=== PATIENT | male | born 1945 | race Caucasian/White ===

== ENCOUNTER → 2018-02-23 08:48 | Outpatient (BNVA) | payer MEDICARE, SELFPAY, MEDICAID | PROVIDERS: PCP Family Medicine; Visit Provider Urology | DX: C67.9 Malignant neoplasm of bladder, unspecified (principal) | CPT/HCPCS: 52000; 99213 ==

== ENCOUNTER 2018-02-23 12:39 | Outpatient (REF) | payer MEDICARE, SELFPAY, MEDICAID ==
--- NOTE | 2018-02-23 09:20 | PAPNONF_PTH ---
PATIENT: Noah Izquierdo Sr LOC: [facility] U#:[id number] AGE/SX: 72/M ROOM: RE02/23/[address]: Rai Garcia MD : 1945 BED: DIS: 02/23/2018 SPEC #: [id number] RECD: 02/23/18 13:21 STATUS: CLIVE REQ #: [id number] ASHLEY: 02/23/18 09:[address]: Rai Garcia DEPT: [facility] Cytology RECD BY: Radha Warren ENTERED: 02/23/18 13:22 SP TYPE: MAKENZIE DONATO DR: Noah Banegas MD Tissues: 1 - BODY FLUID CYTO(SPUTUM/URINE)[facility] Procedures: BODY FLUID CYTO(URINE/SPUTUM) Comments: [id number]
== END 2018-02-23 12:59 ==
LOC: LBN 12:39
PROVIDERS: PCP Family Medicine; Visit Provider Urology
DX: R82.8 Abnormal findings on cytological and histological examination of urine (principal); Z85.51 Personal history of malignant neoplasm of bladder
CPT/HCPCS: 88104

== ENCOUNTER → 2018-08-24 09:12 | Outpatient (BNVA) | payer MEDICARE, SELFPAY | PROVIDERS: PCP Family Medicine; Visit Provider Urology | DX: C68.9 Malignant neoplasm of urinary organ, unspecified (principal); D09.0 Carcinoma in situ of bladder | CPT/HCPCS: 52000; 99213 ==

== ENCOUNTER 2018-08-24 12:27 | Outpatient (REF) | payer MEDICARE, SELFPAY ==
--- NOTE | 2018-08-24 09:30 | PAPNONF_PTH ---
PATIENT: Noah Izquierdo Sr LOC: [facility] U#:[id number] AGE/SX: 73/M ROOM: RE08/24/[address]: Rai Garcia MD : 1945 BED: DIS: 08/24/2018 SPEC #: [id number] RECD: 08/24/18 12:56 STATUS: CLIVE REBrendon #: [id number] ASHLEY: 08/24/18 09:[address]: Rai Garcia DEPT: [facility] Cytology RECD BY: Radha Warren ENTERED: 08/24/18 12:56 SP TYPE: MAKENZIE DONATO DR: Noah Banegas MD Tissues: 1 - BODY FLUID CYTO(SPUTUM/URINE)[facility] Procedures: BODY FLUID CYTO(URINE/SPUTUM) Comments: [id number] (TOTAL VOLUME = 30 ml's() (30 ml's URINE & 30 ml's CYTOLYT ADDED)
== END 2018-08-24 12:47 ==
LOC: LBN 12:27
PROVIDERS: PCP Family Medicine; Visit Provider Urology
DX: C67.9 Malignant neoplasm of bladder, unspecified (principal); R82.8 Abnormal findings on cytological and histological examination of urine
CPT/HCPCS: 88104

== ENCOUNTER → 2019-09-09 12:03 | Outpatient (BNVA) | payer MEDICARE, SELFPAY | PROVIDERS: PCP Family Medicine; Referring Provider Family Medicine; Visit Provider Urology | DX: R30.0 Dysuria (principal); Z85.51 Personal history of malignant neoplasm of bladder | CPT/HCPCS: 81003; 99212 ==

== ENCOUNTER 2019-09-09 14:57 | Outpatient (REF) | payer MEDICARE, SELFPAY | END 2019-09-09 15:17 | LOC: LBN 14:57 | PROVIDERS: PCP Family Medicine; Visit Provider Urology | DX: R30.0 Dysuria (principal) | CPT/HCPCS: 87086 ==

== ENCOUNTER → 2019-10-15 10:24 | Outpatient (BNVA) | payer MEDICARE, SELFPAY | PROVIDERS: PCP Family Medicine; Visit Provider Urology | DX: C68.9 Malignant neoplasm of urinary organ, unspecified (principal); D09.0 Carcinoma in situ of bladder | CPT/HCPCS: 52000; 81003; 99213 ==

== ENCOUNTER 2019-10-15 12:55 | Outpatient (REF) | payer MEDICARE, SELFPAY ==
--- NOTE | 2019-10-15 10:30 | PAPNONF_PTH ---
PATIENT: Noah Izquierdo Sr LOC: [facility] U#:[id number] AGE/SX: 74/M ROOM: RE10/15/[address]: Rai Garcia MD : 1945 BED: DIS: 10/15/2019 SPEC #: [id number] RECD: 10/15/19 12:59 STATUS: CLIVE REBrendon #: [id number] ASHLEY: 10/15/19 10:[address]: Rai Garcia [facility] Cytology RECD BY: Lan Kline ENTERED: 10/15/19 13:00 SP TYPE: MAKENZIE DONATO DR: Noah Banegas MD Tissues: 1 - BODY FLUID CYTO(SPUTUM/URINE)[facility] Procedures: BODY FLUID CYTO(URINE/SPUTUM) Comments: [id number] TV = 40mls urine
== END 2019-10-15 13:15 ==
LOC: LBN 12:55
PROVIDERS: PCP Family Medicine; Visit Provider Urology
DX: D09.0 Carcinoma in situ of bladder (principal); R82.89 Other abnormal findings on cytological and histological examination of urine
CPT/HCPCS: 88104

== ENCOUNTER 2019-10-25 09:15 | Outpatient (CLI) | payer MEDICARE, SELFPAY ==
[2019-10-26 21:06] LABS: COVID-19 RT-PCR UVMMC Result Negative (Negative)
== END 2019-10-25 09:35 ==
PROVIDERS: PCP Family Medicine; Visit Provider Urology
DX: Z03.818 Encounter for observation for suspected exposure to other biological agents ruled out (principal)
CPT/HCPCS: U0003

== ENCOUNTER 2019-10-28 09:14 | Day surgery (SDC) | payer MEDICARE, SELFPAY ==
[2019-10-28] VITALS (9 sets, daily range): BP systolic 94–142; BP diastolic 45–73; PULSE 57–68; RESP 13–20; TEMP 36.3–36.7; O2SAT 89–96
[2019-10-28] MEDS: Lactated Ringers 1,000 ML 80 ML IV (09:55)
--- NOTE | 2019-10-28 10:29 | W.PM.HP.N ---
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 On surveillance cystoscopy, he was found to have erythematous mucosa throughout the bladder. He continues to have urinary frequency and urgency as well as dysuria. He presents now for bladder biopsy and fulguration to rule out recurrence of his carcinoma in situ. Review of Systems Narrative: No fevers or chills No vision change or dysphasia No diabetes or thyroid No shortness of breath, cough or hemoptysis No chest pain or palpitations No nausea, vomiting, hepatitis, ulcers, jaundice, diarrhea or constipation No seizures, strokes or peripheral neuropathy No bleeding disorders or anemia No gout PFSH Medical History (Updated 10/28/19 @ 09:38 by Shira Lopez) Hx of nephrolithotomy with removal of calculi (Acute) pt. unsure of procedure, states they went up and pulled the stones out with a basket Kidney stones (Chronic) Parkinson disease (Chronic) Surgical History Colonoscopy - IV Sedation (12/28/12) H/O cystoscopy (Acute) History of back surgery (Acute) Social History Smoking/Tobacco Use Status: Former Tobacco Use Quit Date: 06/16/99 Alcohol Intake: never Drug use: Never Substance use type: does not use Do you feel safe at home: Yes Do you feel safe in your relationship?: Yes Meds Home Medications and Allergies Home Medications Medication Instructions Recorded Confirmed Type mirabegron 25 mg tablet,extended 25 mg PO DAILY #90 tab 09/28/19 10/28/19 Rx release 24 hr Allergies Allergy/AdvReac Type Severity Reaction Status Date / Time No Known Allergies Allergy Verified 10/28/19 09:35 Exam Narrative Exam Narrative: He is in no current distress. He is cooperative. His vital signs are documented elsewhere His chest wall motion is normal. His lungs are clear. Cardiac exam shows a regular rate and rhythm. Abdomen is soft with no masses He is awake and alert Results Last Vital Signs Temp 36.3 C L 10/28/19 09:38 Pulse 61 10/28/19 09:38 Resp 16 10/28/19 09:38 BP 123/71 10/28/19 09:38 Pulse Ox 96 10/28/19 09:38 COVID-19 Screening Traveled to [place] from one of the affected countries or regions?: NO
[2019-10-28] MEDS: Midazolam/Ketamine/Ondansetron (3/25/2MG) 1 TAB 1 EACH SL (10:50)
[2019-10-28] MEDS: ceFAZolin 1 GM/50 ML BAG IVPB (10:53)
--- NOTE | 2019-10-28 11:00 | BLADDER_PTH ---
PATIENT: Noah Izquierdo Sr LOC: [facility] U#:[id number] AGE/SX: 74/M ROOM: RE10/28/[address]: Rai Garcia MD : 1945 BED: DIS: 10/28/2019 SPEC #: [id number] RECD: 10/28/19 11:57 STATUS: CLIVE REQ #: [id number] ASHLEY: 10/28/19 11:[address]: Rai Garcia DEPT: Surgical Specimen RECD BY: Radha Warren ENTERED: 10/28/19 11:58 SP TYPE: Bladder OTHR DR: Noah Banegas MD Tissues: 1 - BLADDER BIOPSY Procedures: GROSS AND MICRO LEVEL 4 Comments: [id number]
[2019-10-28] MEDS: Lidocaine 2% Jelly 6 ML SYR (11:13)
--- NOTE | 2019-10-28 11:32 | W.PM.DSUDISC ---
Discharge Plan Disposition Patient Disposition: HOME Condition: Stable Discharge Details Attending Provider: Rai Garcia Primary Care Provider: Noah Banegas Home Meds and New Rx's Prescriptions: New phenazopyridine [Pyridium] 200 mg tablet 200 mg PO TID PRN (Reason: pain) Qty: 12 RF: 0 ketorolac 10 mg tablet 10 mg PO TID PRN (Reason: pain) Qty: 15 RF: 0 No Action Myrbetriq 25 mg tablet extended release 24 hr 25 mg PO DAILY Qty: 90 RF: 4 Discharge Instructions Additional Instructions: Followup 1 week for pathology results Stand Alone Forms: [facility] ([facility]) Activity:: no lifting over 10 pounds for 3 days Shower/Bathe:: 24 hours Diet:: As Tolerated Discharge Orders Discharge Orders: Discharge Order (Routine); Ordered 10/28/19 Ordered By: Rai Garcia DS: Diagnosis Discharge Diagnosis (1) 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
[2019-10-28] MEDS: fentaNYL 100 MCG/2 ML VIAL IVP (12:13)
[2019-10-28] MEDS: Phenazopyridine 200 MG TAB PO (12:45)
[2019-10-28] MEDS: traMADol 50 MG TAB PO (12:48)
[2019-10-28] MEDS: Ketorolac 15 MG/ML VIAL IVP (14:00)
[2019-10-28] MEDS: Normal Saline Flush 10 ML SYR IV ×2 (14:00→14:01)
--- NOTE | 2019-10-28 14:02 | ROE_ITS ---
Date of service: 10/28/19 Time of Service: 14:02 Operative Note Operative Note DATE OF PROCEDURE: 10/28/19 PRE-OP DIAGNOSIS: Bladder cancer POST-OP DIAGNOSIS: same PROCEDURE: Cystoscopy, transurethral biopsy of bladder, fulguration of bladder mucosa SURGEON: Rai Garcia ANESTHESIA: other (General) ESTIMATED BLOOD LOSS: 100 PATHOLOGY: other (bladder tissue) COMPLICATIONS: None Patient was transported to: PACU Patient's condition: stable Indications: This is a 74-year-old gentleman who has a history of bladder cancer and carcinoma in situ. He has been treated with transurethral resection as well as intravesical BCG treatments. Recently, he has been having urinary frequency and dysuria. On surveillance cystoscopy, he was found to have multiple erythematous patches throughout the bladder. I did not identify any papillary or nodular tumors, but the erythema was concerning for carcinoma in situ. His urine cytology was normal. He presents now for transurethral biopsy of the erythematous mucosa Findings: Diffuse erythema Procedure Description: The patient was brought to the operating room on 10/28/2019. After successful induction of general anesthesia he was placed in the dorsal lithotomy position. He was given a dose of preoperative IV antibiotics. 2% Xylocaine jelly was instilled into the urethra to act as a local anesthetic. A 24 Kinyarwanda resectoscope sheath was then passed through the urethra into the bladder We used the visual obturator and 30 degree lens to inspect the urethra and bladder. The pendulous, bulbous and membranous urethra was appeared normal with no strictures. The prostatic urethra did show some lateral lobe enlargement but no significant median lobe. The bladder neck was entered and the bladder mucosa was inspected. There were multiple erythematous patches along the posterior bladder wall and left lateral bladder wall. Likewise, there was some erythema up towards the dome. The left ureteral orifice appeared more gaping than the right presumably from his previous resection site. We then switched over to the PinkelStar resectoscope and took TUR biopsies of some of the erythematous areas. These biopsies were sent to pathology for permanent section. We then cauterized all the remaining erythematous mucosa using the coagulation current. At the completion of the procedure, the bladder was filled with irrigant. The resectoscope was removed. A 16 Kinyarwanda Fay catheter was then passed through the urethra into the bladder. The catheter balloon was inflated with 10 cc of sterile water and the catheter was hooked to gravity drainage. The patient tolerated this procedure well. We will likely remove the catheter before he is discharged later today.
== END 2019-10-28 15:05 | disposition home or self-care (01) ==
PROVIDERS: PCP Family Medicine; Visit Provider Urology
PROC: 0TBB8ZZ Excision of Bladder, Via Natural or Artificial Opening Endoscopic (ICD-10-PCS; CPT 52214; principal; 2019-10-28 11:00)
PROC: 0TJB8ZZ Inspection of Bladder, Via Natural or Artificial Opening Endoscopic (ICD-10-PCS; CPT 52000; 2019-10-28 11:00)
DX: R30.0 Dysuria (principal); R35.0 Frequency of micturition; N30.00 Acute cystitis without hematuria; N30.20 Other chronic cystitis without hematuria; Z85.51 Personal history of malignant neoplasm of bladder; Z86.008 Personal history of in-situ neoplasm of other site
CPT/HCPCS: 52214; 88305; NC; J0690; J1885; J3010

== ENCOUNTER → 2019-11-05 13:03 | Outpatient (BNVA) | payer MEDICARE, SELFPAY | PROVIDERS: PCP Family Medicine; Referring Provider Family Medicine; Visit Provider Urology | DX: N30.90 Cystitis, unspecified without hematuria (principal); G20 Parkinson's disease | CPT/HCPCS: 99213 ==

== ENCOUNTER → 2019-11-17 09:24 | Outpatient (BNVA) | payer MEDICARE, SELFPAY | PROVIDERS: PCP Family Medicine; Referring Provider Urology; Visit Provider Psychiatry & Neurology Neurology | DX: C67.9 Malignant neoplasm of bladder, unspecified; G20 Parkinson's disease | CPT/HCPCS: 99205; 99215 ==

== ENCOUNTER 2019-11-19 02:31 | Outpatient (CLI) | payer MEDICARE, SELFPAY ==
--- NOTE | 2019-11-19 07:15 | DI.MRI_ITS ---
EXAM: MR BRAIN WO/W CLINICAL HISTORY: bladder ca and new tremors,R25.1,C67.9. TECHNIQUE: Multiplanar multisequence MRI was performed. COMPARISON: No exams were available for comparison FINDINGS: MR examination of brain was performed according to the usual protocol with additional post contrast a xial and coronal T1 weighted imaging multi planar MP rage imaging. No enhancing lesion identified in the brain. There are scattered signal abnormalities periventricular white matter consistent with microvascular i schemic changes, sub insular signal changes also noted bilaterally consistent with microvascular isch emic changes. Diffusion-weighted imaging shows no evidence of acute or subacute infarct. Susceptibility weighted imaging shows no evidence of intracranial hemorrhage. There is normal flow void in the uftgst-ii-Yslbnf vasculature. Orbital and temporal bone structures appear intact as does the pituitary. IMPRESSION: Microvascular ischemic changes predominantly involving periventricular white matter as described damir lassiter. No evidence of intracranial metastatic disease. DATA REPOSITORY:
[2019-11-19 09:58] LABS: CREATININE 1.25 mg/dL (0.70-1.30); Estimated GFR 56.62 (mL/min/1.73m2)
[2019-11-19] MEDS: Normal Saline Flush 10 ML SYR IVP (10:08)
[2019-11-19] MEDS: Gadoterate meglumine 20 ML VIAL 14 ML IVP (10:09)
== END 2019-11-19 02:51 ==
PROVIDERS: PCP Family Medicine; Visit Provider Psychiatry & Neurology Neurology
DX: C67.9 Malignant neoplasm of bladder, unspecified (principal); R25.1 Tremor, unspecified; I67.82 Cerebral ischemia; R90.82 White matter disease, unspecified
CPT/HCPCS: 70553; 82565

== ENCOUNTER 2020-01-05 14:04 | Emergency (ER) | payer MEDICARE, SELFPAY ==
[2020-01-05 14:12] VITALS: BP 125/76; PULSE 70; RESP 18; TEMP 37; O2SAT 95
--- NOTE | 2020-01-05 14:15 | DI.RAD_ITS ---
EXAM: XR FINGER RT INDEX CLINICAL HISTORY: pain, struck by lawnmower. TECHNIQUE: 2D digital imaging was performed. COMPARISON: No exams were available for comparison FINDINGS: BONES: No acute fracture is present. No bony destructive lesion is seen. There is a tiny well cortic ated osseous fragment at the ulnar aspect of the DIP joint which appears old. JOINTS: No dislocation present. Degenerative changes are seen at the DIP joint. SOFT TISSUE: There is a laceration in the soft tissues posterior to the proximal phalanx of the index finger. No radiopaque foreign bodies. IMPRESSION: No evidence of acute fracture, dislocation, or subluxation. DATA REPOSITORY: RADIATION DOSE DELIVERED:
--- NOTE | 2020-01-05 14:18 | W.ED.GENAD ---
Discharge Plan Disposition Patient Disposition: HOME Condition: Improving Discharge Details Chief Complaint: Laceration Clinical Impression: Laceration of right index finger Primary Care Provider: Noah Banegas ED Provider: Fawad Horowitz Home Meds and New Rx's Prescriptions: New cephalexin 500 mg capsule 500 mg PO TID 3 Days Qty: 9 RF: 0 Continued amantadine HCl 100 mg tablet 100 mg PO DAILY Qty: 30 RF: 5 hydroxyzine HCl 25 mg tablet 25 mg PO TID PRN (Reason: itching) Qty: 60 RF: 3 Myrbetriq 50 mg tablet extended release 24 hr 50 mg PO DAILY Qty: 90 RF: 3 Discharge Instructions Instructions: Finger Laceration (ED) Additional Instructions: Return in 10 days time for removal of sutures. Return sooner if you develop a fever, foul-smelling discharge from the wound or any other acute concerns. Take antibiotics as prescribed. May leave current Band-Aid in place for 2 days, then may do daily soap and water gentle cleanse, pat dry and replace Band-Aid. Medical Decision Making 74-year-old male who went to clean his lawnmower when it splayed had not yet stopped spinning. He was struck on the dorsum of the right hand and suffered a laceration at the base of the right index finger on the dorsal surface. When examined in a bloodless field there appears to be some abrasion of the extensor tendon but it is intact. Tetanus was boosted/updated. Patient referred for x-ray which does not reveal underlying bony injury. The area was anesthetized, liberally irrigated, cleansed, examined in a bloodless field. No evidence of foreign body. Repaired with interrupted Prolene sutures with good wound apposition and dressed at the bedside. Given the inherently dirty/contaminated wound and will place him on 3 days of Keflex. He stable and improved, he will return for suture removal. HPI General Mode of arrival: ambulatory. Date/Time Provider Initiated Documentation: 01/05/20 14:06. Limitations to Documentation: no limitations. Information obtained by: patient. History of Present Illness 74 year old M presents to the emergency department with the chief complaint of Right finger laceration, described as moderate, Quality is described as dull and constant, and is localized to the right and upper extremity. Patient reports no radiation. Patient started experiencing this minute(s) and it has been constant. No exacerbating factors reported . Patient notes other (No other injury). Patient did receive the following treatments prior to arrival, other (Pressure dressing at home) Related Data Home Medications Medication Instructions Recorded Confirmed hydroxyzine HCl 25 mg tablet 25 mg PO TID PRN #60 tab 11/05/19 01/05/20 amantadine HCl 100 mg tablet 100 mg PO DAILY #30 tab 11/17/19 01/05/20 mirabegron 50 mg tablet,extended 50 mg PO DAILY #90 tab 11/17/19 01/05/20 release 24 hr cephalexin 500 mg PO TID 3 Days #9 cap 01/05/20 Previous Rx's Medication Instructions Recorded hydroxyzine HCl 25 mg tablet 25 mg PO TID PRN #60 tab 11/05/19 amantadine HCl 100 mg tablet 100 mg PO DAILY #30 tab 11/17/19 mirabegron 50 mg tablet,extended 50 mg PO DAILY #90 tab 11/17/19 release 24 hr cephalexin 500 mg PO TID 3 Days #9 cap 01/05/20 Allergies Allergy/AdvReac Type Severity Reaction Status Date / Time No Known Allergies Allergy Verified 01/05/20 14:19 Review of Systems Narrative: Denies other injury. Unsure of tetanus status [facility] Medical History Bilateral kidney stones (Acute 07/08/16) Cystitis (Acute) History of carcinoma in situ of bladder (Chronic) Hx of nephrolithotomy with removal of calculi (Acute) pt. unsure of procedure, states they went up and pulled the stones out with a basket Urothelial carcinoma of bladder (Chronic) Family History Other Cancer Social History Smoking/Tobacco Use Status: Former Tobacco Use Quit Date: 06/16/99 Alcohol Intake: never Drug use: Never Substance use type: does not use Household members: spouse Housing: house current occupation: Retired Do you feel safe at home: Yes Do you feel safe in your relationship?: Yes Exam Narrative Exam Narrative: GEN: awake, alert, oriented 3. Pleasant, well groomed, interactive. HEAD: Normocephalic, atraumatic EXT: Full ROM, no edema, the dorsum of the right hand overlying the right carpal metacarpal junction of the index finger has a L-shaped macerated laceration. Patient is able to hold in full extension against resistance. Normal flexion. Normal distal sensation. Neuro: Grossly normal neurologic exam, conversant, interactive. Psych: Speech fluent, thoughts congruent, affect normal Procedures Laceration Laceration 1: Site: hand Side (If applicable): right Size (cm): 3.5 Description: flap Depth: involves tendon Local Anesthetic: Lidocaine 1% Pre-repair: wound explored and irrigated extensively Skin layer closed with: other (Prolene) Size (cm): 4-0 Number of sutures: 6
[2020-01-05] MEDS: Tetanus & Diphtheria Tox,ADULT 0.5 ML VIAL IM (15:21)
== END 2020-01-05 15:22 | disposition home or self-care (01) ==
PROVIDERS: Emergency Provider Emergency Medicine; PCP Family Medicine
DX: S61.210A Laceration without foreign body of right index finger without damage to nail, initial encounter (principal); S66.390A Other injury of extensor muscle, fascia and tendon of right index finger at wrist and hand level, initial encounter; W28.XXXA Contact with powered lawn mower, initial encounter
CPT/HCPCS: 12002; 90471; 73140

== ENCOUNTER → 2020-01-13 09:36 | Outpatient (BNVA) | payer MEDICARE, SELFPAY | PROVIDERS: PCP Family Medicine; Referring Provider Family Medicine; Visit Provider Psychiatry & Neurology Neurology | DX: G20 Parkinson's disease (principal) | CPT/HCPCS: 99213 ==

== ENCOUNTER → 2020-02-11 11:03 | Outpatient (BNVA) | payer MEDICARE, SELFPAY | PROVIDERS: PCP Nurse Practitioner; Referring Provider Nurse Practitioner; Visit Provider Urology | DX: R35.0 Frequency of micturition (principal); N39.0 Urinary tract infection, site not specified | CPT/HCPCS: 81003; 99213 ==

== ENCOUNTER 2020-02-11 14:08 | Outpatient (REF) | payer MEDICARE, SELFPAY | END 2020-02-11 14:28 | LOC: LBN 14:08 | PROVIDERS: PCP Nurse Practitioner; Visit Provider Urology | DX: N39.0 Urinary tract infection, site not specified (principal) | CPT/HCPCS: 87086 ==

== ENCOUNTER → 2020-02-15 08:06 | Outpatient (BNVA) | payer MEDICARE, SELFPAY | PROVIDERS: PCP Nurse Practitioner; Referring Provider Family Medicine; Visit Provider Psychiatry & Neurology Neurology | DX: G20 Parkinson's disease (principal); G25.0 Essential tremor; R41.3 Other amnesia | CPT/HCPCS: 99213 ==

== ENCOUNTER 2020-02-17 01:27 | Outpatient (CLI) | payer MEDICARE, SELFPAY ==
--- NOTE | 2020-02-17 07:30 | DI.CT_ITS ---
EXAM: CT ABDOMEN PELVIS WO CLINICAL HISTORY: check stone burden, xavi kidney stones, N20.0. TECHNIQUE: Imaging Protocol: Axial computed tomography images with coronal and sagittal reformatted images were created and reviewed. COMPARISON: CT RENAL COLIC WO CONTRAST from 06/13/2016 FINDINGS: ABDOMEN: Lung Bases: Scarring in the left lingula. Liver: Normal density. No measurable mass. Gallbladder and biliary tract: Cholelithiasis. No biliary ductal dilatation. Pancreas: Normal density, no abnormal calcifications or inflammatory process. Spleen: Splenomegaly. Kidneys: Normal size, contour and axis.Four obstructing stones are seen in the right kidney. The lar gest is in the lower pole and measures 1.4 cm. Several (greater than 10) nonobstructing stones are s een in the left kidney. The largest cluster is seen in the lower pole. The largest measures 1.4 cm. There do appear to be round hypodensities in each kidney suggesting renal cysts. The largest is in the superior pole of the left kidney. Circum aortic left renal vein. Adrenal glands: No mass is seen. Lymph nodes: Within normal limits. Abdominal Aorta: Abdominal portion non-dilated. Atherosclerosis. PELVIS: Bladder:Diffuse thickening of the wall of the urinary bladder with associated stranding. There is a tiny focus of air in the dependent portion of the urinary bladder which may represent recent catheter ization. Please correlate clinically. Two tiny calcifications are seen at the right UVJ which may r epresent recently passed stones. No significant hydronephrosis is identified. Bowel: No obstruction or bowel wall thickening. Appendix is unremarkable. Colonic diverticulosis wit hout evidence of acute diverticulitis. Peritoneal cavity: No ascites, collection or mesenteric inflammatory response Reproductive organs: Within normal limits. Bones: Degenerative changes. Unchanged sclerosis and ankylosis of the right SI joint. Soft Tissues: Bilateral fat containing inguinal hernias. IMPRESSION: 1. Bilateral nephrolithiasis. 2. Urinary bladder stones. 3. Diffuse thickening of the wall of the urinary bladder with surrounding soft tissue in stranding. This may represent an infectious or inflammatory cystitis 4. Cholelithiasis. RADIATION DOSE DELIVERED: 627.29mGy.cm Total DLP DATA REPOSITORY: All CT scans at this facility are submitted to the National Radiology Data Registry (NRDR) Dose Index Registry (DIR) with the [employer] ([employer]). RADIATION OPTIMIZATION: All CT scans at this facility use at least one of these dose optimization te chniques: automated exposure control; mA and/or kV adjustment per patient size (includes targeted exa ms where dose is matched to clinical indication); or iterative reconstruction.
== END 2020-02-17 01:47 ==
PROVIDERS: PCP Nurse Practitioner; Visit Provider Urology
DX: N20.0 Calculus of kidney (principal); N21.0 Calculus in bladder; K80.20 Calculus of gallbladder without cholecystitis without obstruction
CPT/HCPCS: 74176

== ENCOUNTER → 2020-03-02 07:47 | Outpatient (BNVA) | payer MEDICARE, SELFPAY | PROVIDERS: PCP Nurse Practitioner; Referring Provider Family Medicine; Visit Provider Urology | DX: N21.0 Calculus in bladder (principal); Z86.008 Personal history of in-situ neoplasm of other site | CPT/HCPCS: 99213 ==

== ENCOUNTER 2020-03-08 13:18 | Inpatient (IN) | payer MEDICARE, SELFPAY ==
[2020-03-08] VITALS (19 sets, daily range): BP systolic 88–115; BP diastolic 47–76; PULSE 79–117; RESP 16–34; TEMP 36.5–38.1; O2SAT 84–92
--- NOTE | 2020-03-08 13:45 | RT.EKG_ITS ---
APPROVED REPORT Exam: Resting ECG Patient Location: E HR:106 bpm ECG Measurements Heart Rate 106 AXIS NE 145 P 73 QRSd 106 QRS -26 QT 311 T 11 QTc 413 Conclusion Sinus tachycardia...rate> 99 Inferior infarct, old...Q >35mS, II III aVF
--- NOTE | 2020-03-08 13:45 | ED.GENADUL_ITS ---
Discharge Plan Disposition Patient Disposition: [facility] INPATIENT Condition: Stable Discharge Details Clinical Impression: Left lower lobe pneumonia Primary Care Provider: Miriam Serna ED Provider: Fawad Horowitz Home Meds and New Rx's Prescriptions: No Action amantadine HCl 100 mg tablet 100 mg PO BID Qty: 180 RF: 3 chlorpromazine 25 mg tablet 25 mg PO TID PRN (Reason: nausea and vomiting) Qty: 14 RF: 0 Myrbetriq 50 mg tablet extended release 24 hr 50 mg PO DAILY Qty: 90 RF: 3 sulfamethoxazole-trimethoprim 800-160 mg tablet 1 tab PO Q12H Qty: 14 RF: 0 Medical Decision Making 74-year-old male referred from [facility] after he presented there with 3 to 4 days of shortness of breath is worse with exertion & has been associated with a cough. States that similar to previous pneumonia. No known sick contacts or travel. Denies chest pain, weakness, or syncope. He arrives to the ER with a temp of 38.1, pulse is 113 he is 85% on room air with increased respiratory rate. He is in no significant distress. Differential diagnosis includes pneumonitis including viral process, bronchitis, focal lung consolidation. IV access established, patient referred for laboratory test including lactic acid and blood culture, coronavirus testing as well as chest x-ray and screening EKG. He is given a fluid bolus and acetaminophen. Diagnostics: Lactate 2.8, white blood cell count of 16.9, hematocrit 44, platelets 228. Left shift present. Sodium 132, potassium 4.1, BUN 51, creatinine 2.1. Consistent with acute renal insufficiency versus baseline. Troponin is negative. Chest x-ray reveals left base pneumonia. Patient is improving with supplemental oxygen and fluid resuscitation. He will require admission to the hospital for pneumonia with hypoxia. He was initially somewhat reticent to be admitted, but I explained his oxygen requirement as well as need for fluid resuscitation and the patient agreed to admission. HPI General Mode of arrival: ambulatory . Date/Time Provider Initiated Documentation: 03/08/20 13:19 . Limitations to Documentation: no limitations . Information obtained by: patient . History of Present Illness 74 year old M presents to the emergency department with the chief complaint of Shortness of breath, cough. Feels like previous pneumonia, described as moderate and similar to prior episodes, Quality is described as dull and constant, and is localized to the chest. Patient reports no radiation. Patient started experiencing this day(s) No relieving factors improve symptom(s), No exacerbating factors reported . Patient notes shortness of breath; denies chest pain. Patient did receive the following treatments prior to arrival, none Related Data Home Medications Medication Instructions Recorded Confirmed sulfamethoxazole 800 1 tab PO Q12H #14 tab 02/11/20 03/08/20 mg-trimethoprim 160 mg tablet amantadine HCl 100 mg tablet 100 mg PO BID #180 tab 02/15/20 03/08/20 mirabegron 50 mg tablet,extended 50 mg PO DAILY #90 tab 03/02/20 03/08/20 release 24 hr chlorpromazine 25 mg tablet 25 mg PO TID PRN #14 tab 03/07/20 03/08/20 Previous Rx's Medication Instructions Recorded sulfamethoxazole 800 1 tab PO Q12H #14 tab 02/11/20 mg-trimethoprim 160 mg tablet amantadine HCl 100 mg tablet 100 mg PO BID #180 tab 02/15/20 mirabegron 50 mg tablet,extended 50 mg PO DAILY #90 tab 03/02/20 release 24 hr chlorpromazine 25 mg tablet 25 mg PO TID PRN #14 tab 03/07/20 Allergies Allergy/AdvReac Type Severity Reaction Status Date / Time No Known Allergies Allergy Verified 03/08/20 13:36 General Stated Complaint: SOB [place]: 2 Review of Systems Narrative: Denies travel or known sick contacts. No chest pain. Shortness of breath is worse when exerting himself. [facility] Medical History Bilateral kidney stones (07/08/16) Cystitis History of carcinoma in situ of bladder Hx of nephrolithotomy with removal of calculi pt. unsure of procedure, states they went up and pulled the stones out with a basket Urothelial carcinoma of bladder Surgical History Colonoscopy - IV Sedation (12/28/12) H/O cystoscopy History of back surgery lumbar Family History Other Cancer Social History Smoking/Tobacco Use Status: Former Tobacco Use Quit Date: 06/16/99 Alcohol Intake: never Drug use: Never Substance use type: does not use Household members: spouse Housing: house current occupation: Retired Do you feel safe at home: Yes Do you feel safe in your relationship?: Yes Exam Narrative Exam Narrative: GEN: awake, alert, oriented 3. Pleasant, well groomed, interactive. HEAD: Normocephalic, atraumatic ENT: Mucous membranes moist, oropharynx unremarkable, External ear exam unremarkable EYES: PERRL, EOMI NECK: Full ROM, no ANUSHA, no menigismus CHEST/RESP: Nontender, diminished bilaterally CARDIOVASCULAR: Regular and tachycardic, no murmur, rub lisa. 2+ Rad pulse bilateral ABDOMEN: Soft, nontender, no mass. +Bowel sounds EXT: Full ROM, no edema, no rash Neuro: Grossly normal neurologic exam, conversant, interactive. Pill-rolling left upper extremity Psych: Speech fluent, thoughts congruent, affect normal Course Vital Signs Vital signs: Vital Signs Temperature 38.1 C H 03/08/20 13:33 Pulse 113 H 03/08/20 13:33 Respiratory Rate 31 H 03/08/20 13:33 Blood Pressure 108/54 L 03/08/20 13:33 Pulse Oximetry 85 L 03/08/20 13:33 Temperature 38.1 C H 03/08/20 13:33 Temperature Source Oral 03/08/20 13:33 Pulse 113 H 03/08/20 13:33 Respiratory Rate 31 H 03/08/20 13:33 Respiratory Effort 03/08/20 13:33 Blood Pressure 108/54 L 03/08/20 13:33 Pulse Oximetry 85 L 03/08/20 13:33 Oxygen Delivery Method Room Air 03/08/20 13:33 Oxygen Flow Rate 0 03/08/20 13:33 Pain Level 0 03/08/20 13:33
[2020-03-08] MEDS: Normal Saline 1,000 ML 1000 ML IV (14:04)
[2020-03-08 14:05] LABS: Lactate 2.8 mmol/L (0.6-1.4)
[2020-03-08 14:08] LABS: HCT 44.1 % (40.0-50.0); HGB 14.8 g/dL (13.5-17.5); MCH 29.2 pg (27.0-33.0); MCHC 33.6 % (32.0-36.0); MPV 10.8 fL (8.0-11.0); Nucleated RBC 0 %; Platelet Count 228 10^3/uL (130-400); RBC 5.07 10^6/uL (4.36-5.78); RDW 15.8 % (11.8-14.1); RDW-SD 49.9 fL; WBC 16.95 10^3/uL (4.4-10.8)
[2020-03-08] MEDS: Acetaminophen 325 MG TAB 650 MG PO (14:20)
[2020-03-08 14:24] LABS: ALT 22 U/L (16-63); AST 27 U/L (15-37); Alkaline Phosphatase 58 U/L (46-116); Anion Gap 11.4 mmol/L (3-11); BUN 51 mg/dL (7-18); Bilirubin, Total 1.5 mg/dL (0.2-1.0); CO2 22.6 mmol/L (21.0-32.0); CREATININE 2.16 mg/dL (0.70-1.30); Calcium 9.3 mg/dL (8.5-10.1); Chloride 98 mmol/L (98-107); Estimated GFR 30.12 (mL/min/1.73m2); Glucose 133 mg/dL (74-106); Magnesium 1.9 mg/dL (1.8-2.4); Potassium 4.1 mmol/L (3.5-5.1); Sodium 132 mmol/L (136-145); Total Protein 7.7 g/dL (6.4-8.2); Troponin I < 0.05 ng/mL (<0.06)
[2020-03-08 14:26] LABS: Absolute Lymphocyte Count 0.34 10^3/uL (1.2-3.4); Absolute Monocyte Count 0.51 10^3/uL (0.1-0.8); Bands % 15
[2020-03-08 14:27] LABS: Diff Comment Manual Differential; Poikilocytes 1+
--- NOTE | 2020-03-08 14:27 | DI.RAD_ITS ---
EXAM: XR PORTABLE CHEST AP CLINICAL HISTORY: fever, short of breath TECHNIQUE: 2D digital imaging was performed. COMPARISON: No exams were available for comparison FINDINGS: MEDIASTINUM: Normal. HEART: Normal. PULMONARY VASCULATURE: Normal. LUNGS: There is a left basilar infiltrate. PLEURAL SPACE: A small left pleural effusion is present. No pneumothorax or right pleural effusion. BONE:Within normal limits for the patient's age. OTHER FINDINGS:Normal. IMPRESSION: Left basilar infiltrate suspicious for pneumonia. Small left pleural effusion. DATA REPOSITORY: RADIATION DOSE DELIVERED:
[2020-03-08 15:09] LABS: Bilirubin Negative (Negative); Blood Large (Negative); Clarity Sl Cloudy (Clear); Glucose Negative (Negative); Ketones Negative (Negative); Leukocyte Esterase Small (Negative); Nitrite Negative (Negative); Specific Gravity 1.015 (1.005-1.025); Urobilinogen 0.2 EU/dL (Up TO 0.2)
[2020-03-08] MEDS: cefTRIAXone 1 GM/50 ML BAG IVPB (15:14)
[2020-03-08 15:18] LABS: C & S Indicated? Yes; RBC >50 HPF (0-2); WBC >50 HPF (0-5)
--- NOTE | 2020-03-08 15:26 | HPE_ITS ---
Date of service: 03/08/20 Time of Service: 15:26 Assessment and Plan Assessment and plan (1) Parkinson disease: Status: Chronic Assessment and plan: Tremor of both hands / Parkinsons. Cont amantadine. (2) CAP (community acquired pneumonia): Status: Acute Assessment and plan: Hypoxia. Supplemental O2 Rocephin initiated. Incentive spirometry. Previous smoker; quite 20 years ago. Monitor CBC Qualifiers: Laterality: left Lung location: lower lobe of lung Qualified Code(s): J18.9 - Pneumonia, unspecified organism History of Present Illness History of Present Illness Chief Complaint: SOA Narrative: This is a 74 yo male with a PMH of carcinoma in situ of the bladder and nephrolithiasis. He presented initially to [facility] c/o 3-4 days of worsening SOA. + cough. He states he believes he has pneumonia; fells like his previous bout of pneumonia. His temperature in the ED was 38.1, HR 113 RA O2 saturation of 85%. Lactate 2.8, WBC count of 16.9, Na 132, creatinine 2.1. No CP. He is a former smoker who quit on 06/16/1999. No alcohol use. Review of Systems All systems reviewed & are unremarkable except as noted in HPI and below PFSH Medical History (Updated 03/08/20 @ 15:42 by Se Garcia MD) Bilateral kidney stones (07/08/16) Cystitis History of carcinoma in situ of bladder Hx of nephrolithotomy with removal of calculi pt. unsure of procedure, states they went up and pulled the stones out with a basket Urothelial carcinoma of bladder Surgical History Colonoscopy - IV Sedation (12/28/12) H/O cystoscopy History of back surgery lumbar Family History Other Cancer Social History Smoking/Tobacco Use Status: Former Tobacco Use Quit Date: 06/16/99 Alcohol Intake: never Drug use: Never Substance use type: does not use Household members: spouse Housing: house current occupation: Retired Do you feel safe at home: Yes Do you feel safe in your relationship?: Yes Meds Home Medications and Allergies Home Medications Medication Instructions Recorded Confirmed Type sulfamethoxazole 800 1 tab PO Q12H #14 tab 02/11/20 03/08/20 Rx mg-trimethoprim 160 mg tablet amantadine HCl 100 mg tablet 100 mg PO BID #180 tab 02/15/20 03/08/20 Rx mirabegron 50 mg tablet,extended 50 mg PO DAILY #90 tab 03/02/20 03/08/20 Rx release 24 hr chlorpromazine 25 mg tablet 25 mg PO TID PRN #14 tab 03/07/20 03/08/20 Rx Allergies Allergy/AdvReac Type Severity Reaction Status Date / Time No Known Allergies Allergy Verified 03/08/20 13:36 Exam Const General: cooperative and no acute distress Nutritional Appearance: average body habitus Orientation: alert and oriented x3 Eyes Sclera: sclerae normal Pupils: PERRL Chest Chest: normal inspection of the chest and no localized rib tenderness Resp Effort & Inspection: normal respiratory effort and able to speak in complete sentences Auscultation: diminished lung sounds and rales bilaterally (L>R) at the base Cardio Rate: regular rate Rhythm: regular rhythm Heart Sounds: S1 normal and S2 normal GI Inspection: normal to inspection Palpation: soft and nontender Auscultation: normal bowel sounds Neuro General: patient alert and moves all extremities Speech: speech normal Motor: tremor bilateral upper extremity Extrem General: no clubbing, cyanosis or edema Psych Appearance: grossly normal Mental Status: mental status grossly normal Speech and Movement: speech and movement normal Affect: blunted Attitude: cooperative Results Labs Result diagrams: 03/08/20 13:45 03/08/20 13:45 Labs: Laboratory Results - last 24 hr 03/08/20 03/08/20 03/08/20 13:45 13:45 13:45 WBC 16.95 H RBC 5.07 Hgb 14.8 Hct 44.1 MCV 87.0 MCH 29.2 MCHC 33.6 RDW 15.8 H Plt Count 228 MPV 10.8 Immature Gran % 0.0 Neutrophils % 80.0 Band Neutrophils % 15 Lymphocytes % 2.0 Monocytes % 3.0 Eosinophils % 0.0 Basophils % 0.0 Nucleated RBC % 0 Absolute Neutrophils 16.10 H Absolute Lymphocytes 0.34 L Absolute Monocytes 0.51 Absolute Eosinophils 0.00 Absolute Basophils 0.00 RBC Morphology See below Poikilocytosis 1+ VBG Lactate 2.8 H* Sodium 132 L Potassium 4.1 Chloride 98 Carbon Dioxide 22.6 Anion Gap 11.4 H BUN 51 H Creatinine 2.16 H Estimated GFR/1.73 m2 30.12 Glucose 133 H Calcium 9.3 Magnesium 1.9 Total Bilirubin 1.5 H AST 27 ALT 22 Alkaline Phosphatase 58 Troponin I < 0.05 Total Protein 7.7 Albumin 3.0 L Urine Color Urine Clarity Urine pH Ur Specific [place] Urine Protein Urine Ketones Urine Blood Urine Nitrite Urine Bilirubin Urine Urobilinogen Ur Leukocyte Esterase Urine RBC Urine WBC Ur Epithelial Cells Urine Crystals Urine Bacteria Urine Mucus Ur Culture Indicated? Urine Glucose 03/08/20 03/08/20 14:55 16:44 WBC RBC Hgb Hct MCV MCH MCHC RDW Plt Count MPV Immature Gran % Neutrophils % Band Neutrophils % Lymphocytes % Monocytes % Eosinophils % Basophils % Nucleated RBC % Absolute Neutrophils Absolute Lymphocytes Absolute Monocytes Absolute Eosinophils Absolute Basophils RBC Morphology Poikilocytosis VBG Lactate Sodium Potassium Chloride Carbon Dioxide Anion Gap BUN Creatinine Estimated GFR/1.73 m2 Glucose Calcium Magnesium Total Bilirubin AST ALT Alkaline Phosphatase Troponin I Cancelled Total Protein Albumin Urine Color Yellow Urine Clarity Sl cloudy Urine pH 6.0 Ur Specific [place] 1.015 Urine Protein 30 H Urine Ketones Negative Urine Blood Large H Urine Nitrite Negative Urine Bilirubin Negative Urine Urobilinogen 0.2 Ur Leukocyte Esterase Small H Urine RBC >50 H Urine WBC >50 H Ur Epithelial Cells Not Applicable Urine Crystals Not Applicable Urine Bacteria Not Applicable Urine Mucus Not Applicable Ur Culture Indicated? Yes Urine Glucose Negative Last Vital Signs Temp 37.0 C 03/08/20 14:20 Pulse 98 H 03/08/20 14:30 Resp 26 H 03/08/20 14:31 BP 102/49 L 03/08/20 14:30 Pulse Ox 90 L 03/08/20 14:31 COVID-19 Screening Have you,or household,traveled outside [place] in last 14 days?: No Had IN PERSON contact w/suspected or confirmed C-19 person: No
[2020-03-08 18:39] LABS: Lactate 1.7 mmol/L (0.6-1.4)
[2020-03-08 19:07] LABS: Troponin I < 0.05 ng/mL (<0.06)
[2020-03-08] MEDS: Normal Saline 1,000 ML 150 ML IV (21:00)
[2020-03-09] MEDS: Normal Saline 1,000 ML 150 ML IV (03:25)
[2020-03-09 06:48] LABS: HCT 37.2 % (40.0-50.0); HGB 12.3 g/dL (13.5-17.5); MCH 28.7 pg (27.0-33.0); MCHC 33.1 % (32.0-36.0); MCV 86.9 fL (80-95); MPV 10.8 fL (8.0-11.0); Platelet Count 183 10^3/uL (130-400); RBC 4.28 10^6/uL (4.36-5.78); RDW 15.8 % (11.8-14.1); WBC 11.07 10^3/uL (4.4-10.8)
[2020-03-09 06:49] LABS: Nucleated RBC 0 %
[2020-03-09 07:11] LABS: ALT 16 U/L (16-63); AST 25 U/L (15-37); Albumin 2.2 g/dL (3.4-5.0); Alkaline Phosphatase 50 U/L (46-116); Anion Gap 6.8 mmol/L (3-11); BUN 36 mg/dL (7-18); CO2 24.2 mmol/L (21.0-32.0); CREATININE 1.34 mg/dL (0.70-1.30); Calcium 8.6 mg/dL (8.5-10.1); Chloride 107 mmol/L (98-107); Estimated GFR 52.25 (mL/min/1.73m2); Glucose 100 mg/dL (74-106); Potassium 3.8 mmol/L (3.5-5.1); Sodium 138 mmol/L (136-145); Total Protein 6.1 g/dL (6.4-8.2)
[2020-03-09 07:25] LABS: Absolute Eosinophil Count 0.11 10^3/uL (0.0-0.7); Absolute Lymphocyte Count 0.55 10^3/uL (1.2-3.4); Absolute Monocyte Count 0.33 10^3/uL (0.1-0.8); Absolute Neutrophil Count 10.07 10^3/uL (1.2-6.7); Bands % 10
[2020-03-09 07:26] LABS: Diff Comment Manual Differential; Poikilocytes 1+; Polychromasia Present
[2020-03-09 08:30] VITALS: BP 120/65; PULSE 72; RESP 22; TEMP 36.4; O2SAT 90
[2020-03-09] MEDS: Mirabegron 50 MG TABCR PO (08:33)
[2020-03-09 08:35] VITALS: O2SAT 90
[2020-03-09 08:35] LABS: COVID-19 RT-PCR UVMMC Result Negative (Negative)
--- NOTE | 2020-03-09 09:16 | DSE_ITS ---
Date of service: 03/09/20 Time of Service: 09:16 DS: Diagnosis Discharge Diagnosis (1) Parkinson disease: Start date: 03/09/20 Start time: :17 Status: Chronic Asessment and Plan: Continue Amantadine, follow up with neurology as scheduled. (2) CAP (community acquired pneumonia): Start date: 03/09/20 Start time: 09:17 Status: Acute Asessment and Plan: Patient insistent on going home. WBC improving. Will discharge home with augmentin x 7 days. IC. Follow up with PCP in 1 week Discharge Plan Disposition Patient Disposition: HOME Condition: Stable Discharge Details Reason For Visit: COMMUNITY ACQUIRED PNEUMONIA Admit Date/Time: 03/08/20 15:13 Admit Provider: Se Garcia Attending Provider: Se Garcia Primary Care Provider: [facility] Course Hospital Course: 74 y.o male with PMH cacinoma in situ of bladder. Presents to [facility] ED with 3/4 days of worsening SOB and cough. He felt he had pneumonia. Oxygen level in ED at time of admission 85%, placed on oxygen Former smoker. Lactate elevated at 2.8, WBC 16.9, Creatinine 2.1. Imaging showing Left basilar infiltrate suspicious for pneumonia. He was admitted for further management for pneumonia. Overnight he refused oxygen, refused medications. Today he is doing better. WBC improved. 90-91 O2 on RA. Creatinine improved. He wants to be discharged home. He is being discharged on augmentin and follow up with PCP in 1 week. He denies CP, SOB, N/V/d. Home Meds and New Rx's Prescriptions: New amoxicillin-pot clavulanate [Augmentin] 875-125 mg tablet 1 tab PO BID Qty: 14 RF: 0 Continued amantadine HCl 100 mg tablet 100 mg PO BID Qty: 180 RF: 3 chlorpromazine 25 mg tablet 25 mg PO TID PRN (Reason: nausea and vomiting) Qty: 14 RF: 0 Myrbetriq 50 mg tablet extended release 24 hr 50 mg PO DAILY Qty: 90 RF: 3 Discontinued sulfamethoxazole-trimethoprim 800-160 mg tablet 1 tab PO Q12H Qty: 14 RF: 0 Discharge Instructions Instructions: Community Acquired Pneumonia (DC) Additional Instructions: Take medication x 1 week Follow up with PCP in 1 week Activity:: Activity as Tolerated Equipment/Supplies:: No Equipment Needed Diet:: As Tolerated Discharge Orders Discharge Orders: Discharge Order (Routine); Ordered 03/09/20 Ordered By: Kerri Diggs DS: Summary Status at Discharge Functional status at discharge: independent ambulation Overall status at discharge: patient is back to baseline Mental Status: mental status grossly normal Speech and Movement: speech and movement normal Mood: congruent mood Affect: blunted Exam Const General: cooperative and no acute distress Nutritional Appearance: average body habitus Orientation: alert and oriented x3 Eyes Sclera: sclerae normal Pupils: PERRL Chest Chest: normal inspection of the chest and no localized rib tenderness Resp Effort & Inspection: normal respiratory effort and able to speak in complete sentences Auscultation: diminished lung sounds Cardio Rate: regular rate Rhythm: regular rhythm Heart Sounds: S1 normal and S2 normal GI Inspection: normal to inspection Palpation: soft and nontender Auscultation: normal bowel sounds Neuro General: patient alert and moves all extremities Speech: speech normal Motor: tremor Extrem General: no clubbing, cyanosis or edema Psych Appearance: grossly normal Mental Status: mental status grossly normal Speech and Movement: speech and movement normal Mood: congruent mood Affect: blunted Attitude: cooperative DS: Data Vitals/I&O Vitals and I&O: Vital Signs Temperature 36.7 C 03/08/20 23:55 Temperature Source Tympanic 03/08/20 23:55 Pulse 85 03/08/20 23:55 Pulse Rhythm Regular 03/09/20 08:54 Pulse 100 H 03/08/20 14:31 Respiratory Rate 18 03/08/20 23:55 Respiratory Effort Short of Breath 03/09/20 08:54 Respiratory Depth Normal 03/09/20 08:54 Respiratory Pattern Normal 03/09/20 08:54 Blood Pressure 105/61 03/08/20 23:55 Blood Pressure Mean 62 03/08/20 14:30 Pulse Oximetry 90 L 03/09/20 08:35 Oxygen Delivery Method Room Air 03/09/20 08:35 Oxygen Flow Rate 0 03/09/20 08:35 Pain Level 0 03/08/20 23:55 Comment 03/08/20 23:55 Intake & Output 03/08/20 03/08/20 03/09/20 11:59 23:59 11:59 Intake Total 240 / 240 950 / 950 Output Total 800 / 800 Balance 240 / 240 150 / 150 Weight 70.76 kg Intake: IV 950 / 950 Oral 240 / 240 Output: Urine 800 / 800 Other: Urine Color Yellow Urine Appearance Clear Clear Urine Odor None Comment pt voidind independently without any issues. Voiding Methods Toilet Data Completed and Pending Completed studies during hospitalization [Text1]: FINDINGS: MEDIASTINUM: Normal. HEART: Normal. PULMONARY VASCULATURE: Normal. LUNGS: There is a left basilar infiltrate. PLEURAL SPACE: A small left pleural effusion is present. No pneumothorax or right pleural effusion. BONE:Within normal limits for the patient's age. OTHER FINDINGS:Normal. IMPRESSION: Left basilar infiltrate suspicious for pneumonia. Small left pleural effusion. Labs on day of discharge: Labs from last 24 hours 03/09/20 03/09/20 03/08/20 06:15 06:15 18:20 WBC 11.07 H D RBC 4.28 L Hgb 12.3 L D Hct 37.2 L MCV 86.9 MCH 28.7 MCHC 33.1 RDW 15.8 H Plt Count 183 MPV 10.8 Immature Gran % 0.0 Neutrophils % 81.0 Band Neutrophils % 10 Lymphocytes % 5.0 Monocytes % 3.0 Eosinophils % 1.0 Basophils % 0.0 Nucleated RBC % 0 Absolute Neutrophils 10.07 H Absolute Lymphocytes 0.55 L Absolute Monocytes 0.33 Absolute Eosinophils 0.11 Absolute Basophils 0.00 RBC Morphology See below Polychromasia Present Poikilocytosis 1+ VBG Lactate Sodium 138 Potassium 3.8 Chloride 107 Carbon Dioxide 24.2 Anion Gap 6.8 BUN 36 H D Creatinine 1.34 H Estimated GFR/1.73 m2 52.25 Glucose 100 Calcium 8.6 Magnesium Total Bilirubin 1.0 AST 25 ALT 16 Alkaline Phosphatase 50 Troponin I < 0.05 Total Protein 6.1 L Albumin 2.2 L Urine Color Urine Clarity Urine pH Ur Specific [place] Urine Protein Urine Ketones Urine Blood Urine Nitrite Urine Bilirubin Urine Urobilinogen Ur Leukocyte Esterase Urine RBC Urine WBC Ur Epithelial Cells Urine Crystals Urine Bacteria Urine Mucus Ur Culture Indicated? Urine Glucose COVID-19 PCR Nasopharyn COVID-19 PCR Ref Test Perform Site 03/08/20 03/08/20 03/08/20 18:20 16:44 14:55 WBC RBC Hgb Hct MCV MCH MCHC RDW Plt Count MPV Immature Gran % Neutrophils % Band Neutrophils % Lymphocytes % Monocytes % Eosinophils % Basophils % Nucleated RBC % Absolute Neutrophils Absolute Lymphocytes Absolute Monocytes Absolute Eosinophils Absolute Basophils RBC Morphology Polychromasia Poikilocytosis VBG Lactate 1.7 H Sodium Potassium Chloride Carbon Dioxide Anion Gap BUN Creatinine Estimated GFR/1.73 m2 Glucose Calcium Magnesium Total Bilirubin AST ALT Alkaline Phosphatase Troponin I Cancelled Total Protein Albumin Urine Color Yellow Urine Clarity Sl cloudy Urine pH 6.0 Ur Specific [place] 1.015 Urine Protein 30 H Urine Ketones Negative Urine Blood Large H Urine Nitrite Negative Urine Bilirubin Negative Urine Urobilinogen 0.2 Ur Leukocyte Esterase Small H Urine RBC >50 H Urine WBC >50 H Ur Epithelial Cells Not Applicable Urine Crystals Not Applicable Urine Bacteria Not Applicable Urine Mucus Not Applicable Ur Culture Indicated? Yes Urine Glucose Negative COVID-19 PCR Nasopharyn COVID-19 PCR Ref Test Perform Site 03/08/20 03/08/20 03/08/20 13:45 13:45 13:45 WBC 16.95 H RBC 5.07 Hgb 14.8 Hct 44.1 MCV 87.0 MCH 29.2 MCHC 33.6 RDW 15.8 H Plt Count 228 MPV 10.8 Immature Gran % 0.0 Neutrophils % 80.0 Band Neutrophils % 15 Lymphocytes % 2.0 Monocytes % 3.0 Eosinophils % 0.0 Basophils % 0.0 Nucleated RBC % 0 Absolute Neutrophils 16.10 H Absolute Lymphocytes 0.34 L Absolute Monocytes 0.51 Absolute Eosinophils 0.00 Absolute Basophils 0.00 RBC Morphology See below Polychromasia Poikilocytosis 1+ VBG Lactate 2.8 H* Sodium Potassium Chloride Carbon Dioxide Anion Gap BUN Creatinine Estimated GFR/1.73 m2 Glucose Calcium Magnesium Total Bilirubin AST ALT Alkaline Phosphatase Troponin I Total Protein Albumin Urine Color Urine Clarity Urine pH Ur Specific [place] Urine Protein Urine Ketones Urine Blood Urine Nitrite Urine Bilirubin Urine Urobilinogen Ur Leukocyte Esterase Urine RBC Urine WBC Ur Epithelial Cells Urine Crystals Urine Bacteria Urine Mucus Ur Culture Indicated? Urine Glucose COVID-19 PCR Negative Nasopharyn COVID-19 PCR Not Applicable Ref Test [facility]/08/20 13:45 WBC RBC Hgb Hct MCV MCH MCHC RDW Plt Count MPV Immature Gran % Neutrophils % Band Neutrophils % Lymphocytes % Monocytes % Eosinophils % Basophils % Nucleated RBC % Absolute Neutrophils Absolute Lymphocytes Absolute Monocytes Absolute Eosinophils Absolute Basophils RBC Morphology Polychromasia Poikilocytosis VBG Lactate Sodium 132 L Potassium 4.1 Chloride 98 Carbon Dioxide 22.6 Anion Gap 11.4 H BUN 51 H Creatinine 2.16 H Estimated GFR/1.73 m2 30.12 Glucose 133 H Calcium 9.3 Magnesium 1.9 Total Bilirubin 1.5 H AST 27 ALT 22 Alkaline Phosphatase 58 Troponin I < 0.05 Total Protein 7.7 Albumin 3.0 L Urine Color Urine Clarity Urine pH Ur Specific [place] Urine Protein Urine Ketones Urine Blood Urine Nitrite Urine Bilirubin Urine Urobilinogen Ur Leukocyte Esterase Urine RBC Urine WBC Ur Epithelial Cells Urine Crystals Urine Bacteria Urine Mucus Ur Culture Indicated? Urine Glucose COVID-19 PCR Nasopharyn COVID-19 PCR Ref Test Perform Site 03/08/20 14:55 Urine - Reflex from Urine Culture - Pending 03/08/20 14:22 Blood Blood Culture - Pending 03/08/20 13:45 Blood Blood Culture - Pending Preliminary micro results at discharge 03/08/20 14:55 Urine Culture - Pending Urine - Reflex from 03/08/20 14:22 Blood Culture - Pending Blood 03/08/20 13:45 Blood Culture - Pending Blood [facility] Medical History Bilateral kidney stones (07/08/16) Cystitis History of carcinoma in situ of bladder Hx of nephrolithotomy with removal of calculi pt. unsure of procedure, states they went up and pulled the stones out with a basket Urothelial carcinoma of bladder Surgical History Colonoscopy - IV Sedation (12/28/12) H/O cystoscopy History of back surgery lumbar Family History Other Cancer Social History Smoking/Tobacco Use Status: Former Tobacco Use Quit Date: 06/16/99 Alcohol Intake: never Drug use: Never Substance use type: does not use Household members: spouse Housing: house current occupation: Retired Do you feel safe at home: Yes Do you feel safe in your relationship?: Yes
== END 2020-03-09 11:25 | disposition home or self-care (01) | DRG 195 ==
LOC: ER 15:22 → MS 16:07
PROVIDERS: Nurse Practitioner Acute Care; Admitting Provider Family Medicine; Emergency Provider Emergency Medicine; PCP Nurse Practitioner; Visit Provider Family Medicine
DX: J18.9 Pneumonia, unspecified organism (principal); G20 Parkinson's disease; Z87.891 Personal history of nicotine dependence; Z85.51 Personal history of malignant neoplasm of bladder
CPT/HCPCS: 36415; 80053; 87040; 90686; 93005; 96361; 96365; 99222; 99239; 99285; U0003; 71045; 81003; 81015; 83605; 83735; 84484; 85025; 87086; 93010; 94667; J0696

== ENCOUNTER → 2020-03-21 09:49 | Outpatient (BNVA) | payer MEDICARE, SELFPAY | PROVIDERS: PCP Nurse Practitioner; Referring Provider Nurse Practitioner; Visit Provider Psychiatry & Neurology Neurology | DX: G20 Parkinson's disease (principal); G25.0 Essential tremor; R41.3 Other amnesia | CPT/HCPCS: 99213 ==

== ENCOUNTER → 2020-04-18 09:12 | Outpatient (BNVA) | payer MEDICARE, SELFPAY | PROVIDERS: PCP Nurse Practitioner; Referring Provider Nurse Practitioner; Visit Provider Surgery | DX: K40.90 Unilateral inguinal hernia, without obstruction or gangrene, not specified as recurrent (principal); R35.1 Nocturia | CPT/HCPCS: 99202; 99213 ==

== ENCOUNTER 2020-05-10 02:01 | Outpatient (CLI) | payer MEDICARE, SELFPAY ==
[2020-05-11 15:14] LABS: SARS-CoV-2 RNA Not Detected (NotDetected); SARS-CoV-2 RNA Source Nasal/Nares
== END 2020-05-10 02:21 ==
PROVIDERS: PCP Nurse Practitioner; Visit Provider Urology
DX: Z11.59 Encounter for screening for other viral diseases (principal); Z01.818 Encounter for other preprocedural examination
CPT/HCPCS: U0003

== ENCOUNTER 2020-05-15 09:21 | Day surgery (SDC) | payer MEDICARE, SELFPAY ==
[2020-05-15] VITALS (8 sets, daily range): BP systolic 98–151; BP diastolic 41–62; PULSE 50–63; RESP 14–22; TEMP 36–36.5; O2SAT 92–99
--- NOTE | 2020-05-15 07:07 | ROE_ITS ---
Date of service: 05/15/20 Time of Service: 14:09 Operative Note Operative Note DATE OF PROCEDURE: 05/15/20 PRE-OP DIAGNOSIS: Right inguinal hernia POST-OP DIAGNOSIS: same (Direct and Indirect inguinal hernia) PROCEDURE: Right inguinal hernia repair with mesh SURGEON: Radha Owens ENTERPRISE MOBILITY ARCHITECT: Eber Torres ANESTHESIA: GETA (ASA 2/ Kathleen Swan CRNA), regional and local (15 cc of Exparel and 10 cc of 0.25% Bupivocaine mixed 50/50) ESTIMATED BLOOD LOSS: 15 PATHOLOGY: none sent Patient was transported to: PACU Patient's condition: stable Implants: BARD MESH LOT- [id number] REF- [id number] 2024-08-13 Indications: Mr. Izquierdo is a pleasant 75-year-old gentleman who was lifting a snowplow a few weeks ago felt a pop in the right inguinal area followed by a bulge. He is able to push it back in without any difficulty. He does have recurrence of the bulge when he is straining, walking upstairs coughing or lifting anything. He has abstained from lifting at this point. He is already scheduled for a urological procedure on May 15. I have discussed with Dr. Garcia adding hernia repair after he is done. He is okay with this. Patient is already scheduled to have a Covid test done by Dr. Garcia. I described the procedure using an informational booklet with Mr. Izquierdo. We went over the anatomy, risks, benefits and alternatives. P\\ RIH repair with mesh COVID testing prior Risks, benefits and complications have been reviewed. Complications include but are not limited to bleeding, infection, injury to vas, vessels and nerves, injury to bowel and adverse reaction to medications. Questions were entertained and answered to their satisfaction and they wished to proceed. Findings: Small indirect hernia and indirect hernia Procedure Description: After informed concent was obtained the patient was taken to the operating room and placed in a supine position. Monitors and SCDs were applied and a timeout was done. Patient underwent a cystoscopy first with Dr. Garcia. Once he was done the patient's lower extremities were taken out of the stirrups and placed on the bed. The right inguinal area was clipped. The patient's name, date of , procedure type, procedure site, allergies to medications, preoperative antibiotic, and DVT prophylaxis were all reviewed. Fire risk was assessed. Next anesthesia did a tap block on the right side under ultrasound guidance. Please see their separate dictation. Once anesthesia was done the abdomen was prepped and draped in a sterile surgical fashion. The above anesthetic was injected into the dermis in the right lower quadrant. An incision was made with a 10 blade in the right lower quadrant. Dissection was done with cautery through the subcutaneous tissues and Gladys's fascia down to the external oblique fascia. The external ring was identified and the external oblique fascia was opened sharply through the external ring. The cut fascia was grasped with hemostats the cord structures were identified and a David drain was placed around them. The ilioinguinal nerve was dissected out and cut. The cremasteric muscle was dissected away from the cord structures using both cautery and blunt dissection. A small indirect hernia was identified as well as a direct hernia. A 6 x 6 piece of mesh was then cut in half. One half was cut in thirds. A small plug was created. The plug was placed into the indirect hernia defect. The second half of the mesh was cut to size and attached to the arcuate ligament using a 2-0 Prolene double armed suture. The mesh was secured laterally and medially with a 2-0 Prolene, with a running suture. The tails of the mesh were wrapped around the cord structures effectively cinching down the internal ring. Once the mesh was secured the tissues were irrigated with some normal saline. No bleeding was identified. The external oblique fascia was re-approximated using 2-0 Vicryl running suture. The Gladys's fascia was re-approximated using interrupted 3-0 Vicryl. The dermis was re-approximated with a running 4-0 Vicryl. The skin was cleaned and dried and skin affix was applied. The patient was woken up and taken back to recovery in stable condition. There were no immediate complications. Sponge, instrument and needle counts were correct at the end of the case x2.
--- NOTE | 2020-05-15 07:09 | PDOC.DSDIS_ITS ---
Discharge Plan Disposition Patient Disposition: HOME Condition: Good Discharge Details Reason For Visit: right inguinal hernia repair Attending Provider: Rai Garcia Primary Care Provider: Miriam Serna Home Meds and New Rx's Prescriptions: New acetaminophen [Tylenol] 325 mg capsule 650 mg PO Q6H PRNQty: 30 RF: 0 ibuprofen 400 mg tablet 400 mg PO Q6H PRN (Reason: pain) Qty: 30 RF: 0 tramadol [Ultram] 50 mg tablet 50 mg PO Q6H PRN (Reason: pain) Qty: 14 RF: 0 Continued amantadine HCl 100 mg tablet 100 mg PO BID Qty: 180 RF: 3 Myrbetriq 50 mg tablet extended release 24 hr 50 mg PO DAILY Qty: 90 RF: 3 Discharge Instructions Additional Instructions: Followup appt with Jose @ 1 to 2 weeks for pathology review Activity at Home after surgery: 1. Make sure you walk outside at least 4 times per day 2. You should be able to climb a flight of stairs 3. No driving while in pain or taking pain medications 4. No strenuous activity or heavy lifting for 4 weeks (open surgery) Diet, Nutrition, & wound healin. Avoid alcohol until after you are recovered from your surgery 2. Make sure to eat plenty of lean protein (meat, fish, eggs, cottage cheese, beans) 3. Eat a variety of fruits and vegetables. Eat plenty of high fiber foods to avoid constipation. 4. Drink plenty of liquids to stay hydrated and avoid constipation Pain Medications: 1. Alternate Tylenol 650 mg and Ibuprofen 600 mg every 3 hours 2. If a narcotic has been prescribed take as directed only for breakthrough pain For Constipation: 1. Take Milk of Magnesia or MiraLax as needed for constipation Other: 1. You may shower daily. Do not scrub the incisions 2. Do not soak the incisions for 1 week 3. You may alternate ice and heat as needed for pain and swelling Wound Care: 1. Keep the incisions clean and dry Please call our office if you develop: 1. Fevers >101.5 2. Nausea or Vomiting 3. Worsening pain 4. Redness and thick discharge from the wounds If after hours please call the Hospital at and ask to speak to the on-call surgeon Stand Alone Forms: [facility] ([facility]) Referrals: Radha Owens MD [ [facility] STAFF PHYSICIAN] - 05/30/20 10:00 am Activity:: No lifting >20 lb x 4 weeks Diet:: As Tolerated Discharge Orders Discharge Orders: Discharge Order (Routine); Ordered 05/15/20 Ordered By: Radha Owens
--- NOTE | 2020-05-15 07:32 | HPE_ITS ---
Date of service: 05/15/20 Time of Service: 10:59 Assessment and Plan Assessment and plan (1) Bladder stone: Status: Acute Assessment and plan: For cystoscopy with evacuation of bladder stones. If we identify any abnormal urothelium, we will either do a transurethral resection or biopsy and fulguration. 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 He has been treated with transurethral resections along with intravesical chemotherapy. He has urinary frequency, urgency and incontinence. He has had microscopic hematuria. He was evaluated with a noncontrast CT which demonstrated bilateral nonobstructing kidney stones and small stones within the bladder. He presents for cystoscopy with bladder stone evacuation as well as possible transurethral resection/bladder biopsy if any tumor is identified. He has not had any recent gross hematuria or clots in the urine. Review of Systems Narrative: No fevers or chills No vision change or dysphasia No diabetes or thyroid dysfunction No shortness of breath, cough or hemoptysis No chest pain or palpitations No nausea, vomiting, hepatitis, ulcers, jaundice, diarrhea or constipation Tremor related to Parkinsons No bleeding disorders or anemia No gout PFSH Medical History Bilateral kidney stones (07/08/16) History of carcinoma in situ of bladder Hx of nephrolithotomy with removal of calculi pt. unsure of procedure, states they went up and pulled the stones out with a basket Urothelial carcinoma of bladder Surgical History Colonoscopy - IV Sedation (12/28/12) H/O cystoscopy History of back surgery lumbar Family History Other Cancer Social History Smoking/Tobacco Use Status: Former Tobacco Use Smoking risk assessment performed?: Yes Alcohol Intake: never Drug use: Never Substance use type: does not use Household members: spouse Housing: house current occupation: Retired Do you feel safe at home: Yes Do you feel safe in your relationship?: Yes Meds Home Medications and Allergies Home Medications Medication Instructions Recorded Confirmed Type amantadine HCl 100 mg tablet 100 mg PO BID #180 tab 02/15/20 05/15/20 Rx mirabegron 50 mg tablet,extended 50 mg PO DAILY #90 tab 03/02/20 05/15/20 Rx release 24 hr Allergies Allergy/AdvReac Type Severity Reaction Status Date / Time No Known Allergies Allergy Verified 05/15/20 09:37 Exam Narrative Exam Narrative: I reviewed his CT scan on the PACS system. He has large nonobstructing bilateral renal stones. There are also two small stones in the bladder near the right UVJ, but no hydroureter. Const General: cooperative and comfortable Neck Neck: supple Resp Effort & Inspection: normal respiratory effort Auscultation: clear to auscultation bilaterally Cardio Rate: regular rate Rhythm: regular rhythm GI Palpation: soft and other Other: right inguinal hernia Neuro General: patient alert, patient awake and patient oriented x3 Motor: tremor COVID-19 Screening Have you, or household traveled for leisure in last 14 days?: No Had IN PERSON contact w/suspected or confirmed C-19 person: No
[2020-05-15] MEDS: Lactated Ringers 1,000 ML 80 ML IV ×2 (09:58→10:31)
[2020-05-15] MEDS: Celecoxib 200 MG CAP PO (10:28)
[2020-05-15] MEDS: Acetaminophen 500 MG TAB 1000 MG PO (10:30)
[2020-05-15] MEDS: ceFAZolin 2 GM/50 ML BAG IVPB (11:23)
[2020-05-15] MEDS: Lidocaine 2% Jelly 6 ML SYR (11:33)
--- NOTE | 2020-05-15 12:10 | BLADDER_PTH ---
PATIENT: Noah Izquierdo Sr LOC: [facility] U#:[id number] AGE/SX: 75/M ROOM: RE05/15/[address]: Rai Garcia MD : 1945 BED: DIS: 05/15/2020 SPEC #: [id number] RECD: 05/15/20 18:25 STATUS: CLIVE REQ #: [id number] ASHLEY: 05/15/20 12:[address]: Rai Garcia DEPT: Surgical Specimen RECD BY: Radha Warren ENTERED: 05/15/20 18:25 SP TYPE: Bladder OTHR DR: Miriam Serna, PhD FLIGHT COMMUNICATIONS OPERATOR Tissues: 1 - BLADDER BIOPSY Procedures: GROSS AND MICRO LEVEL 4 Comments: [id number]
--- NOTE | 2020-05-15 12:16 | PDOC.DSDIS_ITS ---
Discharge Plan Disposition Patient Disposition: HOME Condition: Good Discharge Details Reason For Visit: right inguinal hernia repair Attending Provider: Rai Garcia Primary Care Provider: Miriam Serna Home Meds and New Rx's Prescriptions: Continued amantadine HCl 100 mg tablet 100 mg PO BID Qty: 180 RF: 3 Myrbetriq 50 mg tablet extended release 24 hr 50 mg PO DAILY Qty: 90 RF: 3 Discharge Instructions Additional Instructions: Followup appt with Jose @ 1 to 2 weeks for pathology review Activity at Home after surgery: 1. Make sure you walk outside at least 4 times per day 2. You should be able to climb a flight of stairs 3. No driving while in pain or taking pain medications 4. No strenuous activity or heavy lifting for 4 weeks (open surgery) Diet, Nutrition, & wound healin. Avoid alcohol until after you are recovered from your surgery 2. Make sure to eat plenty of lean protein (meat, fish, eggs, cottage cheese, beans) 3. Eat a variety of fruits and vegetables. Eat plenty of high fiber foods to avoid constipation. 4. Drink plenty of liquids to stay hydrated and avoid constipation Pain Medications: 1. Alternate Tylenol 1000 mg and Ibuprofen 600 mg every 3 hours 2. If a narcotic has been prescribed take as directed only for breakthrough pain For Constipation: 1. Take Milk of Magnesia or MiraLax as needed for constipation Other: 1. You may shower daily. Do not scrub the incisions 2. Do not soak the incisions for 1 week 3. You may alternate ice and heat as needed for pain and swelling Wound Care: 1. Keep the incisions clean and dry Please call our office if you develop: 1. Fevers >101.5 2. Nausea or Vomiting 3. Worsening pain 4. 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
[2020-05-15] MEDS: Bupivacaine 0.25% Pres-Free 30 ML VIAL ×2 (12:21→13:24)
[2020-05-15] MEDS: Bupivacaine LIPOSOME/PF 133 MG/10 ML VIAL IJ ×2 (12:21→13:24)
--- NOTE | 2020-05-15 12:25 | W.PM.OP ---
Date of service: 05/15/20 Time of Service: 12:25 Operative Note Operative Note DATE OF PROCEDURE: 05/15/20 PRE-OP DIAGNOSIS: 1. Bladder stones 2. History of bladder cancer POST-OP DIAGNOSIS: same PROCEDURE: Cystoscopy, transurethral resection of bladder SURGEON: Rai Garcia ANESTHESIA: RODNEY ESTIMATED BLOOD LOSS: 50 PATHOLOGY: other (Bladder biopsies) Patient was transported to: PACU Patient's condition: stable Indications: Is is a 75-year-old gentleman who has a past history of urothelial cell carcinoma bladder carcinoma in situ. He has had worsening urinary frequency and. On CT scan, he was found to have 2 small stones in the bladder as well and has multiple large nonobstructing stones in both kidneys. Presents now for cystoscopy with evacuation of bladder stones and possible transurethral resection of any visible tumor Findings: Calcifications adherent to the erythematous bladder mucosa Procedure Description: Patient was brought 3025. Still establish successful inspection without inguinal anesthesia, placement dorsolithotomy position. His genitalia is prepped and draped. He was given preoperative IV's. 2% Xylocaine Jelly was instilled into the urethra to act as a local anesthetic. A 22 Cameroonian rigid cystoscope was then passed through the urethra into the bladder. Urethra and bladder were inspected with a 30 degree lens. The pendulous, bulbous and membranous urethra was all appeared normal with no strictures. The prostatic urethra showed some lateral lobe enlargement but no papillary or nodular lesions through the urethra. Bladder neck was entered and the bladder mucosa was inspected. Multiple erythematous patches of mucosa were identified within the bladder. 2 adherent calcifications were identified on one of the erythematous patches. No specific papillary or nodular lesions were seen. We removed the cystoscope and passed a 24 Cam[place]onian resectoscope sheath. The erythematous areas were resected using an [employer] resectoscope. The first patch was torn beneath the right ureterovesical junction. A second erythematous patch toward the right lateral wall of the bladder was resected as well. We then utilized a ball electrode to cauterize the resected sites. The resected tissue was evacuated and sent to pathology for permanent section. The bladder filled with irrigant. The resectoscope was removed. A 16 Cameroonian Fay catheter was passed through the urethra into the bladder. The catheter balloon was inflated with 10 cc of sterile water. The catheter was hooked to gravity drainage. The patient was then repositioned and a right inguinal hernia repair was performed.
[2020-05-15] MEDS: Phenazopyridine 200 MG TAB (14:50)
== END 2020-05-15 16:00 | disposition home or self-care (01) ==
LOC: SUR 09:21
PROVIDERS: Surgery; PCP Nurse Practitioner; Visit Provider Urology
PROC: (CPT 52224; principal; 2020-05-15 10:45)
PROC: (CPT 49505; 2020-05-15 10:45)
DX: N21.0 Calculus in bladder (principal); K40.90 Unilateral inguinal hernia, without obstruction or gangrene, not specified as recurrent; Z85.51 Personal history of malignant neoplasm of bladder; R31.29 Other microscopic hematuria
CPT/HCPCS: 49505; 52224; 76942; 88305; NC; C1781; J0690; J1100; J1885; J2001; J2250; J2405

== ENCOUNTER → 2020-05-16 11:40 | Outpatient (BNVA) | payer MEDICARE, SELFPAY | PROVIDERS: PCP Nurse Practitioner; Referring Provider Nurse Practitioner; Visit Provider Urology | DX: Z46.6 Encounter for fitting and adjustment of urinary device (principal) | CPT/HCPCS: 99211 ==

== ENCOUNTER 2020-05-17 17:52 | Emergency (ER) | payer MEDICARE, SELFPAY ==
[2020-05-17 17:57] VITALS: BP 132/89; PULSE 82; RESP 18; TEMP 36.5; O2SAT 95
--- NOTE | 2020-05-17 18:27 | ED.GENADUL_ITS ---
Discharge Plan Disposition Patient Disposition: HOME Condition: Fair Discharge Details Clinical Impression: FORTINO (acute kidney injury), Acute dehydration, Hematuria Primary Care Provider: Miriam Serna ED Provider: Lexus Montaño Home Meds and New Rx's Prescriptions: Continued amantadine HCl 100 mg tablet 100 mg PO BID Qty: 180 RF: 3 Myrbetriq 50 mg tablet extended release 24 hr 50 mg PO DAILY Qty: 90 RF: 3 acetaminophen [Tylenol] 325 mg capsule 650 mg PO Q6H PRNQty: 30 RF: 0 ibuprofen 400 mg tablet 400 mg PO Q6H PRN (Reason: pain) Qty: 30 RF: 0 tramadol [Ultram] 50 mg tablet 50 mg PO Q6H PRN (Reason: pain) Qty: 14 RF: 0 Discharge Instructions Instructions: Dehydration (ED) Additional Instructions: You are noted to be quite dehydrated while here with evidence of acute kidney injury, likely associated dehydration. You have declined admission. While at home, I would like for you to encourage water intake. Please call Dr. Garcia's office tomorrow to schedule follow-up appointment soon as possible. If you are unable to see Dr. Garcia within the next 2 days, please follow-up with your primary care. You should have your kidney function checked in the next 24 to 48 hours. If you develop back pain, difficulty urinating, fevers or other new/worsening symptoms please seek care urgently once again. Referrals: Rai Garcia MD [ [facility] STAFF PHYSICIAN] - Miriam Serna NP [Primary Care Provider] - Medical Decision Making Patient pleasant 75-year-old gentleman with past medical history significant for nephrolithiasis, carcinoma in situ of bladder, urothelial carcinoma of bladder. Patient underwent surgical intervention [address] Garcia at time he underwent cystoscopy with transurethral resection of bladder. Patient also had a right inguinal hernia repair. He states initially he was feeling quite well. However, last night he felt like there was a large clot that was causing some discomfort with urination. An attempt to not have discussed this, he p.o. fluids as he was noted to urinate. He now comes in today with difficulty urinating. He is denying any fevers or chills. He is not having any new abdominal pain. He does report that he had a small amount of discomfort near the inguinal incision but he feels that this is baseline in the postoperative state. He denies any change in his appetite but again, has cut back drastically on fluids. Denies any change in bowel habit. Last urinated last night. On exam, patient appears nontoxic. His vital signs are stable. He has a inguinal incision appears to be healing quite well. He does have some ecchymosis to his penis and left testicle. No discharge or blood is noted. he has no CVA tenderness. He has some mild pressure with palpation over the lower aspect of his abdomen but no appreciable mass, pulse with a dickson, peritoneal findings. Patient I discussed treatment options. Initially, I recommended hydration, lab and Fay. However, the patient would prefer to hold off on this and move more slowly. He would like to first start with p.o. hydration attempts to urinate on his own. Spoke with the patient's son, Sabas [phone]. Patient did give consent to speak with his father about his current situation. Patient's attempt at p.o. hydration was unsuccessful and he does continue to feel the need to void and is unable to pass any urine. No significant amount of urine was noted on ultrasound. However, I am concerned that this may be misleading. Reticulations the patient reports he has not urinated since yesterd ay, I am concerned that he has a large amount of retained urine and feel that Fay would be appropriate. We will place a three-way Fay in the event that irrigation would be appropriate. Patient continues to request moving slowly in regards to further intervention, will hold off on IV and labs at this point. Patient is now agreeable. IV obtained, will begin hydration. Labs sent. Catheter specimen nursing staff.-40 cc of pink, blood-tinged urine was obtained. No blood clots are noted. We did flush this to see if any blood clots were obtained and none were. We will stop this and continue to monitor urine output. Patient does report feeling improved. Labs reviewed. Patient has leukocytosis a white count of 12.4. Sodium 132. Patient has evidence of acute kidney injury with a creatinine of 3.00. BUN of 33. Patient's creatinine is typically around 1.3. Urine shows RBCs, small amount of leukocyte esterase. Has been sent for culture. However, we will hold off at this time for empiric treatment for UTI as the symptoms are not consistent with this in her, more likely associated with him refusing to drink any fluids. Fay was removed, patient feels very comfortable. Patient is requesting discharge. He is amenable to receiving a liter of IV fluids and rechecking BMP to ensure downtrending creatinine. He is eating and drinking in the department and reports he is feeling quite well at this time. BMP shows slight improvement of his creatinine to 2.7 and BUN 31. Discussed this findings with the patient. Again, I did advise inpatient admission for his acute kidney injury for continued hydration. He is hydrating orally here and will defer to do this at home. Patient does have good support from his son. He will follow-up with Dr. Garcia office tomorrow. Strict return precautions were discussed. He is aware that he may return anytime for continued evaluation and hydration. I also discussed the need for close follow up with his son Sabas who came to pick him up. He will ensure that patient calls inthe morning to schedule follow up. He feels billy tht e patient will hydrate well at home. All of his quedsitons and concerns were addressed, he is in agreement with this plan. HPI General Mode of arrival: ambulatory . Date/Time Provider Initiated Documentation: 05/17/20 17:53 . Limitations to Documentation: no limitations . Information obtained by: patient and family (spoke with son, Sabas [phone]) . HPI Narrative: Patient is a pleasant 75 year old male presenting today with c/c of difficulty urinating. Patient underwent surgical intervention [address] Garcia. At that time, she underwent cystoscopy with transurethral resection of bladder. Patient reports that this was uncomplicated. Initially was healing well. However, yesterday he began having some discomfort with urination recently he may have an obstructing blood clot. He has had multiple procedures historically it sounds that this is an issue for him. He states that in attempt to lessen his symptoms, he is decrease the amount of fluid intake to the point that over the past 24 hours he has had no fluids. He denies any fevers or chills. No back pain. No change in bowel habits. Patient also underwent a right inguinal hernia repair and feels like this is healing well. Minimal abdominal discomfort. Related Data Home Medications Medication Instructions Recorded Confirmed amantadine HCl 100 mg tablet 100 mg PO BID #180 tab 02/15/20 05/17/20 mirabegron 50 mg tablet,extended 50 mg PO DAILY #90 tab 03/02/20 05/17/20 release 24 hr acetaminophen [Tylenol] 650 mg PO Q6H PRN #30 cap 05/15/20 05/17/20 ibuprofen 400 mg PO Q6H PRN #30 tab 05/15/20 05/17/20 tramadol [Ultram] 50 mg PO Q6H PRN #14 tab 05/15/20 05/17/20 Previous Rx's Medication Instructions Recorded amantadine HCl 100 mg tablet 100 mg PO BID #180 tab 02/15/20 mirabegron 50 mg tablet,extended 50 mg PO DAILY #90 tab 03/02/20 release 24 hr acetaminophen [Tylenol] 650 mg PO Q6H PRN #30 cap 05/15/20 ibuprofen 400 mg PO Q6H PRN #30 tab 05/15/20 tramadol [Ultram] 50 mg PO Q6H PRN #14 tab 05/15/20 Allergies Allergy/AdvReac Type Severity Reaction Status Date / Time No Known Allergies Allergy Verified 05/17/20 18:05 General Stated Complaint: Urinary BRITTON: 3 Review of Systems Constitutional Constitutional: Reports as per HPI, Denies chills, Denies fatigue, Denies fever(s) and Denies headache(s) ENT Ears, Nose, Mouth, and Throat: Denies headache(s) Cardiovascular Cardiovascular: Reports as per HPI, Denies chest pain and Denies dyspnea Respiratory Respiratory: Reports as per HPI, Denies cough and Denies dyspnea Gastrointestinal Gastrointestinal: Reports as per HPI Genitourinary Genitourinary: Denies system reviewed and no additional complaints, except as documented (patient denies any change in urinary habits) Musculoskeletal Musculoskeletal: Reports as per HPI and Denies back pain Integumentary/Breasts Skin/Breast: Reports as per HPI and Denies rash Neurologic Neurologic: Reports as per HPI and Denies headache(s) Endocrine Endocrine: Denies fatigue [facility] Medical History Bilateral kidney stones (07/08/16) History of carcinoma in situ of bladder Hx of nephrolithotomy with removal of calculi pt. unsure of procedure, states they went up and pulled the stones out with a basket Urothelial carcinoma of bladder Surgical History Colonoscopy - IV Sedation (12/28/12) H/O cystoscopy History of back surgery lumbar Family History Other Cancer Social History Smoking/Tobacco Use Status: Former Tobacco Use Smoking risk assessment performed?: Yes Alcohol Intake: never Drug use: Never Substance use type: does not use Household members: spouse Housing: house current occupation: Retired Do you feel safe at home: Yes Do you feel safe in your relationship?: Yes Exam Const General: cooperative, healthy appearing, comfortable, no acute distress and well developed Nutritional Appearance: average body habitus and well nourished Orientation: alert and awake HENMT Head: normal to inspection Mouth: mucous membranes dry (looks dry) Resp Effort & Inspection: normal respiratory effort, able to speak in complete sentences and no respiratory distress Auscultation: clear to auscultation bilaterally, no rales, no rhonchi and no wheezes Cardio Rate: regular rate Rhythm: regular rhythm Heart Sounds: S1 normal and S2 normal GI Inspection: normal to inspection, no abdominal wall ecchymosis, non-distended, incision (appears to be healing well, consistent with inguinal hernia repair) and no visible pulsation Palpation: soft, no hepatosplenomegaly, not firm, no guarding, no masses, no pulsatile masses, not rigid and tender (around incision and over bladder,no peritoneal findings) Percussion: normal to percussion Auscultation: normal bowel sounds Penis: ecchymosis, not erythematous, no swelling and other (nontender) Meatus: meatus normal, no meatla discharge and other (no blood noted) Scrotum: ecchymosis on the left, not erythematous, no masses and scrotal swelling on the left Testes: normal Back/Spine/Pelvis Back: no CVA tenderness Skin General skin exam: no rashes or lesions noted Trauma: no lacerations or abrasions Neuro General: patient alert and patient awake Cognition: normal cognition Speech: speech normal Gait: normal gait Psych Appearance: grossly normal and well kempt Mental Status: mental status grossly normal Speech and Movement: speech and movement normal Course Vital Signs Vital signs: Vital Signs Temperature 36.5 C 05/17/20 17:57 Pulse 82 05/17/20 17:57 Respiratory Rate 18 05/17/20 17:57 Blood Pressure 132/89 05/17/20 17:57 Pulse Oximetry 95 05/17/20 17:57 Temperature 36.5 C 05/17/20 17:57 Temperature Source Temporal Artery Scan 05/17/20 17:57 Pulse 82 05/17/20 17:57 Respiratory Rate 18 05/17/20 17:57 Respiratory Effort Non-Labored 05/17/20 18:03 Blood Pressure 132/89 05/17/20 17:57 Blood Pressure Position Sitting 05/17/20 17:57 Pulse Oximetry 95 05/17/20 17:57 Oxygen Delivery Method Room Air 05/17/20 17:57 Oxygen Flow Rate 0 05/17/20 17:57 Pain Level 6 05/17/20 17:57
[2020-05-17 19:42] LABS: Abs Immature Grans 0.05 10^3/uL (0.0-0.06); Absolute Basophil Count 0.02 10^3/uL (0.0-0.2); Absolute Eosinophil Count 0.09 10^3/uL (0.0-0.7); Absolute Lymphocyte Count 0.94 10^3/uL (1.2-3.4); Absolute Monocyte Count 0.97 10^3/uL (0.1-0.8); Absolute Neutrophil Count 10.41 10^3/uL (1.2-6.7); Basophils % 0.2; Eosinophils % 0.7; HCT 44.5 % (40.0-50.0); HGB 14.7 g/dL (13.5-17.5); Immature Grans % 0.4; Lymphocytes % 7.5; MCH 29.6 pg (27.0-33.0); MCV 89.7 fL (80-95); MPV 9.1 fL (8.0-11.0); Monocytes % 7.8; Neutrophils % 83.4; Nucleated RBC 0 %; Platelet Count 266 10^3/uL (130-400); RBC 4.96 10^6/uL (4.36-5.78); RDW 15.3 % (11.8-14.1); RDW-SD 49.8 fL; WBC 12.48 10^3/uL (4.4-10.8)
[2020-05-17] MEDS: Lidocaine 2% Jelly 6 ML SYR (20:01)
[2020-05-17 20:02] LABS: Bilirubin Negative (Negative); Blood Large (Negative); Clarity Cloudy (Clear); Glucose Negative (Negative); Ketones Negative (Negative); Leukocyte Esterase Small (Negative); Nitrite Negative (Negative); Specific Gravity 1.015 (1.005-1.025); Urobilinogen 0.2 EU/dL (Up TO 0.2)
[2020-05-17] MEDS: Normal Saline 1,000 ML 1000 ML IV (20:06)
[2020-05-17 20:09] LABS: C & S Indicated? Yes; RBC >50 HPF (0-2); WBC >50 HPF (0-5)
[2020-05-17 20:28] LABS: ALT 17 U/L (16-63); AST 26 U/L (15-37); Albumin 3.2 g/dL (3.4-5.0); Alkaline Phosphatase 107 U/L (46-116); Anion Gap 8.6 mmol/L (3-11); BUN 33 mg/dL (7-18); Bilirubin, Total 1.5 mg/dL (0.2-1.0); CO2 25.4 mmol/L (21.0-32.0); Calcium 8.5 mg/dL (8.5-10.1); Chloride 98 mmol/L (98-107); Estimated GFR 20.56 (mL/min/1.73m2); Glucose 111 mg/dL (74-106); Magnesium 1.7 mg/dL (1.8-2.4); Potassium 4.5 mmol/L (3.5-5.1); Sodium 132 mmol/L (136-145); Total Protein 7.5 g/dL (6.4-8.2)
[2020-05-17 21:42] LABS: Anion Gap 4.1 mmol/L (3-11); BUN 31 mg/dL (7-18); CO2 26.9 mmol/L (21.0-32.0); Calcium 8.2 mg/dL (8.5-10.1); Chloride 102 mmol/L (98-107); Estimated GFR 23.22 (mL/min/1.73m2); Glucose 109 mg/dL (74-106); Potassium 4.9 mmol/L (3.5-5.1); Sodium 133 mmol/L (136-145)
== END 2020-05-17 22:44 | disposition home or self-care (01) ==
PROVIDERS: Emergency Provider Physician Assistant; PCP Nurse Practitioner
DX: N17.9 Acute kidney failure, unspecified (principal); E87.6 Hypokalemia; R31.9 Hematuria, unspecified; Y83.6 Removal of other organ (partial) (total) as the cause of abnormal reaction of the patient, or of later complication, without mention of misadventure at the time of the procedure; C67.9 Malignant neoplasm of bladder, unspecified; Z87.442 Personal history of urinary calculi
CPT/HCPCS: 36415; 51702; 80048; 80053; 96360; 99284; 81003; 81015; 83735; 85025; 87086

== ENCOUNTER 2020-05-18 11:01 | Inpatient (IN) | payer MEDICARE, SELFPAY ==
[2020-05-18] VITALS (30 sets, daily range): BP systolic 112–157; BP diastolic 58–89; PULSE 65–89; RESP 13–27; TEMP 36.1–36.9; O2SAT 86–99
--- NOTE | 2020-05-18 11:19 | W.ED.GENAD ---
Discharge Plan Disposition Patient Disposition: HOME Condition: Improving Discharge Details Clinical Impression: Acute postoperative abdominal pain Primary Care Provider: Miriam Serna ED Provider: Fawad Horowitz Home Meds and New Rx's Prescriptions: No Action acetaminophen [Tylenol] 325 mg capsule 650 mg PO Q6H PRNQty: 30 RF: 0 ibuprofen 400 mg tablet 400 mg PO Q6H PRN (Reason: pain) Qty: 30 RF: 0 amantadine HCl 100 mg tablet 100 mg PO DAILY RF: 0 Medical Decision Making 75-year-old male who was seen the emergency department yesterday. He is postop day #3 status post right inguinal hernia repair with accompanying cystoscopy and urologic procedure. He had poor p.o. intake following discharge from the hospital seen yesterday with elevated BUN and creatinine. The chicken cutter was recommended which the patient declined. Repeat labs were obtained and showed a trend of improvement he was discharged home. He returns today for recheck. He is afebrile, well-appearing, interactive and in no acute distress. He has some mild to moderate tenderness of the abdomen. His right inguinal hernia site is well-healing. Screening laboratories and urinalysis obtained patient given small fluid bolus. He is alert and interactive. He calmly describes his surgical procedures from earlier this week. He will note that he recently had his amantadine decreased due to question of some confusion. Given recent surgery including transurethral bladder resection, as well as lower abominal pain on exam, screening laboratories obtained. Patient's white count has risen to 16 with left shift; today BUN 37 with creatinine 3.3. Referred for CT images: 1. Compared to the prior CT scan of February 2020 there is now evidence of rupture on the right side of the urinary bladder wall with an area of discontinuity at this level and adjacent the air and fluid. There is ascites in the pelvis as well as in the upper abdomen. 2. Extensive bilateral nephrolithiasis again noted. There is mild dilatation left collecting system but there does not appear to be a calculus in the left ureter. 3. Cholelithiasis again noted. The gallbladder is somewhat distended but does not appear edematous and there is no gross dilatation of the biliary tree. 4. Air is seen extending down the right inguinal canal into the right hemiscrotum. I discussed the case with Dr. Weir, concerning for bladder leak. Coags added, empiric antibiotic coverage initiated with Zosyn. HPI General Mode of arrival: ambulatory. Date/Time Provider Initiated Documentation: 05/18/20 11:02. Limitations to Documentation: no limitations. Information obtained by: patient. History of Present Illness 75 year old M presents to the emergency department with the chief complaint of Recheck kidney function. Otherwise feels well., Patient started experiencing this unknown and it has been constant. No relieving factors improve symptom(s), No exacerbating factors reported . Patient notes no other symptoms.. Patient did receive the following treatments prior to arrival, none Related Data Home Medications Medication Instructions Recorded Confirmed acetaminophen [Tylenol] 650 mg PO Q6H PRN #30 cap 05/15/20 05/18/20 ibuprofen 400 mg PO Q6H PRN #30 tab 05/15/20 05/18/20 amantadine HCl 100 mg PO DAILY 05/18/20 05/18/20 Previous Rx's Medication Instructions Recorded acetaminophen [Tylenol] 650 mg PO Q6H PRN #30 cap 05/15/20 ibuprofen 400 mg PO Q6H PRN #30 tab 05/15/20 Allergies Allergy/AdvReac Type Severity Reaction Status Date / Time No Known Allergies Allergy Verified 05/17/20 18:05 General Stated Complaint: GenMedical BRITTON: 3 Review of Systems Narrative: Underwent cystoscopy, right inguinal hernia repair on Friday. Seen in the ED yesterday. Denies headache, fever, vomiting. 8 systems reviewed and otherwise negative. Patient is able to urinate. [facility] Medical History Bilateral kidney stones (07/08/16) History of carcinoma in situ of bladder Hx of nephrolithotomy with removal of calculi pt. unsure of procedure, states they went up and pulled the stones out with a basket Urothelial carcinoma of bladder Surgical History Colonoscopy - IV Sedation (12/28/12) H/O cystoscopy History of back surgery lumbar Family History Other Cancer Social History Smoking/Tobacco Use Status: Former Tobacco Use Smoking risk assessment performed?: Yes Alcohol Intake: never Drug use: Never Substance use type: does not use Household members: spouse Housing: house current occupation: Retired Do you feel safe at home: Yes Do you feel safe in your relationship?: Yes Exam Narrative Exam Narrative: GEN: awake, alert, oriented 3. Pleasant, well groomed, interactive. HEAD: Normocephalic, atraumatic ENT: Mucous membranes moist, oropharynx unremarkable, External ear exam unremarkable EYES: PERRL, EOMI NECK: Full ROM, no ANUSHA, no menigismus CHEST/RESP: Nontender, clear to auscultation bilateral, no wheeze/rhonchi/rales CARDIOVASCULAR: RRR, no murmur, rub lisa. 2+ Rad pulse bilateral ABDOMEN: Soft, minimally tender without rebound or guarding, right inguinal surgical incision is without swelling, no surrounding erythema, no mass. +Bowel sounds EXT: Full ROM, no edema, no rash Neuro: Grossly normal neurologic exam, conversant, interactive. Psych: Speech fluent, thoughts congruent, affect normal Course Vital Signs Vital signs: Vital Signs Temperature 36.5 C 05/18/20 11:09 Pulse 89 05/18/20 11:09 Respiratory Rate 20 05/18/20 11:09 Blood Pressure 157/71 H 05/18/20 11:09 Pulse Oximetry 95 05/18/20 11:09 Temperature 36.5 C 05/18/20 11:09 Temperature Source Temporal Artery Scan 05/18/20 11:09 Pulse 89 05/18/20 11:09 Respiratory Rate 20 05/18/20 11:09 Respiratory Effort Non-Labored 05/18/20 11:15 Blood Pressure 157/71 H 05/18/20 11:09 Blood Pressure Position Supine 05/18/20 11:09 Pulse Oximetry 95 05/18/20 11:09 Oxygen Delivery Method Room Air 05/18/20 11:09 Oxygen Flow Rate 0 05/18/20 11:09 End Tidal Co2 0 05/18/20 11:09
[2020-05-18 11:37] LABS: Abs Immature Grans 0.06 10^3/uL (0.0-0.06); Absolute Eosinophil Count 0.02 10^3/uL (0.0-0.7); Absolute Monocyte Count 1.17 10^3/uL (0.1-0.8); Basophils % 0.2; Eosinophils % 0.1; HCT 40.9 % (40.0-50.0); HGB 13.5 g/dL (13.5-17.5); Immature Grans % 0.4; Lymphocytes % 5.3; MCH 29.4 pg (27.0-33.0); MCV 89.1 fL (80-95); MPV 9.5 fL (8.0-11.0); Monocytes % 7.1; Neutrophils % 86.9; Nucleated RBC 0 %; Platelet Count 267 10^3/uL (130-400); RBC 4.59 10^6/uL (4.36-5.78); RDW-SD 48.9 fL; WBC 16.46 10^3/uL (4.4-10.8)
[2020-05-18] MEDS: Normal Saline 500 ML IV (11:38)
[2020-05-18 11:39] LABS: Absolute Basophil Count 0.03 10^3/uL (0.0-0.2); Absolute Lymphocyte Count 0.87 10^3/uL (1.2-3.4)
[2020-05-18 11:42] LABS: Bilirubin Negative (Negative); Blood Large (Negative); Clarity Sl Cloudy (Clear); Glucose Negative (Negative); Ketones Negative (Negative); Leukocyte Esterase Small (Negative); Nitrite Negative (Negative); Specific Gravity 1.015 (1.005-1.025); Urobilinogen 0.2 EU/dL (Up TO 0.2)
[2020-05-18 11:54] LABS: Bacteria Moderate HPF (Negative); C & S Indicated? Yes; Casts Negative LPF (Negative); Crystals Negative HPF (Negative); Epithelial Cells Rare HPF (Negative); Mucus Negative (Negative); RBC >50 HPF (0-2); WBC >50 HPF (0-5)
[2020-05-18 12:13] LABS: ALT 15 U/L (16-63); AST 25 U/L (15-37); Albumin 2.8 g/dL (3.4-5.0); Alkaline Phosphatase 100 U/L (46-116); Anion Gap 7.6 mmol/L (3-11); BUN 37 mg/dL (7-18); Bilirubin, Total 1.7 mg/dL (0.2-1.0); CO2 23.4 mmol/L (21.0-32.0); CREATININE 3.37 mg/dL (0.70-1.30); Calcium 8.4 mg/dL (8.5-10.1); Chloride 98 mmol/L (98-107); Estimated GFR 17.98 (mL/min/1.73m2); Glucose 119 mg/dL (74-106); Potassium 4.8 mmol/L (3.5-5.1); Sodium 129 mmol/L (136-145)
--- NOTE | 2020-05-18 12:38 | DI.CT_ITS ---
EXAM: CT ABDOMEN PELVIS WO INDICATION: post-op, lower abd pain, rising Creatinine. COMPARISON: CT CT ABDOMEN PELVIS WO from 02/17/2020 TECHNIQUE: FINDINGS: Visualized lung bases reveal mild increased markings in both lower lobes, most evident in the posteri or basal segment of the right lower lobe. No pleural effusions In the abdomen there is now ascites which was not previously present. There are no discrete focal he patic lesions evident on this noninfused study. Calcified gallstone is again noted in the gallbladde r neck region. There is mild distention of the gallbladder which measures 9 by 3.8 centimetres. Thi s CBD is not dilated. No obvious pancreatic findings. Spleen size is again noted be slightly promin ent. Both adrenal glands scratch slightly hyperplastic, but unchanged from previous. There calculi again noted in both kidneys. The largest in the right kidney is in the inferior pole a nd measures approximately 12 by 7 millimeters. The largest calculus in the opposite-left kidney is s lightly larger. There is mild hydronephrosis and hydroureter on the left side although there does no t appear to be a calculus in the ureter nor the ureterovesical junction and there are no calculi with in the urinary bladder. The bladder is again noted be thickened. There an abnormal area in the right side of the dome of the bladder suspicious for bladder wall discontinuity/rupture of the bladder at this level. There is ad jacent air and fluid. Air is seen extending into the ipsilateral inguinal canal and down into the ri ght hemiscrotum. Abdominal aorta is not enlarged. There is no para-aortic adenopathy. No intrapelvic nor inguinal ad enopathy. Prostate is slightly enlarged.. There is no evidence of sigmoid diverticulitis. 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 No lytic osseous lesions mamie dent. IMPRESSION: 1. Compared to the prior CT scan of February 2020 there is now evidence of rupture on the right side of the urinary bladder wall with an area of discontinuity at this level and adjacent the air and flu id. There is ascites in the pelvis as well as in the upper abdomen. 2. Extensive bilateral nephrolithiasis again noted. There is mild dilatation left collecting system but there does not appear to be a calculus in the left ureter. 3. Cholelithiasis again noted. The gallbladder is somewhat distended but does not appear edematous a nd there is no gross dilatation of the biliary tree. 4. Air is seen extending down the right inguinal canal into the right hemiscrotum. 5. Findings discussed with on-call surgeon following completion of the study 05/18/20 RADIATION DOSE DELIVERED: 689.56mGy.cm Total DLP
[2020-05-18 13:17] LABS: INR 1.1 (0.9-1.1); PTT Activated 26.7 sec (21.0-27.5); Prothrombin Time 10.9 sec (9.3-11.0)
[2020-05-18] MEDS: PIPERACILLIN/TAZO 4.5 GM in Normal Saline 100 ML IVPB (13:32)
[2020-05-18] MEDS: Normal Saline 1,000 ML 150 ML IV (14:15)
--- NOTE | 2020-05-18 14:52 | HPE_ITS ---
Date of service: 05/18/20 Time of Service: 14:52 Assessment and Plan Assessment and plan (1) Urothelial carcinoma of bladder: Status: Chronic (2) Injury of bladder during surgery: Status: Acute Assessment and plan: Will go to OR for drainage of urinary ascites and closure of cystostomy History of Present Illness History of Present Illness Chief Complaint: Urinary ascites Narrative: Is a 75-year-old gentleman with a history of bladder cancer. He had undergone cystoscopy and transurethral resection of the bladder lesion on Friday. He also had a right inguinal hernia repair at the same. We left the Fay catheter in place overnight after the procedure. The catheter was removed in our office Friday. Since then, he has had abdominal discomfort and pressure. He has not had much urine and his serum creatinine has increased. On CT, there appears to be urinary ascites. He has not had fevers or chills but he does have increased white blood count. Review of Systems Narrative: No fevers or chills No vision change or dysphasia No diabetes or thyroid No shortness of breath, cough or hemoptysis No chest pain or palpitations c/o nausea and abdominal pain. No hepatitis, ulcers, jaundice, diarrhea or constipation Tremor related to Parkinson's. No seizures, strokes or peripheral neuropathy No bleeding disorders No gout PFSH Medical History Bilateral kidney stones (07/08/16) History of carcinoma in situ of bladder Hx of nephrolithotomy with removal of calculi pt. unsure of procedure, states they went up and pulled the stones out with a basket Urothelial carcinoma of bladder Surgical History Colonoscopy - IV Sedation (12/28/12) H/O cystoscopy History of back surgery lumbar Family History Other Cancer Social History Smoking/Tobacco Use Status: Former Tobacco Use Smoking risk assessment performed?: Yes Alcohol Intake: never Drug use: Never Substance use type: does not use Household members: spouse Housing: house current occupation: Retired Do you feel safe at home: Yes Do you feel safe in your relationship?: Yes Meds Home Medications and Allergies Home Medications Medication Instructions Recorded Confirmed Type acetaminophen [Tylenol] 650 mg PO Q6H PRN #30 cap 05/15/20 05/18/20 Rx ibuprofen 400 mg PO Q6H PRN #30 tab 05/15/20 05/18/20 Rx amantadine HCl 100 mg PO DAILY 05/18/20 05/18/20 History Allergies Allergy/AdvReac Type Severity Reaction Status Date / Time No Known Allergies Allergy Verified 05/17/20 18:05 Exam Const General: cooperative Orientation: alert, awake and oriented x3 Neck Neck: supple Resp Effort & Inspection: normal respiratory effort Auscultation: clear to auscultation bilaterally Cardio Rate: regular rate Rhythm: regular rhythm GI Palpation: firm and tender Neuro General: patient alert, patient awake and patient oriented x3 Results Labs Result diagrams: 05/18/20 11:20 05/18/20 11:50 Labs: Laboratory Results - last 24 hr 05/18/20 05/18/20 05/18/20 11:20 11:20 11:30 WBC 16.46 H D RBC 4.59 Hgb 13.5 Hct 40.9 MCV 89.1 MCH 29.4 MCHC 33.0 RDW 15.0 H Plt Count 267 MPV 9.5 Immature Gran % 0.4 Neutrophils % 86.9 Lymphocytes % 5.3 Monocytes % 7.1 Eosinophils % 0.1 Basophils % 0.2 Nucleated RBC % 0 Absolute Neutrophils 14.30 H Absolute Lymphocytes 0.87 L Absolute Monocytes 1.17 H Absolute Eosinophils 0.02 Absolute Basophils 0.03 PT INR APTT Sodium Cancelled Potassium Cancelled Chloride Cancelled Carbon Dioxide Cancelled Anion Gap Cancelled BUN Cancelled Creatinine Cancelled Estimated GFR/1.73 m2 Cancelled Glucose Cancelled Calcium Cancelled Total Bilirubin Cancelled AST Cancelled ALT Cancelled Alkaline Phosphatase Cancelled Total Protein Cancelled Albumin Cancelled Urine Color Yellow Urine Clarity Sl cloudy Urine pH 6.0 Ur Specific [place] 1.015 Urine Protein 30 H Urine Ketones Negative Urine Blood Large H Urine Nitrite Negative Urine Bilirubin Negative Urine Urobilinogen 0.2 Ur Leukocyte Esterase Small H Urine RBC >50 H Urine WBC >50 H Ur Epithelial Cells Rare Urine Crystals Negative Urine Bacteria Moderate Urine Casts Negative Urine Mucus Negative Ur Culture Indicated? Yes Urine Glucose Negative 05/18/20 05/18/20 11:50 11:50 WBC RBC Hgb Hct MCV MCH MCHC RDW Plt Count MPV Immature Gran % Neutrophils % Lymphocytes % Monocytes % Eosinophils % Basophils % Nucleated RBC % Absolute Neutrophils Absolute Lymphocytes Absolute Monocytes Absolute Eosinophils Absolute Basophils PT 10.9 INR 1.1 APTT 26.7 Sodium 129 L Potassium 4.8 Chloride 98 Carbon Dioxide 23.4 Anion Gap 7.6 BUN 37 H Creatinine 3.37 H D Estimated GFR/1.73 m2 17.98 Glucose 119 H Calcium 8.4 L Total Bilirubin 1.7 H AST 25 ALT 15 L Alkaline Phosphatase 100 Total Protein 7.0 Albumin 2.8 L Urine Color Urine Clarity Urine pH Ur Specific [place] Urine Protein Urine Ketones Urine Blood Urine Nitrite Urine Bilirubin Urine Urobilinogen Ur Leukocyte Esterase Urine RBC Urine WBC Ur Epithelial Cells Urine Crystals Urine Bacteria Urine Casts Urine Mucus Ur Culture Indicated? Urine Glucose Last Vital Signs Temp 36.5 C 05/18/20 11:09 Pulse 79 05/18/20 14:31 Resp 18 05/18/20 14:40 BP 135/73 05/18/20 14:31 Pulse Ox 86 L 05/18/20 14:40 COVID-19 Screening Have you, or household traveled for leisure in last 14 days?: No Had IN PERSON contact w/suspected or confirmed C-19 person: No
--- NOTE | 2020-05-18 14:52 | NUR.NOTE ---
Nursing Note:Patient has frequent small amount of urination (roughly 10 ml at a time)
[2020-05-18] MEDS: Lactated Ringers 1,000 ML 30 ML IV (16:20)
--- NOTE | 2020-05-18 16:42 | W.PM.OP ---
Date of service: 05/18/20 Time of Service: 16:42 Operative Note Operative Note DATE OF PROCEDURE: 05/18/20 PRE-OP DIAGNOSIS: bladder perforation PROCEDURE: diagnostic laparscopy. drainage urinary ascites exploration/interrogation of bladder drain placement SURGEON: Gina Weir ASSISTING SURGEON: Rai Garcia ANESTHESIA: GETA and local ESTIMATED BLOOD LOSS: 3 PATHOLOGY: none sent COMPLICATIONS: None Patient was transported to: PACU Patient's condition: stable Procedure Description: Mr. Izquierdo is a 75-year-old male who underwent TURBT on May 16. He this has a suspected bladder injury from CT done 05/18. He is being brought to the OR today for diagnostic laparoscopy and possible repair of bladder injury. Informed consent is obtained explaining risks and benefits of procedure including not limited to bleeding, infection, pneumonia, blood clots, complications from anesthesia, damage to bowel, blood vessels, bladder. Possible laparotomy. And other unforetold complications. Patient brought to the operative suite and placed supine position. anesthesia is administered per the department of anesthesia. All Covid precautions were undertaken. Patient did receive preop antibiotics. SCDs were placed. Patient is prepped and draped in the usual usual sterile fashion using a ChloraPrep scrub solution. His genital prep was done with Betadine. Timeout is performed. Coud? catheter was placed by Dr. Garcia. Ten cc of Half percent Marcaine is used to create local field blocks. A #15 blade is used to make a small stab incision in the umbilicus. A hemostat is used to dissect down to the peritoneum. Varies needle was placed into the abdomen. Drop test is positive adn Insufflation is begun. When 15 cc of pressure noted on the monitor the varies is removed. #5 port is inserted. The camera is inserted through the port which shows no damage to underlying structures. A second 5 mm port is in place in left lower quadrant position following creation of a local field block. The camera was then inserted both port sites are inspected and there is no damage to underlying structures. There is about 400 cc of urine that is evacuated from the abdomen from over top of the liver, the spleen, and in the pelvis. This is not grossly purulent. There is no fecal contamination. The gallbladder is mildly distended. The liver appears normal in appearance. What can be visualized of the stomach and the spleen is normal in appearance. The sigmoid colon is intimately adhered to the bladder. There is also has marked inflammation on the right inguinal region from his previous hernia repair. There is small bowel in the pelvis that is a adhered up to the bladder, as well. At this point, because of the dense adhesions already after 48 hours, I think it would cause more morbidity to dissect the bowel down and run he risk of an unrecognized enterotomy. 200 cc of fluid was instilled into the bladder. There is no sign of any intra-abdominal leakage of fluid. I think at this point the leak has sealed itself off. There is no further leakage of the fluid from the bladder. The abdomen was copiously irrigated with a liter of saline; all saline is removed. A 15 [place] drain is placed through the left lower quadrant port;the port is removed. There is no bleeding from the drain site. The umbilical port is removed as well. Pneumoperitoneum is evacuated. Sponge and needle counts are correct. The drain is sewn in place with 2-0 nylon. The umbilical port site is closed with 4-0 Monocryl and skin glue. And the Fay is left in place. Patient tolerated the procedure well without complications, and transferred to room in stable condition. He will be admitted overnight for IV antibiotics and close monitoring. His was apprised of his course by Dr. Garcia.
--- NOTE | 2020-05-18 16:57 | W.SURGCON ---
Date of service: 05/18/20 Time of Service: 16:58 Assessment and Plan Assessment and plan (1) Acute postoperative abdominal pain: Status: Acute (2) FORTINO (acute kidney injury): Status: Acute (3) Bilateral kidney stones: Status: Acute (4) Injury of bladder during surgery: Status: Acute Assessment and plan: Patient will be taken to the OR for diagnostic laparoscopy. He will need to have general anesthesia. All Covid precautions will be undertaken. Risks of laparoscopy were previously discussed. Possible laparotomy depending on findings and surgery. He will he be admitted postoperatively. (5) Urothelial carcinoma of bladder: Status: Chronic (6) Parkinson disease: Status: Chronic (7) Carcinoma in situ of bladder: Status: Acute (8) S/P inguinal hernia repair using synthetic patch: Status: Acute History of Present Illness Narrative: Mr. Izquierdo is a 75-year old male who returns to the ER today for reevaluation. He had a open inguinal hernia repair on 05/16. He also had a TURBT with Dr. Garcia at the same time. He came into the ER yesterday because he was having trouble urinating and did pass a clot. I did review the notes from the ER. He was urinating after hydration. He had appropriate postop pain and no signs of peritonitis. He did not have any signs of sepsis. Today he came in just for a recheck of his lab, he was noted to have an elevated white count. A CT scan was performed. I did the reduced reviewed the CT scan with the radiologist. Appears she does have a large amount of fluid in the abdomen and there is concern for a injury to the bladder on the left side. I did review his lab as well today I did discuss with the case with Dr. Garcia. And unfortunately I think we do need to do some type of surgical intervention. We are going to do a diagnostic laparoscopy and repair of the bladder injury possible laparotomy. Risks include but not limited to: Bleeding, infection, pneumonia, blood clots. Possible damage to bowel, bladder, ureters. Missed enterotomies, hernias, wound infection, complications of anesthesia including DC, CVA, and , and other unforetold complications. He is not on blood thinners. He is not on any steroids. He is not diabetic. He did receive a dose of Zosyn in the emergency room. He had no problems with anesthesia on Friday. Consults Consult date: 05/18/20 Requesting physician: Fawad Horowitz Review of Systems All systems reviewed & are unremarkable except as noted in HPI and below PFSH Medical History Bilateral kidney stones (07/08/16) History of carcinoma in situ of bladder Hx of nephrolithotomy with removal of calculi pt. unsure of procedure, states they went up and pulled the stones out with a basket Urothelial carcinoma of bladder Surgical History Colonoscopy - IV Sedation (12/28/12) H/O cystoscopy History of back surgery lumbar Family History Other Cancer Social History Smoking/Tobacco Use Status: Former Tobacco Use Smoking risk assessment performed?: Yes Alcohol Intake: never Drug use: Never Substance use type: does not use Household members: spouse Housing: house current occupation: Retired Do you feel safe at home: Yes Do you feel safe in your relationship?: Yes Exam Resp Effort & Inspection: normal respiratory effort and able to speak in complete sentences Auscultation: clear to auscultation bilaterally Cardio Rate: regular rate Rhythm: regular rhythm GI Palpation: soft Auscultation: normal bowel sounds Other: his post OP incisions are c/d/i. there is some mild echymosis from his previous surgery. There may be some acsites. There are no peritoneal signs. Appropriate postOP pain. Extrem General: normal to inspection and no clubbing, cyanosis or edema Results Last Vital Signs Temp 36.1 C L 05/18/20 16:41 Pulse 66 05/18/20 16:51 Resp 14 05/18/20 16:51 BP 155/75 H 05/18/20 16:51 Pulse Ox 99 05/18/20 16:51 Labs Result diagrams: 05/18/20 11:20 05/18/20 11:50 Labs: Laboratory Results - last 24 hr 05/18/20 05/18/20 05/18/20 11:20 11:20 11:30 WBC 16.46 H D RBC 4.59 Hgb 13.5 Hct 40.9 MCV 89.1 MCH 29.4 MCHC 33.0 RDW 15.0 H Plt Count 267 MPV 9.5 Immature Gran % 0.4 Neutrophils % 86.9 Lymphocytes % 5.3 Monocytes % 7.1 Eosinophils % 0.1 Basophils % 0.2 Nucleated RBC % 0 Absolute Neutrophils 14.30 H Absolute Lymphocytes 0.87 L Absolute Monocytes 1.17 H Absolute Eosinophils 0.02 Absolute Basophils 0.03 PT INR APTT Sodium Cancelled Potassium Cancelled Chloride Cancelled Carbon Dioxide Cancelled Anion Gap Cancelled BUN Cancelled Creatinine Cancelled Estimated GFR/1.73 m2 Cancelled Glucose Cancelled Calcium Cancelled Total Bilirubin Cancelled AST Cancelled ALT Cancelled Alkaline Phosphatase Cancelled Total Protein Cancelled Albumin Cancelled Urine Color Yellow Urine Clarity Sl cloudy Urine pH 6.0 Ur Specific [place] 1.015 Urine Protein 30 H Urine Ketones Negative Urine Blood Large H Urine Nitrite Negative Urine Bilirubin Negative Urine Urobilinogen 0.2 Ur Leukocyte Esterase Small H Urine RBC >50 H Urine WBC >50 H Ur Epithelial Cells Rare Urine Crystals Negative Urine Bacteria Moderate Urine Casts Negative Urine Mucus Negative Ur Culture Indicated? Yes Urine Glucose Negative 05/18/20 05/18/20 11:50 11:50 WBC RBC Hgb Hct MCV MCH MCHC RDW Plt Count MPV Immature Gran % Neutrophils % Lymphocytes % Monocytes % Eosinophils % Basophils % Nucleated RBC % Absolute Neutrophils Absolute Lymphocytes Absolute Monocytes Absolute Eosinophils Absolute Basophils PT 10.9 INR 1.1 APTT 26.7 Sodium 129 L Potassium 4.8 Chloride 98 Carbon Dioxide 23.4 Anion Gap 7.6 BUN 37 H Creatinine 3.37 H D Estimated GFR/1.73 m2 17.98 Glucose 119 H Calcium 8.4 L Total Bilirubin 1.7 H AST 25 ALT 15 L Alkaline Phosphatase 100 Total Protein 7.0 Albumin 2.8 L Urine Color Urine Clarity Urine pH Ur Specific [place] Urine Protein Urine Ketones Urine Blood Urine Nitrite Urine Bilirubin Urine Urobilinogen Ur Leukocyte Esterase Urine RBC Urine WBC Ur Epithelial Cells Urine Crystals Urine Bacteria Urine Casts Urine Mucus Ur Culture Indicated? Urine Glucose
[2020-05-18] MEDS: Haloperidol 5 MG/ML VIAL (18:14)
[2020-05-18] MEDS: Normal Saline Flush 10 ML SYR IVP ×2 (18:15→20:25)
[2020-05-18] MEDS: CIPROFLOXACIN 200 MG/100 ML BAG 100 MG IVPB (19:31)
[2020-05-18] MEDS: HYDROmorphone 2 MG/ML VIAL 0.5 MG IVP (20:25)
[2020-05-19] MEDS: Lactated Ringers 1,000 ML 80 ML IV (03:09)
[2020-05-19] MEDS: Acetaminophen 325 MG TAB 650 MG PO ×2 (05:06→11:58)
[2020-05-19] MEDS: CIPROFLOXACIN 200 MG/100 ML BAG 100 MG IVPB (06:17)
[2020-05-19 06:44] LABS: HCT 37.1 % (40.0-50.0); MCHC 32.3 % (32.0-36.0); MCV 89.6 fL (80-95); MPV 9.4 fL (8.0-11.0); Platelet Count 252 10^3/uL (130-400); RBC 4.14 10^6/uL (4.36-5.78); RDW-SD 49.2 fL
[2020-05-19 06:55] LABS: Anion Gap 4.1 mmol/L (3-11); BUN 25 mg/dL (7-18); CO2 26.9 mmol/L (21.0-32.0); Calcium 8.5 mg/dL (8.5-10.1); Chloride 104 mmol/L (98-107); Glucose 100 mg/dL (74-106); Potassium 4.3 mmol/L (3.5-5.1); Sodium 135 mmol/L (136-145)
--- NOTE | 2020-05-19 07:25 | NUR.NOTE ---
Nursing Note: Visited patient with DR. Lynch. reviewed with him the patient report from overnight. Dr. lynch stated that from interview with patients spouse, that they feel this is been a trend, and MD feels it might be related to the administration of Amatadine. Dr Lynch did order that this med be held today start with new dose ordered tomorrow. Patient does show physical sign of pain, but does not want any inessa meds, this was denied with Dr. Lynch being present. Dr. Lynch removed dressing from the SHARLA drain. Site is cdi. He ordered that iv fluids be stopped. he is going to order a tray for breakfast for the patient and wants nursing to follow with this. Also discussed a PT consult with the To establish a plan to re-ambulate the patient. agreed and plans to order such. Patient still denies being at [facility], but was calm, and polite to nursing at this time. patient is encouraged to use call garza, but FIRE PROTECTION EQUIPMENT TECHNICIAN is present to monitor and assist patient as needed. Will assist patient in calling family later.
--- NOTE | 2020-05-19 07:33 | PGE_ITS ---
Date of Service Date of service: 05/19/20 Time of Service: 07:35 Assessment and Plan Assessment and plan (1) Injury of bladder during surgery: Status: Acute Assessment and plan: His lab work and clinical picture have improved as expected. As long as he is tolerating oral nutrition and medications, I would normally consider removing his abdominal drain in discharging him with a Fay catheter in place for a week or so. His hallucinations and delusions are complicating factors however. Hopefully, his mentation will clear someone as the natural light comes in. We will ask physical therapy to help get this gentleman up and moving. We may still be able to discharge him later today based on how he does. Subjective Subjective Interval history since last seen: The patient had some hallucinations and delusions overnight. Apparently, this had been happening at home as well. There was concern that these changes were related to his Parkinson's medication and it was recommended that he decrease his dose of amantadine from 100 mg daily to 100 mg every other day. Otherwise, he has not been febrile. He is not uncomfortable enough that he is asking for pain medication when we offered. He is not overly hungry. Exam Narrative Exam Narrative: His vital signs are documented elsewhere in the chart His surgical incisions are clean with no surrounding erythema. His abdominal drain output is down to 15 cc in the last shift His urine is clear His serum creatinine is markedly improved. His white blood count is improved as well. Objective Last Vital Signs Temp 36.6 C 05/18/20 18:19 Pulse 82 05/18/20 18:19 Resp 20 05/18/20 18:19 BP 112/65 05/18/20 18:19 Pulse Ox 94 05/18/20 18:19 Laboratory Results - last 24 hr 05/18/20 05/18/20 05/18/20 11:20 11:20 11:30 WBC 16.46 H D RBC 4.59 Hgb 13.5 Hct 40.9 MCV 89.1 MCH 29.4 MCHC 33.0 RDW 15.0 H Plt Count 267 MPV 9.5 Immature Gran % 0.4 Neutrophils % 86.9 Lymphocytes % 5.3 Monocytes % 7.1 Eosinophils % 0.1 Basophils % 0.2 Nucleated RBC % 0 Absolute Neutrophils 14.30 H Absolute Lymphocytes 0.87 L Absolute Monocytes 1.17 H Absolute Eosinophils 0.02 Absolute Basophils 0.03 PT INR APTT Sodium Cancelled Potassium Cancelled Chloride Cancelled Carbon Dioxide Cancelled Anion Gap Cancelled BUN Cancelled Creatinine Cancelled Estimated GFR/1.73 m2 Cancelled Glucose Cancelled Calcium Cancelled Total Bilirubin Cancelled AST Cancelled ALT Cancelled Alkaline Phosphatase Cancelled Total Protein Cancelled Albumin Cancelled Urine Color Yellow Urine Clarity Sl cloudy Urine pH 6.0 Ur Specific [place] 1.015 Urine Protein 30 H Urine Ketones Negative Urine Blood Large H Urine Nitrite Negative Urine Bilirubin Negative Urine Urobilinogen 0.2 Ur Leukocyte Esterase Small H Urine RBC >50 H Urine WBC >50 H Ur Epithelial Cells Rare Urine Crystals Negative Urine Bacteria Moderate Urine Casts Negative Urine Mucus Negative Ur Culture Indicated? Yes Urine Glucose Negative 05/18/20 05/18/20 05/19/20 11:50 11:50 06:12 WBC RBC Hgb Hct MCV MCH MCHC RDW Plt Count MPV Immature Gran % Neutrophils % Lymphocytes % Monocytes % Eosinophils % Basophils % Nucleated RBC % Absolute Neutrophils Absolute Lymphocytes Absolute Monocytes Absolute Eosinophils Absolute Basophils PT 10.9 INR 1.1 APTT 26.7 Sodium 129 L 135 L Potassium 4.8 4.3 Chloride 98 104 Carbon Dioxide 23.4 26.9 Anion Gap 7.6 4.1 BUN 37 H 25 H D Creatinine 3.37 H D 1.70 H D Estimated GFR/1.73 m2 17.98 39.60 Glucose 119 H 100 Calcium 8.4 L 8.5 Total Bilirubin 1.7 H AST 25 ALT 15 L Alkaline Phosphatase 100 Total Protein 7.0 Albumin 2.8 L Urine Color Urine Clarity Urine pH Ur Specific [place] Urine Protein Urine Ketones Urine Blood Urine Nitrite Urine Bilirubin Urine Urobilinogen Ur Leukocyte Esterase Urine RBC Urine WBC Ur Epithelial Cells Urine Crystals Urine Bacteria Urine Casts Urine Mucus Ur Culture Indicated? Urine Glucose 05/19/20 06:12 WBC 10.20 D RBC 4.14 L Hgb 12.0 L Hct 37.1 L MCV 89.6 MCH 29.0 MCHC 32.3 RDW 15.0 H Plt Count 252 MPV 9.4 Immature Gran % Neutrophils % Lymphocytes % Monocytes % Eosinophils % Basophils % Nucleated RBC % Absolute Neutrophils Absolute Lymphocytes Absolute Monocytes Absolute Eosinophils Absolute Basophils PT INR APTT Sodium Potassium Chloride Carbon Dioxide Anion Gap BUN Creatinine Estimated GFR/1.73 m2 Glucose Calcium Total Bilirubin AST ALT Alkaline Phosphatase Total Protein Albumin Urine Color Urine Clarity Urine pH Ur Specific [place] Urine Protein Urine Ketones Urine Blood Urine Nitrite Urine Bilirubin Urine Urobilinogen Ur Leukocyte Esterase Urine RBC Urine WBC Ur Epithelial Cells Urine Crystals Urine Bacteria Urine Casts Urine Mucus Ur Culture Indicated? Urine Glucose
--- NOTE | 2020-05-19 07:33 | W.PM.OP ---
Date of service: 05/18/20 Time of Service: 18:33 Operative Note Operative Note DATE OF PROCEDURE: 05/18/20 PRE-OP DIAGNOSIS: Urinary ascites POST-OP DIAGNOSIS: same PROCEDURE: Laparoscopy with placement of drain SURGEON: Rai Garcia ASSISTING SURGEON: Gina Weir ANESTHESIA: local ESTIMATED BLOOD LOSS: 3 PATHOLOGY: none sent Patient was transported to: PACU Patient's condition: stable Procedure Description: The operative report will be dictated by Dr. Weir
[2020-05-19 07:58] VITALS: BP 124/56; PULSE 78; RESP 18; TEMP 37.9; O2SAT 94
--- NOTE | 2020-05-19 08:29 | NUR.NOTE ---
Nursing Note: MACHINE PLUG SHAPER reported pain to be a 10/10. Spoke to patient while JOSE Burger was still present. He does state he is in pain. Again refused medication for the pain. When asked what we could do to help the pain, he stated to send him home. Patient was redirected that our goal was to DC home. But medical and nursing wanted him to go home with a plan to succeed, and that the concern was that he was not there yet. Patient scowled and looked away from nursing. Patient is reminded that nursing is here to help him , he is encouraged to ask for help and we would do our best to meet his needs. Patient continued to look out the window, head turned away from nursing. Patient left with a MACHINE PLUG SHAPER present and call garza in reach
--- NOTE | 2020-05-19 09:22 | PDOC.CMIN ---
- If Service Date Differs Date of service: 05/19/20 Time of Service: 09:22 Care Management Initial Assess REASON FOR HOSPITALIZATION:: Cancer of the bladder PAST MEDICAL HISTORY/PAST SURGICAL HISTORY:: edical History . Bilateral kidney stones (07/08/16). History of carcinoma in situ of bladder. Hx of nephrolithotomy with removal of calculi. pt. unsure of procedure, states they went up and pulled the stones out with a basket. Urothelial carcinoma of bladder. Surgical History . Colonoscopy - IV Sedation (12/28/12). H/O cystoscopy. History of back surgery. lumbar PREVIOUS FUNCTIONAL STATUS/SOCIAL/FAMILY SUPPORTS:: Noah lives in a single family home in [place] with his girlfriend of 35 years, Vera. He is independent at baseline and continues to drive. Noah does not receive any community services nor does he use any assistive devices for ambulation. CURRENT FUNCTIONAL STATUS:: Noah was sitting up in a chair when CM met with him. He was a bit reluctant to engage in a lengthy conversation but was cooperative and polite with questioning. Noah agreed to home health services for a short time to manage his drain. He denies the need for any additional services. ADVANCE DIRECTIVES:: None on file at [facility] - not interested Has patient been provided with info about the portal/API?: Yes Did the patient sign up for the portal?: No CODE STATUS:: Full Code INSURANCE COVERAGE / FINANCIAL ISSUES:: Medicare. Medicaid CURRENT HOME/COMMUNITY SERVICES/EQUIPMENT:: none PRIMARY CARE PHYSICIAN:: Miriam Serna POTENTIAL DISCHARGE NEEDS:: Follow up with PCP and discharge plan of care PATIENT/FAMILY EDUCATION NEEDS:: Discharge plan, follow up plan, limitations, Ask Me Three TRANSPORTATION:: via private vehicle with girlfriend PLAN:: Noah will be discharged home with new home health nursing. he will follow up with his PCP and discharge plan of care. Noah will transport with his girlfriend Vera.
--- NOTE | 2020-05-19 09:33 | PGE_ITS ---
Date of Service Date of service: 05/19/20 Time of Service: 09:33 Assessment and Plan Assessment and plan (1) S/P inguinal hernia repair using synthetic patch: Status: Acute (2) FORTINO (acute kidney injury): Status: Acute (3) Injury of bladder during surgery: Status: Acute Assessment and plan: POD#1 Patient is doing well from a general surgical standpoint. He tolerated regular diet today. His mentation appears more intact. Patient most will improve once anesthetics were. He will need to go home with Fay in and remove the leg bag and training. He should be up and walking with physical therapy. Patient needs to have a bowel movement. There is minimal drainage from his SHARLA. I think he should go home with Drainin place. Because of the hernia repair I would prefer that he goes home on antibiotics-augmentin. Follow-up with Dr. Owens in clinic next week as previously scheduled. No lifting over 5 pounds. Routine drain care. Subjective Subjective Interval history since last seen: Pt is doing well. no headaches. No CP or SOB. no productive cough. no leg pain or swelling. Patient had some confusion and some disorientation last p.m. after his procedure. He tolerated a regular breakfast today. He seems more alert and orientated today. He is very focused on going home. I did discuss with him the findings at surgery. I am not sure he completely understands what transpired. He has not moved his bowels. He had minimal out of his SHARLA. He has had good clear yellow urine in his Fay. Exam Narrative Exam Narrative: PHYSICAL EXAM GENERAL APPEARANCE: Alert, healthy appearance, oriented x2 in no acute distress SKIN: No hyperpigmentation, vitiligo, or suspicious lesions No rashes. HYDRATION: Well hydrated HEAD, EYES, EARS, NECK, AND THROAT: Head is normocephalic, pupils equal, round, reactive to light and accommodation, ocular movement intact, sclera clear and no jaundice. Dentition intact. LUNGS: normal respiration, clear to auscultation HEART: Regular rate and rhythm, EXTREMITY: No edema or cyanosis ABDOMEN: , minimally tender to palpation, no masses or distention, no hernias. Normal bowel sounds. Incisions are clean dry and intact. There is minimal yellow clear drainage from his SHARLA. NEURO: no focal neuro deficits. Patient has Parkinson's and has parkinsonian type movements. That are chronic in nature Objective Last Vital Signs Temp 37.9 C H 05/19/20 07:58 Pulse 78 05/19/20 07:58 Resp 18 05/19/20 07:58 BP 124/56 L 05/19/20 07:58 Pulse Ox 94 05/19/20 07:58 Laboratory Results - last 24 hr 05/18/20 05/18/20 05/18/20 11:20 11:20 11:30 WBC 16.46 H D RBC 4.59 Hgb 13.5 Hct 40.9 MCV 89.1 MCH 29.4 MCHC 33.0 RDW 15.0 H Plt Count 267 MPV 9.5 Immature Gran % 0.4 Neutrophils % 86.9 Lymphocytes % 5.3 Monocytes % 7.1 Eosinophils % 0.1 Basophils % 0.2 Nucleated RBC % 0 Absolute Neutrophils 14.30 H Absolute Lymphocytes 0.87 L Absolute Monocytes 1.17 H Absolute Eosinophils 0.02 Absolute Basophils 0.03 PT INR APTT Sodium Cancelled Potassium Cancelled Chloride Cancelled Carbon Dioxide Cancelled Anion Gap Cancelled BUN Cancelled Creatinine Cancelled Estimated GFR/1.73 m2 Cancelled Glucose Cancelled Calcium Cancelled Total Bilirubin Cancelled AST Cancelled ALT Cancelled Alkaline Phosphatase Cancelled Total Protein Cancelled Albumin Cancelled Urine Color Yellow Urine Clarity Sl cloudy Urine pH 6.0 Ur Specific Dixie 1.015 Urine Protein 30 H Urine Ketones Negative Urine Blood Large H Urine Nitrite Negative Urine Bilirubin Negative Urine Urobilinogen 0.2 Ur Leukocyte Esterase Small H Urine RBC >50 H Urine WBC >50 H Ur Epithelial Cells Rare Urine Crystals Negative Urine Bacteria Moderate Urine Casts Negative Urine Mucus Negative Ur Culture Indicated? Yes Urine Glucose Negative 05/18/20 05/18/20 05/19/20 11:50 11:50 06:12 WBC RBC Hgb Hct MCV MCH MCHC RDW Plt Count MPV Immature Gran % Neutrophils % Lymphocytes % Monocytes % Eosinophils % Basophils % Nucleated RBC % Absolute Neutrophils Absolute Lymphocytes Absolute Monocytes Absolute Eosinophils Absolute Basophils PT 10.9 INR 1.1 APTT 26.7 Sodium 129 L 135 L Potassium 4.8 4.3 Chloride 98 104 Carbon Dioxide 23.4 26.9 Anion Gap 7.6 4.1 BUN 37 H 25 H D Creatinine 3.37 H D 1.70 H D Estimated GFR/1.73 m2 17.98 39.60 Glucose 119 H 100 Calcium 8.4 L 8.5 Total Bilirubin 1.7 H AST 25 ALT 15 L Alkaline Phosphatase 100 Total Protein 7.0 Albumin 2.8 L Urine Color Urine Clarity Urine pH Ur Specific Dixie Urine Protein Urine Ketones Urine Blood Urine Nitrite Urine Bilirubin Urine Urobilinogen Ur Leukocyte Esterase Urine RBC Urine WBC Ur Epithelial Cells Urine Crystals Urine Bacteria Urine Casts Urine Mucus Ur Culture Indicated? Urine Glucose 05/19/20 06:12 WBC 10.20 D RBC 4.14 L Hgb 12.0 L Hct 37.1 L MCV 89.6 MCH 29.0 MCHC 32.3 RDW 15.0 H Plt Count 252 MPV 9.4 Immature Gran % Neutrophils % Lymphocytes % Monocytes % Eosinophils % Basophils % Nucleated RBC % Absolute Neutrophils Absolute Lymphocytes Absolute Monocytes Absolute Eosinophils Absolute Basophils PT INR APTT Sodium Potassium Chloride Carbon Dioxide Anion Gap BUN Creatinine Estimated GFR/1.73 m2 Glucose Calcium Total Bilirubin AST ALT Alkaline Phosphatase Total Protein Albumin Urine Color Urine Clarity Urine pH Ur Specific Dixie Urine Protein Urine Ketones Urine Blood Urine Nitrite Urine Bilirubin Urine Urobilinogen Ur Leukocyte Esterase Urine RBC Urine WBC Ur Epithelial Cells Urine Crystals Urine Bacteria Urine Casts Urine Mucus Ur Culture Indicated? Urine Glucose
[2020-05-19 09:34] LABS: COVID-19 RT-PCR UVMMC Result Negative (Negative)
[2020-05-19] MEDS: Ketorolac 15 MG/ML VIAL IVP (09:53)
[2020-05-19] MEDS: Milk of Magnesia 30 ML CUP PO (10:01)
--- NOTE | 2020-05-19 10:42 | NUR.NOTE ---
Nursing Note: Spoke to patients son regarding his current condition. Son was glad to hear that there was improvement. Son had concern that if patient was DC to home, that he may be left home alone. Addressed concern to charge nurse and cm
--- NOTE | 2020-05-19 10:58 | IN_ITS ---
Date of service: 05/19/20 Time of Service: 10:03 PT Notes Visit Reasons: URINARY ASCITES Physical Therapy Inpatient Initial Evaluation Date: 05/19/2020 Referring Doctor: Rai Garcia MD PT Orders: PT CONSULT: Eval/Treat Precautions: Fall. Standard. Activity as tolerated. Patient Profile/Admitting Diagnosis: Noah is a 75-year-old male with urothelial cancer of bladder status post inguinal hernia repair with accompanying cystoscopy and urologic procedure on postoperative day 4. He is diagnosed on admission with bladder perforation and is status post diagnostic laparoscopy, drainage of urinary ascites, and exploration/interrogation of bladder on postoperative day 1. PMHX: Medical History Bilateral kidney stones (07/08/16) History of carcinoma in situ of bladder Hx of nephrolithotomy with removal of calculi pt. unsure of procedure, states they went up and pulled the stones out with a basket Urothelial carcinoma of bladder Surgical History Colonoscopy - IV Sedation (12/28/12) H/O cystoscopy History of back surgery lumbar Social History/Home Situation: Lives with significant other in a private home with one-step to enter. Device at baseline. Still drives. 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 1 fall in the past 12 months not accompanied with chest pain and fainting. Equipment Owned/DME: Single-point cane that he states he has not had a need for Subjective: Complains of some discomfort on the left lower abdominal quadrant with ambulation activity. Denies headache, chest pain and lightheadedness throughout. Agreeable to PT consult. Objective: General Observation: SHARLA drain in place. Leg catheter in place. MULTIMEDIA DESIGNER Magi pressent throughout session. Mental Status: Alert and oriented x 4 Pain: 2-3/10 pain in the LLQ at drain insertion site ROM: Right Upper Extremity: Shoulder Flexion WFL. Shoulder abduction WFL. Elbow flexion WFL. Wrist flexion WFL. Opening and closing of hand WFL. Left Upper Extremity: Shoulder Flexion WFL. Shoulder abduction WFL. Elbow flexion WFL. Wrist flexion WFL. Opening and closing of hand WFL. Right Lower Extremity: Hip flexion WFL. Hip abduction WFL. Knee flexion WFL. Ankle dorsiflexion WFL. Ankle plantarflexion WFL. Left Lower Extremity: Hip flexion WFL. Hip abduction WFL. Knee flexion WFL. Ankle dorsiflexion WFL. Ankle plantarflexion WFL. Strength: Right Upper Extremity: Shoulder flexors 5/5. Shoulder abductors 5/5. Elbow flexors 5/5. Elbow extensors 5/5. Residential Door Unit Installer strong. Left Upper Extremity: Shoulder flexors 5/5. Shoulder abductors 5/5. Elbow flexors 5/5. Elbow extensors 5/5. Residential Door Unit Installer strong. Right Lower Extremity: Hip flexors 5/5. Hip abductors 5/5. Knee flexors 5/5. Knee extensors 5/5. Ankle dorsiflexors 5/5. Ankle plantarflexors 5/5. Left Lower Extremity:Hip flexors 5/5. Hip abductors 5/5. Knee flexors 5/5. Knee extensors 5/5. Ankle dorsiflexors 5/5. Ankle plantarflexors 5/5. Sensation: Intact as to pain and pressure on bilateral lower extremities. Bed Mobility/Transfers: Rolling independent Supine to sit independent Sit to supine independent Sit to stand independent Stand to sit independent Bed to chair independent Chair to bed independent Gait: He started assessment using front wheeled walker for the first 40 feet but patient managed to continue on with activity for about 260 feet more using no assistive device requiring only supervision with reciprocal step through gait pattern and increased edmund. Balance: Static Sitting: Normal Dynamic Sitting: Normal Static Standing: Good Dynamic Standing: Good Special Tests: Mobility Limitations Standardized Measure [facility] AM-PAC 6 clicks Basic Mobility Inpatient Short Form: Raw Score: 23 CMS Score: 11% deficit Informed Consent/Education: Patient instructed in purpose of PT consult and plan of care. Assessment: Noah does not present any impairment level findings that limited his performance of level surface ambulation and transfers during this consult. He reported pain but said symptom did not limit his ability to complete ambulation assessment. Patient is [place] a 49094 moderate complexity based on the following: History: 75 [id number] with impairment level findings, functional limitations, and past medical history as indicated above Examination: Demonstrable impairment in strength, balance, and mobility level with underlying impairments and functional limitations as documented above Presentation:Evolving Decision Makin moderate complexity Goals: N/A. PT consult only. Plan of Care/Treatment Plan: N/A. PT consult only. DISCHARGE RECOMMENDATIONS: Home when medically cleared by surgeon/hospitalist. No equipment needs at this time. TREATMENT CODE/TIME: 33820 x 30 minutes beginning at 10:03 AM. Thank you for the opportunity to participate in the care of this patient. Sabiha Samuels PT, DPT, CLT [facility] [place], [place]
[2020-05-19 11:17] VITALS: BP 96/56; PULSE 69; RESP 16; TEMP 36.9; O2SAT 95
--- NOTE | 2020-05-19 12:27 | DSE_ITS ---
Date of service: 05/19/20 Time of Service: 12:34 DS: Diagnosis Discharge Diagnosis (1) S/P inguinal hernia repair using synthetic patch: Status: Acute (2) FORTINO (acute kidney injury): Status: Acute (3) Injury of bladder during surgery: Status: Acute Discharge Plan Disposition Patient Disposition: HOME Condition: Improving Discharge Details Reason For Visit: URINARY ASCITES Admit Date/Time: 05/18/20 15:26 Admit Provider: Rai Garcia Attending Provider: Rai Garcia Primary Care Provider: [facility] Hospital Course Hospital Course: The patient was initially seen in the emergency room on 05/18/2020. He had abdominal pain and an elevated serum creatinine. On CT scan, he had evidence of some urinary ascites after his previous bladder surgery. He was taken to the operating room urgently where he underwent laparoscopy. Intra-abdominal urinary ascites was drained. We irrigated his bladder and did not find a persistent leak, so we put in an abdominal drain and a urinary catheter. By postoperative day #1, his serum creatinine and white blood count had improved. He still has some abdominal discomfort, but he is able to tolerate oral nutrition and medications. His abdominal drain amounts have decreased and his urinary catheter continues to drain urine. He did have some mental status changes after his procedure. He was having some hallucinations while at home, and was in the process of having his amantadine dose adjusted. We held the amantadine on 05/19/2020. His mentation cleared by postoperative day #1 and he is ready for discharge. Home Meds and New Rx's Prescriptions: No Action acetaminophen [Tylenol] 325 mg capsule 650 mg PO Q6H PRNQty: 30 RF: 0 ibuprofen 400 mg tablet 400 mg PO Q6H PRN (Reason: pain) Qty: 30 RF: 0 amantadine HCl 100 mg tablet 100 mg PO DAILY RF: 0 Discharge Instructions Additional Instructions: Fay catheter to drainage Abdominal drain to self suction Follow-up in my office next week for catheter and drain removal Follow-up with Dr. Au as previously arranged Scripts for Augmentin and ketorolac sent to the pharmacy May restart amantadine tomorrow but change schedule to 100 mg every other day Do not use ibuprofen while taking ketorolac Activity:: No lifting over 10 pounds Equipment/Supplies:: Fay to drainage/abdomin Diet:: As Tolerated Discharge Orders Discharge Orders: Discharge Order (Routine); Ordered 05/19/20 Ordered By: Rai Garcia DS: Summary Status at Discharge Functional status at discharge: independent ambulation Overall status at discharge: patient is back to baseline Mental Status: mental status grossly normal Speech and Movement: speech and movement normal Mood: congruent mood Affect: normal affect Exam Narrative Exam Narrative: At the time of discharge, his mentation was back to baseline His vital signs are documented elsewhere in this chart His lungs are clear Cardiac exam shows a regular rate and rhythm His abdomen is appropriately tender. His incisions are clean. The drain site is intact. His Fay catheter is draining clear urine He is awake and alert Psych Mental Status: mental status grossly normal Speech and Movement: speech and movement normal Mood: congruent mood Affect: normal affect DS: Data Vitals/I&O Vitals and I&O: Vital Signs Temperature 36.9 C 05/19/20 11:17 Temperature Source Tympanic 05/19/20 11:17 Pulse 69 05/19/20 11:17 Pulse Rhythm Regular 05/19/20 09:05 Pulse 80 05/18/20 14:50 Respiratory Rate 16 05/19/20 11:17 Respiratory Effort Non-Labored 05/19/20 09:05 Respiratory Depth Normal 05/19/20 09:05 Respiratory Pattern Normal 05/19/20 09:05 Blood Pressure 96/56 L 05/19/20 11:17 Blood Pressure Mean 83 05/18/20 14:46 Blood Pressure Position Supine 05/18/20 11:09 Pulse Oximetry 95 05/19/20 11:17 Respiratory End-tidal CO2 30 05/18/20 17:20 Oxygen Delivery Method Room Air 05/19/20 11:17 Oxygen Flow Rate 0 05/19/20 11:17 End Tidal Co2 0 05/18/20 11:09 Pain Level 0 05/19/20 11:17 Comment 05/19/20 07:58 Intake & Output 05/18/20 05/19/20 05/19/20 23:59 11:59 23:59 Intake Total 1460 / 1460 1036 / 1216 180 / 1216 Output Total 3600 / 3600 2115 / 2115 Balance -2140 / -2140 -1079 / -899 180 / -899 Intake: IV 1460 / 1460 356 / 356 Oral 0 / 0 680 / 860 180 / 860 Output: Drainage 400 / 400 15 / 15 Abdomen 400 / 400 15 / 15 Urine 3200 / 3200 2100 / 2100 Other: Urine Color Yellow Straw Urine Appearance Clear Sediment Urine Odor None Normal Comment PACU. connected to a leg bag for ease of ambulation, by order will send gravity bag home for overnight use Emesis Description None Voiding Methods Self-Catheterization Self-Catheterization Data Completed and Pending Labs on day of discharge: Labs from last 24 hours 05/19/20 05/19/20 05/18/20 06:12 06:12 14:25 WBC 10.20 D RBC 4.14 L Hgb 12.0 L Hct 37.1 L MCV 89.6 MCH 29.0 MCHC 32.3 RDW 15.0 H Plt Count 252 MPV 9.4 PT INR APTT Sodium 135 L Potassium 4.3 Chloride 104 Carbon Dioxide 26.9 Anion Gap 4.1 BUN 25 H D Creatinine 1.70 H D Estimated GFR/1.73 m2 39.60 Glucose 100 Calcium 8.5 COVID-19 PCR Negative Nasopharyn COVID-19 PCR Not Applicable Ref Test Perform Site [facility] 05/18/20 11:50 WBC RBC Hgb Hct MCV MCH MCHC RDW Plt Count MPV PT 10.9 INR 1.1 APTT 26.7 Sodium Potassium Chloride Carbon Dioxide Anion Gap BUN Creatinine Estimated GFR/1.73 m2 Glucose Calcium COVID-19 PCR Nasopharyn COVID-19 PCR Ref Test Perform Site 05/18/20 13:30 Blood Blood Culture - Pending 05/18/20 13:20 Blood Blood Culture - Pending Preliminary micro results at discharge 05/18/20 11:30 Urine Culture - Preliminary Urine - Reflex from [facility] Gram Negative Thierry 05/18/20 13:30 Blood Culture - Pending Blood 05/18/20 13:20 Blood Culture - Pending Blood [facility] Medical History Bilateral kidney stones (07/08/16) History of carcinoma in situ of bladder Hx of nephrolithotomy with removal of calculi pt. unsure of procedure, states they went up and pulled the stones out with a basket Urothelial carcinoma of bladder Surgical History (Updated 05/18/20 @ 17:10 by Gina Weir DO) Colonoscopy - IV Sedation (12/28/12) H/O cystoscopy History of back surgery lumbar S/P inguinal hernia repair using synthetic patch Family History Other Cancer Social History Smoking/Tobacco Use Status: Former Tobacco Use Smoking risk assessment performed?: Yes Alcohol Intake: never Drug use: Never Substance use type: does not use Household members: spouse Housing: house current occupation: Retired Do you feel safe at home: Yes Do you feel safe in your relationship?: Yes
--- NOTE | 2020-05-19 13:04 | PDOC.HHF2F_ITS ---
Home Health Certification Home Health Certification: 1. Encounter Date and Reason I certify that CAROLINE LOPEZ SR was seen by Rai Garcia MD on 05/19/20 and that I had a [id number] encounter with this patient that meets the physician face to face encounter requirements. 2. Clinical Findings Supporting Skilled Need and Homebound Status I certify that home health services are medically necessary, include either intermittent residential and/or physical/speech therapy, and that this patient is homebound in that absences from the home require considerable and taxing effort and are infrequent or of short duration, or are attributable to the need to receive medical care. [X] (a) Attached documentation from encounter provides clinical findings supporting skilled need and homebound status (including what assistance patient requires to leave the home). The encounter with the patient was in whole, or in part, for the following medical condition, which is the primary reason for home health care: URINARY ASCITES Senior Living: Monitoring abdominal drain output/instructions in drain care Fay catheter care Physical Therapy: Speech Therapy: Homebound: 3. Certification and Authentication I certify that I composed the above information based on my clinical judgement relating to this patient's medical condition and, if applicable, clinical findings communicated to me by the NPP or inpatient physician who performed the Home Health Referral. All further orders will be obtained through Rai Garcia MD (Community Based Physician - PCP)
--- NOTE | 2020-05-19 13:30 | PDOC.CMDIS ---
- If Service Date Differs Date of service: 05/19/20 Time of Service: 13:30 LACE Index Scoring Tool - Questions: Length of Stay (in days): 1 Acuity (Admit via E.D.?): Yes Comorbidities: Any Tumor E.D. Visits: 4 - Answers: Total Score: 10 Risk of Readmission: High Risk Care Management Discharge Reason for Hospitalization: Cancer of the bladder Discharge Plan: Noah will be discharged home with new home health nursing. He will follow up with his PCP and other community providers and discharge plan of care. Noah will transport with his girlfriend Vera. Patient/Family Education Needs: Discharge plan, limitations, Ask Me Three Services Needed at Discharge: Home Health Care Services
== END 2020-05-19 15:31 | disposition home or self-care (01) | DRG 908 ==
LOC: ER 14:37 → DSU 15:24 → MS 17:42
PROVIDERS: Admitting Provider Urology; Emergency Provider Emergency Medicine; PCP Nurse Practitioner; Visit Provider Urology
PROC: 0W9G40Z Drainage of Peritoneal Cavity with Drainage Device, Percutaneous Endoscopic Approach (ICD-10-PCS; CPT 49320; principal; 2020-05-18 14:45)
DX: N99.71 Accidental puncture and laceration of a genitourinary system organ or structure during a genitourinary system procedure (principal); R18.8 Other ascites; N17.9 Acute kidney failure, unspecified; C67.9 Malignant neoplasm of bladder, unspecified; Y83.8 Other surgical procedures as the cause of abnormal reaction of the patient, or of later complication, without mention of misadventure at the time of the procedure; Y92.234 Operating room of hospital as the place of occurrence of the external cause; G20 Parkinson's disease; N20.0 Calculus of kidney; N32.89 Other specified disorders of bladder; Z98.890 Other specified postprocedural states
CPT/HCPCS: 49322; 36410; 36415; 80048; 80053; 85027; 87040; 96361; 96365; 97162; 99221; 99238; 99252; 99285; NC; U0003; 74176; 81003; 81015; 85025; 85610; 85730; 87086; J0744; J1630; J1885; J2001; J2543; J2704; J3010

== ENCOUNTER → 2020-05-25 09:21 | Outpatient (BNVA) | payer MEDICARE, MEDICAID, SELFPAY | PROVIDERS: PCP Nurse Practitioner; Referring Provider Nurse Practitioner; Visit Provider Urology | DX: N99.81 Other intraoperative complications of genitourinary system (principal) ==

== ENCOUNTER → 2020-05-30 09:53 | Outpatient (BNVA) | payer MEDICARE, MEDICAID, SELFPAY | PROVIDERS: PCP Nurse Practitioner; Referring Provider Nurse Practitioner; Visit Provider Surgery | DX: Z48.815 Encounter for surgical aftercare following surgery on the digestive system (principal); Z87.19 Personal history of other diseases of the digestive system ==

== ENCOUNTER → 2020-05-30 10:51 | Outpatient (BNVA) | payer MEDICARE, MEDICAID, SELFPAY | PROVIDERS: PCP Nurse Practitioner; Referring Provider Nurse Practitioner; Visit Provider Urology | DX: N30.80 Other cystitis without hematuria (principal) | CPT/HCPCS: 99213 ==

== ENCOUNTER 2020-06-03 08:58 | Emergency (ER) | payer MEDICARE, SELFPAY ==
[2020-06-03 09:03] VITALS: BP 140/74; PULSE 83; RESP 16; TEMP 36.4; O2SAT 96
--- NOTE | 2020-06-03 09:15 | DI.RAD_ITS ---
EXAM: 2D digital imaging was performed. CLINICAL HISTORY: LOWER ABD PAIN, CONSTIPATION. COMPARISON: CR ABDOMEN FLAT PLATE from 06/24/[address] ABDOMEN PELVIS WO from 05/18/2020 TECHNIQUE: Supine and upright views of the abdomen was performed. FINDINGS: LUNG BASES: Clear. BOWEL GAS PATTERN: No evidence of bowel obstruction. There is a moderate amount of stool predominant ly in the left colon. FREE AIR: None. CALCIFICATIONS: Note is made of bilateral calcifications overlying the lower poles of both kidneys co nsistent with the patient's known nephrolithiasis. These were seen on the CT scan of the abdomen and pelvis from 05/18/2020. OSSEOUS STRUCTURES: Degenerative changes are seen in the lumbar spine. OTHER FINDINGS: None. IMPRESSION: 1. Moderate amount of retained stool predominantly in the left colon. 2. Bilateral nephrolithiasis. DATA REPOSITORY: RADIATION DOSE DELIVERED:
--- NOTE | 2020-06-03 09:18 | W.ED.GENAD ---
Discharge Plan Discharge Details Chief Complaint: Abd Prob Primary Care Provider: Miriam Serna ED Provider: Fawad Horowitz Home Meds and New Rx's Prescriptions: No Action cimetidine 400 mg tablet 400 mg PO QHS Qty: 30 RF: 2 amantadine HCl 100 mg tablet 100 mg PO Q OTHER DAY RF: 0 acetaminophen [Tylenol] 325 mg capsule 650 mg PO Q6H PRNQty: 30 RF: 0 ibuprofen 400 mg tablet 400 mg PO Q6H PRN (Reason: pain) Qty: 30 RF: 0 Hold Instructions: Home Medication placed on hold at Doctor's office Medical Decision Making 75-year-old male presents with lower abdominal pain and constipation of approximately 1 week's time. Said 2 days of lower abdominal crampy pain with out nausea, vomiting, fever. He is known to me from an emergency department visit on May 18 when he was found to have a bladder leak status post transurethral resection of the bladder and right inguinal hernia repair on May 15. Since being home patient has not had a formed brown stool. He did start cimetidine for nocturia, now status post 2 doses. Referred for x-ray which is formally read as constipation in the left colon. Patient underwent soapsuds enema, had a large bowel movement and felt better. UA with moderate leuk esterase and numerous red and white blood cells with rare epithelial cells and moderate bacteria. He may be having bladder spasm and will also treat for a UTI. Patient stable and improved, appropriate for discharge to home. HPI General Mode of arrival: ambulatory. Date/Time Provider Initiated Documentation: 06/03/20 08:59. Limitations to Documentation: no limitations. Information obtained by: patient and family. History of Present Illness 75 year old M presents to the emergency department with the chief complaint of Lower abdominal pain and constipation., described as moderate, Quality is described as other (Cramping), and is localized to the abdomen. Patient started experiencing this hour(s) and it has been intermittent. No relieving factors improve symptom(s), No exacerbating factors reported . Patient notes other; denies fever/chills, loss of appetite and nausea/vomiting. Patient did receive the following treatments prior to arrival, none Related Data Home Medications Medication Instructions Recorded Confirmed acetaminophen [Tylenol] 650 mg PO Q6H PRN #30 cap 05/15/20 06/03/20 ibuprofen 400 mg tablet 400 mg PO Q6H PRN #30 tab 05/15/20 06/03/20 amantadine HCl 100 mg tablet 100 mg PO Q OTHER DAY tab 05/19/20 06/03/20 cimetidine 400 mg tablet 400 mg PO QHS #30 tab 05/30/20 06/03/20 Previous Rx's Medication Instructions Recorded acetaminophen [Tylenol] 650 mg PO Q6H PRN #30 cap 05/15/20 ibuprofen 400 mg tablet 400 mg PO Q6H PRN #30 tab 05/15/20 cimetidine 400 mg tablet 400 mg PO QHS #30 tab 05/30/20 Allergies Allergy/AdvReac Type Severity Reaction Status Date / Time No Known Allergies Allergy Verified 06/03/20 09:08 General Stated Complaint: Abd Prob BRITTON: 3 Review of Systems Narrative: No fever, chills, vomiting. Started cimetidine to help with nocturia, status post 2 doses. 8 systems reviewed and otherwise negative [facility] Medical History Bilateral kidney stones (07/08/16) History of carcinoma in situ of bladder Hx of nephrolithotomy with removal of calculi pt. unsure of procedure, states they went up and pulled the stones out with a basket Urothelial carcinoma of bladder Surgical History (Updated 05/18/20 @ 17:10 by Gina Weir DO) Colonoscopy - IV Sedation (12/28/12) H/O cystoscopy History of back surgery lumbar S/P inguinal hernia repair using synthetic patch Family History Other Cancer Social History Smoking/Tobacco Use Status: Current every day Tobacco Type: smokeless tobacco Smoking risk assessment performed?: Yes Alcohol Intake: never Drug use: Never Substance use type: does not use Household members: spouse Housing: house current occupation: Retired Do you feel safe at home: Yes Do you feel safe in your relationship?: Yes Exam Narrative Exam Narrative: GEN: awake, alert, oriented 3. Pleasant, well groomed, interactive. HEAD: Normocephalic, atraumatic ENT: Mucous membranes moist, oropharynx unremarkable, External ear exam unremarkable EYES: PERRL, EOMI NECK: Full ROM, no ANUSHA, no menigismus CHEST/RESP: Nontender, clear to auscultation bilateral, no wheeze/rhonchi/rales CARDIOVASCULAR: RRR, no murmur, rub ilsa. 2+ Rad pulse bilateral ABDOMEN: Soft, nontender, no mass. Normal rectal tone, no mass or stool ball. Healed right surgical inguinal incision +Bowel sounds EXT: Full ROM, no edema, no rash Neuro: Grossly normal neurologic exam, conversant, interactive. Psych: Speech fluent, thoughts congruent, affect normal Course Vital Signs Vital signs: Vital Signs Temperature 36.4 C L 06/03/20 09:03 Pulse 83 06/03/20 09:03 Respiratory Rate 16 06/03/20 09:03 Blood Pressure 140/74 06/03/20 09:03 Pulse Oximetry 96 06/03/20 09:03 Temperature 36.4 C L 06/03/20 09:03 Temperature Source Skin 06/03/20 09:03 Pulse 83 06/03/20 09:03 Respiratory Rate 16 06/03/20 09:03 Respiratory Effort Non-Labored 06/03/20 09:10 Blood Pressure 140/74 06/03/20 09:03 Blood Pressure Position Supine 06/03/20 09:03 Pulse Oximetry 96 06/03/20 09:03 Oxygen Delivery Method Room Air 06/03/20 09:03 Oxygen Flow Rate 0 06/03/20 09:03 Pain Level 0 06/03/20 09:03
[2020-06-03 09:50] LABS: Bilirubin Negative (Negative); Blood Moderate (Negative); Clarity Sl Cloudy (Clear); Glucose Negative (Negative); Ketones Negative (Negative); Leukocyte Esterase Moderate (Negative); Nitrite Negative (Negative); Specific Gravity 1.025 (1.005-1.025); Urobilinogen 0.2 EU/dL (Up TO 0.2); pH 6.5 (5-8)
--- NOTE | 2020-06-03 09:54 | DI.VRAD_ITS ---
PROCEDURE INFORMATION: Exam: XR Abdomen, 2 Views Exam date and time: 06/03/2020 9:35 AM Age: 75 years old Clinical indication: Other: Lower abd pain, constipation TECHNIQUE: Imaging protocol: XR of the abdomen. Views: 2 Views. COMPARISON: CT ABDOMEN PELVIS WO 05/18/2020 12:38 PM FINDINGS: Gastrointestinal tract: Constipation in the left colon. Intraperitoneal space: Normal. No free air. Organs: Large calcifications within both kidneys consistent with large renal calculi. Bones/joints: Degenerative changes in the lumbar spine IMPRESSION: 1. Large calcifications within both kidneys consistent with large renal calculi. 2. Constipation in the left colon. 3. A Dictated and Authenticated by: Maurice Quinones MD. Ordering:MARVEL Celestin MD
[2020-06-03 10:13] LABS: C & S Indicated? Yes; RBC >50 HPF (0-2); WBC >50 HPF (0-5)
[2020-06-03] MEDS: Cephalexin 500 MG CAP, 4 CAPS/BTL PO (10:22)
[2020-06-03 10:23] VITALS: BP 126/58; PULSE 86; RESP 18; TEMP 36.4; O2SAT 97
== END 2020-06-03 10:19 | disposition home or self-care (01) ==
PROVIDERS: Emergency Provider Emergency Medicine; PCP Nurse Practitioner
DX: N39.0 Urinary tract infection, site not specified (principal); K59.00 Constipation, unspecified
CPT/HCPCS: 99283; 74019; 81003; 81015; 87086; 99284

== ENCOUNTER 2020-06-04 21:56 | Observation (INO) | payer MEDICARE, SELFPAY ==
[2020-06-04] VITALS (7 sets, daily range): BP systolic 119–145; BP diastolic 57–96; PULSE 76–86; RESP 16; TEMP 37.3; O2SAT 92–98
--- NOTE | 2020-06-04 22:00 | DI.CT_ITS ---
EXAM: CT ABDOMEN PELVIS WO CLINICAL HISTORY: abd pain. TECHNIQUE: Imaging Protocol: Axial computed tomography images with coronal and sagittal reformatted images were created and reviewed. COMPARISON: CT CT ABDOMEN PELVIS WO from 02/17/[address] ABDOMEN PELVIS WO from 05/18/[address] ABDOMEN PELVIS WO from 05/18/2020 FINDINGS: ABDOMEN: Lung Bases: Mild dependent atelectasis. Liver: There is again seen along enlarged left lobe of the liver. The liver contour has a normal appe arance. No measurable mass. Gallbladder and biliary tract: Cholelithiasis. No biliary ductal dilatation. Pancreas: Normal density, no abnormal calcifications or inflammatory process. Spleen: Upper limits of normal in size. Kidneys: Normal size, contour and axis.Bilateral nephrolithiasis. There is unchanged dilatation of th e left renal collecting system to the level of the UVJ. No ureteral stone is identified. No masses se en. Note is made of a circum aortic left renal vein. Adrenal glands: No mass is seen. Lymph nodes: Within normal limits. Abdominal Aorta: Abdominal portion non-dilated. Moderate atherosclerosis. There are varices seen in t he upper abdomen. PELVIS: Bladder:There is a bladder wall defect at the anterior superior and right aspect of the urinary bladd er the opening measures 2.57 cm. There is an associated focal exophytic fluid collection associated w ith this defect. This was not present on the prior examination at which time the patient demonstrated a bladder rupture. This fluid collection appears continuous with the urinary bladder. No intralumina l air is seen. There is uniform thickening of the wall of the urinary bladder. Bowel: No evidence of obstruction. In the central abdomen, there are several small bowel loops which show concentric bowel wall thickening. There is associated fluid in the mesentery. No evidence of acu te appendicitis. Peritoneal cavity: There is a trace amount of fluid in the mesentery. No focal fluid collection is se en. Reproductive organs: The prostate gland impinges upon the base of the urinary bladder. Bones: Degenerative changes are seen in the spine. Soft Tissues: There appears to be repair of the right inguinal hernia. There is a small fat containin g left inguinal hernia. IMPRESSION: 1. There is now a exophytic fluid collection arising from the superior and right lateral aspect of th e urinary bladder which appears contiguous with the urinary bladder. There is a communication defect of 2.5 cm. This was not present on the prior examination. This may be a sequelae of the patient's pre vious urinary bladder rupture. Thickening of the wall of the remaining urinary bladder is noted. 2. Persistent moderate left hydroureteronephrosis to the level of the urinary bladder without uretera l stone. This may reflect a stricture at the UVJ or non calcified obstructing stone. 3. Wall thickening involving loops of small bowel in the central abdomen with mesenteric fluid. Diffe rential considerations include inflammatory infectious enteritis, ischemia cannot be excluded. 4. Abnormal appearance of the liver with upper abdominal varices and upper limits of normal spleen. T his may reflect hepatic cirrhosis. Follow-up as clinically appropriate. RADIATION DOSE DELIVERED: 599.48mGy.cm Total DLP DATA REPOSITORY: All CT scans at this facility are submitted to the National Radiology Data Registry (NRDR) Dose Index Registry (DIR) with the [employer] (ACR). RADIATION OPTIMIZATION: All CT scans at this facility use at least one of these dose optimization te chniques: automated exposure control; mA and/or kV adjustment per patient size (includes targeted exa ms where dose is matched to clinical indication); or iterative reconstruction.
--- NOTE | 2020-06-04 22:04 | ED.GENADUL_ITS ---
Discharge Plan Disposition Patient Disposition: [facility] INPATIENT Condition: Fair Discharge Details Clinical Impression: Acute postoperative abdominal pain Admit Date/Time: 06/05/20 01:05 Admit Provider: Rai Lynch Attending Provider: Rai Lynch Primary Care Provider: Miriam Serna ED Provider: Ana Moreland Discharge Data Discharge Date/Time-TO BE ENTERED AT DEPARTURE: 06/05/20 01:50 Medical Decision Making Patient returns to the emergency department tonight with worsening right lower quadrant pain seen in the emergency department yesterday and treated for constipation, relieved by enema. He has had no fevers. Well establish IV give 1 L normal saline bolus. Labs include CBC CMP urinalysis.. We will get CAT scan without contrast due to most recent kidney function. His urine does return positive for urinary tract infection will give him 1 g IV ceftriaxone He had Tylenol prior to arrival so given morphine 2 mg for pain with no relief. this dose is repeated. Case discussed with Dr Lynch who will evaluate patient in the ED, to be admitted to med/surg under dr lynch Medical Records Medical records reviewed: Yes I reviewed the patient's medical records. Medical records narrative: Patient Name: CAROLINE LOPEZ SR #: [id number]: ER Ordering Provider: : REG ER Primary Care Provider: Miriam Serna NPDate of Exam: 06/04/20ex: M : 1945ge: [id number] Exam(s) Addendum created by Marty Olmos MD on 06/04/2020 11:22:17 PM EST: THIS REPORT CONTAINS FINDINGS THAT MAY BE CRITICAL TO PATIENT CARE. The findings were verbally communicated via telephone conference with ANA MORELAND at 11:21 PM EST on 06/04/2020. The findings were acknowledged and understood. By clinical report, the patient clinical condition has worsened, with symptoms of severe abdominal pain and elevated white count. Differential for these findings could include a bladder rupture with superimposed infection/peritonitis. The possibility of small bowel ischemia must be followed up Initial report created on 06/04/2020 11:21:15 PM EST: PROCEDURE INFORMATION: Exam: CT Abdomen And Pelvis Without Contrast Exam date and time: 06/04/2020 10:46 PM Age: 75 years old Clinical indication: Abdominal pain; Localized; Right lower quadrant (rlq); Prior surgery; Surgery date: <1 month; Surgery type: 3 weeks ago, hernia repair and surgery for bladder CA; Patient HX: Rlq pain TECHNIQUE: Imaging protocol: Computed tomography of the abdomen and pelvis without contrast. Radiation optimization: All CT scans at this facility use at least one of these dose optimization techniques: automated exposure control; mA and/or kV adjustment per patient size (includes targeted exams where dose is matched to clinical indication); or iterative reconstruction. COMPARISON: CT ABDOMEN PELVIS WO 05/18/2020 12:38 PM FINDINGS: Liver: See Vasculature finding. Gallbladder and bile ducts: Cholelithiasis is present without evidence for gallbladder wall thickening. Cholelithiasis is present without evidence for gallbladder wall thickening. Pancreas: Normal. No ductal dilation. Spleen: Normal. No splenomegaly. Adrenal glands: Normal. No mass. Kidneys and ureters: Moderate left-sided hydronephrosis and hydroureter noted to the level of the urinary bladder. No ureteral stone identified. What may reflect a distal ureteral/UVJ stricture cannot be excluded.. Bilateral nonobstructing nephrolithiasis noted. Stomach and bowel: Fluid extends from the pelvis into the lower and upper abdomen. Loops of small bowel are thickened in the lower abdomen. This likely reflect reactive thickening related to the suspected bladder rupture. Differential would include bladder thickening and mesenteric congestion compatible with a nonspecific enteritis, ischemia not excluded. Clinical correlation recommended which should include evaluation of lactate levels. This is a new finding compared with prior. . Appendix: No evidence of appendicitis. Vasculature: Upper abdominal varices are present which may reflect underlying portal hypertension. There is equivocal recanalization of the paraumbilical vein. Would recommend clinical correlation to exclude micro nodular hepatic cirrhosis and portal hypertension. Lymph nodes: Unremarkable. No enlarged lymph nodes. Urinary bladder: Abnormal appearance of the urinary bladder which demonstrates a mural defect measuring approximately 2.5 cm in length in the right anterior superior aspect of the bladder. A fluid collection is present extending from this defect. This is a new finding when compared with the prior study which had demonstrated a smaller irregular mural abnormality at this location, which apparently has progressed to a out right urinary bladder defect/rupture. Further evaluation with a CT cystogram could be performed as needed for confirmation . More inferiorly irregular mural thickening and thinning is noted which may reflect a post treatment appearance of the bladder in a patient with a history of bladder cancer.. Reproductive: Unremarkable as visualized. Bones/joints: Unremarkable. No acute fracture. Soft tissues: Unremarkable. IMPRESSION: 1. Moderate left-sided hydronephrosis and hydroureter noted to the level of the urinary bladder. No ureteral stone identified. What may reflect a distal ureteral/UVJ stricture cannot be excluded.. 2. Abnormal appearance of the urinary bladder which demonstrates a mural defect measuring approximately 2.5 cm in length in the right anterior superior aspect of the bladder. A fluid collection is present extending from this defect. This is a new finding when compared with the prior study which had demonstrated a smaller irregular mural abnormality at this location, which apparently has progressed to a out right urinary bladder defect/rupture. Further evaluation with a CT cystogram could be performed as needed for confirmation . More inferiorly irregular mural thickening and thinning is noted which may reflect a post treatment appearance of the bladder in a patient with a history of bladder cancer.. 3.Fluid extends from the pelvis into the lower and upper abdomen. Loops of small bowel are thickened in the lower abdomen. This likely reflect reactive thickening related to the suspected bladder rupture. Differential would include bladder thickening and mesenteric congestion compatible with a nonspecific enteritis, ischemia not excluded. Clinical correlation recommended which should include evaluation of lactate levels. This is a new finding compared with prior. 4. Upper abdominal varices are present which may reflect underlying portal hypertension. There is equivocal recanalization of the paraumbilical vein. Would recommend clinical correlation to exclude micro nodular hepatic cirrhosis and portal hypertension. Dictated and Authenticated by: Marty Olmos MD. Ordering:JESS Perez MD Lab Data Lab results reviewed: Yes I reviewed the patient's lab results. Lab results narrative: Laboratory Results - last 24 hr 06/04/20 06/04/20 06/04/20 21:20 22:25 22:25 WBC 14.07 H RBC 4.78 Hgb 13.9 Hct 42.5 MCV 88.9 MCH 29.1 MCHC 32.7 RDW 15.1 H Plt Count 414 H MPV 9.0 Immature Gran % 0.6 Neutrophils % 85.9 Lymphocytes % 4.5 Monocytes % 8.0 Eosinophils % 0.6 Basophils % 0.4 Nucleated RBC % 0 Absolute Neutrophils 12.09 H Absolute Lymphocytes 0.63 L Absolute Monocytes 1.13 H Absolute Eosinophils 0.08 Absolute Basophils 0.06 VBG Lactate Sodium 132 L Potassium 4.9 Chloride 98 Carbon Dioxide 25.8 Anion Gap 8.2 BUN 35 H Creatinine 1.93 H Estimated GFR/1.73 m2 34.20 Glucose 117 H Calcium 9.5 Magnesium 1.8 Total Bilirubin 1.1 H AST 27 ALT 18 Alkaline Phosphatase 116 Total Protein 8.4 H Albumin 3.1 L Urine Color Yellow Urine Clarity Sl cloudy Urine pH 6.0 Ur Specific Morris 1.025 Urine Protein 30 H Urine Ketones Negative Urine Blood Large H Urine Nitrite Negative Urine Bilirubin Negative Urine Urobilinogen 0.2 Ur Leukocyte Esterase Moderate H Urine RBC 5-10 H Urine WBC >50 H Ur Epithelial Cells Few Urine Crystals Negative Urine Bacteria Few Urine Casts Negative Urine Mucus Negative Ur Culture Indicated? Yes Urine Glucose Negative 06/04/20 23:25 WBC RBC Hgb Hct MCV MCH MCHC RDW Plt Count MPV Immature Gran % Neutrophils % Lymphocytes % Monocytes % Eosinophils % Basophils % Nucleated RBC % Absolute Neutrophils Absolute Lymphocytes Absolute Monocytes Absolute Eosinophils Absolute Basophils VBG Lactate 1.1 Sodium Potassium Chloride Carbon Dioxide Anion Gap BUN Creatinine Estimated GFR/1.73 m2 Glucose Calcium Magnesium Total Bilirubin AST ALT Alkaline Phosphatase Total Protein Albumin Urine Color Urine Clarity Urine pH Ur Specific Morris Urine Protein Urine Ketones Urine Blood Urine Nitrite Urine Bilirubin Urine Urobilinogen Ur Leukocyte Esterase Urine RBC Urine WBC Ur Epithelial Cells Urine Crystals Urine Bacteria Urine Casts Urine Mucus Ur Culture Indicated? Urine Glucose HPI General Mode of arrival: wheelchair . Date/Time Provider Initiated Documentation: 06/04/20 21:57 . Limitations to Documentation: no limitations . Information obtained by: patient . HPI Narrative: This 75-year-old male patient who recently underwent a right inguinal hernia repair complicated by bladder leak status post transurethral resection of the bladder and right inguinal hernia repair on May 15. He was doing well postoperatively until yesterday when he developed lower abdominal pain and was evaluated in the ED and xray concerning for constipation. He received an enema with improvement in his symptoms and was discharged to home. today he reports worsening pain again, no fevers, some nausea and vomiting. reports voiding without difficulty. Related Data Home Medications Medication Instructions Recorded Confirmed acetaminophen [Tylenol] 650 mg PO Q6H PRN #30 cap 05/15/20 06/05/20 ibuprofen 400 mg tablet 400 mg PO Q6H PRN #30 tab 05/15/20 06/05/20 amantadine HCl 100 mg tablet 100 mg PO Q OTHER DAY tab 05/19/20 06/05/20 Previous Rx's Medication Instructions Recorded acetaminophen [Tylenol] 650 mg PO Q6H PRN #30 cap 05/15/20 ibuprofen 400 mg tablet 400 mg PO Q6H PRN #30 tab 05/15/20 Allergies Allergy/AdvReac Type Severity Reaction Status Date / Time No Known Allergies Allergy Verified 06/03/20 09:08 General BRITTON: 3 Review of Systems All systems reviewed & are unremarkable except as noted in HPI and below Constitutional Constitutional: Denies fever(s) Cardiovascular Cardiovascular: Denies chest pain and Denies dyspnea Respiratory Respiratory: Denies cough and Denies dyspnea Gastrointestinal Gastrointestinal: Reports abdominal pain, Reports nausea and Reports vomiting Genitourinary Genitourinary: Denies oliguria, Denies urinary frequency and Denies urinary urgency Musculoskeletal Musculoskeletal: Denies back pain Integumentary/Breasts Skin/Breast: Reports lesions (surgical incisions are well healed) and Denies rash PFSH Medical History Bilateral kidney stones (07/08/16) History of carcinoma in situ of bladder Hx of nephrolithotomy with removal of calculi pt. unsure of procedure, states they went up and pulled the stones out with a basket Urothelial carcinoma of bladder Surgical History (Updated 05/18/20 @ 17:10 by Gina Weir DO) Colonoscopy - IV Sedation (12/28/12) H/O cystoscopy History of back surgery lumbar S/P inguinal hernia repair using synthetic patch Family History Other Cancer Social History Smoking/Tobacco Use Status: Former Tobacco Use Smoking risk assessment performed?: Yes Alcohol Intake: never Drug use: Never Substance use type: does not use Household members: spouse Housing: house current occupation: Retired Do you feel safe at home: Yes Do you feel safe in your relationship?: Yes Exam Const General: cooperative and acute distress moderate Nutritional Appearance: average body habitus Orientation: alert, awake and oriented x3 HENMT Head: normal to inspection, normocephalic and atraumatic Mouth: oral mucosae normal Chest Chest: normal inspection of the chest Resp Effort & Inspection: normal respiratory effort Auscultation: clear to auscultation bilaterally Cardio Rate: regular rate Rhythm: regular rhythm GI Inspection: distended Palpation: firm, guarding, no masses, not rigid and tender in the RLQ Auscultation: hypoactive bowel sounds General: other (Voided small amount of cloudy concentrated urine) Skin Lesions: lesion noted (Surgical incisions are well-healed and approximated there is no erythema or) Neuro General: patient alert, patient awake and patient oriented x3 Extrem General: normal to inspection and full ROM
[2020-06-04 22:30] LABS: Abs Immature Grans 0.08 10^3/uL (0.0-0.06); Absolute Neutrophil Count 12.09 10^3/uL (1.2-6.7); Basophils % 0.4; Eosinophils % 0.6; HCT 42.5 % (40.0-50.0); HGB 13.9 g/dL (13.5-17.5); Immature Grans % 0.6; Lymphocytes % 4.5; MCH 29.1 pg (27.0-33.0); MCHC 32.7 % (32.0-36.0); MCV 88.9 fL (80-95); Neutrophils % 85.9; Nucleated RBC 0 %; Platelet Count 414 10^3/uL (130-400); RBC 4.78 10^6/uL (4.36-5.78); RDW 15.1 % (11.8-14.1); RDW-SD 49.9 fL; WBC 14.07 10^3/uL (4.4-10.8)
[2020-06-04 22:31] LABS: Absolute Basophil Count 0.06 10^3/uL (0.0-0.2); Absolute Eosinophil Count 0.08 10^3/uL (0.0-0.7); Absolute Lymphocyte Count 0.63 10^3/uL (1.2-3.4); Absolute Monocyte Count 1.13 10^3/uL (0.1-0.8)
[2020-06-04 22:43] LABS: ALT 18 U/L (16-63); AST 27 U/L (15-37); Albumin 3.1 g/dL (3.4-5.0); Alkaline Phosphatase 116 U/L (46-116); Anion Gap 8.2 mmol/L (3-11); BUN 35 mg/dL (7-18); Bilirubin, Total 1.1 mg/dL (0.2-1.0); CO2 25.8 mmol/L (21.0-32.0); CREATININE 1.93 mg/dL (0.70-1.30); Calcium 9.5 mg/dL (8.5-10.1); Chloride 98 mmol/L (98-107); Glucose 117 mg/dL (74-106); Magnesium 1.8 mg/dL (1.8-2.4); Potassium 4.9 mmol/L (3.5-5.1); Sodium 132 mmol/L (136-145); Total Protein 8.4 g/dL (6.4-8.2)
[2020-06-04 22:53] LABS: Bilirubin Negative (Negative); Blood Large (Negative); Clarity Sl Cloudy (Clear); Glucose Negative (Negative); Ketones Negative (Negative); Leukocyte Esterase Moderate (Negative); Nitrite Negative (Negative); Specific Gravity 1.025 (1.005-1.025); Urobilinogen 0.2 EU/dL (Up TO 0.2)
[2020-06-04] MEDS: Normal Saline 1,000 ML 1000 ML IV (22:55)
[2020-06-04 23:06] LABS: Bacteria Few HPF (Negative); C & S Indicated? Yes; Casts Negative LPF (Negative); Crystals Negative HPF (Negative); Epithelial Cells Few HPF (Negative); Mucus Negative (Negative); WBC >50 HPF (0-5)
[2020-06-04] MEDS: MORPHine 10 MG/ML VIAL 2 MG IVP (23:11)
--- NOTE | 2020-06-04 23:22 | DI.VRAD_ITS ---
Addendum created by Marty Olmos MD on 06/04/2020 11:22:17 PM EST: THIS REPORT CONTAINS FINDINGS THAT MAY BE CRITICAL TO PATIENT CARE. The findings were verbally communicated via telephone conference with EDER FALL at 11:21 PM EST on 06/04/2020. The findings were acknowledged and understood. By clinical report, the patient clinical condition has worsened, with symptoms of severe abdominal pain and elevated white count. Differential for these findings could include a bladder rupture with superimposed infection/peritonitis. The possibility of small bowel ischemia must be followed up Initial report created on 06/04/2020 11:21:15 PM EST: PROCEDURE INFORMATION: Exam: CT Abdomen And Pelvis Without Contrast Exam date and time: 06/04/2020 10:46 PM Age: 75 years old Clinical indication: Abdominal pain; Localized; Right lower quadrant (rlq); Prior surgery; Surgery date: <1 month; Surgery type: 3 weeks ago, hernia repair and surgery for bladder CA; Patient HX: Rlq pain TECHNIQUE: Imaging protocol: Computed tomography of the abdomen and pelvis without contrast. Radiation optimization: All CT scans at this facility use at least one of these dose optimization techniques: automated exposure control; mA and/or kV adjustment per patient size (includes targeted exams where dose is matched to clinical indication); or iterative reconstruction. COMPARISON: CT ABDOMEN PELVIS WO 05/18/2020 12:38 PM FINDINGS: Liver: See Vasculature finding. Gallbladder and bile ducts: Cholelithiasis is present without evidence for gallbladder wall thickening. Cholelithiasis is present without evidence for gallbladder wall thickening. Pancreas: Normal. No ductal dilation. Spleen: Normal. No splenomegaly. Adrenal glands: Normal. No mass. Kidneys and ureters: Moderate left-sided hydronephrosis and hydroureter noted to the level of the urinary bladder. No ureteral stone identified. What may reflect a distal ureteral/UVJ stricture cannot be excluded.. Bilateral nonobstructing nephrolithiasis noted. Stomach and bowel: Fluid extends from the pelvis into the lower and upper abdomen. Loops of small bowel are thickened in the lower abdomen. This likely reflect reactive thickening related to the suspected bladder rupture. Differential would include bladder thickening and mesenteric congestion compatible with a nonspecific enteritis, ischemia not excluded. Clinical correlation recommended which should include evaluation of lactate levels. This is a new finding compared with prior. . Appendix: No evidence of appendicitis. Vasculature: Upper abdominal varices are present which may reflect underlying portal hypertension. There is equivocal recanalization of the paraumbilical vein. Would recommend clinical correlation to exclude micro nodular hepatic cirrhosis and portal hypertension. Lymph nodes: Unremarkable. No enlarged lymph nodes. Urinary bladder: Abnormal appearance of the urinary bladder which demonstrates a mural defect measuring approximately 2.5 cm in length in the right anterior superior aspect of the bladder. A fluid collection is present extending from this defect. This is a new finding when compared with the prior study which had demonstrated a smaller irregular mural abnormality at this location, which apparently has progressed to a out right urinary bladder defect/rupture. Further evaluation with a CT cystogram could be performed as needed for confirmation . More inferiorly irregular mural thickening and thinning is noted which may reflect a post treatment appearance of the bladder in a patient with a history of bladder cancer.. Reproductive: Unremarkable as visualized. Bones/joints: Unremarkable. No acute fracture. Soft tissues: Unremarkable. IMPRESSION: 1. Moderate left-sided hydronephrosis and hydroureter noted to the level of the urinary bladder. No ureteral stone identified. What may reflect a distal ureteral/UVJ stricture cannot be excluded.. 2. Abnormal appearance of the urinary bladder which demonstrates a mural defect measuring approximately 2.5 cm in length in the right anterior superior aspect of the bladder. A fluid collection is present extending from this defect. This is a new finding when compared with the prior study which had demonstrated a smaller irregular mural abnormality at this location, which apparently has progressed to a out right urinary bladder defect/rupture. Further evaluation with a CT cystogram could be performed as needed for confirmation . More inferiorly irregular mural thickening and thinning is noted which may reflect a post treatment appearance of the bladder in a patient with a history of bladder cancer.. 3.Fluid extends from the pelvis into the lower and upper abdomen. Loops of small bowel are thickened in the lower abdomen. This likely reflect reactive thickening related to the suspected bladder rupture. Differential would include bladder thickening and mesenteric congestion compatible with a nonspecific enteritis, ischemia not excluded. Clinical correlation recommended which should include evaluation of lactate levels. This is a new finding compared with prior. 4. Upper abdominal varices are present which may reflect underlying portal hypertension. There is equivocal recanalization of the paraumbilical vein. Would recommend clinical correlation to exclude micro nodular hepatic cirrhosis and portal hypertension. Dictated and Authenticated by: Marty Olmos MD. Ordering:JESS Perez MD
[2020-06-04 23:29] LABS: Lactate 1.1 mmol/L (0.6-1.4)
[2020-06-04] MEDS: cefTRIAXone 1 GM/50 ML BAG IVPB (23:36)
[2020-06-05] VITALS (16 sets, daily range): BP systolic 99–137; BP diastolic 42–71; PULSE 77–87; RESP 16–18; TEMP 37–37.6; O2SAT 92–97
--- NOTE | 2020-06-05 01:11 | W.PM.HP.N ---
Date of service: 06/05/20 Time of Service: 01:11 Assessment and Plan Assessment and plan (1) Abdominal pain: Status: Acute Assessment and plan: I see no evidence of intraperitoneal urine collection on CT. Also, his serum creatinine has not increased much acutely. For these reasons, I do not believe he needs an urgent/emergent trip to the OR. I have placed a mccoy and started antibiotics until his urine culture is available. we will observe him overnight and recheck his labs in the morning. (2) Urinary retention: Status: Acute (3) UTI (urinary tract infection): Status: Acute (4) Hydronephrosis, left: Status: Acute History of Present Illness History of Present Illness Chief Complaint: Abdominal pain Narrative: This is a 75 year old man who has a urologic history significant for bladder cancer and kidney stones. He developed urinary ascites after his last bladder biopsy. He returned to the OR for a drainage procedure. We left his mccoy and abdominal drain in place for 7 days after the drainage procedure. He returns to the ER with abdominal pain and urinary frequency. His CT raised concerns for a progression of his bladder injury. He has no nausea or vomiting. He has no fever or chills. He has not had any abdominal trauma since his last visit. He has not seen any hematuria or clots in the urine. Review of Systems Narrative: No fevers or chills No vision change or dysphasia No diabetes or thyroid No shortness of breath, cough or hemoptysis No chest pain or palpitations No nausea, vomiting, hepatitis, ulcers, jaundice, diarrhea or constipation No seizures, strokes or peripheral neuropathy. Tremors related to Parkinsons No bleeding disorders or anemia No gout [facility] Medical History Bilateral kidney stones (07/08/16) History of carcinoma in situ of bladder Hx of nephrolithotomy with removal of calculi pt. unsure of procedure, states they went up and pulled the stones out with a basket Urothelial carcinoma of bladder Surgical History (Updated 05/18/20 @ 17:10 by Gina Weir DO) Colonoscopy - IV Sedation (12/28/12) H/O cystoscopy History of back surgery lumbar S/P inguinal hernia repair using synthetic patch Family History Other Cancer Social History Smoking/Tobacco Use Status: Former Tobacco Use Smoking risk assessment performed?: Yes Alcohol Intake: never Drug use: Never Substance use type: does not use Household members: spouse Housing: house current occupation: Retired Do you feel safe at home: Yes Do you feel safe in your relationship?: Yes Meds Home Medications and Allergies Home Medications Medication Instructions Recorded Confirmed Type acetaminophen [Tylenol] 650 mg PO Q6H PRN #30 cap 05/15/20 06/03/20 Rx ibuprofen 400 mg tablet 400 mg PO Q6H PRN #30 tab 05/15/20 06/03/20 Rx amantadine HCl 100 mg tablet 100 mg PO Q OTHER DAY tab 05/19/20 06/03/20 History cimetidine 400 mg tablet 400 mg PO QHS #30 tab 05/30/20 06/03/20 Rx cephalexin 500 mg PO TID 5 Days #15 cap 06/03/20 Rx Allergies Allergy/AdvReac Type Severity Reaction Status Date / Time No Known Allergies Allergy Verified 06/03/20 09:08 Exam Narrative Exam Narrative: A 16 Arabic Coude tipped catheter was passed through the urethra into the bladder. The catheter balloon was inflated with 10 cc of sterile water. His catheter was hooked to gravity drainage. A total of 600 cc of clear urine was obtained. Const General: uncomfortable Orientation: alert, awake and oriented x3 Resp Effort & Inspection: normal respiratory effort Auscultation: clear to auscultation bilaterally Cardio Rate: regular rate Rhythm: regular rhythm GI Other: Healed right inguinal hernia incision No tenderness in upper abdomen Exquisitely tender across suprapubic area/lower abdomen with right>left Penis: normal penis Meatus: meatus normal Neuro General: patient alert, patient awake and patient oriented x3 Results Labs Result diagrams: 06/04/20 22:25 06/04/20 22:25 Labs: Laboratory Results - last 24 hr 06/04/20 06/04/20 06/04/20 21:20 22:25 22:25 WBC 14.07 H RBC 4.78 Hgb 13.9 Hct 42.5 MCV 88.9 MCH 29.1 MCHC 32.7 RDW 15.1 H Plt Count 414 H MPV 9.0 Immature Gran % 0.6 Neutrophils % 85.9 Lymphocytes % 4.5 Monocytes % 8.0 Eosinophils % 0.6 Basophils % 0.4 Nucleated RBC % 0 Absolute Neutrophils 12.09 H Absolute Lymphocytes 0.63 L Absolute Monocytes 1.13 H Absolute Eosinophils 0.08 Absolute Basophils 0.06 VBG Lactate Sodium 132 L Potassium 4.9 Chloride 98 Carbon Dioxide 25.8 Anion Gap 8.2 BUN 35 H Creatinine 1.93 H Estimated GFR/1.73 m2 34.20 Glucose 117 H Calcium 9.5 Magnesium 1.8 Total Bilirubin 1.1 H AST 27 ALT 18 Alkaline Phosphatase 116 Total Protein 8.4 H Albumin 3.1 L Urine Color Yellow Urine Clarity Sl cloudy Urine pH 6.0 Ur Specific [place] 1.025 Urine Protein 30 H Urine Ketones Negative Urine Blood Large H Urine Nitrite Negative Urine Bilirubin Negative Urine Urobilinogen 0.2 Ur Leukocyte Esterase Moderate H Urine RBC 5-10 H Urine WBC >50 H Ur Epithelial Cells Few Urine Crystals Negative Urine Bacteria Few Urine Casts Negative Urine Mucus Negative Ur Culture Indicated? Yes Urine Glucose Negative 06/04/20 23:25 WBC RBC Hgb Hct MCV MCH MCHC RDW Plt Count MPV Immature Gran % Neutrophils % Lymphocytes % Monocytes % Eosinophils % Basophils % Nucleated RBC % Absolute Neutrophils Absolute Lymphocytes Absolute Monocytes Absolute Eosinophils Absolute Basophils VBG Lactate 1.1 Sodium Potassium Chloride Carbon Dioxide Anion Gap BUN Creatinine Estimated GFR/1.73 m2 Glucose Calcium Magnesium Total Bilirubin AST ALT Alkaline Phosphatase Total Protein Albumin Urine Color Urine Clarity Urine pH Ur Specific [place] Urine Protein Urine Ketones Urine Blood Urine Nitrite Urine Bilirubin Urine Urobilinogen Ur Leukocyte Esterase Urine RBC Urine WBC Ur Epithelial Cells Urine Crystals Urine Bacteria Urine Casts Urine Mucus Ur Culture Indicated? Urine Glucose Last Vital Signs Temp 37.3 C 06/04/20 22:05 Pulse 83 06/05/20 00:01 Resp 16 06/04/20 23:56 BP 122/59 L 06/05/20 00:01 Pulse Ox 94 06/05/20 00:01 COVID-19 Screening Have you, or household traveled for leisure in last 14 days?: No Had IN PERSON contact w/suspected or confirmed C-19 person: No
[2020-06-05] MEDS: MORPHine 10 MG/ML VIAL 2 MG IVP (01:25)
[2020-06-05] MEDS: Normal Saline Flush 10 ML SYR IVP ×2 (02:25→03:01)
[2020-06-05 07:55] LABS: ALT 16 U/L (16-63); AST 19 U/L (15-37); Albumin 2.4 g/dL (3.4-5.0); Alkaline Phosphatase 92 U/L (46-116); Anion Gap 6.3 mmol/L (3-11); BUN 29 mg/dL (7-18); Bilirubin, Total 0.8 mg/dL (0.2-1.0); CO2 25.7 mmol/L (21.0-32.0); CREATININE 1.36 mg/dL (0.70-1.30); Calcium 8.7 mg/dL (8.5-10.1); Chloride 105 mmol/L (98-107); Estimated GFR 51.22 (mL/min/1.73m2); Glucose 114 mg/dL (74-106); Potassium 4.3 mmol/L (3.5-5.1); Sodium 137 mmol/L (136-145); Total Protein 6.8 g/dL (6.4-8.2)
[2020-06-05 10:43] LABS: Abs Immature Grans 0.03 10^3/uL (0.0-0.06); Absolute Basophil Count 0.07 10^3/uL (0.0-0.2); Absolute Eosinophil Count 0.11 10^3/uL (0.0-0.7); Absolute Lymphocyte Count 0.62 10^3/uL (1.2-3.4); Absolute Neutrophil Count 7.13 10^3/uL (1.2-6.7); Basophils % 0.8; Eosinophils % 1.2; HCT 36.4 % (40.0-50.0); HGB 11.9 g/dL (13.5-17.5); Immature Grans % 0.3; MCH 29.3 pg (27.0-33.0); MCHC 32.7 % (32.0-36.0); MCV 89.7 fL (80-95); MPV 9.6 fL (8.0-11.0); Monocytes % 10.2; Neutrophils % 80.5; Nucleated RBC 0 %; Platelet Count 365 10^3/uL (130-400); RBC 4.06 10^6/uL (4.36-5.78); RDW 15.2 % (11.8-14.1); WBC 8.86 10^3/uL (4.4-10.8)
--- NOTE | 2020-06-05 10:53 | W.PM.DS.N ---
Date of service: 06/05/20 Time of Service: 10:53 DS: Diagnosis Discharge Diagnosis (1) Abdominal pain: Status: Acute (2) Urinary retention: Status: Acute (3) UTI (urinary tract infection): Status: Acute (4) Hydronephrosis, left: Status: Acute Discharge Plan Disposition Patient Disposition: HOME Condition: Fair Discharge Details Reason For Visit: URINARY RETENTION Admit Date/Time: 06/05/20 01:05 Admit Provider: Rai Garcia Attending Provider: Rai Garcia Primary Care Provider: [facility] Hospital Course Hospital Course: The patient was seen in the emergency room and a Mccoy catheter was placed. His abdominal pain improved. He was monitored overnight and his white blood count and his serum creatinine improved with catheter drainage. He remained afebrile. He was able to tolerate oral nutrition. He will be discharged to home with a catheter in place. Home Meds and New Rx's Prescriptions: Discontinued cimetidine 400 mg tablet 400 mg PO QHS Qty: 30 RF: 2 cephalexin 500 mg capsule 500 mg PO TID 5 Days Qty: 15 RF: 0 No Action amantadine HCl 100 mg tablet 100 mg PO Q OTHER DAY RF: 0 acetaminophen [Tylenol] 325 mg capsule 650 mg PO Q6H PRNQty: 30 RF: 0 ibuprofen 400 mg tablet 400 mg PO Q6H PRN (Reason: pain) Qty: 30 RF: 0 Hold Instructions: Home Medication placed on hold at Doctor's office Discharge Instructions Additional Instructions: Mccoy to leg bag Call my office tomorrow to review urine culture results and be started on oral antibiuotic Followup appt for catheter removal will be arranged by my office (coordinating with imaging study/cystogram) Activity:: Activity as Tolerated Equipment/Supplies:: mccoy to legbag Diet:: As Tolerated Discharge Orders Discharge Orders: Discharge Order (Routine); Ordered 06/05/20 Ordered By: Rai Garcia Discharge Data Discharge Comment: after he receives Ceftriaxone injection DS: Summary Status at Discharge Functional status at discharge: independent ambulation Overall status at discharge: patient is back to baseline Mental Status: mental status grossly normal Speech and Movement: speech and movement normal Mood: congruent mood Affect: normal affect Exam Const General: cooperative and comfortable Resp Effort & Inspection: normal respiratory effort Cardio Rate: regular rate Rhythm: regular rhythm GI Inspection: normal to inspection Palpation: tender (right lower quadrant only) Other: urine clear in catheter Psych Mental Status: mental status grossly normal Speech and Movement: speech and movement normal Mood: congruent mood Affect: normal affect DS: Data Vitals/I&O Vitals and I&O: Vital Signs Temperature 37.6 C H 06/05/20 07:44 Temperature Source Tympanic 06/05/20 07:44 Pulse 87 06/05/20 09:35 Pulse Rhythm Regular 06/05/20 07:50 Respiratory Rate 18 06/05/20 07:44 Respiratory Effort 06/05/20 07:50 Respiratory Depth Normal 06/05/20 07:50 Respiratory Pattern Normal 06/05/20 07:50 Blood Pressure 127/54 L 06/05/20 09:35 Blood Pressure Mean 72 06/05/20 01:01 Blood Pressure Position Supine 06/04/20 22:05 Pulse Oximetry 92 06/05/20 07:44 Oxygen Delivery Method Room Air 06/05/20 07:44 Oxygen Flow Rate 0 06/05/20 07:44 Pain Level 4 06/05/20 07:50 Comment 06/05/20 07:44 Intake & Output 06/04/20 06/04/20 06/05/20 11:59 23:59 11:59 Intake Total 1590 / 1590 Output Total 275 / 275 1325 / 1325 Balance -275 / -275 265 / 265 Weight 65.771 kg 65.771 kg Intake: IV 1050 / 1050 Oral 540 / 540 Output: Urine 275 / 275 1325 / 1325 Other: Urine Color Light Sadia Urine Appearance Cloudy Sediment Comment When you scan over right side of bladder scan says zero ml. When you scan over the left side of the bladder it says >242. denies any pain or discomfort at insertion site, catheter secrued with leg strap, teaching provided in maintaining bag below bladder, and the increased risk of fall with lines and drains # Voids 2 Data Completed and Pending Labs on day of discharge: Labs from last 24 hours 06/05/20 06/05/20 06/05/20 07:16 07:16 01:10 WBC 8.86 D RBC 4.06 L Hgb 11.9 L Hct 36.4 L MCV 89.7 MCH 29.3 MCHC 32.7 RDW 15.2 H Plt Count 365 MPV 9.6 Immature Gran % 0.3 Neutrophils % 80.5 Lymphocytes % 7.0 Monocytes % 10.2 Eosinophils % 1.2 Basophils % 0.8 Nucleated RBC % 0 Absolute Neutrophils 7.13 H Absolute Lymphocytes 0.62 L Absolute Monocytes 0.90 H Absolute Eosinophils 0.11 Absolute Basophils 0.07 VBG Lactate Sodium 137 Potassium 4.3 Chloride 105 Carbon Dioxide 25.7 Anion Gap 6.3 BUN 29 H Creatinine 1.36 H Estimated GFR/1.73 m2 51.22 Glucose 114 H Calcium 8.7 Magnesium Total Bilirubin 0.8 AST 19 ALT 16 Alkaline Phosphatase 92 Total Protein 6.8 Albumin 2.4 L Urine Color Urine Clarity Urine pH Ur Specific [place] Urine Protein Urine Ketones Urine Blood Urine Nitrite Urine Bilirubin Urine Urobilinogen Ur Leukocyte Esterase Urine RBC Urine WBC Ur Epithelial Cells Urine Crystals Urine Bacteria Urine Casts Urine Mucus Ur Culture Indicated? Urine Glucose SARS-CoV-2 (PCR) Pending Nasopharyn COVID-19 PCR Pending Ref Test Perform Site Pending 06/04/20 06/04/20 06/04/20 23:25 22:25 22:25 WBC 14.07 H RBC 4.78 Hgb 13.9 Hct 42.5 MCV 88.9 MCH 29.1 MCHC 32.7 RDW 15.1 H Plt Count 414 H MPV 9.0 Immature Gran % 0.6 Neutrophils % 85.9 Lymphocytes % 4.5 Monocytes % 8.0 Eosinophils % 0.6 Basophils % 0.4 Nucleated RBC % 0 Absolute Neutrophils 12.09 H Absolute Lymphocytes 0.63 L Absolute Monocytes 1.13 H Absolute Eosinophils 0.08 Absolute Basophils 0.06 VBG Lactate 1.1 Sodium 132 L Potassium 4.9 Chloride 98 Carbon Dioxide 25.8 Anion Gap 8.2 BUN 35 H Creatinine 1.93 H Estimated GFR/1.73 m2 34.20 Glucose 117 H Calcium 9.5 Magnesium 1.8 Total Bilirubin 1.1 H AST 27 ALT 18 Alkaline Phosphatase 116 Total Protein 8.4 H Albumin 3.1 L Urine Color Urine Clarity Urine pH Ur Specific [place] Urine Protein Urine Ketones Urine Blood Urine Nitrite Urine Bilirubin Urine Urobilinogen Ur Leukocyte Esterase Urine RBC Urine WBC Ur Epithelial Cells Urine Crystals Urine Bacteria Urine Casts Urine Mucus Ur Culture Indicated? Urine Glucose SARS-CoV-2 (PCR) Nasopharyn COVID-19 PCR Ref Test Perform Site 06/04/20 21:20 WBC RBC Hgb Hct MCV MCH MCHC RDW Plt Count MPV Immature Gran % Neutrophils % Lymphocytes % Monocytes % Eosinophils % Basophils % Nucleated RBC % Absolute Neutrophils Absolute Lymphocytes Absolute Monocytes Absolute Eosinophils Absolute Basophils VBG Lactate Sodium Potassium Chloride Carbon Dioxide Anion Gap BUN Creatinine Estimated GFR/1.73 m2 Glucose Calcium Magnesium Total Bilirubin AST ALT Alkaline Phosphatase Total Protein Albumin Urine Color Yellow Urine Clarity Sl cloudy Urine pH 6.0 Ur Specific [place] 1.025 Urine Protein 30 H Urine Ketones Negative Urine Blood Large H Urine Nitrite Negative Urine Bilirubin Negative Urine Urobilinogen 0.2 Ur Leukocyte Esterase Moderate H Urine RBC 5-10 H Urine WBC >50 H Ur Epithelial Cells Few Urine Crystals Negative Urine Bacteria Few Urine Casts Negative Urine Mucus Negative Ur Culture Indicated? Yes Urine Glucose Negative SARS-CoV-2 (PCR) Nasopharyn COVID-19 PCR Ref Test Perform Site 06/04/20 21:20 Urine - Reflex from Urine Culture - Pending Preliminary micro results at discharge 06/04/20 21:20 Urine Culture - Pending Urine - Reflex from [facility] Medical History Bilateral kidney stones (07/08/16) History of carcinoma in situ of bladder Hx of nephrolithotomy with removal of calculi pt. unsure of procedure, states they went up and pulled the stones out with a basket Urothelial carcinoma of bladder Surgical History (Updated 05/18/20 @ 17:10 by Gina Weir DO) Colonoscopy - IV Sedation (12/28/12) H/O cystoscopy History of back surgery lumbar S/P inguinal hernia repair using synthetic patch Family History Other Cancer Social History Smoking/Tobacco Use Status: Former Tobacco Use Smoking risk assessment performed?: Yes Alcohol Intake: never Drug use: Never Substance use type: does not use Household members: spouse Housing: house current occupation: Retired Do you feel safe at home: Yes Do you feel safe in your relationship?: Yes
[2020-06-05] MEDS: cefTRIAXone 1 GM/50 ML BAG IVPB (11:14)
[2020-06-05] MEDS: Lactated Ringers 1,000 ML 100 ML IV (12:20)
[2020-06-05 20:00] LABS: COVID-19 RT-PCR UVMMC Result Negative (Negative)
== END 2020-06-05 12:35 | disposition home or self-care (01) ==
LOC: ER 06-05 00:45 → MS 06-05 01:53
PROVIDERS: Student in an Organized Health Care Education/Training Program; Admitting Provider Urology; Emergency Provider Nurse Practitioner Acute Care; PCP Nurse Practitioner; Visit Provider Urology
DX: N13.6 Pyonephrosis (principal); R33.9 Retention of urine, unspecified; Z87.442 Personal history of urinary calculi; Z85.51 Personal history of malignant neoplasm of bladder; Z87.891 Personal history of nicotine dependence; Z11.59 Encounter for screening for other viral diseases
CPT/HCPCS: 36415; 51702; 51703; 80053; 96361; 96365; 96366; 96375; 96376; 99219; 99235; 99238; 99285; U0003; 74176; 81003; 81015; 83605; 83735; 85025; 87086; G0378; J0696; J2270

== ENCOUNTER 2020-06-12 01:35 | Outpatient (CLI) | payer MEDICARE, SELFPAY ==
--- NOTE | 2020-06-12 07:30 | DI.RAD_ITS ---
EXAM: RF CYSTOGRAM CLINICAL HISTORY: retention, hydro, pain, UTI,, N13.30, N39.0, R33.9, R10.9. TECHNIQUE: 2D and realtime digital imaging was performed. CONTRAST MATERIAL: Retrograde in stool a dickson of water-soluble contrast via the indwelling Fay cat heter COMPARISON: CT CT ABDOMEN PELVIS WO from 05/18/2020 CR,XR XR ABDOMEN FLAT UPRIGHT from 06/03/2020 FINDINGS: Case Folder film reveals bilateral nephrolithiasis, previously documented. Retrograde installation of contrast via the indwelling Fay catheter reveals preferential flow up th e left ureter to the level of the kidney calices. This is unilateral left. There is no opacificatio n of the opposite-right ureter. Despite numerous attempts to fill the bladder with additional contra st, the administered intravesicular contrast preferentially flows up left ureter. However, the visua lized bladder wall is trabeculated. There is an irregularity in the upper right side of the urinary bladder which corresponds to the area of abnormality described on the CT scan of 05/18/2020. The con trast enters this area with the appearance of focal extravasation. 5 minutes post drainage film reveals some remaining contrast in the nondilated left ureter. There is no obvious focus of retained extra vesicular contrast on the 5 minutes post film. IMPRESSION: There is preferential filling of the left ureter up to the left renal calices. This somewhat limits the exam. There is, however, significant irregularity still evident at the area of perforation in the upper rig ht side of the urinary bladder, this correspond to the area described on the recent CT scan of 2019. RADIATION DOSE DELIVERED: 1.40 sec fluoro time
[2020-06-12] MEDS: Omnipaque 350 MG/ML 50 ML BTL UD (09:39)
== END 2020-06-12 01:55 ==
PROVIDERS: PCP Nurse Practitioner; Visit Provider Urology
DX: N13.30 Unspecified hydronephrosis (principal); N39.0 Urinary tract infection, site not specified; R10.9 Unspecified abdominal pain; R33.9 Retention of urine, unspecified
CPT/HCPCS: 74430; Q9967

== ENCOUNTER → 2020-06-13 14:27 | Outpatient (BNVA) | payer MEDICARE, SELFPAY | PROVIDERS: PCP Nurse Practitioner; Referring Provider Nurse Practitioner; Visit Provider Urology | DX: N13.70 Vesicoureteral-reflux, unspecified (principal); R33.9 Retention of urine, unspecified; G20 Parkinson's disease | CPT/HCPCS: 99213 ==

== ENCOUNTER → 2020-06-20 07:43 | Outpatient (BNVA) | payer MEDICARE, SELFPAY | PROVIDERS: PCP Nurse Practitioner; Referring Provider Nurse Practitioner; Visit Provider Psychiatry & Neurology Neurology | DX: G20 Parkinson's disease (principal) | CPT/HCPCS: 99443 ==

== ENCOUNTER 2020-06-22 02:01 | Outpatient (CLI) | payer MEDICARE, SELFPAY ==
[2020-06-23 14:41] LABS: COVID-19 RT-PCR UVMMC Result Negative (Negative)
== END 2020-06-22 02:21 ==
PROVIDERS: PCP Nurse Practitioner; Visit Provider Urology
DX: Z11.59 Encounter for screening for other viral diseases (principal); Z01.818 Encounter for other preprocedural examination
CPT/HCPCS: U0003

== ENCOUNTER 2020-06-26 07:30 | Inpatient (IN) | payer MEDICARE, SELFPAY ==
[2020-06-26] VITALS (12 sets, daily range): BP systolic 93–109; BP diastolic 45–62; PULSE 55–74; RESP 12–19; TEMP 35.4–37.4; O2SAT 93–99
[2020-06-26] MEDS: Lactated Ringers 1,000 ML 80 ML IV ×2 (06:59→12:43)
--- NOTE | 2020-06-26 07:00 | W.PM.HP.N ---
Date of service: 06/26/20 Time of Service: 07:00 Assessment and Plan Assessment and plan (1) Urinary retention: Status: Acute Assessment and plan: For cystoscopy and TURP (2) Vesicoureteral reflux: Status: Acute (3) Hydronephrosis, left: Status: Acute History of Present Illness History of Present Illness Chief Complaint: Urinary retention Narrative: This is a 75-year-old gentleman who has a history of bladder cancer. He has undergone transurethral resection of bladder tumors in the past. Over the past 3 months, he has had worsening lower urinary tract symptoms including urinary frequency urgency and incontinence. He had a recent cystoscopy with TUR bladder lesion. The lesion was not malignant but showed inflammatory changes alone. Following the procedure, he had a catheter in place for 24 hours. After the catheter was removed, he developed abdominal pain and a small amount of urinary ascites. We did a drainage procedure and left a Fay catheter in place for a week. Once the catheter was removed, he again developed abdominal pain but no urinary ascites. A Fay catheter was replaced and has been in the bladder for about 14 days now. We arranged for a cystogram for assessment. During his multiple ER visits and hospitalizations, he has had CT scans. A CT back in February 2020 showed no hydronephrosis. More recent CT scans have shown left hydronephrosis as well as a defect in the bladder wall. His cystogram showed left vesicoureteral reflux (indicating a high bladder pressure). He presents for TURP. Review of Systems Narrative: No fevers or chills. Weight loss No vision change or dysphasia No diabetes or thyroid dysfunction No shortness of breath, cough or hemoptysis No chest pain or palpitations c/o constipation. No nausea, vomiting, hepatitis, ulcers, jaundice Tremor related to Parkinson's. No seizures, strokes or peripheral neuropathy No bleeding disorders or anemia No gout PFSH Medical History Bilateral kidney stones (07/08/16) Essential tremor seeing neuro here History of carcinoma in situ of bladder Hx of nephrolithotomy with removal of calculi pt. unsure of procedure, states they went up and pulled the stones out with a basket Parkinson disease Urothelial carcinoma of bladder Vesicoureteral reflux Surgical History Colonoscopy - IV Sedation (12/28/12) H/O cystoscopy History of back surgery lumbar S/P inguinal hernia repair using synthetic patch Family History Other Cancer Social History Smoking/Tobacco Use Status: Former Tobacco Use Smoking risk assessment performed?: Yes Alcohol Intake: never Drug use: Never Substance use type: does not use Household members: spouse Housing: house current occupation: Retired Do you feel safe at home: Yes Do you feel safe in your relationship?: Yes Meds Home Medications and Allergies Home Medications Medication Instructions Recorded Confirmed Type acetaminophen [Tylenol] 650 mg PO Q6H PRN #30 cap 05/15/20 06/26/20 Rx ibuprofen 400 mg tablet 400 mg PO Q6H PRN #30 tab 05/15/20 06/26/20 Rx amantadine HCl 100 mg tablet 100 mg PO DAILY #90 tab 06/20/20 06/26/20 Rx Allergies Allergy/AdvReac Type Severity Reaction Status Date / Time No Known Allergies Allergy Verified 06/26/20 06:28 Exam Const General: cooperative and no acute distress Neck Neck: supple Resp Effort & Inspection: normal respiratory effort Auscultation: clear to auscultation bilaterally Cardio Rate: regular rate Rhythm: regular rhythm GI Palpation: soft and no masses Neuro Cognition: normal cognition Speech: speech normal Motor: tremor Results Last Vital Signs Temp 36.4 C L 06/26/20 06:38 Pulse 74 06/26/20 06:38 Resp 16 06/26/20 06:38 BP 106/62 06/26/20 06:38 Pulse Ox 93 06/26/20 06:38 COVID-19 Screening Have you, or household traveled for leisure in last 14 days?: No Had IN PERSON contact w/suspected or confirmed C-19 person: No
[2020-06-26] MEDS: ceFAZolin 1 GM/50 ML BAG IVPB ×3 (07:33→19:56)
[2020-06-26] MEDS: Lidocaine 2% Jelly 6 ML SYR (07:57)
--- NOTE | 2020-06-26 08:42 | PROST_PTH ---
PATIENT: Noah Izquierdo Sr LOC: U#:[id number] AGE/SX: 75/M ROOM: RE06/26/[address]: Rai Garcia MD : 1945 BED: A DIS: 06/27/2020 SPEC #: [id number] RECD: 06/26/20 12:51 STATUS: CLIVE REBrendon #: [id number] ASHLEY: 06/26/20 08:[address]: Rai Garcia DEPT: Surgical Specimen RECD BY: Radha Warren ENTERED: 06/26/20 12:52 SP TYPE: PROST OTHR DR: Miriam Serna, PhD ROOM SERVICE MANAGER Tissues: 1 - PROSTATE CURRETTINGS Procedures: GROSS AND MICRO LEVEL 4 Comments: [id number]
--- NOTE | 2020-06-26 08:57 | W.PM.OP ---
Date of service: 06/26/20 Time of Service: 08:57 Operative Note Operative Note DATE OF PROCEDURE: 06/26/20 PRE-OP DIAGNOSIS: Urinary retention POST-OP DIAGNOSIS: same PROCEDURE: Cystoscopy with TURP SURGEON: Rai Garcia ANESTHESIA: other (General by LMA) ESTIMATED BLOOD LOSS: 100 PATHOLOGY: other (Prostate chips) COMPLICATIONS: None Patient was transported to: PACU Patient's condition: stable Implants: 24 Croatian Fay catheter with 30 cc sterile water in catheter balloon Indications: This is a 75-year-old gentleman who has a history of urothelial cell carcinoma of the bladder. He has had worsening lower urinary tract symptoms over the past 3 to 4 months. On recent cystoscopy, he was found to have some erythematous changes in his mucosa. We biopsied the area and confirmed the absence of dysplasia/malignancy and the presence of inflammation alone. He then developed extravasation of the urine from the biopsy site. On cystogram, in addition to the extravasation, he had a left hydronephrosis/reflux indicating a high pressure bladder. He presents now for transurethral resection of the prostate. Findings: Enlarged prostate Inflammatory changes at previous biopsy site Procedure Description: The patient was brought to the operating room on 06/26/2020. He was given preoperative IV antibiotics. After successful induction of general anesthesia, he was placed in the dorsal lithotomy position. His indwelling catheter was removed. His genitalia was prepped and draped. 2% Xylocaine jelly was instilled into the urethra. A 24 Croatian resectoscope sheath was passed through the urethra into the bladder. The urethra and bladder were then inspected using a visual obturator. The pendulous, bulbar and membranous urethra was all appeared normal. No strictures were identified. The prostatic urethra showed lateral lobe enlargement and a very small median lobe. The bladder neck was entered and the bladder mucosa was inspected. No papillary or nodular abnormalities were seen. There were inflammatory changes on the right posterior bladder wall at the site of the previous biopsy. No discontinuations in the bladder mucosa were identified. We then utilized an [employer] resectoscope to perform bipolar transurethral resection of the prostate from the bladder neck out to the verumontanum. The depth of the resection was down to the prostatic capsule. All resected tissue was evacuated and sent to pathology for permanent section. We then switched over to the ball electrode and vaporize the remainder of the prostate down to the capsule. Hemostasis appeared excellent. The bladder was then filled with irrigant and the resectoscope was removed. A 24 Croatian hematuria catheter was passed through the urethra into the bladder. The catheter balloon was inflated with 30 cc of sterile water. The catheter was hooked to gravity drainage. Continuous bladder irrigation was maintained. A belladonna and opium suppository was then passed into the patient's rectum. He tolerated this procedure well with no complications.
[2020-06-26] MEDS: fentaNYL 100 MCG/2 ML VIAL IVP ×2 (09:25→09:39)
[2020-06-26] MEDS: Ketorolac 15 MG/ML VIAL IVP (09:53)
[2020-06-26] MEDS: Acetaminophen 325 MG TAB 650 MG PO ×2 (10:34→20:01)
[2020-06-26] MEDS: Normal Saline Flush 10 ML SYR IV (10:34)
--- NOTE | 2020-06-26 16:42 | INITIAL_ITS ---
- If Service Date Differs Date of service: 06/26/20 Time of Service: 17:05 Care Management Initial Assess REASON FOR HOSPITALIZATION:: Urinary Retention; Cystoscopy and TURP PAST MEDICAL HISTORY/PAST SURGICAL HISTORY:: edical History . Bilateral kidney stones (07/08/16). History of carcinoma in situ of bladder. Hx of nephrolithotomy with removal of calculi. pt. unsure of procedure, states they went up and pulled the stones out with a basket. Urothelial carcinoma of bladder. Surgical History . Colonoscopy - IV Sedation (12/28/12). H/O cystoscopy. History of back surgery. lumbar PREVIOUS FUNCTIONAL STATUS/SOCIAL/FAMILY SUPPORTS:: Noah lives in a single family home in [place] with his girlfriend of 35 years, Vera. He is independent at baseline and continues to drive. CURRENT FUNCTIONAL STATUS:: Noah is being closely monitored and treated post operatively. CM continues to follow. ADVANCE DIRECTIVES:: None on file at [facility] - not interested Has patient been provided with info about the portal/API?: Yes Did the patient sign up for the portal?: No CODE STATUS:: Full Code INSURANCE COVERAGE / FINANCIAL ISSUES:: Medicare. Medicaid CURRENT HOME/COMMUNITY SERVICES/EQUIPMENT:: Closely followed by urology due to ongoing medical needs, undetermined if patient is currently connected to [facility]NA support. PRIMARY CARE PHYSICIAN:: Miriam Serna POTENTIAL DISCHARGE NEEDS:: Follow up with PCP and discharge plan of care. PATIENT/FAMILY EDUCATION NEEDS:: Discharge plan, follow up plan, limitations, Ask Me Three. ANTICIPATED BARRIERS TO DISCHARGE:: None identified. TRANSPORTATION:: Via private vehicle with girlfriend. PLAN:: Noah will be discharged home with possible resumption/new home health nursing. He will follow up with his PCP and discharge plan of care. Naoh will transport with his girlfriend Vera.
[2020-06-26] MEDS: Docusate Sodium 100 MG CAP PO (19:54)
[2020-06-27] MEDS: Lactated Ringers 1,000 ML 80 ML IV (01:55)
[2020-06-27 03:50] VITALS: BP 96/56; PULSE 73; RESP 18; TEMP 37.4; O2SAT 97
[2020-06-27] MEDS: Acetaminophen 325 MG TAB 650 MG PO (05:21)
--- NOTE | 2020-06-27 06:45 | W.PM.DS.N ---
Date of service: 06/27/20 Time of Service: 07:29 DS: Diagnosis Discharge Diagnosis (1) Urinary retention: Status: Acute (2) Vesicoureteral reflux: Status: Acute (3) Hydronephrosis, left: Status: Acute Discharge Plan Disposition Patient Disposition: HOME Condition: Stable Discharge Details Reason For Visit: Urinary retention Admit Date/Time: 06/26/20 07:30 Admit Provider: Rai Garcia Attending Provider: Rai Garcia Primary Care Provider: Miriam Serna Hospital Course Hospital Course: The patient was admitted and taken to the operating room on 06/26/2020 where he underwent a transurethral resection of the prostate. The surgical procedure was uneventful. In the postoperative time, an irrigating catheter was left in place. Continuous bladder irrigation was maintained overnight. He did not develop any clot retention. His lab work including his hemoglobin and serum creatinine remained stable. He is tolerating oral nutrition and medications. He will be discharged to home on postoperative day #1. Home Meds and New Rx's Prescriptions: New cephalexin [Keflex] 250 mg capsule 250 mg PO QHS Qty: 7 RF: 0 No Action amantadine HCl 100 mg tablet 100 mg PO DAILY Qty: 90 RF: 3 acetaminophen [Tylenol] 325 mg capsule 650 mg PO Q6H PRNQty: 30 RF: 0 ibuprofen 400 mg tablet 400 mg PO Q6H PRN (Reason: pain) Qty: 30 RF: 0 Hold Instructions: Home Medication placed on hold at Doctor's office Discharge Instructions Additional Instructions: Mccoy catheter to leg bag Followup appt 3 to 7 days for catheter removal Followup appt with me 10 to 14 days to review pathology results Stand Alone Forms: Nursing Discharge Form Referrals: Dr. Garcia [Other] Rai Garcia MD [ [facility] STAFF PHYSICIAN] - Activity:: no lifting over 10 pounds Equipment/Supplies:: mccoy to leg bag Diet:: As Tolerated Discharge Orders Discharge Orders: Discharge Order (Routine); Ordered 06/27/20 Ordered By: Rai Garcia DS: Summary Status at Discharge Functional status at discharge: independent ambulation Overall status at discharge: patient is back to baseline Mental Status: mental status grossly normal Speech and Movement: speech and movement normal Mood: congruent mood Affect: normal affect Exam Narrative Exam Narrative: At the time of discharge, he looks well His vital signs are documented elsewhere His lungs are clear with decreased breath sounds at the bases Cardiac exam shows a regular rate and rhythm His abdomen is soft with no guarding or rebound tenderness His catheter is draining clear urine He is awake and alert Psych Mental Status: mental status grossly normal Speech and Movement: speech and movement normal Mood: congruent mood Affect: normal affect DS: Data Vitals/I&O Vitals and I&O: Vital Signs Temperature 37.4 C 06/27/20 03:50 Temperature Source Tympanic 06/27/20 03:50 Pulse 73 06/27/20 03:50 Pulse Rhythm Regular 06/27/20 05:25 Respiratory Rate 18 06/27/20 03:50 Respiratory Effort Non-Labored 06/27/20 05:25 Respiratory Depth Normal 06/27/20 05:25 Respiratory Pattern Normal 06/27/20 05:25 Blood Pressure 96/56 L 06/27/20 03:50 Pulse Oximetry 97 06/27/20 03:50 Respiratory End-tidal CO2 27 06/26/20 09:58 Oxygen Delivery Method Nasal Cannula 06/27/20 03:50 Oxygen Flow Rate 2 06/27/20 03:50 Pain Level 5 06/27/20 05:21 Comment 06/27/20 03:50 Intake & Output 06/26/20 06/26/20 06/27/20 11:59 23:59 11:59 Intake Total 890 / 2360 1470 / 2360 1000 / 1000 Output Total 1000 / 1000 Balance -110 / 1360 1470 / 1360 1000 / 1000 Weight 63.9 kg Intake: IV 650 / 1100 450 / 1100 1000 / 1000 Oral 240 / 1260 1020 / 1260 Output: Urine 1000 / 1000 Other: Urine Color Pale Pale Sophia Sophia Urine Appearance Clear Clear Clear Emesis Description None Data Completed and Pending Labs on day of discharge: Labs from last 24 hours 06/27/20 06/27/20 06:18 06:18 WBC Pending RBC Pending Hgb Pending Hct Pending MCV Pending MCH Pending MCHC Pending RDW Pending Plt Count Pending MPV Pending Sodium Pending Potassium Pending Chloride Pending Carbon Dioxide Pending Anion Gap Pending BUN Pending Creatinine Pending Estimated GFR/1.73 m2 Pending Glucose Pending Calcium Pending [facility] Medical History Bilateral kidney stones (07/08/16) Essential tremor seeing neuro here History of carcinoma in situ of bladder Hx of nephrolithotomy with removal of calculi pt. unsure of procedure, states they went up and pulled the stones out with a basket Parkinson disease Urothelial carcinoma of bladder Vesicoureteral reflux Surgical History Colonoscopy - IV Sedation (12/28/12) H/O cystoscopy History of back surgery lumbar S/P inguinal hernia repair using synthetic patch Family History Other Cancer Social History Smoking/Tobacco Use Status: Former Tobacco Use Smoking risk assessment performed?: Yes Alcohol Intake: never Drug use: Never Substance use type: does not use Household members: spouse Housing: house current occupation: Retired Do you feel safe at home: Yes Do you feel safe in your relationship?: Yes
[2020-06-27 06:59] LABS: HCT 34.8 % (40.0-50.0); HGB 11.5 g/dL (13.5-17.5); MCV 87.7 fL (80-95); MPV 9.2 fL (8.0-11.0); Platelet Count 268 10^3/uL (130-400); RBC 3.97 10^6/uL (4.36-5.78); RDW 14.6 % (11.8-14.1); RDW-SD 47.1 fL; WBC 9.59 10^3/uL (4.4-10.8)
--- NOTE | 2020-06-27 07:13 | W.PM.PROGNOT ---
Date of Service Date of service: 06/27/20 Time of Service: 07:26 Assessment and Plan Assessment and plan (1) Urinary retention: Status: Acute Assessment and plan: He is doing well after his TURP. We will discharge him with his catheter in place and he will come to the office for a voiding trial either later this week or early next week. (2) Hydronephrosis, left: Status: Acute (3) Vesicoureteral reflux: Status: Acute Subjective Subjective Interval history since last seen: He has had some bladder spasms, but no other issues overnight. He is tolerating oral nutrition and medications. Exam Narrative Exam Narrative: He does not appear septic or toxic His abdomen is soft with no guarding or rebound tenderness His catheter is draining clear urine with very slow bladder irrigation He is awake and alert His labs are reviewed. His hemoglobin is stable as is his renal function. Objective Last Vital Signs Temp 37.4 C 06/27/20 03:50 Pulse 73 06/27/20 03:50 Resp 18 06/27/20 03:50 BP 96/56 L 06/27/20 03:50 Pulse Ox 97 06/27/20 03:50 Laboratory Results - last 24 hr 06/27/20 06:18 WBC 9.59 RBC 3.97 L Hgb 11.5 L Hct 34.8 L MCV 87.7 MCH 29.0 MCHC 33.0 RDW 14.6 H Plt Count 268 MPV 9.2
[2020-06-27 07:15] LABS: Anion Gap 3.1 mmol/L (3-11); BUN 23 mg/dL (7-18); CO2 27.9 mmol/L (21.0-32.0); CREATININE 1.37 mg/dL (0.70-1.30); Calcium 8.5 mg/dL (8.5-10.1); Chloride 103 mmol/L (98-107); Estimated GFR 50.79 (mL/min/1.73m2); Glucose 112 mg/dL (74-106); Potassium 4.4 mmol/L (3.5-5.1); Sodium 134 mmol/L (136-145)
[2020-06-27 07:31] VITALS: BP 108/54; PULSE 62; RESP 20; TEMP 37.2; O2SAT 92
[2020-06-27] MEDS: Docusate Sodium 100 MG CAP PO (07:53)
== END 2020-06-27 11:23 | disposition home or self-care (01) | DRG 713 ==
LOC: PDS 10:13 → MS 10:15
PROVIDERS: Admitting Provider Urology; PCP Nurse Practitioner; Visit Provider Urology
PROC: 0VT08ZZ Resection of Prostate, Via Natural or Artificial Opening Endoscopic (ICD-10-PCS; CPT 52601; principal; 2020-06-26 07:30)
DX: N40.1 Benign prostatic hyperplasia with lower urinary tract symptoms (principal); N13.30 Unspecified hydronephrosis; N13.71 Vesicoureteral-reflux without reflux nephropathy; C67.9 Malignant neoplasm of bladder, unspecified; G25.0 Essential tremor; Z87.442 Personal history of urinary calculi
CPT/HCPCS: 52601; 36415; 80048; 85027; 88305; 99238; J0690; J1885; J2250; J2405; J3010

== ENCOUNTER 2020-07-02 10:28 | Emergency (ER) | payer MEDICARE, SELFPAY ==
[2020-07-02 10:35] VITALS: BP 105/58; PULSE 96; RESP 18; TEMP 36.4; O2SAT 95
--- NOTE | 2020-07-02 10:57 | ED.GENADUL_ITS ---
Discharge Plan Disposition Patient Disposition: HOME Condition: Stable Discharge Details Clinical Impression: Paraphimosis Primary Care Provider: Miriam Serna ED Provider: Taj Mora Home Meds and New Rx's Prescriptions: Continued acetaminophen [Tylenol] 325 mg capsule 650 mg PO Q6H PRNQty: 30 RF: 0 ibuprofen 400 mg tablet 400 mg PO Q6H PRN (Reason: pain) Qty: 30 RF: 0 Hold Instructions: Home Medication placed on hold at Doctor's office No Action amantadine HCl 100 mg tablet 100 mg PO DAILY Qty: 90 RF: 3 Discharge Instructions Instructions: Acute Paraphimosis (ED) Additional Instructions: Please follow-up with Dr. Garcia. Call tomorrow morning. Return to the emerge department for any worsening or new concerning symptoms. Referrals: Rai Garcia MD [ [facility] STAFF PHYSICIAN] - Discharge Data Discharge Date/Time-TO BE ENTERED AT DEPARTURE: 07/02/20 13:02 Medical Decision Making 75-year-old male here 6 days status post cystoscopy and TURP for urinary retention, Fay intact, with paraphimosis. Patient was given Tylenol 650 mg and oxycodone 5 mg orally for pain. Fay removed. Foreskin was able to be retracted with gentle prolonged manipulation. HPI General Mode of arrival: ambulatory . Date/Time Provider Initiated Documentation: 07/02/20 10:41 . Limitations to Documentation: no limitations . Information obtained by: patient . HPI Narrative: 75-year-old male with history of urothelial carcinoma, here 6 days status post cystoscopy and TURP for urinary retention, continues to have Fay catheter and now with inability to retract his foreskin secondary to swelling over the past 2 days. His penis is painful. Severe. No modifiers. Fay is draining well. No associated fever. Related Data Home Medications Medication Instructions Recorded Confirmed acetaminophen [Tylenol] 650 mg PO Q6H PRN #30 cap 05/15/20 07/02/20 ibuprofen 400 mg tablet 400 mg PO Q6H PRN #30 tab 05/15/20 07/02/20 amantadine HCl 100 mg tablet 100 mg PO DAILY #90 tab 07/05/20 Previous Rx's Medication Instructions Recorded acetaminophen [Tylenol] 650 mg PO Q6H PRN #30 cap 05/15/20 ibuprofen 400 mg tablet 400 mg PO Q6H PRN #30 tab 05/15/20 amantadine HCl 100 mg tablet 100 mg PO DAILY #90 tab 07/05/20 Allergies Allergy/AdvReac Type Severity Reaction Status Date / Time No Known Allergies Allergy Verified 07/04/20 07:59 General Stated Complaint: Male Reproductive Problem BRITTON: 3 Review of Systems Constitutional Constitutional: Denies fever(s) Genitourinary Genitourinary: Reports as per HPI Integumentary/Breasts Skin/Breast: Reports skin swelling (Foreskin) PFSH Medical History Bilateral kidney stones (07/08/16) Essential tremor seeing neuro here History of carcinoma in situ of bladder Hx of nephrolithotomy with removal of calculi pt. unsure of procedure, states they went up and pulled the stones out with a basket Parkinson disease Urothelial carcinoma of bladder Vesicoureteral reflux Surgical History Colonoscopy - IV Sedation (12/28/12) H/O cystoscopy History of back surgery lumbar S/P inguinal hernia repair using synthetic patch Family History Other Cancer Social History Smoking/Tobacco Use Status: Former Tobacco Use Smoking risk assessment performed?: Yes Alcohol Intake: never Drug use: Never Substance use type: does not use Household members: spouse Housing: house current occupation: Retired Do you feel safe at home: Yes Do you feel safe in your relationship?: Yes Exam Const General: cooperative and no acute distress HENMT Mouth: moist mucous membranes Resp Effort & Inspection: normal respiratory effort Cardio Rate: regular rate and not tachycardic GI Palpation: soft, not firm, no guarding, no masses, not rigid and nontender Penis: paraphimosis Scrotum: scrotum normal Other: Fay intact Skin Lesions: no lesions Neuro General: patient alert, patient awake and tone normal Extrem General: no edema Psych Mental Status: mental status grossly normal Course Vital Signs Vital signs: Vital Signs Temperature 36.4 C L 07/02/20 10:35 Pulse 96 H 07/02/20 10:35 Respiratory Rate 18 07/02/20 10:35 Blood Pressure 105/58 L 07/02/20 10:35 Pulse Oximetry 95 07/02/20 10:35 Temperature 36.4 C L 07/02/20 10:35 Temperature Source Skin 07/02/20 10:35 Pulse 96 H 07/02/20 10:35 Respiratory Rate 18 07/02/20 10:35 Respiratory Effort Non-Labored 07/02/20 10:39 Blood Pressure 105/58 L 07/02/20 10:35 Blood Pressure Position Sitting 07/02/20 10:35 Pulse Oximetry 95 07/02/20 10:35 Oxygen Delivery Method Room Air 07/02/20 10:35 Oxygen Flow Rate 0 07/02/20 10:35 Pain Level 8 07/02/20 10:35
[2020-07-02] MEDS: Acetaminophen 325 MG TAB 650 MG PO (10:59)
[2020-07-02] MEDS: oxyCODONE 5 MG TAB PO (10:59)
== END 2020-07-02 13:02 | disposition home or self-care (01) ==
LOC: ER 11:32
PROVIDERS: Emergency Provider Student in an Organized Health Care Education/Training Program; PCP Nurse Practitioner
DX: N47.2 Paraphimosis (principal); Y83.8 Other surgical procedures as the cause of abnormal reaction of the patient, or of later complication, without mention of misadventure at the time of the procedure; G20 Parkinson's disease; Z96.0 Presence of urogenital implants
CPT/HCPCS: 99283

== ENCOUNTER → 2020-07-04 07:48 | Outpatient (BNVA) | payer MEDICARE, SELFPAY | PROVIDERS: PCP Nurse Practitioner; Referring Provider Nurse Practitioner; Visit Provider Nurse Practitioner Gerontology | DX: Z48.816 Encounter for surgical aftercare following surgery on the genitourinary system (principal); R31.9 Hematuria, unspecified; N47.2 Paraphimosis; R33.8 Other retention of urine | CPT/HCPCS: 81003 ==

== ENCOUNTER 2020-07-04 17:13 | Outpatient (REF) | payer MEDICARE, SELFPAY | END 2020-07-04 17:33 | LOC: LBN 17:13 | PROVIDERS: PCP Nurse Practitioner; Visit Provider Nurse Practitioner Gerontology | DX: N20.0 Calculus of kidney (principal); R31.9 Hematuria, unspecified | CPT/HCPCS: 87086 ==

== ENCOUNTER → 2020-07-11 14:53 | Outpatient (BNVA) | payer MEDICARE, SELFPAY | PROVIDERS: PCP Nurse Practitioner; Referring Provider Nurse Practitioner; Visit Provider Urology | DX: Z48.816 Encounter for surgical aftercare following surgery on the genitourinary system (principal); N13.30 Unspecified hydronephrosis; N13.70 Vesicoureteral-reflux, unspecified; R33.9 Retention of urine, unspecified ==

== ENCOUNTER 2020-08-11 02:39 | Outpatient (CLI) | payer MEDICARE, SELFPAY ==
--- NOTE | 2020-08-11 06:45 | DI.US_ITS ---
EXAM: US RENAL CLINICAL HISTORY: monitor known hydronephrosis,LT,N13.30. TECHNIQUE: Cruz scale, color and spectral Doppler were used. COMPARISON: US US OR ANESTHESIA from 05/15/2020 US US OR ANESTHESIA from 05/15/[address] ABDOMEN PELVIS WO from 06/04/[address] ABDOMEN PELVIS WO from 06/04/2020 CR,RF RF CYSTOGRAM from 06/12/2020 CR,RF RF CYSTOGRAM from 06/12/2020 FINDINGS: Right kidney: Renal size in cm: Right: 11.2 Echogenicity: Normal Hydronephrosis: Trace to mild Cyst or mass: 1.1 centimeters cyst at the upper pole Nephrolithiasis: 1.4 centimeter stone lower pole. Left kidney: Renal size in cm 13.6 Echogenicity: Normal Hydronephrosis: [id number]. This appears have decreased when compared with the previous CT. P roximal ureter is visualized and mildly dilated. Cyst or mass: 3 centimeter superior pole cyst Nephrolithiasis: Multiple stones in the mid and lower pole the largest measuring 1.3 cm. Bladder:Irregular wall. Superior right-sided diverticulum. Both ureteral jets were visualized. Prevoid vol:39 cc Postvoid vol:Not performed Prostate not visualized. IMPRESSION: Bilateral nephrolithiasis, left greater than right. [id number] left hydronephrosis appears dec reased when compared with previous CT. Bladder diverticulum.. DATA REPOSITORY:
== END 2020-08-11 02:40 ==
LOC: DI 02:39
PROVIDERS: PCP Nurse Practitioner; Visit Provider Urology
DX: N13.30 Unspecified hydronephrosis (principal); N20.0 Calculus of kidney; N32.3 Diverticulum of bladder
CPT/HCPCS: 76770

== ENCOUNTER → 2020-08-21 08:19 | Outpatient (BNVA) | payer MEDICARE, SELFPAY | PROVIDERS: PCP Nurse Practitioner; Referring Provider Nurse Practitioner; Visit Provider Psychiatry & Neurology Neurology | DX: G20 Parkinson's disease (principal); G25.0 Essential tremor; K59.00 Constipation, unspecified; K21.9 Gastro-esophageal reflux disease without esophagitis | CPT/HCPCS: 99214 ==

== ENCOUNTER → 2020-10-04 07:44 | Outpatient (BNVA) | payer MEDICARE, SELFPAY | PROVIDERS: PCP Nurse Practitioner; Referring Provider Nurse Practitioner; Visit Provider Urology | DX: N13.70 Vesicoureteral-reflux, unspecified (principal); R35.0 Frequency of micturition; G20 Parkinson's disease | CPT/HCPCS: 99213 ==

== ENCOUNTER 2020-11-15 03:13 | Outpatient (CLI) | payer MEDICARE, SELFPAY ==
[2020-11-15 12:39] LABS: Calculated LDL 83 mg/dL (<100); Cholesterol 139 mg/dL (<200); HDL Cholesterol 43 mg/dL (40-60); Triglyceride 66 mg/dL (<150)
== END 2020-11-15 03:14 | disposition home or self-care (01) ==
LOC: LOS 03:14
PROVIDERS: PCP Nurse Practitioner; Visit Provider Nurse Practitioner
DX: R73.09 Other abnormal glucose (principal); Z13.6 Encounter for screening for cardiovascular disorders
CPT/HCPCS: 36415; 80061; 83036

== ENCOUNTER → 2020-11-20 07:36 | Outpatient (BNVA) | payer MEDICARE, SELFPAY | PROVIDERS: PCP Nurse Practitioner; Referring Provider Nurse Practitioner; Visit Provider Psychiatry & Neurology Neurology | DX: R69 Illness, unspecified (principal) ==

== ENCOUNTER → 2020-12-01 08:27 | Outpatient (BNVA) | payer MEDICARE, SELFPAY | PROVIDERS: PCP Nurse Practitioner; Referring Provider Nurse Practitioner; Visit Provider Urology | DX: N13.70 Vesicoureteral-reflux, unspecified (principal); Z79.899 Other long term (current) drug therapy | CPT/HCPCS: 99213 ==

== ENCOUNTER → 2021-01-23 08:02 | Outpatient (BNVA) | payer MEDICARE, SELFPAY | PROVIDERS: PCP Nurse Practitioner; Referring Provider Nurse Practitioner; Visit Provider Urology | DX: N13.70 Vesicoureteral-reflux, unspecified (principal); G20 Parkinson's disease; Z98.890 Other specified postprocedural states | CPT/HCPCS: 99214 ==

== ENCOUNTER → 2021-02-20 08:45 | Outpatient (BNVA) | payer MEDICARE, SELFPAY | PROVIDERS: PCP Nurse Practitioner; Referring Provider Nurse Practitioner; Visit Provider Psychiatry & Neurology Neurology | DX: G20 Parkinson's disease (principal); G25.0 Essential tremor; K59.00 Constipation, unspecified; K21.9 Gastro-esophageal reflux disease without esophagitis | CPT/HCPCS: 99215 ==

== ENCOUNTER 2021-02-21 20:31 | Outpatient (CLI) | payer MEDICARE, SELFPAY ==
[2021-02-21 12:55] LABS: Anion Gap 10.4 mmol/L (3-11); BUN 65 mg/dL (7-18); CO2 22.6 mmol/L (21.0-32.0); Calcium 8.9 mg/dL (8.5-10.1); Chloride 103 mmol/L (98-107); Estimated GFR 12.88 (mL/min/1.73m2); Glucose 94 mg/dL (74-106); Potassium 4.9 mmol/L (3.5-5.1); Sodium 136 mmol/L (136-145)
[2021-02-21 12:59] LABS: CREATININE 4.5 mg/dL (0.70-1.30)
== END 2021-02-21 20:32 | disposition home or self-care (01) ==
LOC: LOS 20:43
PROVIDERS: PCP Nurse Practitioner; Visit Provider Psychiatry & Neurology Neurology
DX: G20 Parkinson's disease (principal); G25.0 Essential tremor; R41.3 Other amnesia
CPT/HCPCS: 36415; 80048

== ENCOUNTER 2021-02-22 01:34 | Outpatient (CLI) | payer MEDICARE, SELFPAY ==
--- NOTE | 2021-02-22 08:45 | DI.US_ITS ---
Exam(s) US RENAL EXAM: US RENAL CLINICAL HISTORY: CRITICAL CREATININE,SIG FREQUENCY,ACUTE RENAL FAILURE TECHNIQUE: Ultrasound of both kidneys performed using standard protocol. COMPARISON: CT CT ABDOMEN PELVIS WO from 02/17/[address] ABDOMEN PELVIS WO from 06/04/2020 US US RENAL from 08/11/2020 FINDINGS: KIDNEYS: There has been dramatic change in the appearance of the right kidney when compared the ultrasound of 08/11/2020. Right kidney is now grossly hydronephrotic, presumably related to descent of 1 of the pr ominent calculi seen within the kidney on the prior study. In addition, there is significant dilatat ion of the ipsilateral renal pelvis and there is either clutter mass in the dilated renal pelvis and visualized upper ureter. There is no obvious perinephric fluid The opposite-left kidney does not appear hydronephrotic. It contains a few small cortical cysts and calculi therein. Largest calculus seems appears to measure approximately 1.9 cm mid-lower pole. Sli ght prominence of the left renal pelvis noted. No perirenal fluid. No solid mass. URINARY BLADDER: Prevoid volume is 67 cc Left ureterovesical jet was identified. The right was not, most probably related to obstruction. Bladder wall appears thickened. IMPRESSION: 1. Compared to prior studies listed above there has been significant change-deteriorate in the appea ronny of the right kidney. The right kidney now appears grossly hydronephrotic and there is either c lot or neoplasm in the right renal pelvis. I suspect that 1 of the large calculi in the right kidney as descended down the right ureter causing significant hydronephrosis. The right ureterovesical jet was not identified, further evidence for obstruction. The left ureterovesical jet was identified. 2. Multiple shadowing calculi in the left kidney noted, measuring up to 2 cm. Also multiple renal c ysts. No gross dilatation left collecting system evident on these images. 3. Urinary bladder volume only 67 cc. Bladder wall appears thickened. DATA REPOSITORY:
== END 2021-02-22 01:54 ==
PROVIDERS: PCP Nurse Practitioner; Visit Provider Nurse Practitioner Family
DX: N17.9 Acute kidney failure, unspecified (principal); R30.0 Dysuria; Q61.02 Congenital multiple renal cysts; N13.2 Hydronephrosis with renal and ureteral calculous obstruction; R82.90 Unspecified abnormal findings in urine; R93.429 Abnormal radiologic findings on diagnostic imaging of unspecified kidney
CPT/HCPCS: 76770; 81003; 87077; 99215; 87086; 87186

== ENCOUNTER → 2021-02-23 15:01 | Outpatient (BNVA) | payer MEDICARE, SELFPAY | PROVIDERS: PCP Nurse Practitioner; Referring Provider Nurse Practitioner; Visit Provider Nurse Practitioner Gerontology | DX: N13.30 Unspecified hydronephrosis (principal); N20.0 Calculus of kidney; R93.421 Abnormal radiologic findings on diagnostic imaging of right kidney; Z11.59 Encounter for screening for other viral diseases | CPT/HCPCS: 99214 ==

== ENCOUNTER 2021-02-23 19:31 | Outpatient (REF) | payer MEDICARE, SELFPAY ==
[2021-02-23 18:50] LABS: Source Nasal/Nares
[2021-02-23 20:37] LABS: COVID-19 PCR Negative (Negative)
== END 2021-02-23 19:32 | disposition home or self-care (01) ==
LOC: LBN 19:31
PROVIDERS: PCP Nurse Practitioner; Visit Provider Nurse Practitioner Gerontology
DX: Z20.822 Contact with and (suspected) exposure to COVID-19 (principal); Z01.818 Encounter for other preprocedural examination
CPT/HCPCS: 87635

== ENCOUNTER 2021-02-26 15:58 | Observation (INO) | payer MEDICARE, SELFPAY ==
[2021-02-26 10:20] VITALS: BP 121/69; PULSE 63; RESP 18; TEMP 36.3; O2SAT 98
[2021-02-26] MEDS: Lactated Ringers 1,000 ML 80 ML IV ×2 (10:40→18:42)
--- NOTE | 2021-02-26 12:08 | W.ANESPRE ---
General Info Date of Service Date Performed: 02/26/21 Height: 5 ft 6 in Weight: 59 kg Body Mass Index (BMI): 20.9 Surgical Procedure: Operation Date: 02/26/21 12:40 Proposed Procedures Side Surgeon p CYSTO/RETROGRADE PLYOGRAM,URETROSCOPY? STONE MANIPULATION Right Rai Garcia MD Meds Allergies and Home Medications Allergies Allergy/AdvReac Type Severity Reaction Status Date / Time No Known Allergies Allergy Verified 02/26/21 10:29 Home Medication Medication Instructions Recorded acetaminophen [Tylenol] 650 mg PO Q6H PRN #30 cap 05/15/20 amantadine HCl 100 mg tablet 100 mg PO DAILY #90 tab 12/27/20 mirabegron 50 mg tablet,extended 50 mg PO Q24H #56 tab 01/23/21 release 24 hr cephalexin 250 mg capsule 250 mg PO BID #14 cap 02/22/21 Current Visit Medications: Current Medications Generic Name Dose Route Start Last Admin Trade Name Freq PRN Reason Stop Dose Admin Ringer's Solution 1,000 mls @ 80 mls/hr 02/26/21 06:00 IV 03/25/21 23:59 INFUSION EDNA Cefazolin Sodium/Dextrose 1 gm in 50 mls @ 100 mls/hr 02/26/21 06:00 Ancef Duplex IVPB 02/26/21 16:00 PREOP EDNA IV Miscellaneous Supplies 1 each 02/26/21 06:00 Iv Access IV 03/25/21 23:59 DIRECTED EDNA Sodium Chloride 0 ml 02/26/21 06:00 Normal Saline Flush 10 Ml Syr IV 03/25/21 23:59 PRN PRN Sodium Chloride 0 ml 02/26/21 06:00 Normal Saline 10 Ml Vial IJ 03/25/21 23:59 DIRECTED PRN Sterile Water 0 ml 02/26/21 06:00 Water,Injection,Sterile 10 Ml Vial IJ 03/25/21 23:59 DIRECTED PRN PFSH Active Problems Active Problems: Problem Status Onset Code Acute renal failure N17.9 Prediabetes R73.03 Dysphagia R13.10 Weight loss, non-intentional R63.4 Parkinson disease G20 Essential tremor G25.0 Vesicoureteral reflux N13.70 Hydronephrosis, left N13.30 Bilateral kidney stones 07/08/16 N20.0 Urothelial carcinoma of bladder C67.9 Bladder stone 07/08/16 N21.0 Medical History Medical History Bilateral kidney stones (07/08/16) 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 unsure of procedure, states they went up and pulled the stones out with a basket Parkinson disease Urothelial carcinoma of bladder Vesicoureteral reflux Surgical History Surgical History Colonoscopy - IV Sedation (12/28/12) H/O cystoscopy History of back surgery lumbar S/P inguinal hernia repair using synthetic patch S/P TURP Tobacco Smoking/Tobacco Use Status: Former Tobacco Use Alcohol Alcohol Intake: never Substance Use Substance use: Never Substance use type: does not use Vital Signs and Lab Results Vital Signs Most Recent Vital Signs in EMR: Most Recent Vital Signs Temp Pulse Resp BP Pulse Ox 36.3 C L 63 18 121/69 98 02/26/21 10:20 02/26/21 10:20 02/26/21 10:20 02/26/21 10:20 02/26/21 10:20 Lab Results Blood Type / Crossmatch: No Data to Display Complete Blood Count: No Data to Display Complete Metabolic Panel: Sodium Level 136 mmol/L (136-145) 02/21/21 10:34 02/21/21 Potassium Level 4.9 mmol/L (3.5-5.1) 02/21/21 10:34 02/21/21 Chloride Level 103 mmol/L (98-107) 02/21/21 10:34 02/21/21 Carbon Dioxide Level 22.6 mmol/L (21.0-32.0) 02/21/21 10:34 02/21/21 Blood Urea Nitrogen 65 mg/dL (7-18) H 02/21/21 10:34 02/21/21 Creatinine 4.5 mg/dL (0.70-1.30) H* 02/21/21 10:34 02/21/21 Estimated GFR/1.73 m2 12.88 (mL/min/1.73m2) 02/21/21 10:34 02/21/21 Calcium Level 8.9 mg/dL (8.5-10.1) 02/21/21 10:34 02/21/21 Glucose Level 94 mg/dL (74-106) 02/21/21 10:34 02/21/21 Liver Function Panel: No Data to Display Coagulation Panel: No Data to Display Cardiac Panel: No Data to Display Arterial Blood Gas: No Data to Display Venous Blood Gas: No Data to Display Pancreas Panel: No Data to Display Thyroid Panel: No Data to Display Infectious Disease: Coronavirus (COVID-19)(PCR) Negative (Negative) 02/23/21 15:00 02/23/21 Coronavirus 2019 Source Nasal/Nares 02/23/21 15:00 02/23/21 Blood Cultures: No Data to Display Toxicology Panel: No Data to Display Imaging and Studies Imaging and Studies EKG Summary: Conclusion Sinus tachycardia...rate> 99 Inferior infarct, old...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, II III aVF Anesthesia Assessment and Plan Anesthesia History Personal History: No History of Anesthesia Complications Family History: No Family History of Anesthesia Complications Exercise Tolerance Exercise Tolerance: Metabolic Equivalents>4 Pertinent Negatives Pertinent Negatives: No Symptoms of GERD, No Major Cardiovascular Symptoms or Complaints, No Major Pulmonary Symptoms or Complaints and No History of CVA/TIA Cardiac & Pulmonary Exam Cardiac Exam: Normal S1/S2 Heart Sounds Pulmonary Exam: Clear Bilateral Breath Sounds Airway Exam Known Difficult Airway: No Mallampati Class: 2 Mouth Opening: Normal (> 3cm) Thyromental Distance: Greater than 3 cm Neck Range of Motion: Full ROM Neck Circumference: Normal Teeth Condition: Normal Dentition ASA Classification ASA Score: ASA 3 Emergency Case?: No NPO Status NPO Status: NPO Clears >2 hours, Solids >8 hours Anesthesia Plan Resuscitation Status: Full Code Anesthesia Technique: General Anesthesia Airway Planned: Natural Airway Monitors Used: Standard Monitors
[2021-02-26 13:16] VITALS: BMI 20.9
--- NOTE | 2021-02-26 13:30 | HPE_ITS ---
Date of service: 02/26/21 Time of Service: 13:30 Assessment and Plan Assessment and plan (1) Hydronephrosis, right: Status: Acute Assessment and plan: We will do a cystoscopy and right retrograde pyelog edison and plan to place a right ureteral stent. Hopefully, the hydronephrosis is due to migration of his previously identified renal stone. Once his renal function improves, we can arrange for more formal ureteroscopy to address any obstructng lesion. (2) Acute renal failure: Status: Acute History of Present Illness History of Present Illness Chief Complaint: Right hydronephrosis Narrative: This is a 75 year old man who has a history of kidney stones and bladder cancer. He has had nonobstructing stone in the kidneys, but now has right back pain and cloudy urine. His renal function has worsened (creatinine @4) and he has new onset severe right hydronephrosis. He has no fever or chills. he has not seen gross hematuria. He presents for stent placement Review of Systems Narrative: Weight loss. No fevers or chills Dysphagia. No vision change No diabetes or thyroid dysfunction No shortness of breath, cough or hemoptysis No chest pain or palpitations No nausea, vomiting, hepatitis, ulcers, jaundice Tremor related to parkinsons. 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 unsure of procedure, states they went up and pulled the stones out with a basket Hydronephrosis, right Parkinson disease Urothelial carcinoma of bladder Vesicoureteral reflux Surgical History Colonoscopy - IV Sedation (12/28/12) H/O cystoscopy History of back surgery lumbar S/P inguinal hernia repair using synthetic patch S/P TURP Family History Other Cancer Social History (Updated 02/20/21 @ 08:40 by Joya Badillo LPN) Smoking/Tobacco Use Status: Former Tobacco Use Smoking risk assessment performed?: Yes Alcohol Intake: never Drug use: Never Substance use type: does not use Household members: spouse Housing: house current occupation: Retired Do you feel safe at home: Yes Do you feel safe in your relationship?: Yes Meds Allergies and Home Medications Allergies Allergy/AdvReac Type Severity Reaction Status Date / Time No Known Allergies Allergy Verified 02/26/21 10:29 Home Medications Medication Instructions Recorded Confirmed Type acetaminophen [Tylenol] 650 mg PO Q6H PRN #30 cap 05/15/20 02/23/21 Rx amantadine HCl 100 mg tablet 100 mg PO DAILY #90 tab 12/27/20 02/23/21 Rx mirabegron 50 mg tablet,extended 50 mg PO Q24H #56 tab 01/23/21 02/26/21 Rx release 24 hr cephalexin 250 mg capsule 250 mg PO BID #14 cap 02/22/21 02/26/21 Rx Exam Const General: cooperative Resp Effort & Inspection: normal respiratory effort Auscultation: clear to auscultation bilaterally Cardio Rate: regular rate Rhythm: regular rhythm Neuro General: patient alert and patient awake Results Last Vital Signs Temp 36.3 C L 02/26/21 10:20 Pulse 63 02/26/21 10:20 Resp 18 02/26/21 10:20 BP 121/69 02/26/21 10:20 Pulse Ox 98 02/26/21 10:20
[2021-02-26] MEDS: ceFAZolin 1 GM/50 ML BAG IVPB ×2 (14:23→20:07)
[2021-02-26] MEDS: Lidocaine 2% Jelly 6 ML SYR (14:40)
--- NOTE | 2021-02-26 15:05 | W.PM.OP ---
Date of service: 02/26/21 Time of Service: 15:06 Operative Note Operative Note DATE OF PROCEDURE: 02/26/21 PRE-OP DIAGNOSIS: right hydronephrosis POST-OP DIAGNOSIS: same PROCEDURE: cystoscopy SURGEON: Rai Garcia ANESTHESIA TYPE: Local By Surgeon and General:No Airway Refer to Anesthesia Record ESTIMATED BLOOD LOSS: 25 PATHOLOGY: none sent COMPLICATIONS: None Patient was transported to: same day Patient's condition: stable Implants: none Indications: This is a 75 year old man who has a history of large bilateral renal stones which have been nonobstructing. He also has a history of bladder carcinoma in situ but no muscle invasive bladder cancer. He has had a TURP and has left vesicoureteral reflux presumably due to a high pressure bladder. He developed right back pain and was found to have severe right hydronephrosis and a serum creatinine of 4.5 (baseline 1.3). He presents for retrograde pyelogram and stent placement. Findings: unable to identify or canulate right ureteral orifice bladder heavily trabeculated with multiple diverticuli Procedure Description: The patient was given a dose of preoperative IV antibiotics. He was brought to the operating room on 02/26/2021. There are successful induction of general anesthesia without intubation, he was placed in the dorsal lithotomy position. His genitalia was prepped and draped. 2% Xylocaine jelly was instilled into the urethra to act as a local anesthetic. 22 Congolese rigid cystoscope was passed through the urethra into the bladder. The urethra and bladder were inspected with a 30 degree lens. The prostate had any irregular appearance from his previous transurethral resection of the prostate. The bladder neck was entered and the bladder was inspected. The bladder was heavily trabeculated with multiple large diverticuli. No papillary or nodular lesions worrisome for bladder cancer were identified. Because of the degree of trabeculation, I was unable to visualize or access the right ureteral orifice. I believe I was able to visualize the left ureteral orifice, but I did not attempt to cannulate it. The left orifice was somewhat patulous. No blood was seen coming from the left side. After being unable to access the kidney in a retrograde manner, we aborted the procedure and placed a 16 Congolese Fay catheter. The catheter balloon was inflated with 10 cc of sterile water and the catheter was hooked to gravity drainage. We will admit the patient to the hospital overnight and make arrangements for a and back transfer to a larger facility that has interventional radiology services so that a nephrostomy tube can be placed.
[2021-02-26 15:15] VITALS: BP 111/63; PULSE 67; RESP 16; TEMP 36.6; O2SAT 97
--- NOTE | 2021-02-26 15:21 | W.ANESPOSTOP ---
Postoperative Evaluation Date, Time and Location Date Performed: 02/26/21 Time Performed: 15:22 Patient Location: Day Surgery Unit Vital Signs Most Recent Imported Vital Signs: Most Recent Vital Signs Temp Pulse Resp BP Pulse Ox 36.3 C L 63 18 121/69 98 02/26/21 10:20 02/26/21 10:20 02/26/21 10:20 02/26/21 10:20 02/26/21 10:20 Most Recent Manually Entered Vital Signs: Adult Blood Pressure: 111/63 Heart Rate: 67 Respirations: 16 Oxygen Saturation (%): 97 Temperature (C): 36.6 C Pain Score (0-10 Scale): 0 Assessment Mental Status: Awake (Alert & Oriented to Patient Baseline) Airway and Respiratory Function: Patent airway with normal (patient baseline) respiratory exam Cardiovascular Function: Hemodynamically Stable Hydration Status: Adequately Hydrated Nausea & Vomiting: No Nausea or Vomiting Pain: Pt. Denies Any Pain Peripheral Nerve Block: Patient did not receive a nerve block
[2021-02-26 15:23] VITALS: BP 111/63; PULSE 67; RESP 16; TEMPC 36.6; O2SAT 97
[2021-02-26 15:42] VITALS: BP 132/65; PULSE 62; RESP 18; TEMP 36.6; O2SAT 98
[2021-02-26 18:18] VITALS: BP 131/70; PULSE 71; RESP 16; TEMP 36.3; O2SAT 97
[2021-02-26 20:11] VITALS: BP 129/72; PULSE 65; RESP 18; TEMP 36.7; O2SAT 97
[2021-02-27 00:35] VITALS: BP 113/64; PULSE 66; RESP 18; TEMP 36.2; O2SAT 97
[2021-02-27] MEDS: ceFAZolin 1 GM/50 ML BAG IVPB ×2 (04:15→10:43)
[2021-02-27 05:56] VITALS: BP 120/63; PULSE 65; RESP 18; TEMP 36.6; O2SAT 96
--- NOTE | 2021-02-27 07:01 | W.PM.PROGNOT ---
Date of Service Date of service: 02/27/21 Time of Service: 07:01 Assessment and Plan Assessment and plan (1) Hydronephrosis, right: Status: Acute Assessment and plan: I spoke with the [facility] transfer center last evening. The interventional radiology providers are willing to place a nephrostomy tube for us with a down and back arrangement. I will fax all requested documents to . The schedulers arrive around 8 AM and we can expect a call somewhere between 8:30 and 9:00 this morning with more details regarding the time of transfer. Based on how this gentleman tolerates the procedure and the timing of the procedure, we may be able to let him out of the hospital later today or he may need to stay over 1 additional night. (2) Acute renal failure: Status: Acute Subjective Subjective Interval history since last seen: He is fairly comfortable able but continues with some right back pain reminiscent of his previous renal colic He feels the need to void even with the Fay catheter in place. He is not having any fevers or chills. He did become a bit disoriented last evening but does much better during daytime and when he recognizes familiar faces. Exam Narrative Exam Narrative: He is in no obvious distress. He is cooperative. His vital signs are documented elsewhere His urine is grossly clear He is awake and alert His serum creatinine is 3.5 this morning. Objective Last Vital Signs Temp 36.6 C 02/27/21 05:56 Pulse 65 02/27/21 05:56 Resp 18 02/27/21 05:56 BP 120/63 02/27/21 05:56 Pulse Ox 96 02/27/21 05:56
[2021-02-27 07:11] LABS: Anion Gap 9.3 mmol/L (3-11); BUN 54 mg/dL (7-18); CO2 21.7 mmol/L (21.0-32.0); CREATININE 3.5 mg/dL (0.70-1.30); Chloride 109 mmol/L (98-107); Estimated GFR 17.21 (mL/min/1.73m2); Glucose 157 mg/dL (74-106); Potassium 5.2 mmol/L (3.5-5.1); Sodium 140 mmol/L (136-145)
[2021-02-27 07:58] VITALS: BP 112/51; PULSE 68; RESP 18; TEMP 36.9; O2SAT 97
--- NOTE | 2021-02-27 09:52 | INITIAL_ITS ---
- If Service Date Differs Date of service: 02/27/21 Time of Service: 09:52 Care Management Initial Assess REASON FOR HOSPITALIZATION:: Hydronephrosis PAST MEDICAL HISTORY/PAST SURGICAL HISTORY:: Medical History (Updated 02/26/21 @ 13:31 by Rai Garcia MD). Bilateral kidney stones (07/08/16). 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 Essential tremor. seeing neuro here. History of carcinoma in situ of bladder. Hx of nephrolithotomy with removal of calculi. pt. unsure of procedure, states they went up and pulled the stones out with a basket. Hydronephrosis, right. Parkinson disease. Urothelial carcinoma of bladder. Vesicoureteral reflux. Surgical History . Colonoscopy - IV Sedation (12/28/12). H/O cystoscopy. History of back surgery. lumbar. S/P inguinal hernia repair using synthetic p atch. S/P TURP PREVIOUS FUNCTIONAL STATUS/SOCIAL/FAMILY SUPPORTS:: Noah lives in a [facility] family [facility] in [place], [place] with his girlfriend Vera. They have been together for 34 years. Noah has 4 children, all boys, and several grandchildren. 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 He is independent at baseline and uses no assistive devices, although he did admit he probably should use a cane since his balance is off. CURRENT FUNCTIONAL STATUS:: Noah was sitting up in bed when SHYLA met with him. He was waiting for the ambulance to arrive to transport him to [facility] for a procedure. In discussing discharge planning with him, SHYLA made a statement about having a tube placed and Noah seemed surprised by that. Noah admitted to being cranky today and apologized for that. He shared that he was very uncomfortable and did not feel well informed. ADVANCE DIRECTIVES:: none on file Has patient been provided with info about the portal/API?: Yes Did the patient sign up for the portal?: No CODE STATUS:: Full Code INSURANCE COVERAGE / FINANCIAL ISSUES:: Medicare. Financial Assist 100 CURRENT HOME/COMMUNITY SERVICES/EQUIPMENT:: none PRIMARY CARE PHYSICIAN:: Miriam Serna POTENTIAL DISCHARGE NEEDS:: Follow up with Urology and plan of care PATIENT/FAMILY EDUCATION NEEDS:: Review of discharge instructions, catheter care, medications, actyivity, limitations, Ask Me Three TRANSPORTATION:: via private vehicle with girlfriend PLAN:: Noah willl likely be discharged home, possibly with new home health services for nursing. He will follow up with Urology, his PCP and plan of care and transport with his girlfriend.CM will continue to support Noah and his discharge needs.
--- NOTE | 2021-02-27 16:35 | CHAPLAIN ---
Noah was resting in bed when I visited. I explained my role and offered support. Noah said he doesn't want any visitors and told me that he's not grumpy just doesn't want to be here. I will continue to visit.
--- NOTE | 2021-04-03 07:13 | W.PM.DS.N ---
Date of service: 03/01/21 DS: Diagnosis Discharge Diagnosis (1) Hydronephrosis, right: Status: Acute (2) Acute renal failure: Status: Acute Discharge Plan Disposition Patient Disposition: [facility] Condition: Fair Discharge Details Reason For Visit: (R) Hydronephrosis Admit Date/Time: 02/26/21 15:58 Admit Provider: Rai Garcia Attending Provider: Rai Garcia Primary Care Provider: Miriam Serna Hospital Course Hospital Course: The patient was identified as having right hydronephrosis and an elevated serum creatinine. He was brought in to the hospital for cystoscopy and attempted retrograde stent placement. I was not able to place a stent, so he was kept in the hospital and plans were made for a down and back transfer to [facility] for a nephrostomy tube. The patient was transferred down to [facility] but the tube could not be placed on the day of transfer, so he was admitted to the facility at [facility]. Home Meds and New Rx's Prescriptions: No Action acetaminophen [Tylenol] 325 mg capsule 650 mg PO Q6H PRNQty: 30 RF: 0 amantadine HCl 100 mg tablet RF: 0 Discharge Instructions Additional Instructions: To be arranged by the providers at [facility] Activity:: As dictated by [facility] Equipment/Supplies:: No Equipment Needed Diet:: As Tolerated Discharge Orders Discharge Orders: Discharge Order (Routine); Ordered 04/03/21 Ordered By: Rai Garcia Discharge Data Discharge Date/Time-TO BE ENTERED AT DEPARTURE: 02/27/21 12:15 DS: Summary Time Spent with Patient providing and/or coordinating discharge services: Less than 30 minutes Status at Discharge Functional status at discharge: uses cane/walker Overall status at discharge: patient is not back to baseline Mental Status: mental status grossly normal and other Speech and Movement: other Mood: other Affect: other Exam Narrative Exam Narrative: Discharge exam not completed as the discharge was unexpected Psych Mental Status: mental status grossly normal and other Speech and Movement: other Mood: other Affect: other DS: Data Vitals/I&O Vitals and I&O: Vital Signs Temperature 36.9 C 02/27/21 07:58 Temperature Source Tympanic 02/27/21 07:58 Pulse 68 02/27/21 07:58 Pulse Rhythm Regular 02/27/21 09:17 Respiratory Rate 18 02/27/21 07:58 Respiratory Effort Non-Labored 02/27/21 09:17 Respiratory Depth Normal 02/27/21 09:17 Respiratory Pattern Normal 02/27/21 09:17 Blood Pressure 112/51 L 02/27/21 07:58 Pulse Oximetry 97 02/27/21 07:58 Oxygen Delivery Method Room Air 02/27/21 07:58 Oxygen Flow Rate 0 02/27/21 07:58 Pain Level 0 02/27/21 07:58 PFSH Medical History Bilateral kidney stones (07/08/16) Calculus of proximal right ureter 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 unsure of procedure, states they went up and pulled the stones out with a basket Hydronephrosis, right Parkinson disease Urothelial carcinoma of bladder Vesicoureteral reflux Surgical History Colonoscopy - IV Sedation (12/28/12) H/O cystoscopy History of back surgery lumbar S/P inguinal hernia repair using synthetic patch S/P TURP Family History Other Cancer Social History (Updated 02/20/21 @ 08:40 by Joya Badillo LPN) Smoking/Tobacco Use Status: Former Tobacco Use Smoking risk assessment performed?: Yes Alcohol Intake: never Drug use: Never Substance use type: does not use Household members: spouse Housing: house current occupation: Retired Do you feel safe at home: Yes Do you feel safe in your relationship?: Yes
== END 2021-02-27 12:15 | disposition short-term general hospital (02) ==
LOC: MS 17:11
PROVIDERS: Admitting Provider Urology; PCP Nurse Practitioner; Visit Provider Urology
DX: N13.30 Unspecified hydronephrosis (principal); N17.9 Acute kidney failure, unspecified; G20 Parkinson's disease; C67.9 Malignant neoplasm of bladder, unspecified; G25.0 Essential tremor; Z87.891 Personal history of nicotine dependence; N32.89 Other specified disorders of bladder; N20.0 Calculus of kidney; Z53.09 Procedure and treatment not carried out because of other contraindication
CPT/HCPCS: 36415; 52000; 80048; 99224; G0378; J0690; J1100; J2001; J2405; Q9967

== ENCOUNTER 2021-03-20 12:44 | Outpatient (CLI) | payer MEDICARE, SELFPAY ==
--- NOTE | 2021-03-20 11:15 | DI.RAD_ITS ---
Exam(s) XR ABDOMEN FLAT PLATE EXAM: 2D digital imaging was performed. CLINICAL HISTORY: assess location of stone N20.1 CALCULUS OF URETER. COMPARISON: CR,XR XR ABDOMEN FLAT UPRIGHT from 06/03/2020 CR,RF RF CYSTOGRAM from 06/12/2020 CR,RF RF CYSTOGRAM from 06/12/2020 TECHNIQUE: Supine views of the abdomen performed. Three views were obtained. FINDINGS: BOWEL GAS PATTERN: Nondistended. There is a moderate amount of stool throughout the colon. CALCIFICATIONS: Bilateral nephrolithiasis. Portions of the left kidney are obscured by overlying bow el. OSSEOUS STRUCTURES: Normal for age. Lung bases: Unremarkable. OTHER FINDINGS: There is now a nephroureteral/nephrostomy tube in place. The 1.5 cm stone previously seen in the lower pole of the right kidney now lies in the mid right ureter adjacent to the nephrour eteral tube. It lies at the level of the L5-S1 disc space. IMPRESSION: 1. The 1.5 cm stone now lies in the right mid ureter adjacent to the nephroureteral tube. It is at t he level of the L5-S1 disc space. 2. Bilateral nephrolithiasis. DATA REPOSITORY: RADIATION DOSE DELIVERED:
== END 2021-03-20 13:04 ==
PROVIDERS: PCP Nurse Practitioner; Visit Provider Urology
DX: N20.2 Calculus of kidney with calculus of ureter (principal); N20.0 Calculus of kidney; C67.9 Malignant neoplasm of bladder, unspecified; N17.9 Acute kidney failure, unspecified; N13.30 Unspecified hydronephrosis; N39.0 Urinary tract infection, site not specified; N20.1 Calculus of ureter
CPT/HCPCS: 99215; 74018; 96372; J0696

== ENCOUNTER 2021-03-20 14:36 | Outpatient (REF) | payer MEDICARE, SELFPAY ==
[2021-03-20 15:35] LABS: Abs Immature Grans 0.05 10^3/uL (0.0-0.06); Absolute Eosinophil Count 0.04 10^3/uL (0.0-0.7); Absolute Lymphocyte Count 1.21 10^3/uL (1.2-3.4); Absolute Monocyte Count 1.52 10^3/uL (0.1-0.8); Absolute Neutrophil Count 9.89 10^3/uL (1.2-6.7); Basophils % 0.5; Eosinophils % 0.3; HCT 36.7 % (40.0-50.0); HGB 11.5 g/dL (13.5-17.5); Immature Grans % 0.4; Lymphocytes % 9.5; MCH 29.6 pg (27.0-33.0); MCHC 31.3 % (32.0-36.0); MCV 94.3 fL (80-95); MPV 10.6 fL (8.0-11.0); Monocytes % 11.9; Neutrophils % 77.4; Nucleated RBC 0 %; Platelet Count 301 10^3/uL (130-400); RBC 3.89 10^6/uL (4.36-5.78); RDW 15.2 % (11.8-14.1); RDW-SD 52.5 fL; WBC 12.78 10^3/uL (4.4-10.8)
[2021-03-20 15:36] LABS: Absolute Basophil Count 0.06 10^3/uL (0.0-0.2)
[2021-03-20 16:01] LABS: Diff Comment Agrees w/ Instrument; RBC Morphology Normal
[2021-03-20 16:38] LABS: BUN 43 mg/dL (7-18); CREATININE 2.8 mg/dL (0.70-1.30); Calcium 9.8 mg/dL (8.5-10.1); Chloride 100 mmol/L (98-107); Glucose 131 mg/dL (74-106); Potassium 4.7 mmol/L (3.5-5.1); Sodium 135 mmol/L (136-145)
== END 2021-03-20 14:37 | disposition home or self-care (01) ==
LOC: LBN 14:36
PROVIDERS: PCP Nurse Practitioner; Visit Provider Urology
DX: N20.0 Calculus of kidney (principal); N13.30 Unspecified hydronephrosis; N17.9 Acute kidney failure, unspecified; C67.9 Malignant neoplasm of bladder, unspecified
CPT/HCPCS: 80048; 87077; 85025; 87086; 87186

== ENCOUNTER 2021-03-30 02:17 | Outpatient (CLI) | payer MEDICARE, SELFPAY ==
[2021-03-30 12:51] LABS: Source Nasal/Nares
[2021-03-30 19:09] LABS: COVID-19 PCR Negative (Negative)
== END 2021-03-30 02:18 | disposition home or self-care (01) ==
LOC: LBO 02:17
PROVIDERS: PCP Nurse Practitioner; Visit Provider Urology
DX: Z20.822 Contact with and (suspected) exposure to COVID-19 (principal); Z01.818 Encounter for other preprocedural examination
CPT/HCPCS: 87635

== ENCOUNTER 2021-04-02 06:13 | Day surgery (SDC) | payer MEDICARE, SELFPAY ==
[2021-04-02] VITALS (9 sets, daily range): BP systolic 95–126; BP diastolic 41–66; PULSE 55–70; RESP 13–22; TEMP 36.2–36.5; O2SAT 95–98; BMI 21.7
--- NOTE | 2021-04-02 06:59 | HPE_ITS ---
Date of service: 04/02/21 Time of Service: 06:59 Assessment and Plan Assessment and plan (1) Calculus of proximal right ureter: Status: Acute Assessment and plan: We will plan on ureteroscopy and holmium laser lithotripsy of his large ureteral stone. We will remove his stent and nephrostomy tube during the procedure. We have reserved a bed for postoperative care if necessary. History of Present Illness History of Present Illness Chief Complaint: Right ureteral stone Narrative: This is a 76-year-old gentleman with a history of bilateral kidney stones as well has bladder cancer. He has a high pressure bladder and underwent transurethral resection of the prostate. He then developed right hydronephrosis from a migrated right kidney stone. I was unable to place a ureteral stent in a retrograde manner, so he had a percutaneous nephrostomy tube placed and an antegrade stent. He presents now for stent removal, ureteroscopy and holmium laser lithotripsy of the ureteral stone. At the time of the nephrostomy tube placement, he had a positive culture for Adri which was treated with oral Diflucan. More recently, he had Pseudomonas which has been treated with Cipro. He tends to get confused and may become combative when he receives anesthesia and is in unfamiliar situations. He is hoping one of his family members could be with him as he awakens from anesthesia. Review of Systems Narrative: No fevers or chills No vision change or dysphasia No diabetes or thyroid dysfunction No shortness of breath, cough or hemoptysis No chest pain or palpitations No nausea, vomiting, hepatitis, ulcers, jaundice Tremors and ambulatory dysfunction related to Parkinsons. 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 unsure of procedure, states they went up and pulled the stones out with a basket Hydronephrosis, right Parkinson disease Urothelial carcinoma of bladder Vesicoureteral reflux Surgical History Colonoscopy - IV Sedation (12/28/12) H/O cystoscopy History of back surgery lumbar S/P inguinal hernia repair using synthetic patch S/P TURP Family History Other Cancer Social History (Updated 02/20/21 @ 08:40 by Joya Badillo LPN) Smoking/Tobacco Use Status: Former Tobacco Use Smoking risk assessment performed?: Yes Alcohol Intake: never Drug use: Never Substance use type: does not use Household members: spouse Housing: house current occupation: Retired Do you feel safe at home: Yes Do you feel safe in your relationship?: Yes Meds Allergies and Home Medications Allergies Allergy/AdvReac Type Severity Reaction Status Date / Time No Known Allergies Allergy Verified 04/02/21 06:39 Home Medications Medication Instructions Recorded Confirmed Type acetaminophen [Tylenol] 650 mg PO Q6H PRN #30 cap 05/15/20 04/02/21 Rx amantadine HCl 04/02/21 History Exam Const General: cooperative and comfortable Neck Neck: supple Resp Effort & Inspection: normal respiratory effort Auscultation: clear to auscultation bilaterally Cardio Rate: regular rate Rhythm: regular rhythm GI Palpation: soft and no masses Neuro General: patient alert and patient awake Results Last Vital Signs Temp 36.3 C L 04/02/21 06:29 Pulse 55 L 04/02/21 06:29 Resp 16 04/02/21 06:29 BP 126/60 04/02/21 06:29 Pulse Ox 98 04/02/21 06:29
--- NOTE | 2021-04-02 07:00 | W.ANESPRE ---
General Info Date of Service Date Performed: 04/02/21 Height: 5 ft 6 in Weight: 61.1 kg Body Mass Index (BMI): 21.7 Surgical Procedure: Operation Date: 04/02/21 07:40 Proposed Procedures Side Surgeon p cysto, rt retrograde, rt flex ureteroscopy with holmium laser Right Rai Garcia MD Meds Allergies and Home Medications Allergies Allergy/AdvReac Type Severity Reaction Status Date / Time No Known Allergies Allergy Verified 04/02/21 06:39 Home Medication Medication Instructions Recorded acetaminophen [Tylenol] 650 mg PO Q6H PRN #30 cap 05/15/20 amantadine HCl 04/02/21 Current Visit Medications: Current Medications Generic Name Dose Route Start Last Admin Trade Name Freq PRN Reason Stop Dose Admin Ringer's Solution 1,000 mls @ 80 mls/hr 04/02/21 06:00 IV 04/29/21 23:59 INFUSION EDNA Ertapenem/Sodium Chloride 1 gm 50 mls @ 100 mls/hr 04/02/21 06:00 / Sodium Chloride IVPB 04/02/21 18:00 PREOP EDNA IV Miscellaneous Supplies 1 each 04/02/21 06:00 Iv Access IV 04/29/21 23:59 DIRECTED EDNA Sodium Chloride 0 ml 04/02/21 06:00 Normal Saline Flush 10 Ml Syr IV 04/29/21 23:59 PRN PRN Sodium Chloride 0 ml 04/02/21 06:00 Normal Saline 10 Ml Vial IJ 04/29/21 23:59 DIRECTED PRN Sterile Water 0 ml 04/02/21 06:00 Water,Injection,Sterile 10 Ml Vial IJ 04/29/21 23:59 DIRECTED PRN PFSH Active Problems Active Problems: Problem Status Onset Code Calculus of proximal right ureter N20.1 Hydronephrosis, right N13.30 Acute renal failure N17.9 Prediabetes R73.03 Dysphagia R13.10 Weight loss, non-intentional R63.4 Parkinson disease G20 Essential tremor G25.0 Vesicoureteral reflux N13.70 Hydronephrosis, left N13.30 Bilateral kidney stones 07/08/16 N20.0 Urothelial carcinoma of bladder C67.9 Bladder stone 07/08/16 N21.0 Medical History Medical History Bilateral kidney stones (07/08/16) Calculus of proximal right ureter 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 unsure of procedure, states they went up and pulled the stones out with a basket Hydronephrosis, right Parkinson disease Urothelial carcinoma of bladder Vesicoureteral reflux Surgical History Surgical History Colonoscopy - IV Sedation (12/28/12) H/O cystoscopy History of back surgery lumbar S/P inguinal hernia repair using synthetic patch S/P TURP Tobacco Smoking/Tobacco Use Status: Former Tobacco Use Alcohol Alcohol Intake: never Substance Use Substance use: Never Substance use type: does not use Vital Signs and Lab Results Vital Signs Most Recent Vital Signs in EMR: Most Recent Vital Signs Temp Pulse Resp BP Pulse Ox 36.3 C L 55 L 16 126/60 98 04/02/21 06:29 04/02/21 06:29 04/02/21 06:29 04/02/21 06:29 04/02/21 06:29 Lab Results Blood Type / Crossmatch: No Data to Display Complete Blood Count: White Blood Count 12.78 10^3/uL (4.4-10.8) H 03/20/21 13:00 03/20/21 Red Blood Count 3.89 10^6/uL (4.36-5.78) L 03/20/21 13:00 03/20/21 Hemoglobin 11.5 g/dL (13.5-17.5) L 03/20/21 13:00 03/20/21 Hematocrit 36.7 % (40.0-50.0) L 03/20/21 13:00 03/20/21 Platelet Count 301 10^3/uL (130-400) 03/20/21 13:00 03/20/21 Complete Metabolic Panel: Sodium Level 135 mmol/L (136-145) L 03/20/21 13:00 03/20/21 Potassium Level 4.7 mmol/L (3.5-5.1) 03/20/21 13:00 03/20/21 Chloride Level 100 mmol/L (98-107) 03/20/21 13:00 03/20/21 Carbon Dioxide Level 23.0 mmol/L (21.0-32.0) 03/20/21 13:00 03/20/21 Blood Urea Nitrogen 43 mg/dL (7-18) H 03/20/21 13:00 03/20/21 Creatinine 2.8 mg/dL (0.70-1.30) H 03/20/21 13:00 03/20/21 Estimated GFR/1.73 m2 22.20 (mL/min/1.73m2) 03/20/21 13:00 03/20/21 Calcium Level 9.8 mg/dL (8.5-10.1) 03/20/21 13:00 03/20/21 Glucose Level 131 mg/dL (74-106) H 03/20/21 13:00 03/20/21 Liver Function Panel: No Data to Display Coagulation Panel: No Data to Display Cardiac Panel: No Data to Display Arterial Blood Gas: No Data to Display Venous Blood Gas: No Data to Display Pancreas Panel: No Data to Display Thyroid Panel: No Data to Display Infectious Disease: Coronavirus (COVID-19)(PCR) Negative (Negative) 03/30/21 11:11 03/30/21 Coronavirus 2019 Source Nasal/Nares 03/30/21 11:11 03/30/21 Blood Cultures: No Data to Display Toxicology Panel: No Data to Display Imaging and Studies Imaging and Studies EKG Summary: Conclusion Sinus tachycardia...rate> 99 Inferior infarct, old...Q >35mS, II III aVF Anesthesia Assessment and Plan Anesthesia History Personal History: No History of Anesthesia Complications and Other (Emergence delerium) Family History: No Family History of Anesthesia Complications Exercise Tolerance Exercise Tolerance: Metabolic Equivalents>4 Pertinent Negatives Pertinent Negatives: No Symptoms of GERD, No Major Cardiovascular Symptoms or Complaints, No Major Pulmonary Symptoms or Complaints and No History of CVA/TIA Cardiac & Pulmonary Exam Cardiac Exam: Normal S1/S2 Heart Sounds Pulmonary Exam: Clear Bilateral Breath Sounds Airway Exam Known Difficult Airway: No Mallampati Class: 1 Mouth Opening: Normal (> 3cm) Thyromental Distance: Greater than 3 cm Neck Range of Motion: Full ROM Neck Circumference: Normal Teeth Condition: Removable Dentures/Plates Upper ASA Classification ASA Score: ASA 3 Emergency Case?: No NPO Status NPO Status: NPO Clears >2 hours, Solids >8 hours Anesthesia Plan Resuscitation Status: Full Code Anesthesia Technique: General Anesthesia Airway Planned: LMA Monitors Used: Standard Monitors
[2021-04-02] MEDS: Lactated Ringers 1,000 ML 80 ML IV (07:08)
[2021-04-02] MEDS: ERTAPENEM 1 GM in Normal Saline 50 ML IVPB (07:55)
[2021-04-02] MEDS: Lidocaine 2% Jelly 6 ML SYR (08:07)
[2021-04-02] MEDS: Omnipaque 300 MG/ML 50 ML BTL (09:30)
--- NOTE | 2021-04-02 09:32 | DI.RAD_ITS ---
Exam(s) XR RETROGRADE IN OR EXAM: XR RETROGRADE IN OR CLINICAL HISTORY: bilateral kidney stones. TECHNIQUE: 2D digital imaging was performed. COMPARISON: No exams were available for comparison FINDINGS: Fluoroscopy was provided during urologic procedure. Radiologist not present. No images submitted fo r interpretation. See procedure report for details. Total fluoroscopy time 53.5 seconds Cumulative dose 7.53 mGy IMPRESSION: DATA REPOSITORY: RADIATION DOSE DELIVERED:
--- NOTE | 2021-04-02 09:55 | ROE_ITS ---
Date of service: 04/02/21 Time of Service: 09:55 Operative Note Operative Note DATE OF PROCEDURE: 04/02/21 PRE-OP DIAGNOSIS: Right ureteral stone POST-OP DIAGNOSIS: same PROCEDURE: Cystoscopy, right retrograde pyelogram, remove right nephrostomy tube, right ureteroscopy with holmium laser lithotripsy of stone, remove stone fragments, insert right ureteral stent ANESTHESIA TYPE: Local By Surgeon and General LMA/ETT Refer to Anesthesia Record ESTIMATED BLOOD LOSS: 25 PATHOLOGY: other (stone fragments for chemical analysis) COMPLICATIONS: None Patient was transported to: PACU Patient's condition: stable Implants: 4.8 [place] Citizen by 22 to 30 cm right ureteral stent 16 [place] island[place] mccoy catheetr with 10 cc sterile water in balloon Indications: This is a 76-year-old gentleman who has a history of bilateral kidney stones. He was found to have an increased serum creatinine and right- sided hydronephrosis. I was unable to place a ureteral stent cystoscopically, so he had a right nephrostomy tube placed. Ultimately, an antegrade ureteral stent was placed. He was identified as having a large mid ureteral stone as the source of his hydronephrosis. He presents now for ureteroscopy and stone manipulation Findings: distal right ureteral stone large right ureteral stone at crossing of iliac vessels Procedure Description: Patient was brought to the operating room on 04/02/2021. He was given a dose of preoperative IV antibiotics. After successful induction of general anesthesia, he was placed in the dorsal lithotomy position. His genitalia was prepped and draped. 2% Xylocaine jelly was instilled into the urethra. A 22 [place] Citizen rigid cystoscope was passed through the urethra into the bladder. The urethra and bladder were inspected with a 30 degree lens. The prostatic urethra had an irregular contour consistent with a previous transurethral resection. A stent could be seen protruding from the right ureteral orifice. The stent was grasped with alligator forceps and brought to the level of the urethral meatus. A Glidewire was then passed through the lumen of the stent and advanced until the wire was seen at the level of the kidney. With the wire in place, the nephrostomy tube and ureteral stent were then rem starla through the right flank. A dual-lumen catheter was advanced over the indwelling wire and this retrograde pyelogram was obtained by injecting Omnipaque through the access catheter under fluoroscopic guidance. A large filling defect was found in the mid ureter. A second wire was positioned. Both were secured as safety wires. The ureteral access catheter was removed and a semirigid ureteroscope was passed through the urethra into the bladder. We entered the right ureter and a stone was seen just within the ureteral orifice. The stone was grasped in a [place] stone basket and removed in its entirety. We then reintroduced the scope and advanced the scope up until a large stone was seen at the pelvic brim. We were able to visualize pulsations from the iliac artery. We used a 365 ?m holmium laser fiber to fracture the stone. We used a combination of dusting settings and fracture settings. We removed multiple pieces as we went along through his 0 tip and through a [place] stone basket. All stones that were retrieved were sent to pathology for chemical analysis. At the completion of the procedure, I was able to run the semirigid ureteroscope up to the proximal ureter with no large stone burden identified. We put the ureteroscope and inserted a 4.8 [place] Citizen variable length stent over one of the safety wires. We positioned the stent such that the proximal end was in the r enal pelvis and the distal and was visualized within the bladder. We then passed a 16 [place] Citizen Mccoy catheter through the urethra into the bladder. We inflated the catheter balloon with 10 cc of sterile water and hooked the catheter to gravity drainage. The safety string was left on the ureteral stent and brought through the patient's urethra. We taped the safety string to the external portion of the catheter. Once the Mccoy catheter is removed, the stent will come out along with it. The patient tolerated this procedure well. He was taken to the recovery room in stable condition.
--- NOTE | 2021-04-02 10:35 | W.PM.DSUDISC ---
Discharge Plan Disposition Patient Disposition: HOME W/HOME HEALTH SERVICE Condition: Stable Discharge Details Attending Provider: Rai Garcia Primary Care Provider: Miriam Serna Home Meds and New Rx's Prescriptions: No Action acetaminophen [Tylenol] 325 mg capsule 650 mg PO Q6H PRNQty: 30 RF: 0 amantadine HCl 100 mg tablet RF: 0 Discharge Instructions Additional Instructions: Fay to leg bag with stent string taped to catheter Followup 1 week in office for stent and catheter removal Dry dressing to nephrostomy site - may remove if no drainage for 24 hours OK to shower/bathe no need to strain urine OK to take tylenol and ibuprofen for pain Activity:: Activity as Tolerated Remove Dressings/Wound Care:: 24 hours Shower/Bathe:: 24 hours Diet:: As Tolerated Discharge Orders Discharge Orders: Discharge Order (Routine); Ordered 04/02/21 Ordered By: Rai Garcia DS: Diagnosis Discharge Diagnosis (1) Calculus of proximal right ureter: Status: Acute
--- NOTE | 2021-04-02 11:20 | W.ANESPOSTOP ---
Postoperative Evaluation Date, Time and Location Date Performed: 04/02/21 Time Performed: 11:21 Patient Location: Day Surgery Unit Vital Signs Most Recent Imported Vital Signs: Most Recent Vital Signs Temp Pulse Resp BP Pulse Ox 36.3 C L 64 18 118/62 97 04/02/21 10:54 04/02/21 10:54 04/02/21 10:54 04/02/21 10:54 04/02/21 10:54 Pain Score Most Recent Pain Score: Most Recent Pain Score Pain Level 0 04/02/21 10:54 Assessment Mental Status: Awake (Alert & Oriented to Patient Baseline) Airway and Respiratory Function: Patent airway with normal (patient baseline) respiratory exam Cardiovascular Function: Hemodynamically Stable Hydration Status: Adequately Hydrated Nausea & Vomiting: No Nausea or Vomiting Pain: Pt. Denies Any Pain Peripheral Nerve Block: Patient did not receive a nerve block
[2021-04-02] MEDS: Acetaminophen 500 MG TAB PO (11:39)
[2021-04-04 22:30] LABS: Source: Ureter
== END 2021-04-02 12:21 | disposition home health service (06) ==
PROVIDERS: PCP Nurse Practitioner; Visit Provider Urology
PROC: (CPT 50385; principal; 2021-04-02 07:30)
DX: N20.1 Calculus of ureter (principal); G20 Parkinson's disease; C67.9 Malignant neoplasm of bladder, unspecified
CPT/HCPCS: 50385; 52353; 74420; 82365; J1100; J1335; J2001; J2405; Q9967

== ENCOUNTER → 2021-04-10 09:56 | Outpatient (BNVA) | payer MEDICARE, SELFPAY | PROVIDERS: PCP Nurse Practitioner; Visit Provider Psychiatry & Neurology Neurology | DX: G20 Parkinson's disease (principal); G25.0 Essential tremor; K59.00 Constipation, unspecified; K21.9 Gastro-esophageal reflux disease without esophagitis | CPT/HCPCS: 99213 ==

== ENCOUNTER → 2021-04-13 07:56 | Outpatient (BNVA) | payer MEDICARE, SELFPAY | PROVIDERS: PCP Nurse Practitioner; Visit Provider Urology | DX: N20.1 Calculus of ureter (principal); N39.0 Urinary tract infection, site not specified | CPT/HCPCS: 99213; 96372; J0696 ==

== ENCOUNTER 2021-04-17 15:10 | Outpatient (REF) | payer MEDICARE, SELFPAY ==
[2021-04-17 16:21] LABS: Bilirubin Negative (Negative); Blood Moderate (Negative); Clarity Cloudy (Clear); Glucose Negative (Negative); Ketones Negative (Negative); Leukocyte Esterase Large (Negative); Nitrite Negative (Negative); Urobilinogen 0.2 EU/dL (Up TO 0.2)
[2021-04-17 16:39] LABS: WBC >50 HPF (0-5)
[2021-04-17 16:40] LABS: C & S Indicated? C&S Done As Ordered
== END 2021-04-17 15:11 | disposition home or self-care (01) ==
LOC: LBN 15:10
PROVIDERS: PCP Nurse Practitioner; Visit Provider Urology
DX: N20.1 Calculus of ureter (principal)
CPT/HCPCS: 87077; 81003; 81015; 87086; 87186

== ENCOUNTER → 2021-04-20 13:27 | Outpatient (BNVA) | payer MEDICARE, SELFPAY | PROVIDERS: PCP Nurse Practitioner; Referring Provider Nurse Practitioner; Visit Provider Urology | DX: N39.0 Urinary tract infection, site not specified (principal) | CPT/HCPCS: J1580; 96372 ==

== ENCOUNTER → 2021-05-04 13:15 | Outpatient (BNVA) | payer MEDICARE, SELFPAY | PROVIDERS: PCP Nurse Practitioner; Referring Provider Nurse Practitioner; Visit Provider Urology | DX: N20.0 Calculus of kidney (principal); N39.0 Urinary tract infection, site not specified | CPT/HCPCS: 81003; 99213; 96372; J0696 ==

== ENCOUNTER 2021-05-04 18:28 | Outpatient (REF) | payer MEDICARE, SELFPAY | END 2021-05-04 18:29 | disposition home or self-care (01) | LOC: LBN 18:28 | PROVIDERS: PCP Nurse Practitioner; Visit Provider Urology | DX: N39.0 Urinary tract infection, site not specified (principal) | CPT/HCPCS: 87086 ==

== ENCOUNTER 2021-05-25 00:30 | Outpatient (CLI) | payer MEDICARE, SELFPAY ==
--- NOTE | 2021-05-25 07:30 | DI.US_ITS ---
Exam(s) US RENAL EXAM: US RENAL CLINICAL HISTORY: r/o hydronephrosis,calculus proximal rt ureter. TECHNIQUE: Cruz scale, color and spectral Doppler were used. COMPARISON: CT CT ABDOMEN PELVIS WO from 06/04/[address] ABDOMEN PELVIS WO from 06/04/2020 US US RENAL from 02/22/2021 US US RENAL from 02/22/2021 CR XR ABDOMEN FLAT PLATE from 03/20/2021 CR XR ABDOMEN FLAT PLATE from 03/20/2021 FINDINGS: Renal size in cm: Right: 10.7. Left: 11.5. Echogenicity: Normal. Hydronephrosis: There is moderate bilateral hydronephrosis. Compared to the examination from there has been an improvement in the right hydronephrosis and a worsening of the left hydronephrosi s. Cyst or mass: Bilateral simple renal cysts are present. The largest is on the left kidney measures 2 .7 x 2.8 x 2.1 cm. Nephrolithiasis: Multiple echogenic foci are seen on the left consistent with nephrolithiasis. Other findings: None. 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 Ureteral jets: Right: Visualized and unremarkable. Left: Visualized and unremarkable. Prevoid vol:72 cc Postvoid vol:52 cc Renal color flow: Symmetric and within normal limits. IMPRESSION: 1. Moderate bilateral hydronephrosis which has improved on the right and worsened on the left. 2. Left nephrolithiasis. 3. 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 4. Moderate urinary bladder postvoid residual. DATA REPOSITORY:
== END 2021-05-25 00:50 ==
PROVIDERS: PCP Nurse Practitioner; Visit Provider Urology
DX: N13.2 Hydronephrosis with renal and ureteral calculous obstruction (principal); N13.70 Vesicoureteral-reflux, unspecified; C67.9 Malignant neoplasm of bladder, unspecified
CPT/HCPCS: 76770; 99213

== ENCOUNTER 2021-06-08 13:12 | Emergency (ER) | payer MEDICARE, SELFPAY ==
[2021-06-08 13:23] VITALS: BP 111/95; PULSE 95; RESP 18; TEMP 37.7; O2SAT 96
[2021-06-08 13:52] VITALS: BP 154/72; PULSE 95; RESP 16; O2SAT 96
[2021-06-08 14:03] LABS: Bilirubin Negative (Negative); Blood Large (Negative); Clarity Turbid (Clear); Glucose Negative (Negative); Ketones Negative (Negative); Leukocyte Esterase Large (Negative); Nitrite Positive (Negative); Urobilinogen 0.2 EU/dL (Up TO 0.2); pH 6.5 (5-8)
[2021-06-08 14:11] LABS: Bacteria Many HPF (Negative); C & S Indicated? Yes; Casts Negative LPF (Negative); Crystals Negative HPF (Negative); Epithelial Cells Negative HPF (Negative); Mucus Negative (Negative); RBC >50 HPF (0-2); WBC >50 HPF (0-5)
--- NOTE | 2021-06-08 14:21 | W.ED.GENAD ---
Discharge Plan Disposition Patient Disposition: HOME Condition: Stable Discharge Details Clinical Impression: Acute UTI Primary Care Provider: Miriam Serna ED Provider: Taj Mora Home Meds and New Rx's Prescriptions: Continued amantadine HCl 100 mg tablet 100 mg PO DAILY Qty: 90 RF: 3 oxybutynin chloride 5 mg tablet extended release 24hr 5 mg PO DAILY Qty: 30 RF: 6 trimethoprim 100 mg tablet 100 mg PO DAILY Qty: 30 RF: 2 acetaminophen [Tylenol] 325 mg capsule 650 mg PO Q6H PRNQty: 30 RF: 0 Discharge Instructions Instructions: Urinary Tract Infection in Men (ED) Additional Instructions: Urinary testing today is concerning for urinary tract infection. You were given a single dose of ceftriaxone 1 g intramuscularly. Urine culture is pending at time of discharge. You will need additional antibiotic coverage based on the results of your urine culture which should be available within a couple days. Please follow-up with urology on Friday. Referrals: Rai Garcia MD [[facility] STAFF PHYSICIAN] - Medical Decision Making 1450 --76-year-old male with history of recurrent urinary tract infections, vesiculoureteral reflux, bilateral renal stones, bladder cancer, here with confusion and generalized weakness which is consistent with prior urinary tract infection. Patient is hemodynamically stable and afebrile. Patient is well-known to urology service. I called and spoke with Dr. Garcia and discussed ED presentation and course. He recommends treating with ceftriaxone 1 g IM as this has been helpful for the patient in the past while awaiting urine culture. He does not recommend initiating treatment with oral antibiotic at this time but would recommend awaiting urine culture results. Plan will be for follow-up on Friday. Patient was instructed to continue to take low-dose trimethoprim preventative treatment as previously prescribed. HPI General Mode of arrival: ambulatory. Date/Time Provider Initiated Documentation: 06/08/21 14:05. Limitations to Documentation: no limitations. Information obtained by: patient. HPI Narrative: 76-year-old male with history of bladder cancer, recurrent UTIs, bilateral renal stones, vesiculoureteral reflux, here with chief complaint of urinary tract infection. Patient and his son note confusion and generalized weakness, symptoms are consistent with prior urinary tract infection. They are here requesting antibiotic treatment intramuscularly as has been administered by Dr. Garcia in the past. Denies associated fever. No abdominal pain. Related Data Home Medications Medication Instructions Recorded Confirmed acetaminophen [Tylenol] 650 mg PO Q6H PRN #30 cap 05/15/20 06/08/21 amantadine HCl 100 mg tablet 100 mg PO DAILY #90 tab 04/10/21 05/28/21 trimethoprim 100 mg tablet 100 mg PO DAILY #30 tab 05/08/21 06/08/21 oxybutynin chloride 5 mg 5 mg PO DAILY #30 tab 05/25/21 06/08/21 tablet,extended release 24 hr Previous Rx's Medication Instructions Recorded acetaminophen [Tylenol] 650 mg PO Q6H PRN #30 cap 05/15/20 amantadine HCl 100 mg tablet 100 mg PO DAILY #90 tab 04/10/21 trimethoprim 100 mg tablet 100 mg PO DAILY #30 tab 05/08/21 oxybutynin chloride 5 mg 5 mg PO DAILY #30 tab 05/25/21 tablet,extended release 24 hr Allergies Allergy/AdvReac Type Severity Reaction Status Date / Time No Known Allergies Allergy Verified 06/08/21 13:27 General Stated Complaint: Urinary BRITTON: 4 Review of Systems All systems reviewed & are unremarkable except as noted in HPI and below Constitutional Constitutional: Denies fever(s), Reports lethargy and Reports weakness Cardiovascular Cardiovascular: Denies chest pain Genitourinary Genitourinary: Reports urinary incontinence Neurologic Neurologic: Reports weakness PFSH All Active Problems Acute UTI (Acute) Calculus of proximal right ureter (Acute) Hydronephrosis, right (Acute) Acute renal failure (Acute) Prediabetes (Acute) Dysphagia (Acute) Weight loss, non-intentional (Acute) Parkinson disease (Chronic) Essential tremor (Acute) seeing neuro here Vesicoureteral reflux (Acute) Hydronephrosis, left (Acute) 08/06 US- improved from previous; follows with Dr Garcia Bilateral kidney stones (Acute 07/08/16) Urothelial carcinoma of bladder (Chronic) Bladder stone (Acute 07/08/16) Medical History 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 unsure of procedure, states they went up and pulled the stones out with a basket Surgical History Colonoscopy - IV Sedation (12/28/12) H/O cystoscopy History of back surgery lumbar S/P inguinal hernia repair using synthetic patch S/P TURP Family History Other Cancer Social History Smoking/Tobacco Use Status: Former Tobacco Use Smoking risk assessment performed?: Yes Alcohol Intake: never Drug use: Never Substance use type: does not use Household members: spouse Housing: house current occupation: Retired Do you feel safe at home: Yes Do you feel safe in your relationship?: Yes Exam Const General: cooperative and no acute distress HENMT Mouth: moist mucous membranes Resp Auscultation: clear to auscultation bilaterally, no rales, no rhonchi and no wheezes Cardio Rate: regular rate and not tachycardic Rhythm: regular rhythm GI Palpation: soft, not firm, no guarding, no masses, not rigid and nontender Skin General skin exam: no rashes or lesions noted Neuro General: patient alert, patient awake and tone normal Extrem General: no edema Course Vital Signs Vital signs: Vital Signs Temperature 37.7 C H 06/08/21 13:23 Pulse 95 H 06/08/21 13:23 Respiratory Rate 18 06/08/21 13:23 Blood Pressure 111/95 H 06/08/21 13:23 Pulse Oximetry 96 06/08/21 13:23 Temperature 37.7 C H 06/08/21 13:23 Temperature Source Temporal Artery Scan 06/08/21 13:23 Pulse 95 H 06/08/21 13:52 Respiratory Rate 16 06/08/21 13:52 Respiratory Effort Non-Labored 06/08/21 13:28 Blood Pressure 154/72 H 06/08/21 13:52 Blood Pressure Position Sitting 06/08/21 13:23 Pulse Oximetry 96 06/08/21 13:52 Oxygen Delivery Method Room Air 06/08/21 13:52 Oxygen Flow Rate 0 06/08/21 13:52 Pain Level 0 06/08/21 13:52 Comment 06/08/21 13:52 Lab/Test Results Lab/Test Results: 06/08/21 13:54 Urine - Reflex from Ua Urine Culture - Pending Laboratory Tests Range/Units 06/08/21 13:54 Urine Color (Yellow) Yellow Urine Clarity (Clear) Turbid Urine pH (5-8) 6.5 Ur Specific [place] (1.005-1.025) 1.020 Urine Protein (Negative) mg/dL 100 H Urine Ketones (Negative) mg/dL Negative Urine Blood (Negative) Large H Urine Nitrite (Negative) Positive H Urine Bilirubin (Negative) Negative Urine Urobilinogen (Up TO 0.2) EU/dL 0.2 Ur Leukocyte Esterase (Negative) Large H Urine RBC (0-2) HPF >50 H Urine WBC (0-5) HPF >50 H Ur Epithelial Cells (Negative) HPF Negative Urine Crystals (Negative) HPF Negative Urine Bacteria (Negative) HPF Many Urine Casts (Negative) LPF Negative Urine Mucus (Negative) Negative Ur Culture Indicated? Yes Urine Glucose (Negative) mg/dL Negative
[2021-06-08] MEDS: cefTRIAXone 1 GM VIAL IM (14:44)
== END 2021-06-08 15:03 | disposition home or self-care (01) ==
PROVIDERS: Physician Assistant; Emergency Provider Student in an Organized Health Care Education/Training Program; PCP Nurse Practitioner
DX: N39.0 Urinary tract infection, site not specified (principal); B96.5 Pseudomonas (aeruginosa) (mallei) (pseudomallei) as the cause of diseases classified elsewhere; R41.0 Disorientation, unspecified; R53.1 Weakness; Z87.440 Personal history of urinary (tract) infections
CPT/HCPCS: 87077; 96372; 99284; 81003; 81015; 87086; 87186; 99283; J0696

== ENCOUNTER → 2021-06-21 14:18 | Outpatient (BNVA) | payer MEDICARE, SELFPAY | PROVIDERS: PCP Nurse Practitioner; Referring Provider Nurse Practitioner; Visit Provider Nurse Practitioner Gerontology | DX: N20.0 Calculus of kidney (principal); N39.0 Urinary tract infection, site not specified | CPT/HCPCS: 81003; 99213 ==

== ENCOUNTER 2021-06-21 18:48 | Outpatient (REF) | payer MEDICARE, SELFPAY | END 2021-06-21 18:49 | disposition home or self-care (01) | LOC: LBN 18:48 | PROVIDERS: PCP Nurse Practitioner; Visit Provider Nurse Practitioner Gerontology | DX: N20.0 Calculus of kidney (principal) | CPT/HCPCS: 87086 ==

== ENCOUNTER → 2021-06-29 13:59 | Outpatient (BNVA) | payer MEDICARE, SELFPAY | PROVIDERS: PCP Nurse Practitioner; Referring Provider Nurse Practitioner; Visit Provider Urology | DX: N20.0 Calculus of kidney (principal); N39.0 Urinary tract infection, site not specified; N20.1 Calculus of ureter; C67.9 Malignant neoplasm of bladder, unspecified | CPT/HCPCS: 81003; 99213; 96372; J0696 ==

== ENCOUNTER 2021-06-29 16:13 | Outpatient (REF) | payer MEDICARE, SELFPAY | END 2021-06-29 16:14 | disposition home or self-care (01) | LOC: LBN 16:13 | PROVIDERS: PCP Nurse Practitioner; Visit Provider Urology | DX: N20.0 Calculus of kidney (principal) | CPT/HCPCS: 87086 ==

== ENCOUNTER 2021-07-02 11:33 | Inpatient (IN) | payer MEDICARE, SELFPAY ==
[2021-07-02] VITALS (20 sets, daily range): BP systolic 111–145; BP diastolic 70–89; PULSE 0–118; RESP 10–23; TEMP 36.8–37.2; O2SAT 94–97
--- NOTE | 2021-07-02 12:00 | RT.EKG_ITS ---
APPROVED REPORT Exam: Resting ECG Reason for Exam: tachycardia Patient Location: E HR:75 bpm ECG Measurements Heart Rate 75 AXIS [place] [id number] P [id number] QRSd 107 QRS -79 QT 387 T 10 QTc 431 Conclusion Atrial flutter...A-rate 273 Ventricular premature complex...V complex w/ short R-R interval Aberrant conduction of SV complex(es)...aberrant shape, [place] 80-220 Inferior infarct, old...Q >35mS, II III aVF sinus rhythm at 75, significant artifact present, normal axis, inferior Q waves, no STEMI, nondiagnos tic EKG
--- NOTE | 2021-07-02 12:05 | DI.CT_ITS ---
Exam(s) CT HEAD WO EXAM: CT HEAD WO CLINICAL HISTORY: AMS. TECHNIQUE: Imaging Protocol: Axial computed tomography images with coronal and sagittal reformatted images were created and reviewed COMPARISON: MR MR BRAIN WO/W from 11/19/2019 FINDINGS: Ventricles and Extra axial spaces: Normal in size and morphology for the patient's age. Hemorrhage: None. Cerebral parenchyma: Atrophy. White matter changes consistent with small vessel disease. Midline shift: None. Brainstem/Cerebellum: Normal. Calvarium: Normal. Visualized Paranasal sinuses/Mastoids: Clear. IMPRESSION: No acute abnormality. RADIATION DOSE DELIVERED: 811.25mGy.cm Total DLP 811.25mGy.cm Total DLP DATA REPOSITORY: All CT scans at this facility are submitted to the National Radiology Data Registry (NRDR) Dose Index Registry (DIR) with the [employer] (A[employer]). RADIATION OPTIMIZATION: All CT scans at this facility use at least one of these dose optimization te chniques: automated exposure control; mA and/or kV adjustment per patient size (includes targeted exa ms where dose is matched to clinical indication); or iterative reconstruction.
--- NOTE | 2021-07-02 12:30 | ED.GENADUL_ITS ---
Discharge Plan Disposition Patient Disposition: [facility] INPATIENT Condition: Improving Discharge Details Chief Complaint: AMS/LOC Clinical Impression: UTI (urinary tract infection), Hydronephrosis, Altered mental status Admit Date/Time: 07/02/21 15:05 Admit Provider: Se Garcia Attending Provider: Se Garcia Primary Care Provider: Miriam Serna ED Provider: Melani Mora Discharge Instructions Activity:: Activity as Tolerated Equipment/Supplies:: No Equipment Needed Diet:: As Tolerated Discharge Orders Discharge Orders: Discharge Order (Routine); Ordered 07/05/21 Ordered By: Ana Moreland Discharge Data Discharge Date/Time-TO BE ENTERED AT DEPARTURE: 07/02/21 17:04 Medical Decision Making Noah Izquierdo is a 76-year-old man with history of Parkinson disease, hydronephrosis, chronic recurrent UTIs who presented to emergency department with altered mental status consistent with prior UTI symptoms. On exam patient is somewhat altered but alert, calm, cooperative. Otherwise nonfocal neurologic exam, benign abdominal exam. Concern for UTI, dehydration, metabolic/lyte derangement, possible kidney stone, early sepsis, other possible acute emergent intracranial process. Exam/history not consistent with acute emergent surgical intra-abdominal process, acute emergent testicular pathology. Plan for IV placement, IV fluid hydration, screening labs. Will monitor and reassess. Labs reviewed, WBC 8.79, UA consistent with UTI also with blood. Plan for CT abdomen/pelvis to rule out ureterolithiasis. CT head negative. Renal CT shows worsening severe right hydronephrosis. I discussed patient presentation and results with Dr. Garcia of urology, who knows patient. He recommended Fay placement, IV antibiotic, and admission, he will follow in consult. Plan for ceftriaxone, admission. Medical Records Medical records reviewed: Yes I reviewed the patient's medical records. Imaging Data Radiologic Study: Attestation: I personally reviewed and interpreted this imaging study as follows: Radiologist's impression: EXAM: CT HEAD WO CLINICAL HISTORY: AMS. TECHNIQUE: Imaging Protocol: Axial computed tomography images with coronal and sagittal reformatted images were created and reviewed COMPARISON: MR MR BRAIN WO/W from 11/19/2019 FINDINGS: Ventricles and Extra axial spaces: Normal in size and morphology for the patient's age. Hemorrhage: None. Cerebral parenchyma: Atrophy. White matter changes consistent with small vessel disease. Midline shift: None. Brainstem/Cerebellum: Normal. Calvarium: Normal. Visualized Paranasal sinuses/Mastoids: Clear. IMPRESSION: No acute abnormality. EXAM: CT RENAL COLIC WO CLINICAL HISTORY: UTI, AMS. TECHNIQUE: Imaging Protocol: Axial computed tomography images with coronal and sagittal reformatted images were created and reviewed. CONTRAST MATERIAL: Noncontrast COMPARISON: CT CT ABDOMEN PELVIS WO from 06/04/2020 US US RENAL from 05/25/2021 FINDINGS: ABDOMEN: Lung Bases: Normal where visualized. Liver: Normal attenuation. No measurable mass. Gallbladder and biliary tract: Calcified stone dependent portion. No wall thickening no ductal dilation. Pancreas: Normal density, no calcifications or inflammatory process. Spleen: Normal. Kidneys: Right kidney: Severe right hydronephrosis ureter dilated down to the level of the bladder. No visible obstructing stone or visible mass. A few tiny cysts are noted. Left kidney: Stable moderate hydronephrosis. Multiple coarse left renal calculi are seen in the parenchyma and lower pole calices. The ureter is dilated to the down to the level of the bladder. No visible obstructing stone or mass.. Adrenal glands: No masses seen. Abdominal Aorta: Abdominal portion non-dilated. Atherosclerotic changes. PELVIS: Bladder: Thick wall with multiple diverticula. Bowel: Large quantity of stool in the ascending through splenic flexure. No obstruction or bowel wall thickening. Peritoneal cavity: No ascites, collection or mesenteric inflammatory response. Reproductive: Prior prostatectomy. Bones: No compression fractures.. IMPRESSION: Severe right hydronephrosis with significant worsening compared with prior CT and ultrasound.. Moderate left hydronephrosis, stable. Multiple stones lower pole left kidney. No obstructing stone visible Bladder diverticula bladder wall thickening. No visible stone or mass. 07/02/21 13:25 Urine - Reflex from Ua Urine Culture - Pending 07/02/21 12:40 Blood Blood Culture - Pending 07/02/21 12:50 Blood Blood Culture - Pending Laboratory Tests Range/Units 07/02/21 07/02/21 07/02/21 12:50 12:50 12:50 WBC (4.4-10.8) 10^3/uL 8.79 RBC (4.36-5.78) 10^6/uL 4.11 L Hgb (13.5-17.5) g/dL 11.9 L Hct (40.0-50.0) % 37.7 L MCV (80-95) fL 91.7 MCH (27.0-33.0) pg 29.0 MCHC (32.0-36.0) % 31.6 L RDW (11.8-14.1) % 14.4 H Plt Count (130-400) 10^3/uL 321 MPV (8.0-11.0) fL 9.6 Immature Gran % 0.3 Neutrophils % 79.5 Lymphocytes % 11.6 Monocytes % 6.4 Eosinophils % 1.6 Basophils % 0.6 Nucleated RBC % % 0 Absolute Neutrophils (1.2-6.7) 10^3/uL 6.99 H Absolute Lymphocytes (1.2-3.4) 10^3/uL 1.02 L Absolute Monocytes (0.1-0.8) 10^3/uL 0.56 Absolute Eosinophils (0.0-0.7) 10^3/uL 0.14 Absolute Basophils (0.0-0.2) 10^3/uL 0.05 VBG Lactate (0.6-1.4) mmol/L 0.8 Sodium (136-145) mmol/L 139 Potassium (3.5-5.1) mmol/L 4.8 Chloride (98-107) mmol/L 107 Carbon Dioxide (21.0-32.0) mmol/L 20.9 L Anion Gap (3-11) mmol/L 11.1 H BUN (7-18) mg/dL 44 H Creatinine (0.70-1.30) mg/dL 2.9 H Estimated GFR/1.73 m2 (mL/min/1.73m2) 21.32 Glucose (74-106) mg/dL 94 Calcium (8.5-10.1) mg/dL 9.1 Total Bilirubin (0.2-1.0) mg/dL 0.4 AST (15-37) U/L 25 ALT (16-63) U/L 20 Alkaline Phosphatase (46-116) U/L 108 Creatine Kinase Total Protein (6.4-8.2) g/dL 8.3 H Albumin (3.4-5.0) g/dL 3.2 L TSH (0.36-3.74) uIU/mL 3.15 Urine Color (Yellow) Urine Clarity (Clear) Urine pH (5-8) Ur Specific [place] (1.005-1.025) Urine Protein (Negative) mg/dL Urine Ketones (Negative) mg/dL Urine Blood (Negative) Urine Nitrite (Negative) Urine Bilirubin (Negative) Urine Urobilinogen (Up TO 0.2) EU/dL Ur Leukocyte Esterase (Negative) Urine RBC (0-2) HPF Urine WBC (0-5) HPF Ur Epithelial Cells (Negative) HPF Urine Crystals (Negative) HPF Urine Bacteria (Negative) HPF Urine Casts (Negative) LPF Urine Mucus (Negative) Ur Culture Indicated? Urine Glucose (Negative) mg/dL COVID-19 Source Range/Units 07/02/21 07/02/21 07/02/21 13:25 14:40 15:03 WBC (4.4-10.8) 10^3/uL RBC (4.36-5.78) 10^6/uL Hgb (13.5-17.5) g/dL Hct (40.0-50.0) % MCV (80-95) fL MCH (27.0-33.0) pg MCHC (32.0-36.0) % RDW (11.8-14.1) % Plt Count (130-400) 10^3/uL MPV (8.0-11.0) fL Immature Gran % Neutrophils % Lymphocytes % Monocytes % Eosinophils % Basophils % Nucleated RBC % % Absolute Neutrophils (1.2-6.7) 10^3/uL Absolute Lymphocytes (1.2-3.4) 10^3/uL Absolute Monocytes (0.1-0.8) 10^3/uL Absolute Eosinophils (0.0-0.7) 10^3/uL Absolute Basophils (0.0-0.2) 10^3/uL VBG Lactate (0.6-1.4) mmol/L Sodium (136-145) mmol/L Potassium (3.5-5.1) mmol/L Chloride (98-107) mmol/L Carbon Dioxide (21.0-32.0) mmol/L Anion Gap (3-11) mmol/L BUN (7-18) mg/dL Creatinine (0.70-1.30) mg/dL Estimated GFR/1.73 m2 (mL/min/1.73m2) Glucose (74-106) mg/dL Calcium (8.5-10.1) mg/dL Total Bilirubin (0.2-1.0) mg/dL AST (15-37) U/L ALT (16-63) U/L Alkaline Phosphatase (46-116) U/L Creatine Kinase Cancelled Total Protein (6.4-8.2) g/dL Albumin (3.4-5.0) g/dL TSH (0.36-3.74) uIU/mL Urine Color (Yellow) Yellow Urine Clarity (Clear) Sl Cloudy Urine pH (5-8) 6.0 Ur Specific [place] (1.005-1.025) 1.020 Urine Protein (Negative) mg/dL 30 H Urine Ketones (Negative) mg/dL Negative Urine Blood (Negative) Large H Urine Nitrite (Negative) Negative Urine Bilirubin (Negative) Negative Urine Urobilinogen (Up TO 0.2) EU/dL 0.2 Ur Leukocyte Esterase (Negative) Moderate H Urine RBC (0-2) HPF >50 H Urine WBC (0-5) HPF >50 H Ur Epithelial Cells (Negative) HPF Urine Crystals (Negative) HPF Urine Bacteria (Negative) HPF Urine Casts (Negative) LPF Urine Mucus (Negative) Ur Culture Indicated? Yes Urine Glucose (Negative) mg/dL Negative COVID-19 Source Nasal/Nares Lab Data Lab results reviewed: Yes I reviewed the patient's lab results. ECG Data Attestation: I personally reviewed and interpreted this ECG (s) as follows: Interpretation: EKG shows sinus rhythm at 75, significant artifact present, normal axis, inferior Q waves, no STEMI, nondiagnostic EKG HPI General Mode of arrival: ambulatory . Date/Time Provider Initiated Documentation: 07/02/21 11:37 . Limitations to Documentation: no limitations . Information obtained by: patient, family, RN notes reviewed and old records reviewed . HPI Narrative: Noah Izquierdo is a 76-year-old man with history of kidney stones, bladder cancer in situ, Parkinson's disease, recurrent UTIs presenting to the emergency department altered mental status. Per patient's son and record review, patient has frequent UTIs. Patient has generalized weakness and altered mental status with his UTIs in the past. Patient's son reports that patient began having urinary frequency and some altered mental status as is typical for him several days ago. He saw Dr. Garcia of urology for this on 1/14 and was given 1 g of ceftriaxone intramuscularly. UA was sent at that time. Patient's son reports that since then he has had progressive worsening of his generalized weakness and altered mental status, which involves hallucinations. Patient son reports that the symptoms are very typical of his prior UTIs, and in fact his hallucinations seem less severe than he has had in the past. Patient denies pain, fever, vomiting, diarrhea, cough, shortness of breath, rash. Patient's son does report that he has had urinary frequency. Patient with intermittent tremors but twitching, patient's son says that patient always has the symptoms with his prior UTIs. Related Data Home Medications Medication Instructions Recorded Confirmed acetaminophen [Tylenol] 650 mg PO Q6H PRN #30 cap 05/15/20 07/09/21 amantadine HCl 100 mg tablet 100 mg PO DAILY #90 tab 04/10/21 07/09/21 trimethoprim 100 mg tablet 100 mg PO DAILY #30 tab 05/08/21 07/09/21 Previous Rx's Medication Instructions Recorded acetaminophen [Tylenol] 650 mg PO Q6H PRN #30 cap 05/15/20 amantadine HCl 100 mg tablet 100 mg PO DAILY #90 tab 04/10/21 trimethoprim 100 mg tablet 100 mg PO DAILY #30 tab 05/08/21 Allergies Allergy/AdvReac Type Severity Reaction Status Date / Time No Known Allergies Allergy Verified 07/02/21 12:03 General Stated Complaint: AMS/LOC BRITTON: 2 Review of Systems Narrative: Constitutional: denies fevers, reports generalized weakness Eyes: denies eye pain ENT: denies ear pain, dental pain, sore throat Cardiovascular: denies chest pain Respiratory: denies SOB, cough GI: denies abdominal pain, vomiting, diarrhea : denies flank pain MSK: denies back pain, neck pain, arthralgias, myalgias Skin: denies rash Neuro: denies headaches, numbness, focal weakness, reports hallucinations PFSH All Active Problems (Updated 07/18/21 @ 12:51 by Melani Mora MD) UTI (urinary tract infection) (Acute) Hydronephrosis (Acute) Altered mental status (Acute) Calculus of proximal right ureter (Acute) Hydronephrosis, right (Acute) Acute renal failure (Acute) Prediabetes (Acute) Weight loss, non-intentional (Acute) Essential tremor (Acute) seeing neuro here Hydronephrosis, left (Acute) 08/06 US- improved from previous; follows with Dr Garcia Bilateral kidney stones (Acute 07/08/16) Urothelial carcinoma of bladder (Chronic) Bladder stone (Acute 07/08/16) Medical History 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 unsure of procedure, states they went up and pulled the stones out with a basket Surgical History Colonoscopy - IV Sedation (12/28/12) H/O cystoscopy History of back surgery lumbar S/P inguinal hernia repair using synthetic patch S/P TURP Family History Other Cancer Social History Smoking/Tobacco Use Status: Former Tobacco Use Smoking risk assessment performed?: Yes Alcohol Intake: never Drug use: Never Substance use type: does not use Household members: spouse Housing: house current occupation: Retired Do you feel safe at home: Yes Do you feel safe in your relationship?: Yes Exam Narrative Exam Narrative: Constitutional: well and [id number], pleasant, conversing normally HENT: head atraumatic/normocephalic/normal inspection, mucous membranes moist Eyes: conjunctiva normal, sclera normal, pupils 3mm b/l Neck: no stridor, normal ROM, trachea midline Chest: normal inspection Resp: normal work of breathing, LCTAB Cardio: normal rate, normal rhythm, no murmur appreciated GI: abdomen soft, non-tender, non-distended Back: normal inspection, no rash Skin: warm, dry, normal color, no rash Neuro: alert, not altered, grossly non-focal, normal tone Ext: no edema Psych: normal mood, normal affect, normal behavior Course Vital Signs Vital signs: Vital Signs Temperature 37 C 07/02/21 11:45 Pulse 92 H 07/02/21 11:45 Respiratory Rate 18 07/02/21 11:45 Blood Pressure 145/77 H 07/02/21 11:45 Pulse Oximetry 97 07/02/21 11:45 Temperature 37 C 07/02/21 11:45 Temperature Source Oral 07/02/21 11:45 Pulse 92 H 07/02/21 11:45 Respiratory Rate 18 07/02/21 11:45 Respiratory Effort Non-Labored 07/02/21 12:00 Blood Pressure 145/77 H 07/02/21 11:45 Blood Pressure Position Supine 07/02/21 11:45 Pulse Oximetry 97 07/02/21 11:45 Oxygen Delivery Method Room Air 07/02/21 11:45 Oxygen Flow Rate 0 07/02/21 11:45 Pain Level 0 07/02/21 11:45 Lab/Test Results Lab/Test Results: 07/02/21 12:05 Blood Blood Culture - Pending 07/02/21 12:05 Blood Blood Culture - Pending
[2021-07-02 12:55] LABS: Lactate 0.8 mmol/L (0.6-1.4)
[2021-07-02 12:58] LABS: Abs Immature Grans 0.03 10^3/uL (0.0-0.06); Absolute Basophil Count 0.05 10^3/uL (0.0-0.2); Absolute Eosinophil Count 0.14 10^3/uL (0.0-0.7); Absolute Lymphocyte Count 1.02 10^3/uL (1.2-3.4); Absolute Monocyte Count 0.56 10^3/uL (0.1-0.8); Absolute Neutrophil Count 6.99 10^3/uL (1.2-6.7); Basophils % 0.6; Eosinophils % 1.6; HCT 37.7 % (40.0-50.0); HGB 11.9 g/dL (13.5-17.5); Immature Grans % 0.3; Lymphocytes % 11.6; MCHC 31.6 % (32.0-36.0); MCV 91.7 fL (80-95); MPV 9.6 fL (8.0-11.0); Monocytes % 6.4; Neutrophils % 79.5; Nucleated RBC 0 %; Platelet Count 321 10^3/uL (130-400); RBC 4.11 10^6/uL (4.36-5.78); RDW 14.4 % (11.8-14.1); WBC 8.79 10^3/uL (4.4-10.8)
[2021-07-02] MEDS: Normal Saline 1,000 ML 1000 ML IV (13:15)
[2021-07-02 13:21] LABS: ALT 20 U/L (16-63); AST 25 U/L (15-37); Albumin 3.2 g/dL (3.4-5.0); Alkaline Phosphatase 108 U/L (46-116); Anion Gap 11.1 mmol/L (3-11); BUN 44 mg/dL (7-18); Bilirubin, Total 0.4 mg/dL (0.2-1.0); CO2 20.9 mmol/L (21.0-32.0); CREATININE 2.9 mg/dL (0.70-1.30); Calcium 9.1 mg/dL (8.5-10.1); Chloride 107 mmol/L (98-107); Estimated GFR 21.32 (mL/min/1.73m2); Glucose 94 mg/dL (74-106); Potassium 4.8 mmol/L (3.5-5.1); Sodium 139 mmol/L (136-145); TSH (W/Ref FT4) 3.15 uIU/mL (0.36-3.74); Total Protein 8.3 g/dL (6.4-8.2)
[2021-07-02 13:31] LABS: Bilirubin Negative (Negative); Blood Large (Negative); Clarity Sl Cloudy (Clear); Glucose Negative (Negative); Ketones Negative (Negative); Leukocyte Esterase Moderate (Negative); Nitrite Negative (Negative); Urobilinogen 0.2 EU/dL (Up TO 0.2)
[2021-07-02 13:42] LABS: RBC >50 HPF (0-2); WBC >50 HPF (0-5)
[2021-07-02 13:43] LABS: C & S Indicated? Yes
--- NOTE | 2021-07-02 13:45 | DI.CT_ITS ---
Exam(s) CT RENAL COLIC WO EXAM: CT RENAL COLIC WO CLINICAL HISTORY: UTI, AMS. TECHNIQUE: Imaging Protocol: Axial computed tomography images with coronal and sagittal reformatted images were created and reviewed. CONTRAST MATERIAL: Noncontrast COMPARISON: CT CT ABDOMEN PELVIS WO from 06/04/2020 US US RENAL from 05/25/2021 FINDINGS: ABDOMEN: Lung Bases: Normal where visualized. Liver: Normal attenuation. No measurable mass. Gallbladder and biliary tract: Calcified stone dependent portion. No wall thickening no ductal dilat ion. Pancreas: Normal density, no calcifications or inflammatory process. Spleen: Normal. Kidneys: Right kidney: Severe right hydronephrosis ureter dilated down to the level of the bladder. No visible obstructing stone or visible mass. A few tiny cysts are noted. Left kidney: Stable moder ate hydronephrosis. Multiple coarse left renal calculi are seen in the parenchyma and lower pole miri ices. The ureter is dilated to the down to the level of the bladder. No visible obstructing stone o r mass.. Adrenal glands: No masses seen. Abdominal Aorta: Abdominal portion non-dilated. Atherosclerotic changes. PELVIS: Bladder: Thick wall with multiple diverticula. Bowel: Large quantity of stool in the ascending through splenic flexure. No obstruction or bowel wal l thickening. Peritoneal cavity: No ascites, collection or mesenteric inflammatory response. Reproductive: Prior pr ostatectomy. Bones: No compression fractures.. IMPRESSION: Severe right hydronephrosis with significant worsening compared with prior CT and ultrasound.. Moder ate left hydronephrosis, stable. Multiple stones lower pole left kidney. No obstructing stone visib le Bladder diverticula bladder wall thickening. No visible stone or mass. RADIATION DOSE DELIVERED: 815.17mGy.cm Total DLP DATA REPOSITORY: All CT scans at this facility are submitted to the National Radiology Data Registry (NRDR) Dose Index Registry (DIR) with the [employer] (ACR). RADIATION OPTIMIZATION: All CT scans at this facility use at least one of these dose optimization te chniques: automated exposure control; mA and/or kV adjustment per patient size (includes targeted exa ms where dose is matched to clinical indication); or iterative reconstruction.
[2021-07-02 14:51] LABS: Source Nasal/Nares
[2021-07-02] MEDS: Lidocaine 2% Jelly 6 ML SYR (15:25)
[2021-07-02] MEDS: cefTRIAXone 2 GM/50 ML BAG IVPB (15:25)
[2021-07-02 16:43] LABS: COVID-19 PCR Negative (Negative)
--- NOTE | 2021-07-02 16:45 | HPE_ITS ---
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 ED provider spoke with Dr. Garcia recommends mccoy and IV antibx No signs of sepsis, no leukocytosis, afebrile Mccoy placed in ED (2) AMS (altered mental status): Start date: 07/02/21 Start time: 17:06 Status: Acute Assessment and plan: Due to above, does get agitated, will give prn seroquel HX of memory loss Qualifiers: Altered mental status type: unspecified Qualified Code(s): R41.82 - Altered mental status, unspecified (3) Urinary retention: Start date: 07/02/21 Start time: 17:07 Status: Acute Assessment and plan: due to above as above (4) Parkinson disease: Start date: 07/02/21 Start time: 17:09 Status: Chronic Assessment and plan: Continue Parkinson medications PT/OT (5) DVT prophylaxis: Start date: 07/02/21 Start time: 17:12 Status: Acute Assessment and plan: Heparin subcu (6) Discharge planning issues: Start date: 07/02/21 Start time: 17:12 Status: Acute Assessment and plan: Home vs snif when medically ready discussed with Dr. Garcia History of Present Illness History of Present Illness Chief Complaint: UTI, AMS Narrative: 76 y.o male with PMH of Parkinson disease, hydronephrosis, presents with AMS, he gets ch ronic UTI and usually presents with AMS. Labs in ED not really remarkable bun and creatinine 44/ 2.9 which appears to be is baseline. Anion gap slightly elevated at 11.1. U/a with large amounts blood, greater than 50 wbc, moderate leuk est. renal CT with severe right hydronephrosis. and moderate left hydronephrosis. no obstructing stone visible. ED spoke with Dr. Garcia after ED provider did POC u/s and found hydronephrosis, he recommend IV antiobx, and mccoy placement. Hospitalist asked for further admission. Will admit to m/s. Continue ceftriaxone IV. Seroquel prn for agitation. urine cx pending. Review of Systems All systems reviewed & are unremarkable except as noted in HPI and below PFSH All Active Problems (Updated 07/02/21 @ 17:09 by Kerri Diggs NP) AMS (altered mental status) (Acute) Urinary retention (Acute) Discharge planning issues (Acute) DVT prophylaxis (Acute) Acute UTI (Acute) Calculus of proximal right ureter (Acute) Hydronephrosis, right (Acute) Acute renal failure (Acute) Prediabetes (Acute) Dysphagia (Chronic) Weight loss, non-intentional (Acute) Parkinson disease (Chronic) Essential tremor (Acute) seeing neuro here Vesicoureteral reflux (Acute) Hydronephrosis, left (Acute) 08/06 US- improved from previous; follows with Dr Garcia Bilateral kidney stones (Acute 07/08/16) Urothelial carcinoma of bladder (Chronic) Bladder stone (Acute 07/08/16) Medical History 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 unsure of procedure, states they went up and pulled the stones out with a basket Surgical History Colonoscopy - IV Sedation (12/28/12) H/O cystoscopy History of back surgery lumbar S/P inguinal hernia repair using synthetic patch S/P TURP Family History Other Cancer Social History Smoking/Tobacco Use Status: Former Tobacco Use Smoking risk assessment performed?: Yes Alcohol Intake: never Drug use: Never Substance use type: does not use Household members: spouse Housing: house current occupation: Retired Do you feel safe at home: Yes Do you feel safe in your relationship?: Yes Meds Allergies and Home Medications Allergies Allergy/AdvReac Type Severity Reaction Status Date / Time No Known Allergies Allergy Verified 07/02/21 12:03 Home Medications Medication Instructions Recorded Confirmed Type acetaminophen [Tylenol] 650 mg PO Q6H PRN #30 cap 05/15/20 07/02/21 Rx amantadine HCl 100 mg tablet 100 mg PO DAILY #90 tab 04/10/21 07/02/21 Rx trimethoprim 100 mg tablet 100 mg PO DAILY #30 tab 05/08/21 07/02/21 Rx oxybutynin chloride 5 mg 5 mg PO DAILY #30 tab 05/25/21 07/02/21 Rx tablet,extended release 24 hr fluconazole 200 mg tablet 200 mg PO DAILY #3 tab 06/29/21 07/02/21 Rx Exam Const General: cooperative, comfortable and no acute distress Orientation: alert, awake, not oriented x3 and confused Eyes Eyelids: eyelids normal Pupils: PERRL EOM: EOM intact bilaterally Neck Neck: normal visual inspection and no JVD Lymphatic: no lymphadenopathy noted Resp Effort & Inspection: normal respiratory effort Auscultation: clear to auscultation bilaterally Cardio Jugular venous pressure: no JVD Rhythm: regular rhythm Heart Sounds: S1 normal GI Auscultation: normal bowel sounds General: No CVA tenderness and deferred Skin General skin exam: no rashes or lesions noted Neuro General: patient alert, patient awake and not oriented x3 Gait: normal gait Extrem General: normal to inspection, full ROM and no clubbing, cyanosis or edema Results Labs Result diagrams: 07/03/21 06:13 07/03/21 06:13 Labs: Laboratory Results - last 24 hr 07/02/21 07/02/21 07/02/21 12:50 12:50 12:50 WBC 8.79 RBC 4.11 L Hgb 11.9 L Hct 37.7 L MCV 91.7 MCH 29.0 MCHC 31.6 L RDW 14.4 H Plt Count 321 MPV 9.6 Immature Gran % 0.3 Neutrophils % 79.5 Lymphocytes % 11.6 Monocytes % 6.4 Eosinophils % 1.6 Basophils % 0.6 Nucleated RBC % 0 Absolute Neutrophils 6.99 H Absolute Lymphocytes 1.02 L Absolute Monocytes 0.56 Absolute Eosinophils 0.14 Absolute Basophils 0.05 VBG Lactate 0.8 Sodium 139 Potassium 4.8 Chloride 107 Carbon Dioxide 20.9 L Anion Gap 11.1 H BUN 44 H Creatinine 2.9 H Estimated GFR/1.73 m2 21.32 Glucose 94 Calcium 9.1 Total Bilirubin 0.4 AST 25 ALT 20 Alkaline Phosphatase 108 Creatine Kinase Total Protein 8.3 H Albumin 3.2 L TSH 3.15 Urine Color Urine Clarity Urine pH Ur Specific [place] Urine Protein Urine Ketones Urine Blood Urine Nitrite Urine Bilirubin Urine Urobilinogen Ur Leukocyte Esterase Urine RBC Urine WBC Ur Epithelial Cells Urine Crystals Urine Bacteria Urine Casts Urine Mucus Ur Culture Indicated? Urine Glucose COVID-19 Source SARS-CoV-2 (PCR) 07/02/21 07/02/21 07/02/21 13:25 14:40 15:03 WBC RBC Hgb Hct MCV MCH MCHC RDW Plt Count MPV Immature Gran % Neutrophils % Lymphocytes % Monocytes % Eosinophils % Basophils % Nucleated RBC % Absolute Neutrophils Absolute Lymphocytes Absolute Monocytes Absolute Eosinophils Absolute Basophils VBG Lactate Sodium Potassium Chloride Carbon Dioxide Anion Gap BUN Creatinine Estimated GFR/1.73 m2 Glucose Calcium Total Bilirubin AST ALT Alkaline Phosphatase Creatine Kinase Cancelled Total Protein Albumin TSH Urine Color Yellow Urine Clarity Sl Cloudy Urine pH 6.0 Ur Specific [place] 1.020 Urine Protein 30 H Urine Ketones Negative Urine Blood Large H Urine Nitrite Negative Urine Bilirubin Negative Urine Urobilinogen 0.2 Ur Leukocyte Esterase Moderate H Urine RBC >50 H Urine WBC >50 H Ur Epithelial Cells Urine Crystals Urine Bacteria Urine Casts Urine Mucus Ur Culture Indicated? Yes Urine Glucose Negative COVID-19 Source Nasal/Nares SARS-CoV-2 (PCR) Negative Last Vital Signs Temp 37 C 07/02/21 11:45 Pulse 92 H 07/02/21 11:45 Resp 18 07/02/21 13:12 BP 145/77 H 07/02/21 11:45 Pulse Ox 97 07/02/21 11:45
[2021-07-02] MEDS: Heparin 5,000 UNITS/ML VIAL 5000 UNITS SC (17:49)
[2021-07-03] VITALS (9 sets, daily range): BP systolic 114–131; BP diastolic 57–76; PULSE 64–98; RESP 16–22; TEMP 36.2–36.6; O2SAT 93–98
[2021-07-03] MEDS: Heparin 5,000 UNITS/ML VIAL 5000 UNITS SC ×3 (00:22→16:35)
[2021-07-03 07:19] LABS: Abs Immature Grans 0.03 10^3/uL (0.0-0.06); Absolute Basophil Count 0.05 10^3/uL (0.0-0.2); Absolute Eosinophil Count 0.19 10^3/uL (0.0-0.7); Absolute Lymphocyte Count 0.96 10^3/uL (1.2-3.4); Absolute Monocyte Count 0.67 10^3/uL (0.1-0.8); Absolute Neutrophil Count 7.28 10^3/uL (1.2-6.7); Basophils % 0.5; Eosinophils % 2.1; HGB 11.8 g/dL (13.5-17.5); Immature Grans % 0.3; Lymphocytes % 10.5; MCH 28.8 pg (27.0-33.0); MCHC 31.1 % (32.0-36.0); MCV 92.7 fL (80-95); MPV 9.6 fL (8.0-11.0); Monocytes % 7.3; Neutrophils % 79.3; Nucleated RBC 0 %; Platelet Count 319 10^3/uL (130-400); RDW 14.5 % (11.8-14.1); RDW-SD 49.7 fL; WBC 9.18 10^3/uL (4.4-10.8)
[2021-07-03 07:33] LABS: Anion Gap 10.2 mmol/L (3-11); BUN 42 mg/dL (7-18); CO2 20.8 mmol/L (21.0-32.0); Chloride 109 mmol/L (98-107); Glucose 96 mg/dL (74-106); Potassium 4.4 mmol/L (3.5-5.1); Sodium 140 mmol/L (136-145)
--- NOTE | 2021-07-03 07:37 | UCONE_ITS ---
Date of service: 07/03/21 Time of Service: 07:37 Assessment and Plan Assessment and plan (1) Vesicoureteral reflux: Status: Acute Assessment and plan: Given his history of UTIs, I think it is reasonable to cover him with antibiotics until his cultures are available. Given the results of Friday's culture however, I am concerned that some of his symptoms may be related to the anticholinergic that I started about a month ago. I have discontinued his oxybutynin and asked for a Mccoy catheter to be placed. We are running out of options in terms of decreasing this gentlemen's bladder pressure and preventing reflux, so it may be time to discuss a chronic indwelling catheter with him and his family. With his Parkinson's disease and his mental status issues, I do not believe he is a good candidate for self intermittent catheterization. History of Present Illness History of Present Illness Chief Complaint: Recurrent urinary tract infections Narrative: This is a 76-year-old gentleman well-known to me. He has a history of bilateral kidney stones. 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 He has developed Parkinson's disease and currently has a high pressure bladder which causes vesicoureteral reflux bilaterally. We had tried to decrease his bladder pressure with beta 3 agonists. We had suggested injections of Botox into the detrusor muscle and actually had him scheduled for procedure, but the cost was prohibitive. We reluctantly started him on anticholinergics about a month ago knowing that changes in mental status could occur. He has had recurrent bacterial and yeast urinary tract infections. Typically, his symptoms include worsening frequency, urgency and mental status changes. We actually saw him in the office on Friday for these symptoms. His urinalysis was suspicious for an infection. We gave him a dose of ceftriaxone and 2 days of Diflucan to get through the weekend. His urine culture actually came back with no significant bacteria. When we spoke with the patient's family on Friday morning, they told us that his condition was worsening. With no documented urinary tract infection to blame for his symptoms, we suggested that he check in with his primary care provider or present to the emergency room. In the emergency room, his urinalysis was again suspicious for a UTI (just as it was when we saw him on the office on [address]). His CT scan showed worsening bilateral hydronephrosis with dilated ureters all the way down to the bladder and no ureteral stones. He does have chronic stable left renal stones. Last year, he had a right renal stone that migrated into his right ureter. Due to his bladder appearance, I was unable to identify the right ureteral orifice to place a stent. He required a nephrostomy tube with antegrade placement of a stent. I was then able to follow the stent up to the stone and treat the stone ureteroscopically with a holmium laser. His follow-up ultrasound showed improvement of his hydronephrosis (compared to when it was obstructed from his right ureteral stone). He is admitted with a presumptive diagnosis of urinary tract infection although his cultures are still pending. Review of Systems Unobtainable due to mental status PFSH All Active Problems (Updated 07/02/21 @ 17:09 by Kerri Diggs NP) AMS (altered mental status) (Acute) Urinary retention (Acute) Discharge planning issues (Acute) DVT prophylaxis (Acute) Acute UTI (Acute) Calculus of proximal right ureter (Acute) Hydronephrosis, right (Acute) Acute renal failure (Acute) Prediabetes (Acute) Dysphagia (Chronic) Weight loss, non-intentional (Acute) Parkinson disease (Chronic) Essential tremor (Acute) seeing neuro here Vesicoureteral reflux (Acute) Hydronephrosis, left (Acute) 08/06 US- improved from previous; follows with Dr Garcia Bilateral kidney stones (Acute 07/08/16) Urothelial carcinoma of bladder (Chronic) Bladder stone (Acute 07/08/16) Medical History 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 unsure of procedure, states they went up and pulled the stones out with a basket Surgical History Colonoscopy - IV Sedation (12/28/12) H/O cystoscopy History of back surgery lumbar S/P inguinal hernia repair using synthetic patch S/P TURP Family History Other Cancer Social History Smoking/Tobacco Use Status: Former Tobacco Use Smoking risk assessment performed?: Yes Alcohol Intake: never Drug use: Never Substance use type: does not use Household members: spouse Housing: house current occupation: Retired Do you feel safe at home: Yes Do you feel safe in your relationship?: Yes Exam Const General: frail appearing Nutritional Appearance: thin Limitations: altered mental status GI Inspection: non-distended Palpation: soft Other: mccoy with clear urine in tubing Results Last Vital Signs Temp 36.6 C 07/03/21 05:43 Pulse 98 H 07/03/21 04:12 Resp 18 07/02/21 16:51 BP 122/76 07/03/21 04:12 Pulse Ox 93 07/03/21 04:12 Labs Result diagrams: 07/03/21 06:13 07/03/21 06:13 Labs: Laboratory Results - last 24 hr 07/02/21 07/02/21 07/02/21 12:50 12:50 12:50 WBC 8.79 RBC 4.11 L Hgb 11.9 L Hct 37.7 L MCV 91.7 MCH 29.0 MCHC 31.6 L RDW 14.4 H Plt Count 321 MPV 9.6 Immature Gran % 0.3 Neutrophils % 79.5 Lymphocytes % 11.6 Monocytes % 6.4 Eosinophils % 1.6 Basophils % 0.6 Nucleated RBC % 0 Absolute Neutrophils 6.99 H Absolute Lymphocytes 1.02 L Absolute Monocytes 0.56 Absolute Eosinophils 0.14 Absolute Basophils 0.05 VBG Lactate 0.8 Sodium 139 Potassium 4.8 Chloride 107 Carbon Dioxide 20.9 L Anion Gap 11.1 H BUN 44 H Creatinine 2.9 H Estimated GFR/1.73 m2 21.32 Glucose 94 Calcium 9.1 Magnesium Total Bilirubin 0.4 AST 25 ALT 20 Alkaline Phosphatase 108 Creatine Kinase Total Protein 8.3 H Albumin 3.2 L TSH 3.15 Urine Color Urine Clarity Urine pH Ur Specific [place] Urine Protein Urine Ketones Urine Blood Urine Nitrite Urine Bilirubin Urine Urobilinogen Ur Leukocyte Esterase Urine RBC Urine WBC Ur Epithelial Cells Urine Crystals Urine Bacteria Urine Casts Urine Mucus Ur Culture Indicated? Urine Glucose COVID-19 Source SARS-CoV-2 (PCR) 07/02/21 07/02/21 07/02/21 13:25 14:40 15:03 WBC RBC Hgb Hct MCV MCH MCHC RDW Plt Count MPV Immature Gran % Neutrophils % Lymphocytes % Monocytes % Eosinophils % Basophils % Nucleated RBC % Absolute Neutrophils Absolute Lymphocytes Absolute Monocytes Absolute Eosinophils Absolute Basophils VBG Lactate Sodium Potassium Chloride Carbon Dioxide Anion Gap BUN Creatinine Estimated GFR/1.73 m2 Glucose Calcium Magnesium Total Bilirubin AST ALT Alkaline Phosphatase Creatine Kinase Cancelled Total Protein Albumin TSH Urine Color Yellow Urine Clarity Sl Cloudy Urine pH 6.0 Ur Specific [place] 1.020 Urine Protein 30 H Urine Ketones Negative Urine Blood Large H Urine Nitrite Negative Urine Bilirubin Negative Urine Urobilinogen 0.2 Ur Leukocyte Esterase Moderate H Urine RBC >50 H Urine WBC >50 H Ur Epithelial Cells Urine Crystals Urine Bacteria Urine Casts Urine Mucus Ur Culture Indicated? Yes Urine Glucose Negative COVID-19 Source Nasal/Nares SARS-CoV-2 (PCR) Negative 07/03/21 07/03/21 06:13 06:13 WBC 9.18 RBC 4.10 L Hgb 11.8 L Hct 38.0 L MCV 92.7 MCH 28.8 MCHC 31.1 L RDW 14.5 H Plt Count 319 MPV 9.6 Immature Gran % 0.3 Neutrophils % 79.3 Lymphocytes % 10.5 Monocytes % 7.3 Eosinophils % 2.1 Basophils % 0.5 Nucleated RBC % 0 Absolute Neutrophils 7.28 H Absolute Lymphocytes 0.96 L Absolute Monocytes 0.67 Absolute Eosinophils 0.19 Absolute Basophils 0.05 VBG Lactate Sodium 140 Potassium 4.4 Chloride 109 H Carbon Dioxide 20.8 L Anion Gap 10.2 BUN 42 H Creatinine 3.0 H Estimated GFR/1.73 m2 20.50 Glucose 96 Calcium 9.0 Magnesium 2.0 Total Bilirubin AST ALT Alkaline Phosphatase Creatine Kinase Total Protein Albumin TSH Urine Color Urine Clarity Urine pH Ur Specific [place] Urine Protein Urine Ketones Urine Blood Urine Nitrite Urine Bilirubin Urine Urobilinogen Ur Leukocyte Esterase Urine RBC Urine WBC Ur Epithelial Cells Urine Crystals Urine Bacteria Urine Casts Urine Mucus Ur Culture Indicated? Urine Glucose COVID-19 Source SARS-CoV-2 (PCR)
--- NOTE | 2021-07-03 08:20 | PDOC.CMIN ---
- If Service Date Differs Date of service: 07/03/21 Time of Service: 08:20 Care Management Initial Assess REASON FOR HOSPITALIZATION:: UTI, AMS PAST MEDICAL HISTORY/PAST SURGICAL HISTORY:: AMS (altered mental status) (Acute). Urinary retention (Acute). Discharge planning issues (Acute). DVT prophylaxis (Acute). Acute UTI (Acute). Calculus of proximal right ureter (Acute). Hydronephrosis, right (Acute). Acute renal failure (Acute). Prediabetes (Acute). Dysphagia (Chronic). Weight loss, non-intentional (Acute). Parkinson disease (Chronic). Essential tremor (Acute). seeing neuro here. Vesicoureteral reflux (Acute). Hydronephrosis, left (Acute). 08/06 US- improved from previous; follows with Dr Garcia. Bilateral kidney stones (Acute 07/08/16). Urothelial carcinoma of bladder (Chronic). Bladder stone (Acute 07/08/16). Medical History . 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 Hx of nephrolithotomy with removal of calculi. pt. unsure of procedure, states they went up and pulled the stones out with a basket. Surgical History . Colonoscopy - IV Sedation (12/28/12). H/O cystoscopy. History of back surgery. lumbar. S/P inguinal hernia repair using synthetic patch. S/P TURP PREVIOUS FUNCTIONAL STATUS/SOCIAL/FAMILY SUPPORTS:: Noah lives in [place] with his life partner of 36 years, Vera. He no longer drives due to a period of declining health. He is independent with his ADL's. CURRENT FUNCTIONAL STATUS:: Noah was lying in bed when CM met with him. He is a frail looking gentleman with tremors with a HX of Parkinson's. He was drowsy, disoriented but arousable to name. ADVANCE DIRECTIVES:: None on file. CM will offer. Has patient been provided with info about the portal/API?: Yes Did the patient sign up for the portal?: No CODE STATUS:: DNR/DNI INSURANCE COVERAGE / FINANCIAL ISSUES:: Medicare. Financial assistance 100 CURRENT HOME/COMMUNITY SERVICES/EQUIPMENT:: Uses a walker PRIMARY CARE PHYSICIAN:: Miriam Serna POTENTIAL DISCHARGE NEEDS:: Follow up appointments, [facility] services, palliative care consult PATIENT/FAMILY EDUCATION NEEDS:: Review discharge instructions, limitations, medications and plan to follow up with community providers. ask me three. TRANSPORTATION:: via private vehicle with family. PLAN:: Anticipate Noah will discharge home via private vehicle with family when medically ready. He will follow up with community providers and discharge plan of care as prescribed. CM will continue to monitor discharge planning and need for [facility] services.
[2021-07-03] MEDS: Normal Saline Flush 10 ML SYR IVP (09:02)
--- NOTE | 2021-07-03 12:08 | W.NUTRFU ---
Date of service: 07/03/21 Time of Service: 12:08 Nutrition Note NOTE: Weight fairly stable over the past year. PO so far is fair on regular diet with soft and bite size texture and thin liquids. No nutritional issues noted at this time. Will continue to follow progress. Time Spent in Nutritional Counseling and Treatment: 0
[2021-07-03] MEDS: Normal Saline 500 ML 30 ML IV (12:30)
[2021-07-03] MEDS: cefTRIAXone 1 GM/50 ML BAG IVPB (13:36)
--- NOTE | 2021-07-03 14:04 | STREC_ITS ---
Date of service: 07/03/21 Time of Service: 14:04 Speech Therapy Recommendations Report ST Recommendations: NON-TREATMENT NOTE Chart reviewed. Per RN, patient was made NPO this morning, unable to eat given severely altered mental status. When CO TEACHER attempting to contact patient in ICU this afternoon, RN reporting patient's mentation has not improved enough to participate in CO TEACHER evaluation and he is unable to follow any directions. CO TEACHER discussed this case with hospitalist who is in agreement with plan to try contacting patient for evaluation tomorrow to provide swallowing and cognitive- communication recommendations. Patient to remain NPO at this time until swallow evaluation occurs, or if MD judges AMS to be significantly resolved to initiate baseline diet. Gina Garcia M.S., [facility]-CO TEACHER [phone] Coding
--- NOTE | 2021-07-03 14:04 | PDOC.STREC ---
Date of service: 07/03/21 Time of Service: 14:04 Speech Therapy Recommendations Report ST Recommendations: NON-TREATMENT NOTE Chart reviewed. Per RN, patient was made NPO this morning, unable to eat given severely altered mental status. When CNA PCT attempting to contact patient in ICU this afternoon, RN reporting patient's mentation has not improved enough to participate in CNA PCT evaluation and he is unable to follow any directions. CNA PCT discussed this case with hospitalist who is in agreement with plan to try contacting patient for evaluation tomorrow to provide swallowing and cognitive-communication recommendations. Patient to remain NPO at this time until swallow evaluation occurs, or if MD judges AMS to be significantly resolved to initiate baseline diet. Gina Garcia M.S., [facility]-CNA PCT [phone] Coding
[2021-07-03] MEDS: Lactated Ringers 1,000 ML 50 ML IV (14:26)
--- NOTE | 2021-07-03 17:30 | W.PM.PROGNOT ---
Date of Service Date of service: 07/03/21 Time of Service: 13:30 Assessment and Plan Assessment and plan (1) Acute UTI: Start date: 07/03/21 Start time: 13:30 Status: Acute Assessment and plan: Urine cx with grams positive less than 10,000, BC negative ceftriaxone day 2 No signs of sepsis, no leukocytosis, afebrile Fay in place (2) AMS (altered mental status): Start date: 07/03/21 Start time: 13:30 Status: Acute Assessment and plan: Due to above, does get agitated, will give prn seroquel HX of memory loss Not awake today during exam unable to assess mental status Qualifiers: Altered mental status type: unspecified Qualified Code(s): R41.82 - Altered mental status, unspecified (3) Urinary retention: Start date: 07/03/21 Start time: 13:30 Status: Chronic Assessment and plan: due to above as above (4) Parkinson disease: Start date: 07/03/21 Start time: 13:30 Status: Chronic Assessment and plan: Continue Parkinson medications PT/OT (5) Dysphagia: Start date: 07/03/21 Start time: 13:30 Status: Chronic Assessment and plan: made npo ST consult IV hydration Qualifiers: Dysphagia type: unspecified Qualified Code(s): R13.10 - Dysphagia, unspecified (6) DVT prophylaxis: Start date: 07/03/21 Start time: 13:30 Status: Acute Assessment and plan: Heparin subcu (7) Discharge planning issues: Start date: 07/03/21 Start time: 13:30 Status: Acute Assessment and plan: Home vs snif when medically ready discussed with Dr. Garcia Subjective Subjective Patient reports: other Interval history since last seen: Sleeping, not easily awoken. Confused. Exam Narrative Exam Narrative: Patient lying in bed sleeping, unable to assess mental status Eyes Eyelids: eyelids normal Pupils: PERRL EOM: EOM intact bilaterally Neck Neck: normal visual inspection and no JVD Lymphatic: no lymphadenopathy noted Resp Effort & Inspection: normal respiratory effort Auscultation: clear to auscultation bilaterally Cardio Jugular venous pressure: no JVD Rhythm: regular rhythm Heart Sounds: S1 normal GI Auscultation: normal bowel sounds General: No CVA tenderness and deferred Skin General skin exam: no rashes or lesions noted Neuro Gait: normal gait Extrem General: normal to inspection, full ROM and no clubbing, cyanosis or edema Objective Last Vital Signs Temp 36.4 C L 07/03/21 12:17 Pulse 65 07/03/21 12:17 Resp 16 07/03/21 12:17 BP 114/57 L 07/03/21 12:17 Pulse Ox 96 07/03/21 12:17 Laboratory Results - last 24 hr 07/03/21 07/03/21 06:13 06:13 WBC 9.18 RBC 4.10 L Hgb 11.8 L Hct 38.0 L MCV 92.7 MCH 28.8 MCHC 31.1 L RDW 14.5 H Plt Count 319 MPV 9.6 Immature Gran % 0.3 Neutrophils % 79.3 Lymphocytes % 10.5 Monocytes % 7.3 Eosinophils % 2.1 Basophils % 0.5 Nucleated RBC % 0 Absolute Neutrophils 7.28 H Absolute Lymphocytes 0.96 L Absolute Monocytes 0.67 Absolute Eosinophils 0.19 Absolute Basophils 0.05 Sodium 140 Potassium 4.4 Chloride 109 H Carbon Dioxide 20.8 L Anion Gap 10.2 BUN 42 H Creatinine 3.0 H Estimated GFR/1.73 m2 20.50 Glucose 96 Calcium 9.0 Magnesium 2.0
[2021-07-04] VITALS (9 sets, daily range): BP systolic 108–118; BP diastolic 50–67; PULSE 73–85; RESP 16–20; TEMP 35.9–36.4; O2SAT 93–100
[2021-07-04] MEDS: Heparin 5,000 UNITS/ML VIAL 5000 UNITS SC ×3 (01:06→18:24)
[2021-07-04 07:20] LABS: Anion Gap 14.9 mmol/L (3-11); BUN 41 mg/dL (7-18); CO2 18.1 mmol/L (21.0-32.0); Calcium 9.2 mg/dL (8.5-10.1); Chloride 110 mmol/L (98-107); Glucose 89 mg/dL (74-106); Potassium 4.1 mmol/L (3.5-5.1); Sodium 143 mmol/L (136-145)
--- NOTE | 2021-07-04 08:22 | CMPROGNOTE_ITS ---
- If Service Date Differs Date of service: 07/04/21 Time of Service: 08:22 Care Management Progress Note S/O: Noah was lying in bed, semi houser's when CM met with him. He was alert, oriented X 2. Noah shared that he doesn't recollect anything about his hospital stay until this morning. He was very receptive to communication and talking about his hospital admission. He shared with CM that he's happy he's not here to and is hopeful to discharge home when he is medically ready. He is tearful at times. He shares that he's independent at baseline and feels slightly frustrated he's receiving help with his ADL's and stresses that he is capable. Noah shares that he is followed closely by Dr. Garcia and is looking forward to seeing him during this admission. CM left a message for Dr. Garcia's office and reassured Noah that Dr. Garcia assessed him yesterday and is following his progress. A: 76 year old male admitted to [facility] ICU on 07/02/21 for UTI, AMS P:Anticipate Noah will discharge home via private vehicle with family when medically ready. He will follow up with community providers and discharge plan of care as prescribed. CM will continue to monitor discharge planning and need for [facility] services.
--- NOTE | 2021-07-04 09:13 | OT.INNT ---
Date of service: 07/04/21 Time of Service: 09:13 Occupational Therapy Notes 07/04/21 OT consult received and pts chart was reviewed. OT attempted to see pt who was not available due to receiving medication. OT will attempt again tomorrow. Giovanna Ann, OTR/L
--- NOTE | 2021-07-04 10:01 | PT.INIE ---
Date of service: 07/04/21 Time of Service: 10:01 PT Notes Visit Reasons: UTI,AMS Physical Therapy Inpatient Initial Evaluation Date: 07/04/2021 Referring Doctor: Kerri Price NP PT Orders: PT CONSULT: Eval/Treat Precautions: Fall. Standard. Activity as tolerated. Patient Profile/Admitting Diagnosis: Noah is a 76-year-old male with Parkinson's disease who presented to the ED on 07/02/2021 with altered mental status and generalized weakness. Diagnosed with acute urinary tract infection altered mental status, urinary retention, oriented times PMHX: All Active Problems (Updated 07/02/21 @ 17:09 by Kerri Diggs NP) AMS (altered mental status) (Acute) Urinary retention (Acute) Discharge planning issues (Acute) DVT prophylaxis (Acute) Acute UTI (Acute) Calculus of proximal right ureter (Acute) Hydronephrosis, right (Acute) Acute renal failure (Acute) Prediabetes (Acute) Dysphagia (Chronic) Weight loss, non-intentional (Acute) Parkinson disease (Chronic) Essential tremor (Acute) seeing neuro here Vesicoureteral reflux (Acute) Hydronephrosis, left (Acute) 08/06 US- improved from previous; follows with Dr Garcia Bilateral kidney stones (Acute 07/08/16) Urothelial carcinoma of bladder (Chronic) Bladder stone (Acute 07/08/16) Medical History 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 unsure of procedure, states they went up and pulled the stones out with a basket Surgical History Colonoscopy - IV Sedation (12/28/12) H/O cystoscopy History of back surgery lumbar S/P inguinal hernia repair using synthetic patch S/P TURP Social History/Home Situation: Lives with significant other in a private home. Independent with all mobility ADL's without an assistive device. No longer drives. 1 fall in the past 12 months. Equipment Owned/DME: [facility] Subjective: Cranky today about finishing up his teeth brushing and denture care. Nurse Clarita tried to assist. Objective: General Observation: Seated in bedside chair. Telemetry monitoring in place. Fay catheter in place. IV access in L UE. Mental Status: Alert and able to follow single step commands Pain: Denies Vital Signs: WNL as closely monitored by telemetry ROM: Right Upper Extremity: Shoulder Flexion WFL. Shoulder abduction WFL. Elbow flexion WFL. Wrist flexion WFL. Functional opening and closing of hand WFL. Left Upper Extremity: Shoulder Flexion WFL. Shoulder abduction WFL. Elbow flexion WFL. Wrist flexion WFL. Functional opening and closing of hand WFL. Right Lower Extremity: Hip flexion WFL. Hip abduction WFL. Knee flexion WFL. Ankle dorsiflexion WFL. Ankle plantarflexion WFL. Left Lower Extremity: Hip flexion WFL. Hip abduction WFL. Knee flexion WFL. Ankle dorsiflexion WFL. Ankle plantarflexion WFL. Strength: Right Upper Extremity: Shoulder flexors 4-/5. Shoulder abductors 4-/5. Elbow flexors 4-/5. Elbow extensors 4-/5. [employer] strong. Left Upper Extremity: Shoulder flexors 4-/5. Shoulder abductors 4-/5. Elbow flexors 4-/5. Elbow extensors 4-/5. [employer] Cook strong. Right Lower Extremity: Hip flexors 3+/5. Hip abductors 3+/5. Knee flexors 4-/5. Knee extensors 4-/5. Ankle dorsiflexors 4-/5. Ankle plantarflexors 4-/5. Left Lower Extremity:Hip flexors 3+/5. Hip abductors 3+/5. Knee flexors 4-/5. Knee extensors 4-/5. Ankle dorsiflexors 4-/5. Ankle plantarflexors 4-/5. Bed Mobility/Transfers: Rolling independent Supine to sit independent with HOB at 45 degrees Sit to stand with standby assist Stand to sit with standby assist Bed to reclining chair with standby assist Gait: Instructed patient with level surface ambulation of 100 feet requiring standby assist. Tammy decreased. Step height decreased. Step length decreased. Reported mild fatigue. No SOB. No leg pain. No shuffling. Balance: Static Sitting: Normal Dynamic Sitting: Normal fair Static Standing: Dynamic Standing: Special Tests: Mobility Limitations Standardized Measure [facility] 6 clicks Basic Mobility Inpatient Short Form: Raw Score: 23 CMS Score: 11% deficit 4-Stage balance test: Maintains feet together for 10 seconds but is unable to unable to do so with semi-tandem, full tandem and one-legged stance indicating a risk for falls. Informed Consent/Education: Patient was instructed in purpose of PT consult and plan of care. Agreeable to proceed with established PT POC to achieve personal goals. Assessment: Persistent mild confusion contributing to frustration and inability to finish self-care tasks without minimal verbal cueing. Requires assistance of 1 and use of front wheeled walker for mobility ADL performance. Patient presents with clinical signs and symptoms consistent with current/admitting diagnoses that have resulted to mobility limitations, gait instability, generalized weakness, and overall ADL decline as demonstrated by the following impairment level findings: 1. Decreased strength to B UE/LE major muscle groups 2. Impaired standing balance 3. Impaired activity tolerance Impairments are contributing to the following functional limitations: 1. Decline in bed mobility skills 2. Decline in transfer skills 3. Difficulty with ambulation without assistive device and physical assistance 4. Increased completion time for mobility ADL performance 5. Increased risk for falls 6. Difficulty with managing steps alone safely Patient is assessed as a 61502 moderate complexity based on the following: History: 26-year-old male with past medical history as indicated above Examination: Demonstrable impairment in strength, balance, and mobility level with underlying impairments and functional limitations as exhibited above as well as deficit score of 11 evolving % utilizing the [facility] Mobility Inpatient Short Form Presentation: Decision Makin moderate complexity Goals: Goals X1 week 1. Supine-Sit independent 2. Sit-Supine independent 3. Sit-Stand independent 4. Stand-Sit independent with no AD 5. Bed-Chair independent with no AD 6. Chair-Bed independent with no AD 7. Independent gait on level surface with use of single-point cane for at least 200 feet without report of pain nor dyspnea 8. Independent stair negotiation while holding onto B rails for at least 5 steps without report of pain nor dyspnea 9. Independent with home exercise program 10. Good static and dynamic standing balance/tolerance Plan of Care/Treatment Plan: 1-2x/day, 7 days/week x 1 week. Plan of care has been reviewed with the PRODUCTION MAINTENANCE MECHANIC providing the service under Physical Therapy direction. Initiate Physical Therapy intervention for pain management as needed, strengthening, bed mobility, transfers, gait, stairs, balance training, and use of assistive device. DISCHARGE RECOMMENDATIONS: [] Home with no services [] [X] Home with services. Patient will benefit from home health PT services in order to progress mobility level using least restrictive assistive ambulatory device, assess home safety, identify additional equipment needs, and establish a functional maintenance program that will increase ability of patient to remain at home. [] Home with outpatient PT [] [] SNF for continued rehabilitation [] [] Acute Care Physical Therapist Care [] [] SNF versus LTC based on ability to participate and progress [] TREATMENT CODE/TIME: 66201 x 20 minutes, 80321 x 11 minutes beginning at 10:01 AM. Thank you for the opportunity to participate in the care of this patient. Sabiha Samuels PT, DPT, CLT [facility] [place], [place]
--- NOTE | 2021-07-04 10:55 | PHA.REVIEW ---
Pharmacy Admission Review - Admission Clinical Review (Last Reviewed 07/02/21 @ 17:00 by Kerri Diggs NP) AMS (altered mental status) (Acute) Discharge planning issues (Acute) DVT prophylaxis (Acute) Acute UTI (Acute) Vesicoureteral reflux (Acute) No Known Allergies Allergy (Verified 07/02/21 12:03) Resuscitation Status DNR/DNI Height 5 ft 6 in Weight 57 kg - Renal Dosing Renal Dosing: BUN 41 mg/dL (7-18) H 07/04/21 06:25 Creatinine 3.0 mg/dL (0.70-1.30) H 07/04/21 06:25 Medications needing adjustments: Reviewed List of meds needing interventions: eCrCl is 17 ml/min -- current orders ok - Anticoagulation Anticoagulation: Hgb 11.8 g/dL (13.5-17.5) L 07/03/21 06:13 Hct 38.0 % (40.0-50.0) L 07/03/21 06:13 Plt Count 319 10^3/uL (130-400) 07/03/21 06:13 Creatinine 3.0 mg/dL (0.70-1.30) H 07/04/21 06:25 DVT Prophylaxis: Reviewed Medications: Heparin - Opiate Usage Evaluate Pain Scale/Pains Meds: N/A - Relevant Labs Sodium 143 mmol/L (136-145) 07/04/21 06:25 Potassium 4.1 mmol/L (3.5-5.1) 07/04/21 06:25 Chloride 110 mmol/L (98-107) H 07/04/21 06:25 Magnesium 2.0 mg/dL (1.8-2.4) 07/03/21 06:13 Electrolytes, C-Reactive P, ESR: Reviewed - DM Control DM Control: Glucose 89 mg/dL (74-106) 07/04/21 06:25 Insulin Dosing: N/A - Heart Failure/TX EF%, RAMIRO's, B-Blockers, Diuretics: N/A - BP Control BP Control: Blood Pressure 112/65 Blood Pressure 112/65 Blood Pressure 113/66 If elevated: Reviewed - Qtc Review List meds needing interventions: QTc 431 on admission - IV to PO Switch IV Medications: Reviewed - Home Meds Home Med List reviewed: Intervened Relevent Home Meds Not ordered & why?: trimethoprim - Current meds Current Medication Order Review: Reviewed (Ceftriaxone 2gm IV for UTI (Day 3); seroquel PRN started for agitation/AMS)
[2021-07-04] MEDS: cefTRIAXone 1 GM/50 ML BAG IVPB (11:34)
[2021-07-04] MEDS: Lactated Ringers 1,000 ML 50 ML IV (11:34)
--- NOTE | 2021-07-04 13:20 | W.SPSTE ---
Date of service: 07/04/21 Time of Service: 16:50 Subjective Clinical (Bedside) Swallow & Cognitive-Communication Evaluation Speech Language Pathology Patient referred for swallow evaluation and cognitive-communication evaluation from Kerri Diggs given difficulty with PO intake 2/2 UTI, AMS. Patient received alert/awake, agreeable to partial evaluation (refused continuation with cognitive evaluation, stating I'm no good with tests, I don't want to do this anymore), able to communicate wants/needs effectively; patient and significant other (Vera) able to demonstrate comprehension of recommendations for safe p.o. intake upon discharge once deemed medically stable. ELECTROPLATER APPRENTICE spoke with ICU staff in AM re: mental status/CASSIE (significant improvement throughout day) and upgrade in current diet order (changed from NPO to regular + thins per chart review, with patient tolerating po intake WFL). Patient assessed in late afternoon on this date for both swallowing and cognitive-communication, with significant other also present in room. Patient is able to attend to conversation at reported baseline level, however discussed some concerns w sequencing for ADLs (previous report of difficulties with brushing teeth/dentures and overall oral care, confusion per PT report earlier in the day; appears to have resolved, patient has adequate assist in home environment with significant other's support). Objective Assessment Precautions: Fall, Standard, DNR/DNI HPI: Patient is a 76 y/o M with Parkinson?s disease, carcinoma of bladder, and hx recurrent UTI along with altered mental status. Over the past 1-2 years he has had multiple illnesses and surgeries including acute renal failure, UTI?s, and TURP and R inguinal hernia surgery. Admitted 07/02/21 for suspected UTI and found with hydronephrosis with urinary retention, UTI, AMS. PT/OT/ELECTROPLATER APPRENTICE/nutrition as well as urology all consulted. Head CT upon admit without any acute abnormalities. Baseline cognitive testing done 03/21/20 and patient was found to have significant memory/delayed recall impairment at that time ( MOCA), which patient and his confirmed was baseline function. Per chart review, patient may have symptoms of esophageal dysphagia though no documented oral-pharyngeal swallow function in context of Parkinson?s diagnosis. All Active Problems (Updated 07/02/21 @ 17:09 by Kerri Diggs NP) AMS (altered mental status) (Acute) Urinary retention (Acute) Discharge planning issues (Acute) DVT prophylaxis (Acute) Acute UTI (Acute) Calculus of proximal right ureter (Acute) Hydronephrosis, right (Acute) Acute renal failure (Acute) Prediabetes (Acute) Dysphagia (Chronic) Weight loss, non-intentional (Acute) Parkinson disease (Chronic) Essential tremor (Acute) seeing neuro here Vesicoureteral reflux (Acute) Hydronephrosis, left (Acute) 08/06 US- improved from previous; follows with Dr Garcia Bilateral kidney stones (Acute 07/08/16) Urothelial carcinoma of bladder (Chronic) Bladder stone (Acute 07/08/16) Medical History 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 unsure of procedure, states they went up and pulled the stones out with a basket Surgical History Colonoscopy - IV Sedation (12/28/12) H/O cystoscopy History of back surgery lumbar S/P inguinal hernia repair using synthetic patch S/P TURP Social History/Home Situation: Pt lives in his home with his partner Vera. OBJECTIVE: Predisposing dysphagia risk factors: Parkinson?s disease Clinical signs of possible chronic dysphagia: Hx weight loss. Precipitating dysphagia risk factors / triggering event: AMS 2/2 UTI Sp02: 96% RR: 16, room air Language: (Per partial KPT/Kitchen Picture Test only, patient refused MOCA today) naming, fluency, repetition, and auditory comprehension grossly WFL; some difficulties noted during informal assessment re verbal expression (mainly lexical retrieval) Hearing: appears WFL per informal ax Mental Status: AAOx3, recall of current events somewhat impaired, unable to recall why he is in the hospital, more alert/aware relative to previous day and earlier in AM Speech: mildly dysarthric (hypokinetic) Cranial nerve exam / Oral Motor: Grossly WFL Dentition/Oral Structures/Hygiene: edentulous, has dentures, reported difficulties w adhesive causing some issue w oral manipulation in AM, resolved by lunch meal oral hygiene appears adequate-reports consistent and appropriate oral care regimen per interview, ?may require some assist in thorough oral care regimen upon d/c home if cognitive status has in fact declined from baseline (unclear per eval today as patient refused rest of cognitive eval) Laryngeal function exam: Secretions: WFL Vocal quality: mild hypophonia MPT: DNT S/Z ratio: DNT Pitch range: appears grossly WFL, however did not assess formally at bedside Cough: (volitional) perceptually WFL Food items tested: [ ] None. Further swallow assessment not warranted at this time. [ ] Ice: [x] IDDSI 0: WFL via cup sip, straw (-) overt s/sx aspiration [ ] IDDSI 1: [ ] IDDSI 2: [ ] IDDSI 3: [ ] IDDSI 4: [ ] IDDSI 5: [ ] IDDSI 6: [x] IDDSI 7: (-) negative for oral pocketing/residue [x] Pill/tablet: no reported difficulties per interview today (of note: not trialed w ELECTROPLATER APPRENTICE present) Oral phase: [x] WFL [ ] Leakage from mouth [ ] Difficulty with bolus manipulation [ ] Difficulty with a-p transport [ ] Difficulty chewing [ ] Pocketing [ ] Residue Pharyngeal phase: [ ] WFL [x] Delayed swallow initiation, reduced swallow-breath coordination (suspected per pt interview, ie If I go too fast and breath the wrong way, it goes down the wrong pipe; significant other endorses frequent cough/TC at baseline, although does not notice increase during po intake/meals) [ ] Reduced hyolaryngeal elevation/excursion [ ] Cough after swallow [ ] Voice change after swallow [ ] Throat clearing [ ] Endorsed stasis Jennifer Swallow Protocol: Pass Other Standardized: N/A Provided education to patient/significant other re: Anatomy/physiology of swallowing mechanism Overt s/sx aspiration Rationale & recommendations for improved/continued thorough oral care and instructions Relationship between respiratory function and deglutition Rationale/recommendations for swallow strategies and precautions (see risk mgmt below) Impact of Parkinson?s Disease on swallow function, availability of local PD-specific resources IMPRESSIONS: Patient presents with likely mild oropharyngeal dysphgaia at this time, initially secondary to AMS, UTI day prior; currently patient is able to tolerate po intake of IDDSI levels 7/0 as WFL, however does endorse difficulties with what is suspected to be delayed swallow initiation, reduced swallow-breath coordination per interview. Patient is at low-moderate risk for aspiration-related pulmonary complication, given adequate oral hygiene & presumed reduced immunocompetence given number of current comorbidities; improvements in physical mobility, patient/caregiver education re: therapeutic measures specific to slowing rate of PD symptom progression, and overall pulmonary function likely to further reduce this risk. Further acute ELECTROPLATER APPRENTICE services not warranted at this time. Prognosis: Fair given age, severity, level of caregiver support, progressive nature of underlying disease, question of cognitive change(s) from baseline. Recommendations: Recommendation of either ELECTROPLATER APPRENTICE or follow up with ELECTROPLATER APPRENTICE on outpatient basis per patient preference especially in context of PD, as patient endorses some mild changes with regard to speech (articulation) and voice (low volume), significant other also endorses some changes in articulation/reduced intelligibility, expected decline in swallow/cognitive-communication function as disease progresses. Discussed benefits of prophylactic ELECTROPLATER APPRENTICE therapy (ie RMST, voice therapy, swallowing therapy) particularly in context of PD, availability of local resources. Instrumentation: Recommend outpatient ELECTROPLATER APPRENTICE assessment with VFSE/MBSS if dysphagia symptoms continue to further inform treatment plan of care once discharged from acute setting (specifically reviewed rationale for ELECTROPLATER APPRENTICE follow-up if patient or caregiver identifies overt s/sx aspiration with PO intake, continued unintentional weight loss, dehydration, difficulties with communication/voice/speech intelligibility) *Of Note: Best practice indicates routine, repeat VFSE/MBSS for patients diagnosed with PD - Due to the low association between PD patients' self-reported swallowing condition and actual swallowing function, either FEES or VFSE/MBSS is essential for the assessment of dysphagia in PD (Yan & João, 2020) Diet Texture Modification(s): IDDSI Level(s) 7 Regular solids, 0 Thin liquids Medication Intake: Whole with 0-Thin Liquids or as tolerated Alter medications only as advised by MD or Pharmacist RISK MANAGEMENT: Oral hygiene BID/2x per day using friction with toothbrush on all oral structures as tolerated HOB upright as tolerated; upright for all PO intake. Encourage physical mobility as tolerated. Level of Assistance/Supervision: Independent (may initiate distant supervision for all PO intake if CASSIE is noted to fluctuate; continue to monitor) PO intake only when awake/alert Strategies/Adaptations/Assistive Equipment: Reduce auditory and/or visual distractions when eating, Provide verbal and/or visual cues to use recommended strategies, in particular: Reduce rate of intake, Small sips and bites when eating, Alternate intake of liquids and solids, Small+frequent meals throughout day Posture/Positioning Needs: Maintain upright position at least 30 minutes after meals, Avoid meals/snacks 2-3 hours prior to reclining/sleeping, Sleep with head of bed elevated to reduce likelihood of nocturnal reflux Specialist referrals: N/A Ancillary tests: N/A Plan Evaluation only at this time; recommendations discussed with CM. Please re-consult ELECTROPLATER APPRENTICE as needed. Recommend either ELECTROPLATER APPRENTICE or follow up with ELECTROPLATER APPRENTICE on outpatient basis; Focus on re-assessment of cognitive-communication status as appropriate in discharge setting/provide appropriate support(s) for maintaining independence/safety in home setting, enhancing cognitive-communication/voice function, caregiver training as appropriate. Kelsie Jewell MA [facility]-ELECTROPLATER APPRENTICE Speech-Language Pathologist SC#[phone] ELECTROPLATER APPRENTICE CPT Code: 76298 Clinical Swallowing Evaluation Coding Diagnoses AMS (altered mental status) R41.82 Altered mental status type: unspecified Dysphagia R13.10 Dysphagia type: unspecified Assessment and Plan Assessment and plan (1) AMS (altered mental status): Status: Resolved Qualifiers: Altered mental status type: unspecified Qualified Code(s): R41.82 - Altered mental status, unspecified (2) Dysphagia: Status: Chronic Qualifiers: Dysphagia type: unspecified Qualified Code(s): R13.10 - Dysphagia, unspecified
[2021-07-04] MEDS: Normal Saline Flush 10 ML SYR IVP (14:06)
--- NOTE | 2021-07-04 15:30 | W.PM.PROGNOT ---
Date of Service Date of service: 07/04/21 Time of Service: 15:30 Assessment and Plan Assessment and plan (1) Acute UTI: Status: Acute Assessment and plan: Urine cx with grams positive less than 10,000, BC negative ceftriaxone day 3, will discontinue No signs of sepsis, no leukocytosis, afebrile Mccoy in place, will discharge home with, teaching for family (2) AMS (altered mental status): Status: Resolved Assessment and plan: resolved and at baseline Qualifiers: Altered mental status type: unspecified Qualified Code(s): R41.82 - Altered mental status, unspecified (3) Urinary retention: Status: Chronic Assessment and plan: due to above as above (4) Parkinson disease: Status: Chronic Assessment and plan: Continue Parkinson medications PT/OT (5) Dysphagia: Status: Chronic Assessment and plan: speech therapy Qualifiers: Dysphagia type: unspecified Qualified Code(s): R13.10 - Dysphagia, unspecified (6) DVT prophylaxis: Status: Acute Assessment and plan: Heparin subcu (7) Discharge planning issues: Status: Acute Assessment and plan: Home tomorrow with services if remains stable. discussed with Dr. Garcia Subjective Subjective Patient reports: no new complaints, feels better, tolerating liquids well, tolerating a regular diet and afebrile; denies shortness of breath Interval history since last seen: up and ambulating, states at baseline. Exam Const General: cooperative, comfortable and no acute distress Orientation: alert and awake Eyes Eyelids: eyelids normal Pupils: PERRL Neck Neck: normal visual inspection Resp Effort & Inspection: normal respiratory effort Auscultation: clear to auscultation bilaterally Cardio Jugular venous pressure: no JVD Rhythm: regular rhythm GI Auscultation: normal bowel sounds General: other (mccoy draining yellow urine, ) Skin General skin exam: no rashes or lesions noted Neuro General: patient alert and patient awake Extrem General: normal to inspection, full ROM and no clubbing, cyanosis or edema Objective Last Vital Signs Temp 36.4 C L 07/04/21 09:00 Pulse 83 07/04/21 14:16 Resp 16 07/04/21 09:00 BP 118/50 L 07/04/21 14:16 Pulse Ox 96 07/04/21 14:16 Laboratory Results - last 24 hr 07/04/21 06:25 Sodium 143 Potassium 4.1 Chloride 110 H Carbon Dioxide 18.1 L Anion Gap 14.9 H BUN 41 H Creatinine 3.0 H Estimated GFR/1.73 m2 20.50 Glucose 89 Calcium 9.2
--- NOTE | 2021-07-04 15:58 | PTTR_ITS ---
Date of service: 07/04/21 Time of Service: 15:58 PT Notes Visit Reasons: UTI,AMS Physical Therapy Inpatient Treatment Note Date: 07/04/2021 Precautions: Fall. Standard. Activity as tolerated. Subjective: Very much pleasant and more cooperative this afternoon. Still a little confused about whether he walker with or without walker with PT early this morning. Objective: General Observation: Seated in bedside chair. Telemetry monitoring in place. Fay catheter in place. IV access in L UE. Mental Status: Alert and able to follow single step commands Pain: Denies Vital Signs: WNL as closely monitored by telemetry Bed Mobility/Transfers: Rolling independent Supine to sit independent with HOB at 45 degrees Sit to stand with standby assist Stand to sit with standby assist Bed to reclining chair with standby assist Gait: Instructed patient with level surface ambulation of 250 feet requiring standby assist. Tammy decreased. Step height decreased. Step length decreased. Reported mild fatigue. No SOB. No leg pain. No shuffling. Balance: Static Sitting: Normal Dynamic Sitting: Normal fair Static Standing: Dynamic Standing: Assessment: A lot more pleasant this afternoon and able to follow instructions more. Tolerated longer distance of 250 feet without report of fatigue. DISCHARGE RECOMMENDATIONS: [] Home with no services [] [X] Home with services. Patient will benefit from home health PT services in order to progress mobility level using least restrictive assistive ambulatory device, assess home safety, identify additional equipment needs, and establish a functional maintenance program that will increase ability of patient to remain at home. Will benefit from the use of a FWW. [] Home with outpatient PT [] [] SNF for continued rehabilitation [] [] Telephone Supervisor Care [] [] SNF versus LTC based on ability to participate and progress [] TREATMENT CODE/TIME: 02734 x 17 minutes beginning at 15:58 PM.
[2021-07-05 06:23] VITALS: O2SAT 99
[2021-07-05 06:24] VITALS: BP 120/72; PULSE 57
[2021-07-05] MEDS: Heparin 5,000 UNITS/ML VIAL 5000 UNITS SC (06:59)
--- NOTE | 2021-07-05 08:42 | PDOC.CMPRO ---
- If Service Date Differs Date of service: 07/05/21 Time of Service: 08:42 Care Management Progress Note S/O: Noah was sitting up in his chair when CM met with him. He was alert and oriented X3. He is cleared for discharge. Vera will be here at 1pm to go over discharge instructions with nursing. CM notified [facility] and [facility] for Surekha at Dr. Garcia's office advising them of the discharge plan, which will include mccoy training. A: 76 year old male admitted to [facility] ICU on 07/02/21 for UTI, AMS P:Anticipate Noah will discharge home with new [facility] RN/PT/OT/PRODUCT DEVELOPMENT COORDINATOR/Speech. He will transport via private vehicle with family when medically ready. He will follow up with community providers and discharge plan of care as prescribed.
--- NOTE | 2021-07-05 09:29 | OT.INIE ---
Occupational Therapy Notes Inpatient Occupational Therapy Evaluation Date: 07/05/21 Referring Doctor:Se Garcia MD OT Orders: Non urgent Precautions: Fall, standard, DNR/DNI PATIENT PROFILE/ADMITTING DIAGNOSIS: Pt is a 76 year old male who was admitted through the ED with a dx of AMS, urinary retention, acute UTI, acute renal failure, dysphagia, Parkinsons, essential tremor, hydronephrosis. Past Medical History: All Active Problems (Updated 07/02/21 @ 17:09 by Kerri Diggs NP) AMS (altered mental status) (Acute) Urinary retention (Acute) Discharge planning issues (Acute) DVT prophylaxis (Acute) Acute UTI (Acute) Calculus of proximal right ureter (Acute) Hydronephrosis, right (Acute) Acute renal failure (Acute) Prediabetes (Acute) Dysphagia (Chronic) Weight loss, non-intentional (Acute) Parkinson disease (Chronic) Essential tremor (Acute) seeing neuro here Vesicoureteral reflux (Acute) Hydronephrosis, left (Acute) 08/06 US- improved from previous; follows with Dr Garcia Bilateral kidney stones (Acute 07/08/16) Urothelial carcinoma of bladder (Chronic) Bladder stone (Acute 07/08/16) Medical History 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 unsure of procedure, states they went up and pulled the stones out with a basket Surgical History Colonoscopy - IV Sedation (12/28/12) H/O cystoscopy History of back surgery lumbar S/P inguinal hernia repair using synthetic patch S/P TURP Social History/Home Situation: Pt lives in a private home with his significant other in [place]. He states that he is (I) at his baseline level of function and notes that he is able to drive but isn't sure what this will look like in the future. 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 He states that this is very important in his life. Equipment owned/DME: Cane, grab bars SUBJECTIVE: Pt was sitting in chair when OT arrived. He was agreeable to OT session and notes that he would like to go home. OBJECTIVE: General Observation: Pleasant, IV (L) UE, mccoy in place Mental Status: A&Ox3 Pain: no c/o pain ROM: RUE AROM WFL L UE AROM WFL STRENGTH: RUE 5/5 throughout LUE 5/5 throughout FUNCTIONAL MOBILITY/ADLS: BATHING Pt denies bathing at this time. He has AROM enough to be able to perform this (I) DRESSING sitting in chair, (I) don and doffing (B) socks. (I) with ROM of (B) UE and ability to don and doff shirt (I) without (A). TOILETING pt denies difficulty with this. Mccoy in place at this time. EATING sitting in chair (I) with food to mouth, opening containers and no issues chewing or swallowing BALANCE: Static sitting Normal Dynamic Sitting Normal SPECIAL TESTS: Daily Activity Limitations Standardized Measure [facility] AM -PAC ?6 clicks? Daily Activity Inpatient Short Form: Raw score: 23 Standardized score: 51.12 CMS score: 15.86% INFORMED CONSENT/EDUCATION: Pt instructed in purpose of OT Consult and plan of care. ASSESSMENT: Patient is a 76-year-old male referred to occupational therapy services with diagnosis of AMS, urinary retention, acute UTI, acute renal failure, dysphagia, Parkinsons, essential tremor, hydronephrosis. Patient presents with clinical signs and symptoms consistent with dx. OT assessed pts functional limitations and (I) at this time. It appears from assessment that pt has reached a level of function similar to his baseline at this time. AMPA score 23 Patient is assessed as a Low 54774 complexity based on the following: History: see above Examination: see functional limitations as noted above Presentation: evolving Decision Making: AMPA score23 GOALS N/A PLAN OF CARE/TREATMENT PLAN: Discharge from skilled OT services. DISCHARGE RECOMMENDATIONS Home when medically cleared per MD. TREATMENT TIME/MINUTES/CODES 14102, 20 minutes [facility]
--- NOTE | 2021-07-05 09:35 | DSE_ITS ---
Date of service: 07/05/21 Time of Service: 09:36 DS: Diagnosis Discharge Diagnosis (1) AMS (altered mental status): Status: Resolved (2) Dysphagia: Status: Chronic Discharge Plan Disposition Patient Disposition: HOME W/HOME HEALTH SERVICE Condition: Improving Discharge Details Reason For Visit: UTI,AMS Admit Date/Time: 07/02/21 15:05 Admit Provider: Se Garcia Attending Provider: Se Garcia Primary Care Provider: Miriam Serna Hospital Course Hospital Course: This is a 76 y.o male with history of Parkinson disease, hydronephrosis, presents with altered mental status, he gets chronic urinary infections and usually presents with AMS. Labs in ED not really remarkable bun and creatinine 44/ 2.9 which appears to be is baseline. Anion gap slightly elevated at 11.1. Urine with large amounts blood, greater than 50 wbc, moderate leuk est. renal CT with severe right hydronephrosis. and moderate left hydronephrosis. no obstructing stone visible. ED spoke with Dr. Garcia after ED provider did bedside ultrasound and found hydronephrosis, he recommend IV antibiotics and mccoy katie cement. Hospitalist was asked for further admission. He finished 3 days of ceftriaxone IV. Urine grew less than 10k of mixed pee, blood cultures negative. His kidney function remained stable with creatinine of 3.0. His confusion cleared up and he returned to his baseline. It is felt that his confusion could possibly due to newly added ditropan, which was discontinued on admission. Plan is to continue to hold it, keep indwelling mccoy catheter at discharge and follow up with urology outpatient. He was also evaluated by speech for issues with dysphagia, he was cleared for a regular diet with thin fluids. Recommendations are for outpatient follow up. He has been medically stable, eating and drinking well and is ready for discharge to home. He will be discharged with home health PT/OT and speech therapy. discharge plan discussed with patient and who are in agreement. Mccoy catheter care instructions provided to both. discharge discussed with Dr Garcia. Home Meds and New Rx's Prescriptions: Continued amantadine HCl 100 mg tablet 100 mg PO DAILY Qty: 90 RF: 3 trimethoprim 100 mg tablet 100 mg PO DAILY Qty: 30 RF: 2 acetaminophen [Tylenol] 325 mg capsule 650 mg PO Q6H PRNQty: 30 RF: 0 Discontinued oxybutynin chloride 5 mg tablet extended release 24hr 5 mg PO DAILY Qty: 30 RF: 6 Discharge Instructions Instructions: Mccoy Catheter Placement and Care (DC), How to Change a Catheter Drainage Bag (DC) Additional Instructions: continue urinary mccoy as instructed Referrals: Rai Garcia MD [ [facility] STAFF PHYSICIAN] - Miriam Serna NP [Primary Care Provider] - Activity:: Activity as Tolerated Equipment/Supplies:: No Equipment Needed Diet:: As Tolerated Discharge Orders Discharge Orders: Discharge Order (Routine); Ordered 07/05/21 Ordered By: Ana Moreland DS: Summary Time Spent with Patient providing and/or coordinating discharge services: Greater than 30 minutes Status at Discharge Functional status at discharge: independent ambulation Overall status at discharge: patient is back to baseline Mental Status: mental status grossly normal Speech and Movement: speech and movement normal Mood: congruent mood Affect: normal affect Exam Const General: cooperative, comfortable and no acute distress Orientation: alert and awake Eyes Eyelids: eyelids normal Pupils: PERRL Neck Neck: normal visual inspection Resp Effort & Inspection: normal respiratory effort Auscultation: clear to auscultation bilaterally Cardio Jugular venous pressure: no JVD Rhythm: regular rhythm GI Auscultation: normal bowel sounds General: other (mccoy draining yellow urine, ) Skin General skin exam: no rashes or lesions noted Neuro General: patient alert and patient awake Extrem General: normal to inspection, full ROM and no clubbing, cyanosis or edema Psych Mental Status: mental status grossly normal Speech and Movement: speech and movement normal Mood: congruent mood Affect: normal affect DS: Data Vitals/I&O Vitals and I&O: Vital Signs Temperature 35.9 C L 07/04/21 18:20 Temperature Source Temporal Artery Scan 07/04/21 18:20 Pulse 73 07/04/21 17:50 Pulse Rhythm Regular 07/05/21 06:00 Pulse 115 H 07/02/21 14:00 Respiratory Rate 20 07/04/21 18:20 Respiratory Effort Non-Labored 07/05/21 06:00 Respiratory Depth Normal 07/05/21 06:00 Respiratory Pattern Normal 07/05/21 06:00 Blood Pressure 115/60 07/04/21 17:50 Blood Pressure Mean 74 07/04/21 17:50 Blood Pressure Position Supine 07/02/21 18:55 Pulse Oximetry 100 07/04/21 18:20 Oxygen Delivery Method Room Air 07/04/21 18:20 Oxygen Flow Rate 0 07/04/21 18:20 Pain Level 0 07/04/21 18:20 Comment 07/04/21 18:20 Intake & Output 07/04/21 07/04/21 07/05/21 11:59 23:59 11:59 Intake Total 1293.333 / 2483.333 1190 / 2483.333 480 / 480 Output Total 850 / 1050 200 / 1050 Balance 443.333 / 1433.333 990 / 1433.333 480 / 480 Intake: IV 893.333 / 1843.333 950 / 1843.333 Oral 400 / 640 240 / 640 480 / 480 Output: Urine 850 / 1050 200 / 1050 Other: Urine Color Montandon Montandon Urine Appearance Cloudy Sediment Clear Hematuria Comment Mccoy education on use and care to Pt and because Pt is going home with Mccoy tomorrow. Stool Size Large Stool Characteristics Brown Data Completed and Pending Labs on day of discharge: Preliminary micro results at discharge 07/02/21 12:40 Blood Culture - Preliminary Blood NO GROWTH 48 HOURS 07/02/21 12:50 Blood Culture - Preliminary Blood NO GROWTH 48 HOURS PFSH All Active Problems (Updated 07/04/21 @ 16:21 by Ana Moreland NP) Urinary retention (Chronic) Discharge planning issues (Acute) DVT prophylaxis (Acute) Acute UTI (Acute) Calculus of proximal right ureter (Acute) Hydronephrosis, right (Acute) Acute renal failure (Acute) Prediabetes (Acute) Dysphagia (Chronic) Weight loss, non-intentional (Acute) Parkinson disease (Chronic) Essential tremor (Acute) seeing neuro here Vesicoureteral reflux (Acute) Hydronephrosis, left (Acute) 08/06 US- improved from previous; follows with Dr Garcia Bilateral kidney stones (Acute 07/08/16) Urothelial carcinoma of bladder (Chronic) Bladder stone (Acute 07/08/16) Medical History 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 unsure of procedure, states they went up and pulled the stones out with a basket Surgical History Colonoscopy - IV Sedation (12/28/12) H/O cystoscopy History of back surgery lumbar S/P inguinal hernia repair using synthetic patch S/P TURP Family History Other Cancer Social History Smoking/Tobacco Use Status: Former Tobacco Use Smoking risk assessment performed?: Yes Alcohol Intake: never Drug use: Never Substance use type: does not use Household members: spouse Housing: house current occupation: Retired Do you feel safe at home: Yes Do you feel safe in your relationship?: Yes
--- NOTE | 2021-07-05 10:01 | PT.INDS ---
Date of service: 07/05/21 Time of Service: 10:01 PT Notes Visit Reasons: UTI,AMS Physical Therapy Inpatient Discharge Summary Date: 07/05/2021 Date of service: 07/04/2021 through 07/05/2021 Referring Doctor: Kerri Diggs NP PT Orders: PT CONSULT: Eval/Treat Precautions: Fall. Standard. Activity as tolerated. Patient Profile/Admitting Diagnosis: Noah is a 76-year-old male with Parkinson's disease who presented to the ED on 07/02/2021 with altered mental status and generalized weakness. Diagnosed with acute urinary tract infection altered mental status, urinary retention, oriented times PMHX: All Active Problems (Updated 07/02/21 @ 17:09 by Kerri Diggs NP) AMS (altered mental status) (Acute) Urinary retention (Acute) Discharge planning issues (Acute) DVT prophylaxis (Acute) Acute UTI (Acute) Calculus of proximal right ureter (Acute) Hydronephrosis, right (Acute) Acute renal failure (Acute) Prediabetes (Acute) Dysphagia (Chronic) Weight loss, non-intentional (Acute) Parkinson disease (Chronic) Essential tremor (Acute) seeing neuro here Vesicoureteral reflux (Acute) Hydronephrosis, left (Acute) 08/06 US- improved from previous; follows with Dr Garcia Bilateral kidney stones (Acute 07/08/16) Urothelial carcinoma of bladder (Chronic) Bladder stone (Acute 07/08/16) Medical History 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 unsure of procedure, states they went up and pulled the stones out with a basket Surgical History Colonoscopy - IV Sedation (12/28/12) H/O cystoscopy History of back surgery lumbar S/P inguinal hernia repair using synthetic patch S/P TURP Social History/Home Situation: Lives with significant other in a private home. Independent with all mobility ADL's without an assistive device. No longer drives. 1 fall in the past 12 months. Equipment Owned/DME: [facility] Subjective: Pleasant and cooperative. Agreeable to walking forward today with front-wheeled walker. Objective: General Observation: Seated on bedside chair. Telemetry monitoring in place. Fay catheter in place. IV access in L UE. Mental Status: Alert and able to follow single step commands Pain: Denies Vital Signs: WNL as closely monitored by telemetry ROM: Right Upper Extremity: Shoulder Flexion WFL. Shoulder abduction WFL. Elbow flexion WFL. Wrist flexion WFL. Functional opening and closing of hand WFL. Left Upper Extremity: Shoulder Flexion WFL. Shoulder abduction WFL. Elbow flexion WFL. Wrist flexion WFL. Functional opening and closing of hand WFL. Right Lower Extremity: Hip flexion WFL. Hip abduction WFL. Knee flexion WFL. Ankle dorsiflexion WFL. Ankle plantarflexion WFL. Left Lower Extremity: Hip flexion WFL. Hip abduction WFL. Knee flexion WFL. Ankle dorsiflexion WFL. Ankle plantarflexion WFL. Strength: Right Upper Extremity: Shoulder flexors 4-/5. Shoulder abductors 4-/5. Elbow flexors 4-/5. Elbow extensors 4-/5. Auto Engine Mechanic strong. Left Upper Extremity: Shoulder flexors 4-/5. Shoulder abductors 4-/5. Elbow flexors 4-/5. Elbow extensors 4-/5. Auto Engine Mechanic strong. Right Lower Extremity: Hip flexors 3+/5. Hip abductors 3+/5. Knee flexors 4-/5. Knee extensors 4-/5. Ankle dorsiflexors 4-/5. Ankle plantarflexors 4-/5. Left Lower Extremity:Hip flexors 3+/5. Hip abductors 3+/5. Knee flexors 4-/5. Knee extensors 4-/5. Ankle dorsiflexors 4-/5. Ankle plantarflexors 4-/5. Bed Mobility/Transfers: Rolling independent Supine to sit independent with HOB at 45 degrees Sit to stand with independent Stand to sit with independent Bed to reclining chair with s independent Gait: Instructed patient with level surface ambulation of 300 feet requiring standby assist. Tammy decreased. Step height decreased. Step length decreased. Reported mild fatigue. No SOB. No leg pain. No shuffling. Balance: Static Sitting: Normal Dynamic Sitting: Normal Static Standing: Fair Dynamic Standing: Fair 4-Stage balance test: Maintains feet together for 10 seconds but is unable to unable to do so with semi-tandem, full tandem and one-legged stance indicating a risk for falls. Assessment: Requires standby assist and use of front wheeled walker for mobility ADL performance. Patient presents with clinical signs and symptoms consistent with current/admitting diagnoses that have resulted to mobility limitations, gait instability, generalized weakness, and overall ADL decline as demonstrated by the following impairment level findings: 1. Decreased strength to B UE/LE major muscle groups 2. Impaired standing balance 3. Impaired activity tolerance Impairments are contributing to the following functional limitations: 1. Decline in bed mobility skills 2. Decline in transfer skills 3. Difficulty with ambulation without assistive device and physical assistance 4. Increased completion time for mobility ADL performance 5. Increased risk for falls 6. Difficulty with managing steps alone safely Goals: Goals X1 week 1. Supine-Sit independent NOT MET 2. Sit-Supine independent NOT MET 3. Sit-Stand independent NOT MET 4. Stand-Sit independent with no AD NOT MET 5. Bed-Chair independent with no AD NOT MET 6. Chair-Bed independent with no AD NOT MET 7. Independent gait on level surface with use of single-point cane for at least 200 feet without report of pain nor dyspnea NOT MET 8. Independent stair negotiation while holding onto B rails for at least 5 steps without report of pain nor dyspnea NOT MET 9. Independent with home exercise program NOT MET 10. Good static and dynamic standing balance/tolerance NOT MET DISCHARGE RECOMMENDATIONS: [] Home with no services [] [X] Home with services. Patient will benefit from home health PT services in order to progress mobility level using least restrictive assistive ambulatory device, assess home safety, identify additional equipment needs, and establish a functional maintenance program that will increase ability of patient to remain at home. Provided with front wheeled walker to maximize independence and reduce fall risk prior to today's discharge. [] Home with outpatient PT [] [] SNF for continued rehabilitation [] [] Career Resource Technician Care [] [] SNF versus LTC based on ability to participate and progress [] TREATMENT CODE/TIME: 91209 x 31 minutes beginning at 10:01 AM. Thank you for the opportunity to participate in the care of this patient. Sabiha Samuels PT, DPT, CLT [facility] [place], [place]
[2021-07-05 10:04] VITALS: RESP 16; TEMP 36.7
--- NOTE | 2021-07-05 10:23 | CMDISCH_ITS ---
- If Service Date Differs Date of service: 07/05/21 Time of Service: 10:23 LACE Index Scoring Tool - Questions: Length of Stay (in days): 3 Acuity (Admit via E.D.?): Yes Comorbidities: Any Tumor, Connective Tissue Disease, Metastatic Solid Tumor E.D. Visits: 3 - Answers: Total Score: 14 Risk of Readmission: High Risk Care Management Discharge Reason for Hospitalization: UTI, AMS Discharge Plan: Discharge home with new [facility] SN, PT, OT and Speech via private vehicle with family. Follow up with community providers and discharge plan of care as prescribed. Patient/Family Education Needs: Review discharge instructions, limitations, medications and plan to follow up with community providers. Review indwelling catheter care. ask me three. Services Needed at Discharge: Home Health Care Services (New [facility] SN, PT, OT, Speech. CM notified [facility].)
--- NOTE | 2021-07-05 12:31 | PDOC.HHF2F_ITS ---
Home Health Certification Home Health Certification: 1. Encounter Date and Reason I certify that Noah Izquierdo Sr was seen by Ana Moreland on 07/05/21 and that I had a [id number] encounter with this patient that meets the physician face to face encounter requirements. 2. Clinical Findings Supporting Skilled Need and Homebound Status I certify that home health services are medically necessary, include either intermittent prison and/or physical/speech therapy, and that this patient is homebound in that absences from the home require considerable and taxing effort and are infrequent or of short duration, or are attributable to the need to receive medical care. [X] (a) Attached documentation from encounter provides clinical findings supporting skilled need and homebound status (including what assistance patient requires to leave the home). The encounter with the patient was in whole, or in part, for the following medical condition, which is the primary reason for home health care: UTI,AMS Correction: routine nursing evaluation, medication oversight, catheter care/instruction Physical and occupational Therapy: routine evaluation, safety check, treatment Speech Therapy: routine evaluation and management Homebound: patient is unable to safely leave the house unassisted d/t cognitive impairment. 3. Certification and Authentication I certify that I composed the above information based on my clinical judgment relating to this patient's medical condition and, if applicable, clinical findings communicated to me by the NPP or inpatient physician who performed the Home Health Referral. All further orders will be obtained through _Miriam Serna NP_(Community Based Physician - PCP)
== END 2021-07-05 13:38 | disposition home health service (06) | DRG 683 ==
LOC: ER 11:51 → ICU 17:09
PROVIDERS: Nurse Practitioner Family; Admitting Provider Family Medicine; Emergency Provider Student in an Organized Health Care Education/Training Program; PCP Nurse Practitioner; Visit Provider Family Medicine
DX: N17.9 Acute kidney failure, unspecified (principal); N39.0 Urinary tract infection, site not specified; R33.9 Retention of urine, unspecified; G20 Parkinson's disease; N13.30 Unspecified hydronephrosis; R73.03 Prediabetes; R13.10 Dysphagia, unspecified; R63.4 Abnormal weight loss; Z68.20 Body mass index [BMI] 20.0-20.9, adult; N13.70 Vesicoureteral-reflux, unspecified; C67.9 Malignant neoplasm of bladder, unspecified; N20.0 Calculus of kidney; R41.0 Disorientation, unspecified; T44.3X5A Adverse effect of other parasympatholytics [anticholinergics and antimuscarinics] and spasmolytics, initial encounter
CPT/HCPCS: 36415; 51702; 80048; 80053; 82550; 87040; 87635; 92610; 93005; 96361; 96365; 96366; 97162; 97165; 97530; 99222; 99285; 70450; 74176; 81003; 81015; 83605; 83735; 84443; 85025; 87086; 93010; 99232; 99233; 99239; J0696; J1644

== ENCOUNTER → 2021-07-09 08:27 | Outpatient (BNVA) | payer MEDICARE, SELFPAY | PROVIDERS: PCP Nurse Practitioner; Referring Provider Nurse Practitioner; Visit Provider Urology | DX: N13.70 Vesicoureteral-reflux, unspecified (principal); G20 Parkinson's disease | CPT/HCPCS: 99213 ==

== ENCOUNTER 2021-07-20 01:21 | Outpatient (CLI) | payer MEDICARE, SELFPAY ==
[2021-07-20 11:43] LABS: Source Nasal/Nares
[2021-07-20 14:08] LABS: COVID-19 PCR Negative (Negative)
== END 2021-07-20 01:22 | disposition home or self-care (01) ==
LOC: LBO 01:21
PROVIDERS: PCP Nurse Practitioner; Visit Provider Urology
DX: Z20.822 Contact with and (suspected) exposure to COVID-19 (principal); Z01.818 Encounter for other preprocedural examination
CPT/HCPCS: 87635

== ENCOUNTER 2021-07-23 07:24 | Day surgery (SDC) | payer MEDICARE, SELFPAY ==
[2021-07-23 07:51] VITALS: BP 110/65; PULSE 62; RESP 16; TEMP 36.7; O2SAT 98
--- NOTE | 2021-07-23 08:07 | W.ANESPRE ---
General Info Date of Service Date Performed: 07/23/21 Height: 5 ft 6 in Weight: 61.3 kg Body Mass Index (BMI): 21.8 Surgical Procedure: Operation Date: 07/23/21 08:55 Proposed Procedures Side Surgeon p Cystoscopy/Suprapubic Tube Insertion Rai Garcia MD Meds Allergies and Home Medications Allergies Allergy/AdvReac Type Severity Reaction Status Date / Time oxybutynin AdvReac Severe Other (See Unverified 07/23/21 07:37 Comment) Home Medication Medication Instructions Recorded acetaminophen [Tylenol] 650 mg PO Q6H PRN #30 cap 05/15/20 amantadine HCl 100 mg tablet 100 mg PO DAILY #90 tab 04/10/21 trimethoprim 100 mg tablet 100 mg PO DAILY #30 tab 05/08/21 Current Visit Medications: Current Medications Generic Name Dose Route Start Last Admin Trade Name Freq PRN Reason Stop Dose Admin Ringer's Solution 1,000 mls @ 80 mls/hr 07/23/21 06:00 IV 08/19/21 23:59 INFUSION EDNA Ceftriaxone Sodium/Dextrose 1 gm in 50 mls @ 100 mls/hr 07/23/21 06:00 Rocephin IVPB 07/23/21 23:59 PREOP EDNA IV Miscellaneous Supplies 1 each 07/23/21 06:00 Iv Access IV 08/19/21 23:59 DIRECTED EDNA Sodium Chloride 0 ml 07/23/21 06:00 Normal Saline Flush 10 Ml Syr IV 08/19/21 23:59 PRN PRN Sodium Chloride 0 ml 07/23/21 06:00 Normal Saline 10 Ml Vial IJ 08/19/21 23:59 DIRECTED PRN Sterile Water 0 ml 07/23/21 06:00 Water,Injection,Sterile 10 Ml Vial IJ 08/19/21 23:59 DIRECTED PRN PFSH Active Problems Active Problems: Problem Status Onset Code UTI (urinary tract infection) N39.0 Hydronephrosis N13.30 Altered mental status R41.82 Calculus of proximal right ureter N20.1 Hydronephrosis, right N13.30 Acute renal failure N17.9 Prediabetes R73.03 Weight loss, non-intentional R63.4 Essential tremor G25.0 Hydronephrosis, left N13.30 Bilateral kidney stones 07/08/16 N20.0 Urothelial carcinoma of bladder C67.9 Bladder stone 07/08/16 N21.0 Medical History Medical History 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 unsure of procedure, states they went up and pulled the stones out with a basket Medical History Comments:: Hx of combastive wake up in the past, gets confused easily. Needs to have somebody (family) there when he wakes up Surgical History Surgical History Colonoscopy - IV Sedation (12/28/12) H/O cystoscopy History of back surgery lumbar S/P inguinal hernia repair using synthetic patch S/P TURP Tobacco Smoking/Tobacco Use Status: Former Tobacco Use Alcohol Alcohol Intake: never Substance Use Substance use: Never Substance use type: does not use Vital Signs and Lab Results Vital Signs Most Recent Vital Signs in EMR: Most Recent Vital Signs Temp Pulse Resp BP Pulse Ox 36.7 C 62 16 110/65 98 07/23/21 07:51 07/23/21 07:51 07/23/21 07:51 07/23/21 07:51 07/23/21 07:51 Lab Results Blood Type / Crossmatch: No Data to Display Complete Blood Count: White Blood Count 9.18 10^3/uL (4.4-10.8) 07/03/21 06:13 07/03/21 Red Blood Count 4.10 10^6/uL (4.36-5.78) L 07/03/21 06:13 07/03/21 Hemoglobin 11.8 g/dL (13.5-17.5) L 07/03/21 06:13 07/03/21 Hematocrit 38.0 % (40.0-50.0) L 07/03/21 06:13 07/03/21 Platelet Count 319 10^3/uL (130-400) 07/03/21 06:13 07/03/21 Venous Blood Lactate 0.8 mmol/L (0.6-1.4) 07/02/21 12:50 07/02/21 Complete Metabolic Panel: Sodium Level 143 mmol/L (136-145) 07/04/21 06:25 07/04/21 Potassium Level 4.1 mmol/L (3.5-5.1) 07/04/21 06:25 07/04/21 Chloride Level 110 mmol/L (98-107) H 07/04/21 06:25 07/04/21 Carbon Dioxide Level 18.1 mmol/L (21.0-32.0) L 07/04/21 06:25 07/04/21 Blood Urea Nitrogen 41 mg/dL (7-18) H 07/04/21 06:25 07/04/21 Creatinine 3.0 mg/dL (0.70-1.30) H 07/04/21 06:25 07/04/21 Estimated GFR/1.73 m2 20.50 (mL/min/1.73m2) 07/04/21 06:25 07/04/21 Magnesium Level 2.0 mg/dL (1.8-2.4) 07/03/21 06:13 07/03/21 Calcium Level 9.2 mg/dL (8.5-10.1) 07/04/21 06:25 07/04/21 Albumin 3.2 g/dL (3.4-5.0) L 07/02/21 12:50 07/02/21 Glucose Level 89 mg/dL (74-106) 07/04/21 06:25 07/04/21 Liver Function Panel: Alanine Aminotransferase (ALT/SGPT) 20 U/L (16-63) 07/02/21 12:50 07/02/21 Aspartate Amino Transf (AST/SGOT) 25 U/L (15-37) 07/02/21 12:50 07/02/21 Coagulation Panel: No Data to Display Cardiac Panel: No Data to Display Arterial Blood Gas: No Data to Display Venous Blood Gas: No Data to Display Pancreas Panel: No Data to Display Thyroid Panel: Thyroid Stimulating Hormone (TSH) 3.15 uIU/mL (0.36-3.74) 07/02/21 12:50 07/02/21 Infectious Disease: Coronavirus (COVID-19)(PCR) Negative (Negative) 07/20/21 10:41 07/20/21 Coronavirus 2019 Source Nasal/Nares 07/20/21 10:41 02/04/22 Blood Cultures: No Data to Display Toxicology Panel: No Data to Display Imaging and Studies Imaging and Studies Study information below may be from another EMR and interpreted by another provider. Please see original notes in EMR for more complete details. EKG Summary: Conclusion Sinus tachycardia...rate> 99 Inferior infarct, old...Q >35mS, II III aVF Anesthesia Assessment and Plan Anesthesia History Personal History: No History of Anesthesia Complications and Other (Emergence delirium. Has awoken confused and combative in the past) Family History: No Family History of Anesthesia Complications Exercise Tolerance Exercise Tolerance: Metabolic Equivalents>4 Pertinent Negatives Pertinent Negatives: No Symptoms of GERD, No Major Cardiovascular Symptoms or Complaints, No Major Pulmonary Symptoms or Complaints and No History of CVA/TIA Cardiac & Pulmonary Exam Cardiac Exam: Normal S1/S2 Heart Sounds Pulmonary Exam: Clear Bilateral Breath Sounds Implantable Cardiac Device Does patient have a Pacemaker or an ICD?: No Airway Exam Known Difficult Airway: No Mallampati Class: 1 Mouth Opening: Normal (> 3cm) Thyromental Distance: Greater than 3 cm Neck Range of Motion: Full ROM Neck Circumference: Normal Teeth Condition: Removable Dentures/Plates Upper and Removable Dentures/Plates Lower ASA Classification ASA Score: ASA 3 Emergency Case?: No NPO Status NPO Status: NPO Clears >2 hours, Solids >8 hours Anesthesia Plan Resuscitation Status: Full Code Anesthesia Technique: General Anesthesia Airway Planned: Natural Airway Monitors Used: Standard Monitors
[2021-07-23] MEDS: Lactated Ringers 1,000 ML 80 ML IV (08:12)
--- NOTE | 2021-07-23 08:37 | W.PM.HP.N ---
Date of service: 07/23/21 Time of Service: 08:37 Assessment and Plan Assessment and plan (1) Vesicoureteral reflux: Assessment and plan: We have been unable to lower his bladder pressure with medications and Botox injection cost has been prohibitive. He is unable to perform self catheterization due to his neurologic status. We will manage him with an indwelling suprapubic tube. History of Present Illness History of Present Illness Chief Complaint: Vesicoureteral reflux Narrative: This is a 76-year-old gentleman who has a history of kidney stones, bladder cancer and a high pressure bladder causing vesicoureteral reflux. He has had mental status changes related to urinary tract infections in the past. When he had mental status changes recently, he had no bacterial infection and we found that his symptoms were more related to his anticholinergics. We discontinued the oxybutynin and his mental status cleared. Even with the anticholinergics, his degree of hydronephrosis worsened. He has failed Myrbetriq in the past. He currently has an indwelling Mccoy. He is unable to perform self catheterization due to tremors from his Parkinson's Disease Review of Systems Narrative: No fevers or chills No vision change or dysphasia No diabetes or thyroid dysfunction No shortness of breath, cough or hemoptysis No chest pain or palpitations No nausea, vomiting, hepatitis, ulcers, jaundice Tremors at rest due to parkinson's. Dizzy this morning. 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 unsure of procedure, states they went up and pulled the stones out with a basket Surgical History Colonoscopy - IV Sedation (12/28/12) H/O cystoscopy History of back surgery lumbar S/P inguinal hernia repair using synthetic patch S/P TURP Family History Other Cancer Social History Smoking/Tobacco Use Status: Former Tobacco Use Quit Date: 06/16/19 Smoking risk assessment performed?: Yes Alcohol Intake: never Drug use: Never Substance use type: does not use Household members: spouse Housing: house current occupation: Retired Do you feel safe at home: Yes Do you feel safe in your relationship?: Yes Additional Social history: Pt son is present. Meds Allergies and Home Medications Allergies Allergy/AdvReac Type Severity Reaction Status Date / Time oxybutynin AdvReac Severe Other (See Unverified 07/23/21 07:37 Comment) Home Medications Medication Instructions Recorded Confirmed Type acetaminophen [Tylenol] 650 mg PO Q6H PRN #30 cap 05/15/20 07/23/21 Rx amantadine HCl 100 mg tablet 100 mg PO DAILY #90 tab 04/10/21 07/23/21 Rx trimethoprim 100 mg tablet 100 mg PO DAILY #30 tab 05/08/21 07/23/21 Rx Exam Const General: frail appearing Neck Neck: supple Resp Effort & Inspection: normal respiratory effort Auscultation: clear to auscultation bilaterally Cardio Rate: regular rate Rhythm: regular rhythm GI Palpation: soft and no masses Other: mccoy in place Neuro General: patient alert and patient awake Motor: tremor Results Last Vital Signs Temp 36.7 C 07/23/21 07:51 Pulse 62 07/23/21 07:51 Resp 16 07/23/21 07:51 BP 110/65 07/23/21 07:51 Pulse Ox 98 07/23/21 07:51
[2021-07-23 08:52] VITALS: BMI 21.8
[2021-07-23] MEDS: cefTRIAXone 1 GM/50 ML BAG IVPB (09:31)
[2021-07-23] MEDS: Lidocaine 2% Jelly 6 ML SYR (09:49)
[2021-07-23] MEDS: Bupivacaine 0.5% Pres-Free 30 ML VIAL (09:49)
--- NOTE | 2021-07-23 10:00 | W.PM.DSUDISC ---
Discharge Plan Disposition Patient Disposition: HOME Condition: Stable Discharge Details Reason For Visit: place suprapubic tube Attending Provider: Rai Garcia Primary Care Provider: Miriam Serna Home Meds and New Rx's Prescriptions: No Action amantadine HCl 100 mg tablet 100 mg PO DAILY Qty: 90 RF: 3 trimethoprim 100 mg tablet 100 mg PO DAILY Qty: 30 RF: 2 acetaminophen [Tylenol] 325 mg capsule 650 mg PO Q6H PRNQty: 30 RF: 0 Discharge Instructions Additional Instructions: Sp tube to leg bag - please ask my office nurse to come down and adjust his leg bag before discharge followup 1 month for catheter change Activity:: Activity as Tolerated Shower/Bathe:: 24 hours Diet:: As Tolerated Discharge Orders Discharge Orders: Discharge Order (Routine); Ordered 07/23/21 Ordered By: Rai Garcia DS: Diagnosis Discharge Diagnosis (1) Vesicoureteral reflux:
[2021-07-23 10:08] VITALS: BP 107/70; PULSE 50; RESP 16; TEMP 36.6; O2SAT 98
--- NOTE | 2021-07-23 10:30 | ROE_ITS ---
Date of service: 07/23/21 Time of Service: 10:30 Operative Note Operative Note DATE OF PROCEDURE: 07/23/21 PRE-OP DIAGNOSIS: vesicoureteral reflux due to neurogenic bladder POST-OP DIAGNOSIS: same PROCEDURE: cystoscopy with insertion of suprapubic tube ANESTHESIA TYPE: Local By Surgeon and MAC Refer to Anesthesia Record ESTIMATED BLOOD LOSS: 10 PATHOLOGY: none sent COMPLICATIONS: None Patient was transported to: same day Patient's condition: stable Implants: 16 Tamazight catheter with 9 cc sterile water in balloon Indications: This is a 76-year-old gentleman who has a history of Parkinson's disease. He has a high pressure bladder resulting in bilateral vesicoureteral reflux. He has been unable to tolerate oral medications to decrease his bladder pressure. He is not able to perform CIC. He presents now for placement of a suprapubic tube. Findings: Heavily trabeculated bladder Procedure Description: The patient was given a preoperative dose of IV ceftriaxone. He was brought to the operating room on 07/22/2021. After successful induction of monitored anesthesia care, he was placed in the dorsal lithotomy position. His indwelling urethral catheter was removed. His genitalia was prepped and draped. 2% Xylocaine jelly was instilled into the urethra to act as a local anesthetic. A curved Lowsley tractor was passed through the urethra into the bladder. The tip of the Lowsley tractor was brought up against the abdominal wall. The skin overlying the tip of the Lowsley was incised and the tip was brought onto the abdominal wall. The jaws of the Lowsley tractor were then opened and a 16 Tamazight catheter was grasped and pulled back through the suprapubic tract into the bladder and back out the urethra. Cystoscopy was then performed using a 22 Tamazight cystoscope and a 70 degree lens. Once the catheter was correctly positioned within the bladder, the catheter balloon was inflated with 9 cc of sterile water. The catheter was hooked to gravity drainage. The patient tolerated this procedure with no complications.
[2021-07-23 10:38] VITALS: BP 141/67; PULSE 66; RESP 18; TEMP 36.3; O2SAT 99
--- NOTE | 2021-07-23 12:17 | W.ANESPOSTOP ---
Postoperative Evaluation Date, Time and Location Date Performed: 07/23/21 Time Performed: :22 Patient Location: Day Surgery Unit Vital Signs Most Recent Imported Vital Signs: Most Recent Vital Signs Temp Pulse Resp BP Pulse Ox 36.3 C L 66 18 141/67 H 99 07/23/21 10:38 07/23/21 10:38 07/23/21 10:38 07/23/21 10:38 07/23/21 10:38 Pain Score Most Recent Pain Score: Most Recent Pain Score Pain Level 0 07/23/21 10:38 Assessment Mental Status: Awake (Alert & Oriented to Patient Baseline) Airway and Respiratory Function: Patent airway with normal (patient baseline) respiratory exam Cardiovascular Function: Hemodynamically Stable Hydration Status: Adequately Hydrated Nausea & Vomiting: No Nausea or Vomiting Pain: Pt. Denies Any Pain Peripheral Nerve Block: Patient did not receive a nerve block
== END 2021-07-23 11:45 | disposition home or self-care (01) ==
PROVIDERS: PCP Nurse Practitioner; Visit Provider Urology
PROC: (CPT 51102; principal; 2021-07-23 08:45)
DX: N13.70 Vesicoureteral-reflux, unspecified (principal); N31.9 Neuromuscular dysfunction of bladder, unspecified; G20 Parkinson's disease; C67.9 Malignant neoplasm of bladder, unspecified
CPT/HCPCS: 51102; J0696; J1885; J2001; J2405

== ENCOUNTER 2021-08-03 11:56 | Outpatient (REF) | payer MEDICARE, SELFPAY | END 2021-08-03 11:57 | disposition home or self-care (01) | LOC: LBN 11:56 | PROVIDERS: PCP Nurse Practitioner; Visit Provider Psychiatry & Neurology Neurology | DX: C67.9 Malignant neoplasm of bladder, unspecified (principal); N17.9 Acute kidney failure, unspecified; R63.4 Abnormal weight loss; R41.3 Other amnesia; G20 Parkinson's disease; R27.0 Ataxia, unspecified | CPT/HCPCS: 82565 ==

== ENCOUNTER → 2021-08-09 07:57 | Outpatient (BNVA) | payer MEDICARE, SELFPAY | PROVIDERS: PCP Nurse Practitioner; Referring Provider Nurse Practitioner; Visit Provider Urology | DX: N13.70 Vesicoureteral-reflux, unspecified (principal) | CPT/HCPCS: 99214 ==

== ENCOUNTER → 2021-08-15 13:44 | Outpatient (BNVA) | payer MEDICARE, SELFPAY | PROVIDERS: PCP Nurse Practitioner; Referring Provider Nurse Practitioner; Visit Provider Nurse Practitioner Gerontology | DX: N13.70 Vesicoureteral-reflux, unspecified (principal) | CPT/HCPCS: 99214 ==

== ENCOUNTER 2021-08-18 09:24 | Emergency (ER) | payer MEDICARE, SELFPAY ==
[2021-08-18 09:35] VITALS: BP 123/56; PULSE 67; RESP 16; TEMP 36.5; O2SAT 99
[2021-08-18 10:05] VITALS: BP 125/72; PULSE 63; RESP 22; TEMP 36.5; O2SAT 98
--- NOTE | 2021-08-18 10:08 | W.ED.GENAD ---
Discharge Plan Disposition Patient Disposition: HOME Condition: Stable Discharge Details Clinical Impression: Encounter for suprapubic catheter care Primary Care Provider: Miriam Serna ED Provider: Praveena Fonseca Home Meds and New Rx's Prescriptions: Continued amantadine HCl 100 mg tablet 100 mg PO DAILY Qty: 90 3RF Hold Instructions: Home Medication placed on hold at Doctor's office ketorolac 10 mg tablet 10 mg PO TID PRN (Reason: pain) Qty: 10 0RF acetaminophen [Tylenol] 325 mg capsule 650 mg PO Q6H PRNQty: 30 0RF Discharge Instructions Instructions: How to Care for Your Suprapubic Catheter (DC) Additional Instructions: Take the Myrbetriq dose tomorrow that you were given today in the emergency department. Continue your Toradol as needed and directed for pain. You may have further leakage of urine from your penis. Be sure to keep a towel or urinal nearby. Follow-up with your scheduled appointment with Dr. Garcia on Friday. Call his office on Friday morning for further discussion of your symptoms. Return immediately to the emergency department if you develop any worsening or new concerning symptoms. Referrals: Rai Garcia MD [ [facility] STAFF PHYSICIAN] - Discharge Data Discharge Date/Time-TO BE ENTERED AT DEPARTURE: 08/18/21 11:51 Discharge Physician: Praveena Fonseca Medical Decision Making 76-year-old male with a history of kidney stones, bladder cancer, with high pressure bladder with vesicoureteral reflux with history of suprapubic catheter placed [address] Garcia presents with complaints of leakage of urine from penis since last night. Vitals within normal limits. Patient appears comfortable and nontoxic. He has crusted discharge around the suprapubic catheter site but no evidence of cellulitis. There is no current urine leaking from the penis. There is yellow urine within catheter bag. Case discussed with Dr. Garcia who recommends irrigation of the suprapubic catheter with no recommendations for changing or removing catheter as the tract is still forming and plan is for Dr. Garcia to replace catheter at 4 weeks in the office. Recommend starting Myrbetriq with 1 dose now and dose for home tomorrow with plan for follow-up in the office on Friday. No indication for checking UA as pt demonstrates none of his usual signs of UTI which includes confusion. Able to flush the catheter easily. Dose of Myrbetriq given here and 1 dose for home for tomorrow. Advised to call Dr. Garcia's office on Friday morning but will follow up with him in the office that day. Medical Records Medical records reviewed: Yes I reviewed the patient's medical records. HPI General Mode of arrival: ambulatory. Date/Time Provider Initiated Documentation: 08/18/21 09:45. Limitations to Documentation: no limitations. Information obtained by: patient. HPI Narrative: Patient is a 76-year-old male with a history of bladder cancer, Parkinson's, kidney stones, high pressure bladder with vesicoureteral reflux with history of suprapubic catheter placed by Dr. Garcia 3 weeks ago presents with complaint of urinary leakage from penis since last night. He was last seen at the urology office on 08/15 and change from a suprapubic to a leg bag. Patient denies any fever, nausea, vomiting or abdominal pain. He states all throughout the night he has continual leakage of yellow urine from his penis requiring him to hold a urinal for several hours. He states he is draining urine into his leg bag as well. Related Data Home Medications Medication Instructions Recorded Confirmed acetaminophen 325 mg capsule 650 mg PO Q6H PRN #30 cap 05/15/20 08/18/21 (Tylenol) amantadine HCl 100 mg tablet 100 mg PO DAILY #90 tab 04/10/21 08/18/21 ketorolac 10 mg tablet 10 mg PO TID PRN #10 tab 08/09/21 08/18/21 Previous Rx's Medication Instructions Recorded acetaminophen 325 mg capsule 650 mg PO Q6H PRN #30 cap 05/15/20 (Tylenol) amantadine HCl 100 mg tablet 100 mg PO DAILY #90 tab 04/10/21 ketorolac 10 mg tablet 10 mg PO TID PRN #10 tab 08/09/21 Allergies Allergy/AdvReac Type Severity Reaction Status Date / Time oxybutynin AdvReac Severe Other (See Unverified 08/18/21 09:38 Comment) General Stated Complaint: Urinary BRITTON: 3 Review of Systems All systems reviewed & are unremarkable except as noted in HPI and below Constitutional Constitutional: Reports as per HPI, Denies chills and Denies fever(s) Eyes Eyes: Denies blurry vision ENT Ears, Nose, Mouth, and Throat: Denies dizziness, Denies sore throat and Denies throat swelling Cardiovascular Cardiovascular: Denies chest pain and Denies dyspnea Respiratory Respiratory: Denies cough and Denies dyspnea Gastrointestinal Gastrointestinal: Denies abdominal pain, Denies diarrhea and Denies vomiting Genitourinary Genitourinary: Denies hematuria and Denies dysuria Comments: Urine leaking from penis Musculoskeletal Musculoskeletal: Denies back pain and Denies numbness Integumentary/Breasts Skin/Breast: Denies lesions and Denies rash Neurologic Neurologic: Denies dizziness, Denies localized weakness and Denies numbness Allergic/Immunologic Allergic/Immunologic: Denies throat swelling PFSH All Active Problems (Updated 08/18/21 @ 11:18 by Praveena Fonseca DO) Encounter for suprapubic catheter care (Acute) UTI (urinary tract infection) (Acute) Hydronephrosis (Acute) Altered mental status (Acute) Calculus of proximal right ureter (Acute) Hydronephrosis, right (Acute) Acute renal failure (Acute) Prediabetes (Acute) Weight loss, non-intentional (Acute) Essential tremor (Acute) seeing neuro here Hydronephrosis, left (Acute) 08/06 US- improved from previous; follows with Dr Garcia Bilateral kidney stones (Acute 07/08/16) Urothelial carcinoma of bladder (Chronic) Bladder stone (Acute 07/08/16) Medical History 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 unsure of procedure, states they went up and pulled the stones out with a basket Surgical History Colonoscopy - IV Sedation (12/28/12) H/O cystoscopy History of back surgery lumbar S/P inguinal hernia repair using synthetic patch S/P TURP Family History Other Cancer Social History Smoking/Tobacco Use Status: Former Tobacco Use Quit Date: 06/16/19 Smoking risk assessment performed?: Yes Alcohol Intake: never Drug use: Never Substance use type: does not use Household members: spouse Housing: house current occupation: Retired Do you feel safe at home: Yes Do you feel safe in your relationship?: Yes Additional Social history: Pt son is present. Exam Const General: cooperative, healthy appearing and no acute distress HENMT Head: normal to inspection Mouth: oral mucosae normal Eyes General: appearance normal, both eyes and all related structures Neck Neck: normal visual inspection Resp Effort & Inspection: normal respiratory effort and able to speak in complete sentences Cardio Rate: regular rate Male genitals images: 1. Suprapubic catheter site with yellow-brown crusty discharge at base and around tubing. There is no surrounding erythema, edema, induration, fluctuance. No pus drainage or bleeding. No significant tenderness to palpation. Skin General skin exam: no rashes or lesions noted Neuro General: patient alert, patient awake and patient oriented x3 Motor: muscle tone normal throughout Extrem General: normal to inspection and full ROM Psych Appearance: grossly normal Affect: normal affect Course Vital Signs Vital signs: Vital Signs Temperature 97.7 F 08/18/21 09:35 Pulse 67 08/18/21 09:35 Respiratory Rate 16 08/18/21 09:35 Blood Pressure 123/56 L 08/18/21 09:35 Pulse Oximetry 99 08/18/21 09:35 Temperature 97.7 F 08/18/21 09:35 Temperature Source Skin 08/18/21 09:35 Pulse 67 08/18/21 09:35 Respiratory Rate 16 08/18/21 09:35 Respiratory Effort 08/18/21 09:35 Blood Pressure 123/56 L 08/18/21 09:35 Blood Pressure Position Sitting 08/18/21 09:35 Pulse Oximetry 99 08/18/21 09:35 Oxygen Delivery Method Room Air 08/18/21 09:35 Oxygen Flow Rate 0 08/18/21 09:35 Pain Level 0 08/18/21 09:35
--- NOTE | 2021-08-18 10:48 | NUR.NOTE ---
Patient's suprapubic catheter was flushed with NS, 60cc, 40cc of which returned. Patient's mccoy bag emptied of 200cc cloudy yellow urine.Nursing Note:
[2021-08-18] MEDS: Mirabegron 50 MG TABCR PO ×2 (11:02→11:03)
[2021-08-18 11:36] VITALS: BP 124/76; PULSE 62; RESP 18; TEMP 36.6; O2SAT 98
[2021-08-18 11:56] VITALS: BP 124/76; PULSE 62; RESP 18; TEMP 36.6; O2SAT 98
== END 2021-08-18 11:51 | disposition home or self-care (01) ==
PROVIDERS: Emergency Provider Physician Assistant; PCP Nurse Practitioner
DX: T83.098A Other mechanical complication of other urinary catheter, initial encounter (principal)
CPT/HCPCS: 99283

== ENCOUNTER → 2021-08-20 12:47 | Outpatient (BNVA) | payer MEDICARE, SELFPAY | PROVIDERS: PCP Nurse Practitioner; Referring Provider Nurse Practitioner; Visit Provider Urology | DX: N13.70 Vesicoureteral-reflux, unspecified (principal); Z43.5 Encounter for attention to cystostomy | CPT/HCPCS: 51705 ==

== ENCOUNTER → 2021-08-22 07:16 | Outpatient (BNVA) | payer MEDICARE, SELFPAY | PROVIDERS: PCP Nurse Practitioner; Referring Provider Nurse Practitioner; Visit Provider Psychiatry & Neurology Neurology | DX: G20 Parkinson's disease (principal); R41.82 Altered mental status, unspecified; I95.1 Orthostatic hypotension; N18.9 Chronic kidney disease, unspecified | CPT/HCPCS: 99443 ==

== ENCOUNTER 2021-08-22 19:05 | Inpatient (IN) | payer MEDICARE, SELFPAY ==
[2021-08-22] VITALS (17 sets, daily range): BP systolic 103–138; BP diastolic 53–76; PULSE 72–90; RESP 11–25; TEMP 36.9–37.9; O2SAT 90–98
--- NOTE | 2021-08-22 19:30 | RT.EKG_ITS ---
APPROVED REPORT Exam: Resting ECG Reason for Exam: ams, bladder cancer Patient Location: E HR:80 bpm ECG Measurements Heart Rate 80 AXIS DC 150 P 41 QRSd 100 QRS -57 QT 345 T 22 QTc 391 Conclusion Sinus rhythm...normal P axis, V-rate 60- 99 Atrial premature complexes...SV complexes w/ short R-R intvls LAD, consider left anterior fascicular block...axis(240,-40), S>R II III aVF Low voltage, extremity leads...all extremity leads <0.5mV sinus rhythm, left axis, PAC
--- NOTE | 2021-08-22 19:30 | DI.CT_ITS ---
Exam(s) CT HEAD WO EXAM: CT HEAD WO CLINICAL HISTORY: bladder cancer, AMS TECHNIQUE: COMPARISON: CT CT HEAD WO from 07/02/2021 FINDINGS: Noncontrast cranial CT was performed. There is moderate generalized cerebral atrophy and there are p atchy areas of decreased attenuation in periventricular white matter consistent with microvascular is chemic changes. There are apparent old lacunar infarcts involving basal ganglia on the right and sub insular cortex bilaterally. No evidence of acute intracranial hemorrhage, mass effect, or midline shift. The orbital and tempora l bone structures appear intact. IMPRESSION: No evidence of acute intracranial process. RADIATION DOSE DELIVERED: 784.43mGy.cm Total DLP !Error CTDIvol RADIATION OPTIMIZATION: All CT scans at this facility use at least one of these dose optimization te chniques: automated exposure control; mA and/or kV adjustment per patient size (includes targeted exa ms where dose is matched to clinical indication); or iterative reconstruction.
--- NOTE | 2021-08-22 19:30 | DI.RAD_ITS ---
Exam(s) XR PORTABLE CHEST AP EXAM: XR PORTABLE CHEST AP CLINICAL HISTORY: ams, presyncope TECHNIQUE: COMPARISON: CR XR PORTABLE CHEST AP from 03/08/2020 FINDINGS: The heart is not enlarged. Lungs are predominantly clear with some lower lobe scarring. No focal co nsolidation. No pleural effusion seen on this frontal film. IMPRESSION: No evidence of acute process. RADIATION DOSE DELIVERED: Total DLP
[2021-08-22 19:56] LABS: Abs Immature Grans 0.09 10^3/uL (0.0-0.06); Absolute Basophil Count 0.07 10^3/uL (0.0-0.2); Absolute Eosinophil Count 0.01 10^3/uL (0.0-0.7); Absolute Lymphocyte Count 1.29 10^3/uL (1.2-3.4); Absolute Neutrophil Count 12.32 10^3/uL (1.2-6.7); Basophils % 0.5; Eosinophils % 0.1; HCT 37.2 % (40.0-50.0); HGB 11.6 g/dL (13.5-17.5); Immature Grans % 0.6; Lymphocytes % 8.6; MCH 28.8 pg (27.0-33.0); MCHC 31.2 % (32.0-36.0); MCV 92.3 fL (80-95); MPV 9.5 fL (8.0-11.0); Neutrophils % 82.2; Nucleated RBC 0 %; Platelet Count 328 10^3/uL (130-400); RBC 4.03 10^6/uL (4.36-5.78); RDW 15.8 % (11.8-14.1); RDW-SD 53.6 fL; WBC 14.99 10^3/uL (4.4-10.8)
--- NOTE | 2021-08-22 20:08 | DI.VRAD_ITS ---
PROCEDURE INFORMATION: Exam: XR Chest Exam date and time: 08/22/2021 7:42 PM Age: 76 years old Clinical indication: Other: Presyncope, AMS; Additional info: AMS, bladder CA TECHNIQUE: Imaging protocol: XR of the chest. Views: 1 view. Total images: 1 COMPARISON: CR XR PORTABLE CHEST AP 03/08/2020 2:19 PM FINDINGS: Lungs: Question slight hyperexpansion and hyperlucency with minimal diaphragmatic flattening suggesting possible COPD. Pulmonary vasculature grossly normal. No gross pulmonary infiltrates or edema pattern. Pleural spaces: No pleural effusion. No pneumothorax. Heart/Mediastinum: Heart size normal. No tracheal/mediastinal shift. Vasculature: The aorta demonstrates mild ectasia/tortuosity and mild calcific atherosclerosis. Bones/joints: No acute osseous abnormalities are identified. Osteopenia. IMPRESSION: 1. No acute thoracic process. 2. Evidence of COPD. Dictated and Authenticated by: Noah Phillip MD. Ordering:ARCHANA Saez MD
[2021-08-22 20:14] LABS: ALT 19 U/L (16-63); AST 25 U/L (15-37); Albumin 3.2 g/dL (3.4-5.0); Alkaline Phosphatase 136 U/L (46-116); Anion Gap 10.5 mmol/L (3-11); BUN 45 mg/dL (7-18); Bilirubin, Total 0.8 mg/dL (0.2-1.0); CO2 21.5 mmol/L (21.0-32.0); CREATININE 3.3 mg/dL (0.70-1.30); Calcium 9.1 mg/dL (8.5-10.1); Chloride 103 mmol/L (98-107); Estimated GFR 18.37 (mL/min/1.73m2); Glucose 95 mg/dL (74-106); Potassium 5.3 mmol/L (3.5-5.1); Sodium 135 mmol/L (136-145); Troponin I < 50 ng/L (<or=60)
[2021-08-22 20:16] LABS: Bilirubin Negative (Negative); Blood Moderate (Negative); Clarity Cloudy (Clear); Glucose Negative (Negative); Ketones Negative (Negative); Leukocyte Esterase Large (Negative); Nitrite Negative (Negative); Urobilinogen 0.2 EU/dL (Up TO 0.2); pH 6.5 (5-8)
--- NOTE | 2021-08-22 20:17 | DI.VRAD_ITS ---
PROCEDURE INFORMATION: Exam: CT Head Without Contrast Exam date and time: 08/22/2021 7:42 PM Age: 76 years old Clinical indication: Altered mental status/memory loss; Confusion or disorientation; Patient HX: Bladder CA; Additional info: AMS, bladder CA TECHNIQUE: Imaging protocol: Computed tomography of the head without contrast. Total images: 1034 Radiation optimization: All CT scans at this facility use at least one of these dose optimization techniques: automated exposure control; mA and/or kV adjustment per patient size (includes targeted exams where dose is matched to clinical indication); or iterative reconstruction. COMPARISON: CT HEAD WO 07/02/2021 2:17 PM FINDINGS: Brain: Moderate generalized atrophy. Mild-moderate bilateral white matter hypodensities which are nonspecific but most commonly associated with chronic microvascular ischemia in this age group. Mild basal ganglia calcification bilaterally. No extra-axial fluid collections. No evidence of acute intracranial hemorrhage. Ramírez-white differentiation is well maintained. No CT evidence of large territory acute or subacute intracranial ischemia/infarct. 6 mm chronic lacunar infarct in the right caudate head. Small chronic infarct infarct in the inferior right subinsular/mesial temporal distribution unchanged. No intracranial mass lesions. No midline shift or herniation. Cerebral ventricles: Mild compensatory ventriculomegaly secondary to central atrophy. Paranasal sinuses: Visualized paranasal sinuses are clear. Mastoid air cells: Visualized mastoid air cells are clear. Orbital cavity: Visualized orbital contents demonstrate no acute abnormality. Vasculature: Moderate calcific atherosclerosis. No asymmetric vascular hyperdensities suggestive of thrombosis are identified. Bones/joints: The calvarium and visualized facial bones are intact. Soft tissues: The scalp and visualized soft tissues demonstrate no acute abnormality. Other findings: The IACs are grossly normal. The sella is grossly normal. IMPRESSION: 1. No acute intracranial process. No intracranial hemorrhage or mass effect. No significant change from 07/02/2021. 2. No CT evidence of intracranial metastasis. MRI would be more sensitive for small brain metastases if clinically indicated. 3. Atrophy and chronic microvascular changes consistent with age. Small chronic infarcts in the inferior right basal ganglia and right caudate head unchanged. 4. Moderate calcific atherosclerosis. Dictated and Authenticated by: Noah Phillip MD. Ordering:ARCHANA Saez MD
[2021-08-22 20:22] LABS: Bacteria Many HPF (Negative); C & S Indicated? Yes; RBC >50 HPF (0-2); WBC >50 HPF (0-5)
--- NOTE | 2021-08-22 20:41 | ED.GENADUL_ITS ---
Discharge Plan Disposition Patient Disposition: [facility] INPATIENT Condition: Stable Discharge Details Chief Complaint: AMS/LOC Clinical Impression: Delirium, Urinary tract infection, FORTINO (acute kidney injury), Acute hyperkalemia Primary Care Provider: Miriam Serna ED Provider: Se Quinn Home Meds and New Rx's Prescriptions: No Action Myrbetriq 25 mg tablet extended release 24 hr 25 mg PO DAILY Qty: 28 0RF acetaminophen [Tylenol] 325 mg capsule 650 mg PO Q6H PRNQty: 30 0RF Medical Decision Making 76-year-old male history of bladder carcinoma, suprapubic catheter, recently started on mirabegron also with recent suprapubic catheter exchange in the office on Friday, presents with signs of acute delirium, confusion, c ombativeness, unsafe behavior at home. Patient currently resting comfortably calm cooperative is alert to self place and time. Afebrile nontoxic. Suprapubic catheter appears clean with well granulated tissue at abdominal wall site; given recent medication addition must consider medication induced delirium versus UTI versus metabolic derangement versus less likely acute intracranial process such as intracranial bleed or metastasis versus less likely pneumonia. Patient did have several falls over the past couple of weeks per his son, was complaining of left chest wall discomfort, no palpable chest wall deformity ecchymosis crepitus or asymmetric expansion. X-ray unremarkable. CT head negative for acute intracranial process. UA showing urinary tract infection. Metabolic panel showing evidence of FORTINO and hyperkalemia. EKG without peaked T waves, likely component of prerenal FORTINO. Delirium likely related to UTI and metabolic derangement must also consider medication related issue. Spoke with son at length, the plan will be to keep patient in the hospital for antibiotics and fluids close monitoring of mental status. Patient is full code HPI General Date/Time Provider Initiated Documentation: 08/22/21 19:22 . HPI Narrative: 76-year-old male history of bladder carcinoma, suprapubic catheter last changed on Friday, recently started on beta 3 zully for detrusor muscle relaxation within the last week, presents with altered mental status confusion slight aggression at home, intermittently found wandering the house, occasionally naked, attempting to turn on the burners in his house to cook leaving the burners on, leaving water on in the house, his girlfriend called his sons who came to pick him up, they found him to be confused. Followed by Dr. Garcia of urology Related Data Home Medications Medication Instructions Recorded Confirmed acetaminophen 325 mg capsule 650 mg PO Q6H PRN #30 cap 05/15/20 08/22/21 (Tylenol) mirabegron 25 mg tablet,extended 25 mg PO DAILY #28 tab 08/21/21 08/22/21 release 24 hr (Myrbetriq) Previous Rx's Medication Instructions Recorded acetaminophen 325 mg capsule 650 mg PO Q6H PRN #30 cap 05/15/20 (Tylenol) mirabegron 25 mg tablet,extended 25 mg PO DAILY #28 tab 08/21/21 release 24 hr (Myrbetriq) Allergies Allergy/AdvReac Type Severity Reaction Status Date / Time oxybutynin AdvReac Severe Other (See Unverified 08/22/21 19:25 Comment) General Stated Complaint: AMS/LOC BRITTON: 3 Review of Systems Narrative: Review of Systems Constitutional: negative Eyes: negative ENT: negative Cardiovascular: negative Respiratory: negative Gastrointestinal: negative : negative Musculoskeletal: negative Skin: negative Neurologic: Confusion Psych: negative PFSH All Active Problems (Updated 08/22/21 @ 21:25 by Se Quinn MD) Delirium (Acute) Urinary tract infection (Acute) FORTINO (acute kidney injury) (Acute) Acute hyperkalemia (Acute) Memory loss (Acute) Chronic kidney disease (Chronic) Encounter for suprapubic catheter care (Acute) UTI (urinary tract infection) (Acute) Hydronephrosis (Acute) Altered mental status (Acute) Calculus of proximal right ureter (Acute) Hydronephrosis, right (Acute) Acute renal failure (Acute) Prediabetes (Acute) Weight loss, non-intentional (Acute) Essential tremor (Acute) seeing neuro here Hydronephrosis, left (Acute) 08/06 US- improved from previous; follows with Dr Garcia Bilateral kidney stones (Acute 07/08/16) Urothelial carcinoma of bladder (Chronic) Bladder stone (Acute 07/08/16) Medical History Acute UTI 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 unsure of procedure, states they went up and pulled the stones out with a basket Parkinson disease Urinary retention Vesicoureteral reflux Surgical History Colonoscopy - IV Sedation (12/28/12) H/O cystoscopy History of back surgery lumbar S/P inguinal hernia repair using synthetic patch S/P TURP Family History Other Cancer Social History Smoking/Tobacco Use Status: Former Tobacco Use Quit Date: 06/16/19 Smoking risk assessment performed?: Yes Alcohol Intake: never Drug use: Never Substance use type: does not use Household members: spouse Housing: house current occupation: Retired Do you feel safe at home: Yes Do you feel safe in your relationship?: Yes Additional Social history: Pt son is present. Exam Narrative Exam Narrative: Physical Examination General: alert, awake, cooperative, resting comfortably, no acute distress HEENT: normocephalic, atraumatic; PERRL, EOM intact, conjunctiva normal; no nasal discharge; moist mucous membranes, oral and pharyngeal mucosa normal, tolerating secretions Neck: supple, trachea midline; full ROM Chest: normal to inspection Respiratory: normal respiratory effort, speaking in full sentences, clear to auscultation, no wheezing, rales or rhonchi Cardiac: regular rate, regular rhythm, S1S2 intact, no murmurs rubs or gallops GI: abdomen soft, non-tender, non-distended; no palpable mass or hepatosplenomegaly : Suprapubic catheter in place, well granulated tissue around catheter normal external genitalia Skin: no lesions, rashes or trauma appreciated Neuro: AAOx3, normal speech, moving all extremities, 5 out of 5 strength upper and lower extremities, cranial nerves II through XII intact Extremities: Moving all extremities no trauma Psych: Appropriate mood and affect Course Vital Signs Vital signs: Vital Signs Temperature 36.9 C 08/22/21 19:13 Pulse 85 08/22/21 19:13 Respiratory Rate 16 08/22/21 19:13 Blood Pressure 132/74 08/22/21 19:13 Pulse Oximetry 96 08/22/21 19:13 Temperature 36.9 C 08/22/21 19:13 Temperature Source Temporal Artery Scan 08/22/21 19:13 Pulse 73 08/22/21 20:16 Pulse 75 08/22/21 20:16 Respiratory Rate 17 08/22/21 20:16 Respiratory Effort Non-Labored 08/22/21 19:19 Respiratory Depth Normal 08/22/21 19:19 Respiratory Pattern Normal 08/22/21 19:19 Blood Pressure 115/53 L 08/22/21 20:16 Blood Pressure Mean 67 08/22/21 20:16 Blood Pressure Position Supine 08/22/21 19:13 Pulse Oximetry 96 08/22/21 20:16 Oxygen Delivery Method Room Air 08/22/21 19:13 Oxygen Flow Rate 0 08/22/21 19:13 Pain Level 0 08/22/21 19:13 Lab/Test Results Lab/Test Results: 08/22/21 20:10 Urine - Reflex from Ua Urine Culture - Pending Laboratory Tests Range/Units 08/22/21 08/22/21 08/22/21 19:20 19:20 20:10 WBC (4.4-10.8) 10^3/uL 14.99 H RBC (4.36-5.78) 10^6/uL 4.03 L Hgb (13.5-17.5) g/dL 11.6 L Hct (40.0-50.0) % 37.2 L MCV (80-95) fL 92.3 MCH (27.0-33.0) pg 28.8 MCHC (32.0-36.0) % 31.2 L RDW (11.8-14.1) % 15.8 H Plt Count (130-400) 10^3/uL 328 MPV (8.0-11.0) fL 9.5 Immature Gran % 0.6 Neutrophils % 82.2 Lymphocytes % 8.6 Monocytes % 8.0 Eosinophils % 0.1 Basophils % 0.5 Nucleated RBC % % 0 Absolute Neutrophils (1.2-6.7) 10^3/uL 12.32 H Absolute Lymphocytes (1.2-3.4) 10^3/uL 1.29 Absolute Monocytes (0.1-0.8) 10^3/uL 1.20 H Absolute Eosinophils (0.0-0.7) 10^3/uL 0.01 Absolute Basophils (0.0-0.2) 10^3/uL 0.07 Sodium (136-145) mmol/L 135 L Potassium (3.5-5.1) mmol/L 5.3 H Chloride (98-107) mmol/L 103 Carbon Dioxide (21.0-32.0) mmol/L 21.5 Anion Gap (3-11) mmol/L 10.5 BUN (7-18) mg/dL 45 H Creatinine (0.70-1.30) mg/dL 3.3 H Estimated GFR/1.73 m2 (mL/min/1.73m2) 18.37 Glucose (74-106) mg/dL 95 Calcium (8.5-10.1) mg/dL 9.1 Total Bilirubin (0.2-1.0) mg/dL 0.8 AST (15-37) U/L 25 ALT (16-63) U/L 19 Alkaline Phosphatase (46-116) U/L 136 H Troponin I (<or=60) ng/L < 50 Total Protein (6.4-8.2) g/dL 9.0 H Albumin (3.4-5.0) g/dL 3.2 L Urine Color (Yellow) Yellow Urine Clarity (Clear) Cloudy Urine pH (5-8) 6.5 Ur Specific [place] (1.005-1.025) 1.020 Urine Protein (Negative) mg/dL 100 H Urine Ketones (Negative) mg/dL Negative Urine Blood (Negative) Moderate H Urine Nitrite (Negative) Negative Urine Bilirubin (Negative) Negative Urine Urobilinogen (Up TO 0.2) EU/dL 0.2 Ur Leukocyte Esterase (Negative) Large H Urine RBC (0-2) HPF >50 H Urine WBC (0-5) HPF >50 H Ur Epithelial Cells Not Applicable Urine Crystals Not Applicable Urine Bacteria (Negative) HPF Many Urine Mucus Not Applicable Ur Culture Indicated? Yes Urine Glucose (Negative) mg/dL Negative
[2021-08-22] MEDS: Normal Saline 500 ML 1000 ML IV (20:47)
[2021-08-22] MEDS: levoFLOXacin 750 MG/150 ML BAG 100 MG IVPB (20:47)
[2021-08-22] MEDS: CALCIUM GLUCONATE in NaCl 1 GM/50 ML BAG IVPB (20:47)
--- NOTE | 2021-08-22 21:32 | W.PM.HP.N ---
Date of service: 08/22/21 Time of Service: 21:32 Assessment and Plan Assessment and plan (1) Altered mental status: Start date: 08/22/21 Status: Acute Assessment and plan: This is a 76-year-old gentleman with bladder cancer and chronic indwelling suprapubic catheter for urinary retention who presents with altered mental status most likely delirium secondary to metabolic state with acute dehydration and UTI. He does have frequent UTIs. Patient will be treated with Levaquin and follow-up on urine culture adjusting antibiotic therapy accordingly. Urology can review patient's case as to indwelling Fay catheter does this was just changed. He has recent been started on a new medication which could be adjusted if this can affect his mentation. Patient does live with family but is not supervised totally. (2) Urinary tract infection: Start date: 08/22/21 Status: Acute Assessment and plan: Treated with Levaquin IV converted to oral therapy if appropriate after urine culture pathogen is identified with sensitivities. Long-term follow-up with urology. (3) FORTINO (acute kidney injury): Start date: 08/22/21 Status: Acute Assessment and plan: IV hydration monitoring labs daily. Patient will be encouraged to increase oral intake. (4) Acute hyperkalemia: Start date: 08/22/21 Status: Acute Assessment and plan: Most likely associated with dehydration and FORTINO. Calcium gluconate was started in the ED and patient will continue IV hydration with monitoring labs daily. (5) Chronic kidney disease: Status: Chronic Assessment and plan: Correct to baseline with IV hydration for FORTINO. Monitor labs daily. History of Present Illness Narrative: This is a 76-year-old male history of bladder carcinoma, suprapubic catheter last changed on Friday, recently started on beta 3 zully for detrusor muscle relaxation within the last week, presents with altered mental status confusion slight aggression at home, intermittently found wandering the house, occasionally naked, attempting to turn on the burners in his house to cook leaving the burners on, leaving water on in the house, his girlfriend for 30 years called his sons who came to pick him up, they found him to be confused.? Patient is followed by Dr. Garcia of urology. The patient stated his bladder cancer is not active but he does have a hole in his bladder secondary to procedures treating his bladder cancer. He has had problems with passing urine prior to his bladder cancer. some concern about UTI in the ED and urine does have positive UA and the new start of the beta 3 zully as a cause of the patient's confusion. He also was dry all from his baseline and has some mild elevation in his potassium which appear to respond IV treatment. He was also initiated on Levaquin. Patient diagnosed admission was hospital status or delusions secondary to his metabolic state with new onset UTI and medication changed with dehydration secondary to decreased intake. Patient was completely awake at the time I saw him. Review of Systems Narrative: 13 point review of systems positive for about a 40 pound weight loss in the recent past otherwise unrevealing or stable. PFSH All Active Problems Delirium (Acute) Urinary tract infection (Acute) FORTINO (acute kidney injury) (Acute) Acute hyperkalemia (Acute) Memory loss (Acute) Chronic kidney disease (Chronic) Encounter for suprapubic catheter care (Acute) UTI (urinary tract infection) (Acute) Hydronephrosis (Acute) Altered mental status (Acute) Calculus of proximal right ureter (Acute) Hydronephrosis, right (Acute) Acute renal failure (Acute) Prediabetes (Acute) Weight loss, non-intentional (Acute) Essential tremor (Acute) seeing neuro here Hydronephrosis, left (Acute) 08/06 US- improved from previous; follows with Dr Garcia Bilateral kidney stones (Acute 07/08/16) Urothelial carcinoma of bladder (Chronic) Bladder stone (Acute 07/08/16) Medical History Acute UTI 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 unsure of procedure, states they went up and pulled the stones out with a basket Parkinson disease Urinary retention Vesicoureteral reflux Surgical History Colonoscopy - IV Sedation (12/28/12) H/O cystoscopy History of back surgery lumbar S/P inguinal hernia repair using synthetic patch S/P TURP Family History Other Cancer Social History Smoking/Tobacco Use Status: Former Tobacco Use Quit Date: 06/16/19 Smoking risk assessment performed?: Yes Alcohol Intake: never Drug use: Never Substance use type: does not use Household members: spouse Housing: house current occupation: Retired Do you feel safe at home: Yes Do you feel safe in your relationship?: Yes Additional Social history: Pt son is present. Meds Allergies and Home Medications Allergies Allergy/AdvReac Type Severity Reaction Status Date / Time oxybutynin AdvReac Severe Other (See Unverified 08/22/21 19:25 Comment) Home Medications Medication Instructions Recorded Confirmed Type acetaminophen 325 mg capsule 650 mg PO Q6H PRN #30 cap 05/15/20 08/22/21 Rx (Tylenol) mirabegron 25 mg tablet,extended 25 mg PO DAILY #28 tab 08/21/21 08/22/21 Rx release 24 hr (Myrbetriq) Exam Narrative Exam Narrative: General: Patient appears older than stated age, thinly built, slightly agitated and easily irritated during conversation with patient had a very negative view of his general health. He is alert and oriented x3. He is in no acute distress. HEENT: Normocephalic, eyes with pupils equal and reactive to light symmetrically, extraocular movement intact and sclera anicteric. Oropharynx with dry mucosa. Neck: Supple without JVD. Back: Stooped posture without CVA tenderness. Skin: Moist, warm with normal color. Actinic changes over sun exposed areas. Good turgor. Lungs: Fair aeration but rhonchi diffusely especially of the left side with decreased aeration on the left more than right. No focalizing rales or diffuse coarse crackles and partial clearing of bronchial breath sounds with cough. (Patient states that he is not a smoker) Heart: Regular rate and rhythm with no appreciable murmur gallop. Abdomen: Scaphoid contour, soft and nontender to palpation with no palpable hepatosplenomegaly. No focalizing tenderness. Suprapubic catheter over the lower pubic area with good granulation tissue no discharge. Urine draining cloudy and yellow. Genitalia/rectal: Exam deferred. Extremities: Without clubbing, cyanosis or pitting edema. Peripheral pulses intact. Neuro: Easily agitated with flattened affect and depressed mood. No abnormal thought processes. Remote and recent memory intact. Cranial nerves II through XII grossly intact, no focalizing motor deficits. No tremor. Results Imaging Imaging Studies: CT HEAD WO EXAM:? CT HEAD WO CLINICAL HISTORY:? bladder cancer, AMS TECHNIQUE:? COMPARISON:? CT CT HEAD WO from 07/02/2021 FINDINGS: Noncontrast cranial CT was performed.? There is moderate generalized cerebral atrophy and there are patchy areas of decreased attenuation in periventricular white matter consistent with microvascular ischemic changes.? There are apparent old lacunar infarcts involving basal ganglia on the right and sub insular cortex bilaterally. No evidence of acute intracranial hemorrhage, mass effect, or midline shift.? The orbital and temporal bone structures appear intact. IMPRESSION: No evidence of acute intracranial process. EXAM:? XR PORTABLE CHEST AP CLINICAL HISTORY:? ams, presyncope TECHNIQUE:? COMPARISON:? CR XR PORTABLE CHEST AP from 03/08/2020 FINDINGS: The heart is not enlarged.? Lungs are predominantly clear with some lower lobe scarring.? No focal consolidation.? No pleural effusion seen on this frontal film. IMPRESSION: No evidence of acute process. Labs Result diagrams: 08/22/21 19:20 08/22/21 19:20 Labs: Laboratory Results - last 24 hr 08/22/21 08/22/21 08/22/21 19:20 19:20 20:10 WBC 14.99 H RBC 4.03 L Hgb 11.6 L Hct 37.2 L MCV 92.3 MCH 28.8 MCHC 31.2 L RDW 15.8 H Plt Count 328 MPV 9.5 Immature Gran % 0.6 Neutrophils % 82.2 Lymphocytes % 8.6 Monocytes % 8.0 Eosinophils % 0.1 Basophils % 0.5 Nucleated RBC % 0 Absolute Neutrophils 12.32 H Absolute Lymphocytes 1.29 Absolute Monocytes 1.20 H Absolute Eosinophils 0.01 Absolute Basophils 0.07 Sodium 135 L Potassium 5.3 H Chloride 103 Carbon Dioxide 21.5 Anion Gap 10.5 BUN 45 H Creatinine 3.3 H Estimated GFR/1.73 m2 18.37 Glucose 95 Calcium 9.1 Total Bilirubin 0.8 AST 25 ALT 19 Alkaline Phosphatase 136 H Troponin I < 50 Total Protein 9.0 H Albumin 3.2 L Urine Color Yellow Urine Clarity Cloudy Urine pH 6.5 Ur Specific [place] 1.020 Urine Protein 100 H Urine Ketones Negative Urine Blood Moderate H Urine Nitrite Negative Urine Bilirubin Negative Urine Urobilinogen 0.2 Ur Leukocyte Esterase Large H Urine RBC >50 H Urine WBC >50 H Ur Epithelial Cells Not Applicable Urine Crystals Not Applicable Urine Bacteria Many Urine Mucus Not Applicable Ur Culture Indicated? Yes Urine Glucose Negative Last Vital Signs Temp 36.9 C 08/22/21 19:13 Pulse 73 08/22/21 20:16 Resp 17 08/22/21 20:16 BP 115/53 L 08/22/21 20:16 Pulse Ox 96 08/22/21 20:16
[2021-08-22] MEDS: Normal Saline 1,000 ML 100 ML IV (23:07)
[2021-08-22] MEDS: Heparin 5,000 UNITS/ML VIAL 5000 UNITS SC (23:08)
[2021-08-22] MEDS: Acetaminophen 325 MG TAB 650 MG PO (23:17)
--- NOTE | 2021-08-23 | DI.US_ITS ---
Exam(s) US RENAL EXAM: US RENAL CLINICAL HISTORY: UTI TECHNIQUE: Ultrasound performed using standard protocol. COMPARISON: US US RENAL from 05/25/2021 FINDINGS: Renal ultrasound was performed according to the usual protocol. The patient reportedly has a Fay c atheter in position and the urinary bladder is empty. There is moderate to severe right hydronephrosis. There is an incidental simple cyst of the upper po le of the right kidney. No definite nephrolithiasis on the right. Left kidney shows no evidence of hydronephrosis. There are lower pole renal calculi on the left dano uring about 8 millimeters and 11 millimeters in diameter with posterior acoustic shadowing and twinkl e artifact associated with these calcifications. There are multiple left renal cysts, the largest me asuring about 25 millimeters in greatest diameter at the upper pole of the kidney. IMPRESSION: Moderate to severe right hydronephrosis. Left nephrolithiasis without hydronephrosis. DATA REPOSITORY:
[2021-08-23] MEDS: traMADol 50 MG TAB PO (01:11)
[2021-08-23 03:08] LABS: Source Nasal/Nares
[2021-08-23 03:57] VITALS: BP 104/61; PULSE 69; RESP 18; TEMP 36.7; O2SAT 96
[2021-08-23] MEDS: Heparin 5,000 UNITS/ML VIAL 5000 UNITS SC ×2 (05:28→14:37)
[2021-08-23 07:00] VITALS: PULSE 67
[2021-08-23 07:20] LABS: Abs Immature Grans 0.05 10^3/uL (0.0-0.06); Absolute Basophil Count 0.05 10^3/uL (0.0-0.2); Absolute Eosinophil Count 0.09 10^3/uL (0.0-0.7); Absolute Lymphocyte Count 1.25 10^3/uL (1.2-3.4); Absolute Monocyte Count 0.99 10^3/uL (0.1-0.8); Absolute Neutrophil Count 6.62 10^3/uL (1.2-6.7); Basophils % 0.6; HCT 29.2 % (40.0-50.0); HGB 9.3 g/dL (13.5-17.5); Immature Grans % 0.6; Lymphocytes % 13.8; MCH 29.2 pg (27.0-33.0); MCHC 31.8 % (32.0-36.0); MCV 91.5 fL (80-95); MPV 9.4 fL (8.0-11.0); Monocytes % 10.9; Neutrophils % 73.1; Nucleated RBC 0 %; Platelet Count 256 10^3/uL (130-400); RBC 3.19 10^6/uL (4.36-5.78); RDW 15.8 % (11.8-14.1); RDW-SD 53.1 fL; WBC 9.05 10^3/uL (4.4-10.8)
[2021-08-23 07:32] VITALS: BP 104/58; PULSE 66; RESP 15; TEMP 37.3; O2SAT 97
[2021-08-23 07:48] LABS: ALT 10 U/L (16-63); AST 17 U/L (15-37); Albumin 2.3 g/dL (3.4-5.0); Alkaline Phosphatase 101 U/L (46-116); Anion Gap 9.9 mmol/L (3-11); BUN 41 mg/dL (7-18); Bilirubin, Total 0.5 mg/dL (0.2-1.0); CO2 20.1 mmol/L (21.0-32.0); CREATININE 2.9 mg/dL (0.70-1.30); Calcium 8.6 mg/dL (8.5-10.1); Chloride 107 mmol/L (98-107); Estimated GFR 21.32 (mL/min/1.73m2); Glucose 90 mg/dL (74-106); Potassium 4.7 mmol/L (3.5-5.1); Sodium 137 mmol/L (136-145); Total Protein 6.9 g/dL (6.4-8.2)
[2021-08-23] MEDS: Mirabegron 25 MG TABCR PO (09:47)
[2021-08-23] MEDS: Docusate Sodium 100 MG CAP PO ×2 (09:47→21:11)
--- NOTE | 2021-08-23 09:54 | INITIAL_ITS ---
- If Service Date Differs Date of service: 08/23/21 Time of Service: 09:54 Care Management Initial Assess REASON FOR HOSPITALIZATION:: AMS, UTI, FORTINO, Acute Hyperkalemia, Chronic Kidney Disease. PAST MEDICAL HISTORY/PAST SURGICAL HISTORY:: All Active Problems . Delirium (Acute). Urinary tract infection (Acute). FORTINO (acute kidney injury) (Acute). Acute hyperkalemia (Acute). Memory loss (Acute). Chronic kidney disease (Chronic). Encounter for suprapubic catheter care (Acute). UTI (urinary tract infection) (Acute). Hydronephrosis (Acute). Altered mental status (Acute). Calculus of proximal right ureter (Acute). Hydronephrosis, right (Acute). Acute renal failure (Acute). Prediabetes (Acute). Weight loss, non-intentional (Acute). Essential tremor (Acute). seeing neuro here. Hydronephrosis, left (Acute). 08/06 US- improved from previous; follows with Dr Garcia. Bilateral kidney stones (Acute 07/08/16). Urothelial carcinoma of bladder (Chronic). Bladder stone (Acute 07/08/16). Medical History . Acute UTI. 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 Dysphagia. History of carcinoma in situ of bladder. Hx of nephrolithotomy with removal of calculi. pt. unsure of procedure, states they went up and pulled the stones out with a basket. Parkinson disease. Urinary retention. Vesicoureteral reflux. Surgical History . Colonoscopy - IV Sedation (12/28/12). H/O cystoscopy. History of back surgery. lumbar. S/P inguinal hernia repair using synthetic patch. S/P TURP PREVIOUS FUNCTIONAL STATUS/SOCIAL/FAMILY SUPPORTS:: Noah lives in [place] with his life partner of 36 years, Vera. He no longer drives due to a period of declining health. He is independent with his ADL's. CURRENT FUNCTIONAL STATUS:: Noah was in bed with the head of the bed elevated. He is alert and oriented X3. He shares with that when he gets UTI's his head gets all foggy. Noah has a HX of UTI's and is followed by Dr. Garcia. ADVANCE DIRECTIVES:: None on file, CM to offer forms. Has patient been provided with info about the portal/API?: Yes Did the patient sign up for the portal?: No CODE STATUS:: Full Code INSURANCE COVERAGE / FINANCIAL ISSUES:: Medicare. Finacial Assistance 100% CURRENT HOME/COMMUNITY SERVICES/EQUIPMENT:: Has a walker. [facility] SN,ST,OT PRIMARY CARE PHYSICIAN:: Miriam Serna POTENTIAL DISCHARGE NEEDS:: Follow up appointments, Resumption of [facility] services, palliative care consult PATIENT/FAMILY EDUCATION NEEDS:: Review discharge instructions, limitations, medications and plan to follow up with community providers. ask me three. TRANSPORTATION:: via private vehicle with family. PLAN:: Anticipate Noah will discharge home with resumption of [facility] RN,OT, ST via private vehicle with family when medically ready. He will follow up with community providers and discharge plan of care as prescribed. CM will continue to monitor discharge planning needs.
[2021-08-23 12:51] LABS: COVID-19 PCR Negative (Negative)
[2021-08-23 15:09] VITALS: BP 117/57; PULSE 60; RESP 14; TEMP 36.9; O2SAT 96
--- NOTE | 2021-08-23 16:45 | W.PM.PROGNOT ---
Date of Service Date of service: 08/23/21 Time of Service: 16:45 Assessment and Plan Assessment and plan (1) Altered mental status: Status: Resolved Assessment and plan: likely d/t dehydration and UTI and resolved at this time. some mild cognitive impairment at baseline so monitor for sundowning or derlium at night. continue to monitor fall and safety precautions (2) Urinary tract infection: Status: Acute Assessment and plan: continue levaquin, renal dosing awaiting urine culture with sensitivities. supra pubic catheter changed by Dr Garcia. outpaitent follow-up with urology. (3) FORTINO (acute kidney injury): Status: Acute Assessment and plan: IV hydration monitoring labs daily. Patient will be encouraged to increase oral intake. renal dosing (4) Acute hyperkalemia: Status: Resolved Assessment and plan: resolved Most likely associated with dehydration and FORTINO. Calcium gluconate was started in the ED labs daily. (5) Chronic kidney disease: Status: Chronic Assessment and plan: Correct to baseline with IV hydration for FORTINO. Monitor labs daily. (6) Discharge planning issues: Status: Acute Assessment and plan: anticipate a discharge to home +/- services when medically stable. discussed with Dr Davies Subjective Subjective Patient reports: no new complaints, feels better, tolerating liquids well and tolerating a regular diet; denies diarrhea, nausea, vomiting or shortness of breath Exam Const General: cooperative and frail appearing Nutritional Appearance: thin Orientation: alert, awake and oriented x3 HENMT Head: normal to inspection, normocephalic and atraumatic Mouth: oral mucosae normal Resp Effort & Inspection: normal respiratory effort Auscultation: clear to auscultation bilaterally Cardio Rate: regular rate Rhythm: regular rhythm GI Inspection: normal to inspection (suprapubic cath intact) Palpation: soft Auscultation: normal bowel sounds Skin General skin exam: no rashes or lesions noted Neuro General: patient alert, patient awake, patient oriented x3 and no focal motor deficits Extrem General: normal to inspection, full ROM and no pedal edema Objective Last Vital Signs Temp 36.9 C 08/23/21 15:09 Pulse 60 08/23/21 15:09 Resp 14 08/23/21 15:09 BP 117/57 L 08/23/21 15:09 Pulse Ox 96 08/23/21 15:09 Laboratory Results - last 24 hr 08/22/21 08/22/21 08/22/21 19:20 19:20 20:10 WBC 14.99 H RBC 4.03 L Hgb 11.6 L Hct 37.2 L MCV 92.3 MCH 28.8 MCHC 31.2 L RDW 15.8 H Plt Count 328 MPV 9.5 Immature Gran % 0.6 Neutrophils % 82.2 Lymphocytes % 8.6 Monocytes % 8.0 Eosinophils % 0.1 Basophils % 0.5 Nucleated RBC % 0 Absolute Neutrophils 12.32 H Absolute Lymphocytes 1.29 Absolute Monocytes 1.20 H Absolute Eosinophils 0.01 Absolute Basophils 0.07 Sodium 135 L Potassium 5.3 H Chloride 103 Carbon Dioxide 21.5 Anion Gap 10.5 BUN 45 H Creatinine 3.3 H Estimated GFR/1.73 m2 18.37 Glucose 95 Calcium 9.1 Total Bilirubin 0.8 AST 25 ALT 19 Alkaline Phosphatase 136 H Troponin I < 50 Total Protein 9.0 H Albumin 3.2 L Urine Color Yellow Urine Clarity Cloudy Urine pH 6.5 Ur Specific [place] 1.020 Urine Protein 100 H Urine Ketones Negative Urine Blood Moderate H Urine Nitrite Negative Urine Bilirubin Negative Urine Urobilinogen 0.2 Ur Leukocyte Esterase Large H Urine RBC >50 H Urine WBC >50 H Ur Epithelial Cells Not Applicable Urine Crystals Not Applicable Urine Bacteria Many Urine Mucus Not Applicable Ur Culture Indicated? Yes Urine Glucose Negative COVID-19 Source SARS-CoV-2 (PCR) 08/23/21 08/23/21 08/23/21 02:26 06:45 06:45 WBC 9.05 D RBC 3.19 L Hgb 9.3 L D Hct 29.2 L D MCV 91.5 MCH 29.2 MCHC 31.8 L RDW 15.8 H Plt Count 256 MPV 9.4 Immature Gran % 0.6 Neutrophils % 73.1 Lymphocytes % 13.8 Monocytes % 10.9 Eosinophils % 1.0 Basophils % 0.6 Nucleated RBC % 0 Absolute Neutrophils 6.62 Absolute Lymphocytes 1.25 Absolute Monocytes 0.99 H Absolute Eosinophils 0.09 Absolute Basophils 0.05 Sodium 137 Potassium 4.7 Chloride 107 Carbon Dioxide 20.1 L Anion Gap 9.9 BUN 41 H Creatinine 2.9 H Estimated GFR/1.73 m2 21.32 Glucose 90 Calcium 8.6 Total Bilirubin 0.5 AST 17 ALT 10 L Alkaline Phosphatase 101 Troponin I Total Protein 6.9 Albumin 2.3 L Urine Color Urine Clarity Urine pH Ur Specific [place] Urine Protein Urine Ketones Urine Blood Urine Nitrite Urine Bilirubin Urine Urobilinogen Ur Leukocyte Esterase Urine RBC Urine WBC Ur Epithelial Cells Urine Crystals Urine Bacteria Urine Mucus Ur Culture Indicated? Urine Glucose COVID-19 Source Nasal/Nares SARS-CoV-2 (PCR) Negative
--- NOTE | 2021-08-23 16:57 | UCONE_ITS ---
Date of service: 08/23/21 Time of Service: 16:57 Assessment and Plan Assessment and plan (1) Delirium: Status: Acute Assessment and plan: Based on our previous experience, the change in mental status for this gentleman was likely either to bacterial seeding from his recent suprapubic change or possibly a reaction to the Myrbetriq. The patient is agreeable to remaining in the hospital overnight until his culture and sensitivity are available. I believe he already has an appointment set up for his next suprapubic change at our office, so no additional appointments should be necessary. The patient and his family already know that they can call my office when issues arise unexpectedly. History of Present Illness History of Present Illness Chief Complaint: Urinary retention Narrative: This is a 76-year-old gentleman who has a history of Parkinson's disease. He has a high pressure bladder which did not respond to a transurethral resection of the prostate or to bladder relaxer treatments. He has vesicoureteral reflux with a baseline serum creatinine of about 3. Because of his Parkinson's, he is unable to perform intermittent catheterization. He was initially managed with an indwelling urethral catheter which was converted to a suprapubic tube. He has had recurrent urinary tract infections. When he develops an infection, his most common symptom is a change of mental status. He has also had mental status changes with medications. We have found that he is unable to tolerate anticholinergic medications. Over the weekend, he was seen in the emergency department with concerns for the sensation of needing to void and some urine coming from the urethra. His suprapubic tube was found to be patent so we suspected he was having bladder spasms. Because of his reaction to anticholinergics, we started him on Myrbetriq. He has received a total of 5 doses of Myrbetriq. I had seen him earlier this week for his first suprapubic tube change. The collier ge was uneventful, but 3 days later he developed mental status changes. He was brought to the hospital and admitted. After 24 hours, his mental status is much improved. His urine culture is still pending. Review of Systems Constitutional Comments: No fevers or chills No vision change or dysphasia No diabetes or thyroid dysfunction No cough or hemoptysis No chest pain or palpitations No nausea, vomiting, hepatitis, ulcers, jaundice Tremors and gait instability related to Parkinsons. No seizures, strokes No gout PFSH All Active Problems (Updated 08/23/21 @ 17:23 by Ana Moreland, SANTOSH) Discharge planning issues (Acute) Delirium (Acute) Urinary tract infection (Acute) FORTINO (acute kidney injury) (Acute) Memory loss (Acute) Chronic kidney disease (Chronic) Encounter for suprapubic catheter care (Acute) UTI (urinary tract infection) (Acute) Hydronephrosis (Acute) Calculus of proximal right ureter (Acute) Hydronephrosis, right (Acute) Acute renal failure (Acute) Prediabetes (Acute) Weight loss, non-intentional (Acute) Essential tremor (Acute) seeing neuro here Hydronephrosis, left (Acute) 08/06 US- improved from previous; follows with Dr Garcia Bilateral kidney stones (Acute 07/08/16) Urothelial carcinoma of bladder (Chronic) Bladder stone (Acute 07/08/16) Medical History Acute UTI 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 unsure of procedure, states they went up and pulled the stones out with a basket Parkinson disease Urinary retention Vesicoureteral reflux Surgical History Colonoscopy - IV Sedation (12/28/12) H/O cystoscopy History of back surgery lumbar S/P inguinal hernia repair using synthetic patch S/P TURP Family History Other Cancer Social History Smoking/Tobacco Use Status: Former Tobacco Use Quit Date: 06/16/19 Smoking risk assessment performed?: Yes Alcohol Intake: never Drug use: Never Substance use type: does not use Household members: spouse Housing: house current occupation: Retired Do you feel safe at home: Yes Do you feel safe in your relationship?: Yes Additional Social history: Pt son is present. Exam Narrative Exam Narrative: He is a pleasant gentleman. He recognizes me and greets me by name His vital signs are documented elsewhere His abdomen is soft. There is no erythema or ecchymosis around his suprapubic site. His urine is clear from the suprapubic tube He is awake and alert Results Last Vital Signs Temp 36.9 C 08/23/21 15:09 Pulse 60 08/23/21 15:09 Resp 14 08/23/21 15:09 BP 117/57 L 08/23/21 15:09 Pulse Ox 96 08/23/21 15:09 Labs Result diagrams: 08/23/21 06:45 08/23/21 06:45 Labs: Laboratory Results - last 24 hr 08/22/21 08/22/21 08/22/21 19:20 19:20 20:10 WBC 14.99 H RBC 4.03 L Hgb 11.6 L Hct 37.2 L MCV 92.3 MCH 28.8 MCHC 31.2 L RDW 15.8 H Plt Count 328 MPV 9.5 Immature Gran % 0.6 Neutrophils % 82.2 Lymphocytes % 8.6 Monocytes % 8.0 Eosinophils % 0.1 Basophils % 0.5 Nucleated RBC % 0 Absolute Neutrophils 12.32 H Absolute Lymphocytes 1.29 Absolute Monocytes 1.20 H Absolute Eosinophils 0.01 Absolute Basophils 0.07 Sodium 135 L Potassium 5.3 H Chloride 103 Carbon Dioxide 21.5 Anion Gap 10.5 BUN 45 H Creatinine 3.3 H Estimated GFR/1.73 m2 18.37 Glucose 95 Calcium 9.1 Total Bilirubin 0.8 AST 25 ALT 19 Alkaline Phosphatase 136 H Troponin I < 50 Total Protein 9.0 H Albumin 3.2 L Urine Color Yellow Urine Clarity Cloudy Urine pH 6.5 Ur Specific [place] 1.020 Urine Protein 100 H Urine Ketones Negative Urine Blood Moderate H Urine Nitrite Negative Urine Bilirubin Negative Urine Urobilinogen 0.2 Ur Leukocyte Esterase Large H Urine RBC >50 H Urine WBC >50 H Ur Epithelial Cells Not Applicable Urine Crystals Not Applicable Urine Bacteria Many Urine Mucus Not Applicable Ur Culture Indicated? Yes Urine Glucose Negative COVID-19 Source SARS-CoV-2 (PCR) 08/23/21 08/23/21 08/23/21 02:26 06:45 06:45 WBC 9.05 D RBC 3.19 L Hgb 9.3 L D Hct 29.2 L D MCV 91.5 MCH 29.2 MCHC 31.8 L RDW 15.8 H Plt Count 256 MPV 9.4 Immature Gran % 0.6 Neutrophils % 73.1 Lymphocytes % 13.8 Monocytes % 10.9 Eosinophils % 1.0 Basophils % 0.6 Nucleated RBC % 0 Absolute Neutrophils 6.62 Absolute Lymphocytes 1.25 Absolute Monocytes 0.99 H Absolute Eosinophils 0.09 Absolute Basophils 0.05 Sodium 137 Potassium 4.7 Chloride 107 Carbon Dioxide 20.1 L Anion Gap 9.9 BUN 41 H Creatinine 2.9 H Estimated GFR/1.73 m2 21.32 Glucose 90 Calcium 8.6 Total Bilirubin 0.5 AST 17 ALT 10 L Alkaline Phosphatase 101 Troponin I Total Protein 6.9 Albumin 2.3 L Urine Color Urine Clarity Urine pH Ur Specific [place] Urine Protein Urine Ketones Urine Blood Urine Nitrite Urine Bilirubin Urine Urobilinogen Ur Leukocyte Esterase Urine RBC Urine WBC Ur Epithelial Cells Urine Crystals Urine Bacteria Urine Mucus Ur Culture Indicated? Urine Glucose COVID-19 Source Nasal/Nares SARS-CoV-2 (PCR) Negative Change Bladder Catheter Text: The patient was seen at the bedside. His indwelling super pubic tube balloon was deflated and the catheter was removed. The stoma site was then prepped with Betadine. 2% Xylocaine jelly was instilled into the stoma and a 14 [place] catheter was passed through this site into the bladder. The catheter balloon was inflated with 5 cc of sterile water and the catheter was hooked to gravity drainage. He tolerated the procedure well.
[2021-08-23 19:40] VITALS: BP 115/61; PULSE 65; RESP 14; TEMP 37.1; O2SAT 95
[2021-08-23] MEDS: Melatonin 3 MG TAB PO (22:38)
[2021-08-24 03:11] VITALS: BP 110/62; PULSE 65; RESP 14; TEMP 37.4; O2SAT 95
[2021-08-24] MEDS: traMADol 50 MG TAB PO (06:01)
[2021-08-24 06:48] LABS: Abs Immature Grans 0.03 10^3/uL (0.0-0.06); Absolute Basophil Count 0.04 10^3/uL (0.0-0.2); Absolute Eosinophil Count 0.15 10^3/uL (0.0-0.7); Absolute Lymphocyte Count 1.29 10^3/uL (1.2-3.4); Absolute Monocyte Count 0.95 10^3/uL (0.1-0.8); Absolute Neutrophil Count 5.34 10^3/uL (1.2-6.7); Basophils % 0.5; Eosinophils % 1.9; HCT 30.4 % (40.0-50.0); HGB 9.5 g/dL (13.5-17.5); Immature Grans % 0.4; Lymphocytes % 16.5; MCH 28.7 pg (27.0-33.0); MCHC 31.3 % (32.0-36.0); MCV 91.8 fL (80-95); MPV 9.1 fL (8.0-11.0); Monocytes % 12.2; Neutrophils % 68.5; Nucleated RBC 0 %; Platelet Count 286 10^3/uL (130-400); RBC 3.31 10^6/uL (4.36-5.78); RDW 15.9 % (11.8-14.1); RDW-SD 53.4 fL
[2021-08-24 07:06] LABS: Anion Gap 12.1 mmol/L (3-11); BUN 41 mg/dL (7-18); CO2 18.9 mmol/L (21.0-32.0); CREATININE 2.7 mg/dL (0.70-1.30); Calcium 8.8 mg/dL (8.5-10.1); Chloride 106 mmol/L (98-107); Estimated GFR 23.15 (mL/min/1.73m2); Glucose 103 mg/dL (74-106); Potassium 4.3 mmol/L (3.5-5.1); Sodium 137 mmol/L (136-145)
[2021-08-24 07:30] VITALS: BP 109/60; PULSE 56; RESP 12; TEMP 36.9; O2SAT 94
[2021-08-24] MEDS: Mirabegron 25 MG TABCR PO (08:43)
[2021-08-24] MEDS: Docusate Sodium 100 MG CAP PO (08:43)
--- NOTE | 2021-08-24 09:38 | W.PM.PROGNOT ---
Date of Service Date of service: 08/24/21 Time of Service: 09:39 Assessment and Plan Assessment and plan (1) Delirium: Status: Acute Assessment and plan: Given his previous episodes of mental status change, I think it is reasonable to send him home with oral Levaquin or Cipro(unless the urine is identifying yeast in which case Diflucan can be prescribed). The patient has a very specific ways that he likes his drainage bag attached, so I will ask my office nurse to come down and set him up with his preferred leg bag. He already has a follow-up appointment with us for his next suprapubic tube change. Subjective Subjective Interval history since last seen: The patient was able to get some sleep overnight. His mental status seems back to baseline. He has no fever or chills Exam Narrative Exam Narrative: He looks well. He does not appear septic or toxic His vital signs are documented elsewhere He is awake and alert His urine is clear in the drainage tubing His urine culture is still listed as pending Objective Last Vital Signs Temp 36.9 C 08/24/21 07:30 Pulse 56 L 08/24/21 07:30 Resp 12 08/24/21 07:30 BP 109/60 08/24/21 07:30 Pulse Ox 94 08/24/21 07:30 Laboratory Results - last 24 hr 08/23/21 08/24/21 08/24/21 02:26 06:11 06:11 WBC 7.80 RBC 3.31 L Hgb 9.5 L Hct 30.4 L MCV 91.8 MCH 28.7 MCHC 31.3 L RDW 15.9 H Plt Count 286 MPV 9.1 Immature Gran % 0.4 Neutrophils % 68.5 Lymphocytes % 16.5 Monocytes % 12.2 Eosinophils % 1.9 Basophils % 0.5 Nucleated RBC % 0 Absolute Neutrophils 5.34 Absolute Lymphocytes 1.29 Absolute Monocytes 0.95 H Absolute Eosinophils 0.15 Absolute Basophils 0.04 Sodium 137 Potassium 4.3 Chloride 106 Carbon Dioxide 18.9 L Anion Gap 12.1 H BUN 41 H Creatinine 2.7 H Estimated GFR/1.73 m2 23.15 Glucose 103 Calcium 8.8 Magnesium 2.0 SARS-CoV-2 (PCR) Negative
--- NOTE | 2021-08-24 12:41 | CMDISCH_ITS ---
- If Service Date Differs Date of service: 08/24/21 Time of Service: 12:41 LACE Index Scoring Tool - Questions: Length of Stay (in days): 2 Acuity (Admit via E.D.?): Yes Comorbidities: Any Tumor, Connective Tissue Disease, Metastatic Solid Tumor E.D. Visits: 4 - Answers: Total Score: 14 Risk of Readmission: High Risk Care Management Discharge Reason for Hospitalization: AMS, UTI, FORTINO, Acute Hyperkalemia, Chronic Kidney Disease. Discharge Plan: Discharge home with Resumption of [facility] SN, OT and ST via private vehicle with family. Follow up with community providers and discharge plan of care as prescribed. Patient/Family Education Needs: Review discharge instructions, limitations, medications and plan to follow up with community providers. ask me three. Services Needed at Discharge: Home Health Care Services ([facility] of [facility] RN, OT, ST (CM notified [facility]))
--- NOTE | 2021-08-24 13:00 | W.PM.DS.N ---
Date of service: 08/24/21 Time of Service: 13:01 DS: Diagnosis Discharge Diagnosis (1) AMS (altered mental status): Start date: 08/24/21 Start time: 13:02 Status: Resolved Asessment and Plan: Likely d/t dehydration. Hydrated with IVF. Feeling much better. Also some mild cognitive impairment with parkinsons. Also found to have a uti initiated on levaquin, growing pseudomonas greater than 100,000 colonies Wiill cover with 500 q 48 hours. He has a suprapubic catheter that was changed by Dr. Garcia. He will be seen as an outpatient. He is now at baseline and ready for discharge. D/t complicated UTI a 7 day course will be given. He is being discharged home with resumption of services. (2) FORTINO (acute kidney injury): Start date: 08/24/21 Start time: 13:11 Status: Acute Asessment and Plan: Improved. Near baseline if not baseline. discussed with Dr. Garcia Discharge Plan Disposition Patient Disposition: HOME W/HOME HEALTH SERVICE Condition: Stable Discharge Details Reason For Visit: Altered Mental Status,FORTINO,UTI,Bladder Cancer Admit Date/Time: 08/22/21 21:33 Admit Provider: Aleks Song Attending Provider: Aleks Song Primary Care Provider: [facility] Course Hospital Course: Patient admitted after having AMS for UTI. Has suprapubic from parkinsons with mild cognitive disease. Found to have UTI, pseudomona on levaquin. Will give 7 day as complicated UTI, also found to have FORTINO, give IVF and FORTINO resolved. Hyperkalkemia that resolved,CKD. He is feeling better and ready discharge. He will f/u with Dr. Garcia as an outpatient. Levaquin every 48 hours he will need to take a dose this evening at 8 pm and againg every 2 days at 8 pm for 6 more doses. Resume HH services. Home Meds and New Rx's Prescriptions: New levofloxacin 500 mg tablet 500 mg PO Q48H Qty: 6 0RF Rx Instructions: Take first tab at 8 pm tonight then every 2 days until finished Continued Myrbetriq 25 mg tablet extended release 24 hr 25 mg PO DAILY Qty: 28 0RF acetaminophen [Tylenol] 325 mg capsule 650 mg PO Q6H PRNQty: 30 0RF Discharge Instructions Instructions: Altered Mental Status (GEN), Catheter-associated Urinary Tract Infection (DC) Additional Instructions: Take levaquin every two days starting tonight at 8 pm for 6 doses. Resume services follow up with Dr. Garcia as scheduled. Activity:: Activity as Tolerated Equipment/Supplies:: No Equipment Needed Diet:: low potassium Discharge Orders Discharge Orders: Discharge Order (Routine); Ordered 08/24/21 Ordered By: Kerri Diggs DS: Summary Time Spent with Patient providing and/or coordinating discharge services: Less than 30 minutes Status at Discharge Functional status at discharge: independent ambulation Overall status at discharge: patient is back to baseline Mental Status: other Speech and Movement: speech and movement normal Mood: other Affect: other Exam Const General: cooperative and frail appearing Nutritional Appearance: thin Orientation: alert, awake and oriented x3 HENMT Head: normal to inspection, normocephalic and atraumatic Mouth: oral mucosae normal Resp Effort & Inspection: normal respiratory effort Auscultation: clear to auscultation bilaterally Cardio Rate: regular rate Rhythm: regular rhythm GI Inspection: normal to inspection (suprapubic cath intact) Palpation: soft Auscultation: normal bowel sounds Skin General skin exam: no rashes or lesions noted Neuro General: patient alert, patient awake, patient oriented x3 and no focal motor deficits Extrem General: normal to inspection, full ROM and no pedal edema Psych Mental Status: other Speech and Movement: speech and movement normal Mood: other Affect: other DS: Data Vitals/I&O Vitals and I&O: Vital Signs Temperature 36.9 C 08/24/21 07:30 Temperature Source Tympanic 08/24/21 07:30 Pulse 56 L 08/24/21 07:30 Pulse Rhythm Regular 08/24/21 09:54 Pulse 75 08/22/21 20:16 Respiratory Rate 12 08/24/21 07:30 Respiratory Effort 08/24/21 09:54 Respiratory Depth Normal 08/24/21 09:54 Respiratory Pattern Normal 08/24/21 09:54 Blood Pressure 109/60 08/24/21 07:30 Blood Pressure Mean 85 08/22/21 21:31 Blood Pressure Position Supine 08/22/21 19:13 Pulse Oximetry 94 08/24/21 07:30 Oxygen Delivery Method Room Air 08/24/21 07:30 Oxygen Flow Rate 0 08/24/21 07:30 Pain Level 0 08/24/21 07:30 Comment 08/22/21 22:39 Intake & Output 08/23/21 08/24/21 08/24/21 23:59 11:59 23:59 Intake Total 420 / 1688.333 190 / 190 Output Total 1324 1350 / 1350 Balance -905 / -336.667 -1160 / -1160 Weight 57.2 kg Intake: Oral 420 / 700 190 / 190 Output: Urine 1324 1350 / 1350 Other: Urine Color Pale Yellow Yellow Urine Appearance Cloudy Cloudy Comment Patient was uncomfortable, leg belt had slipped and tension was on catheter line. Belt and tubing waws adjusted and comfort was provided Data Completed and Pending Completed studies during hospitalization [Text1]: FINDINGS: Noncontrast cranial CT was performed.? There is moderate generalized cerebral atrophy and there are patchy areas of decreased attenuation in periventricular white matter consistent with microvascular ischemic changes.? There are apparent old lacunar infarcts involving basal ganglia on the right and sub insular cortex bilaterally. No evidence of acute intracranial hemorrhage, mass effect, or midline shift.? The orbital and temporal bone structures appear intact. IMPRESSION: No evidence of acute intracranial process. COMPARISON:? CR XR PORTABLE CHEST AP from 03/08/2020 FINDINGS: The heart is not enlarged.? Lungs are predominantly clear with some lower lobe scarring.? No focal consolidation.? No pleural effusion seen on this frontal film. IMPRESSION: No evidence of acute process. COMPARISON: CR XR PORTABLE CHEST AP 03/08/2020 2:19 PM FINDINGS: Lungs: Question slight hyperexpansion and hyperlucency with minimal diaphragmatic flattening suggesting possible COPD. Pulmonary vasculature grossly normal. No gross pulmonary infiltrates or edema pattern. Pleural spaces: No pleural effusion. No pneumothorax. Heart/Mediastinum: Heart size normal. No tracheal/mediastinal shift. Vasculature: The aorta demonstrates mild ectasia/tortuosity and mild calcific atherosclerosis. Bones/joints: No acute osseous abnormalities are identified. Osteopenia. IMPRESSION: 1. No acute thoracic process. 2. Evidence of COPD. IMPRESSION: 1. No acute intracranial process. No intracranial hemorrhage or mass effect. No significant change from 07/02/2021. 2. No CT evidence of intracranial metastasis. MRI would be more sensitive for small brain metastases if clinically indicated. 3. Atrophy and chronic microvascular changes consistent with age. Small chronic infarcts in the inferior right basal ganglia and right caudate head unchanged. 4. Moderate calcific atherosclerosis. FINDINGS: Renal ultrasound was performed according to the usual protocol.? The patient reportedly has a Fay catheter in position and the urinary bladder is empty. There is moderate to severe right hydronephrosis.? There is an incidental simple cyst of the upper pole of the right kidney.? No definite nephrolithiasis on the right. Left kidney shows no evidence of hydronephrosis.? There are lower pole renal calculi on the left measuring about 8 millimeters and 11 millimeters in diameter with posterior acoustic shadowing and twinkle artifact associated with these calcifications.? There are multiple left renal cysts, the largest measuring about 25 millimeters in greatest diameter at the upper pole of the kidney. IMPRESSION: Moderate to severe right hydronephrosis.? Left nephrolithiasis without hydronephrosis. Labs on day of discharge: Labs from last 24 hours 08/24/21 08/24/21 06:11 06:11 WBC 7.80 RBC 3.31 L Hgb 9.5 L Hct 30.4 L MCV 91.8 MCH 28.7 MCHC 31.3 L RDW 15.9 H Plt Count 286 MPV 9.1 Immature Gran % 0.4 Neutrophils % 68.5 Lymphocytes % 16.5 Monocytes % 12.2 Eosinophils % 1.9 Basophils % 0.5 Nucleated RBC % 0 Absolute Neutrophils 5.34 Absolute Lymphocytes 1.29 Absolute Monocytes 0.95 H Absolute Eosinophils 0.15 Absolute Basophils 0.04 Sodium 137 Potassium 4.3 Chloride 106 Carbon Dioxide 18.9 L Anion Gap 12.1 H BUN 41 H Creatinine 2.7 H Estimated GFR/1.73 m2 23.15 Glucose 103 Calcium 8.8 Magnesium 2.0 Preliminary micro results at discharge 08/22/21 20:10 Urine Culture - Preliminary Urine - Reflex from Ua Pseudomonas aeruginosa Pseudomonas aeruginosa#2 PFSH All Active Problems Discharge planning issues (Acute) Delirium (Acute) Urinary tract infection (Acute) FORTINO (acute kidney injury) (Acute) Memory loss (Acute) Chronic kidney disease (Chronic) Encounter for suprapubic catheter care (Acute) UTI (urinary tract infection) (Acute) Hydronephrosis (Acute) Calculus of proximal right ureter (Acute) Hydronephrosis, right (Acute) Acute renal failure (Acute) Prediabetes (Acute) Weight loss, non-intentional (Acute) Essential tremor (Acute) seeing neuro here Hydronephrosis, left (Acute) 08/06 US- improved from previous; follows with Dr Garcia Bilateral kidney stones (Acute 07/08/16) Urothelial carcinoma of bladder (Chronic) Bladder stone (Acute 07/08/16) Medical History Acute UTI 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 unsure of procedure, states they went up and pulled the stones out with a basket Parkinson disease Urinary retention Vesicoureteral reflux Surgical History Colonoscopy - IV Sedation (12/28/12) H/O cystoscopy History of back surgery lumbar S/P inguinal hernia repair using synthetic patch S/P TURP Family History Other Cancer Social History Smoking/Tobacco Use Status: Former Tobacco Use Quit Date: 06/16/19 Smoking risk assessment performed?: Yes Alcohol Intake: never Drug use: Never Substance use type: does not use Household members: spouse Housing: house current occupation: Retired Do you feel safe at home: Yes Do you feel safe in your relationship?: Yes Additional Social history: Pt son is present.
== END 2021-08-24 13:48 | disposition home health service (06) | DRG 683 ==
LOC: ER 21:25 → MS 22:06
PROVIDERS: Internal Medicine; Admitting Provider Family Medicine; Emergency Provider Emergency Medicine; PCP Nurse Practitioner; Visit Provider Family Medicine
DX: N17.9 Acute kidney failure, unspecified (principal); N39.0 Urinary tract infection, site not specified; Z68.1 Body mass index [BMI] 19.9 or less, adult; E87.5 Hyperkalemia; N18.9 Chronic kidney disease, unspecified; R41.82 Altered mental status, unspecified; E86.0 Dehydration; Z93.51 Cutaneous-vesicostomy status; C67.9 Malignant neoplasm of bladder, unspecified; R73.03 Prediabetes; G25.0 Essential tremor; R63.4 Abnormal weight loss; G20 Parkinson's disease; R33.9 Retention of urine, unspecified; G31.84 Mild cognitive impairment of uncertain or unknown etiology
CPT/HCPCS: 51705; 36415; 76770; 80048; 80053; 87077; 87635; 93005; 96361; 96365; 96368; 99223; 99232; 99285; 99443; U0005; 70450; 71045; 81003; 81015; 83735; 84484; 85025; 87086; 87186; 93010; 99233; 99238; J1644; J1956

== ENCOUNTER → 2021-08-23 07:43 | Outpatient (BNVA) | payer MEDICARE, SELFPAY | PROVIDERS: PCP Nurse Practitioner; Referring Provider Nurse Practitioner; Visit Provider Urology | DX: R69 Illness, unspecified (principal) ==

== ENCOUNTER → 2021-09-20 13:55 | Outpatient (BNVA) | payer MEDICARE, SELFPAY | PROVIDERS: PCP Nurse Practitioner; Referring Provider Nurse Practitioner; Visit Provider Nurse Practitioner Gerontology | DX: Z43.5 Encounter for attention to cystostomy (principal) | CPT/HCPCS: 51705 ==

== ENCOUNTER 2021-09-26 09:32 | Outpatient (REF) | payer MEDICARE, SELFPAY ==
[2021-09-26 14:08] LABS: Bilirubin Negative (Negative); Blood Moderate (Negative); Clarity Cloudy (Clear); Glucose Negative (Negative); Ketones Negative (Negative); Leukocyte Esterase Large (Negative); Nitrite Positive (Negative); Urobilinogen 0.2 EU/dL (Up TO 0.2); pH 6.5 (5-8)
[2021-09-26 14:19] LABS: WBC >50 HPF (0-5)
[2021-09-26 14:22] LABS: C & S Indicated? Yes
== END 2021-09-26 09:33 | disposition home or self-care (01) ==
LOC: LBN 09:32
PROVIDERS: PCP Nurse Practitioner; Visit Provider Urology
DX: N20.0 Calculus of kidney (principal); C67.9 Malignant neoplasm of bladder, unspecified
CPT/HCPCS: 87077; 81003; 81015; 87086; 87186

== ENCOUNTER 2021-09-27 01:19 | Outpatient (CLI) | payer MEDICARE, SELFPAY ==
--- NOTE | 2021-09-27 | DI.US_ITS ---
Exam(s) US RENAL EXAM: US RENAL CLINICAL HISTORY: monitor known stones,bilat,n20.0 TECHNIQUE: Ultrasound performed using standard protocol. COMPARISON: US US RENAL from 08/23/2021 FINDINGS: Renal ultrasounds performed according to the usual protocol. There are multiple bilateral renal calc ronal, the largest in the upper pole left kidney measuring about 1 cm in diameter. The show posterior acoustic shadowing and twinkle artifact. No left hydronephrosis. There is severe right hydronephrosis which is increased since prior examination of 08/23/2021. There is now echogenic layering material in the collecting system on the right, this is nonspecific but in appropriate clinical situation could represent hemorrhage. Infectious process not excluded. Urinary bladder was empty, the patient reportedly has an indwelling catheter. IMPRESSION: Increased right hydronephrosis since prior examination of August 23, 2021. Echogenic layering materia l now present in the right collecting system, nonspecific. Bilateral nephrolithiasis again noted. DATA REPOSITORY:
== END 2021-09-27 01:39 ==
PROVIDERS: PCP Nurse Practitioner; Visit Provider Urology
DX: N13.2 Hydronephrosis with renal and ureteral calculous obstruction (principal)
CPT/HCPCS: 76770

== ENCOUNTER 2021-10-25 11:38 | Outpatient (REF) | payer MEDICARE, SELFPAY ==
[2021-10-25 13:52] LABS: Bilirubin Negative (Negative); Blood Moderate (Negative); Clarity Cloudy (Clear); Glucose Negative (Negative); Ketones Negative (Negative); Leukocyte Esterase Moderate (Negative); Nitrite Negative (Negative); Urobilinogen 0.2 EU/dL (Up TO 0.2); pH 5.5 (5-8)
[2021-10-25 13:59] LABS: Bacteria Few HPF (Negative); C & S Indicated? Yes; Casts 0-2 Hyaline LPF (Negative); Crystals Negative HPF (Negative); Epithelial Cells Rare HPF (Negative); Mucus Negative (Negative); WBC >50 HPF (0-5)
== END 2021-10-25 11:39 | disposition home or self-care (01) ==
LOC: LBN 11:38
PROVIDERS: PCP Nurse Practitioner; Visit Provider Urology
DX: R82.998 Other abnormal findings in urine (principal); N13.30 Unspecified hydronephrosis
CPT/HCPCS: 87077; 81003; 81015; 87086; 87186

== ENCOUNTER 2021-10-30 16:26 | Outpatient (REF) | payer MEDICARE, SELFPAY ==
[2021-10-30 12:39] LABS: CREATININE 2.7 mg/dL (0.70-1.30); Estimated GFR 23.15 (mL/min/1.73m2)
== END 2021-10-30 16:27 | disposition home or self-care (01) ==
LOC: NCHCN 16:26
PROVIDERS: PCP Nurse Practitioner; Visit Provider Nurse Practitioner
DX: U07.1 COVID-19 (principal)
CPT/HCPCS: 82565

== ENCOUNTER 2021-11-01 14:14 | Outpatient (REF) | payer MEDICARE, SELFPAY ==
[2021-11-01 14:42] LABS: Bilirubin Negative (Negative); Blood Large (Negative); Clarity Cloudy (Clear); Glucose Negative (Negative); Ketones Negative (Negative); Leukocyte Esterase Large (Negative); Nitrite Negative (Negative); Urobilinogen 0.2 EU/dL (Up TO 0.2); pH 6.5 (5-8)
[2021-11-01 14:51] LABS: Bacteria Few HPF (Negative); C & S Indicated? C&S Done As Ordered; Casts 5-10 Hyaline LPF (Negative); Crystals Negative HPF (Negative); Epithelial Cells Few HPF (Negative); Mucus Negative (Negative); RBC >50 HPF (0-2); WBC >50 HPF (0-5)
== END 2021-11-01 14:15 | disposition home or self-care (01) ==
LOC: LBN 14:14
PROVIDERS: PCP Nurse Practitioner; Visit Provider Urology
DX: C67.9 Malignant neoplasm of bladder, unspecified (principal); N13.30 Unspecified hydronephrosis; N20.1 Calculus of ureter; N21.0 Calculus in bladder; N39.0 Urinary tract infection, site not specified
CPT/HCPCS: 81003; 81015; 87086

== ENCOUNTER → 2021-11-15 10:40 | Outpatient (BNVA) | payer MEDICARE, SELFPAY | PROVIDERS: PCP Nurse Practitioner; Referring Provider Nurse Practitioner; Visit Provider Psychiatry & Neurology Neurology | DX: G20 Parkinson's disease (principal); G25.0 Essential tremor; R41.82 Altered mental status, unspecified; N18.9 Chronic kidney disease, unspecified; R41.3 Other amnesia | CPT/HCPCS: 99214 ==

== ENCOUNTER → 2021-11-23 15:08 | Outpatient (BNVA) | payer MEDICARE, SELFPAY | PROVIDERS: PCP Nurse Practitioner; Referring Provider Nurse Practitioner; Visit Provider Urology | DX: G20 Parkinson's disease (principal); C67.9 Malignant neoplasm of bladder, unspecified; N47.1 Phimosis; N13.70 Vesicoureteral-reflux, unspecified; N39.0 Urinary tract infection, site not specified | CPT/HCPCS: 99214; 96372; J0696 ==

== ENCOUNTER → 2021-12-14 10:02 | Outpatient (BNVA) | payer MEDICARE, SELFPAY | PROVIDERS: PCP Nurse Practitioner; Referring Provider Nurse Practitioner; Visit Provider Urology | DX: C67.9 Malignant neoplasm of bladder, unspecified (principal); N47.1 Phimosis; N13.70 Vesicoureteral-reflux, unspecified; N20.0 Calculus of kidney; R73.03 Prediabetes | CPT/HCPCS: 99213 ==

== ENCOUNTER 2021-12-14 16:10 | Outpatient (REF) | payer MEDICARE, SELFPAY | END 2021-12-14 16:11 | disposition home or self-care (01) | LOC: LBN 16:10 | PROVIDERS: PCP Nurse Practitioner; Visit Provider Urology | DX: N20.0 Calculus of kidney (principal); R82.998 Other abnormal findings in urine; N13.30 Unspecified hydronephrosis; R73.03 Prediabetes; Z85.51 Personal history of malignant neoplasm of bladder | CPT/HCPCS: 87077; 87086; 87186 ==

== ENCOUNTER 2022-01-01 17:09 | Outpatient (REF) | payer MEDICARE, SELFPAY ==
[2022-01-02 20:09] LABS: COVID-19 RT-PCR UVMMC Result Negative (Negative)
== END 2022-01-01 17:10 | disposition home or self-care (01) ==
LOC: LBN 17:09
PROVIDERS: PCP Nurse Practitioner; Visit Provider Urology
DX: Z20.822 Contact with and (suspected) exposure to COVID-19 (principal); Z01.818 Encounter for other preprocedural examination
CPT/HCPCS: 87635; U0003

== ENCOUNTER 2022-01-02 18:48 | Outpatient (REF) | payer MEDICARE, SELFPAY ==
[2022-01-02 17:38] LABS: Source Nasal/Nares
[2022-01-02 20:30] LABS: COVID-19 PCR Negative (Negative)
== END 2022-01-02 18:49 | disposition home or self-care (01) ==
LOC: LBN 18:48
PROVIDERS: PCP Nurse Practitioner; Visit Provider Urology
DX: Z20.822 Contact with and (suspected) exposure to COVID-19 (principal); Z01.818 Encounter for other preprocedural examination
CPT/HCPCS: 87635

== ENCOUNTER 2022-01-03 07:10 | Day surgery (SDC) | payer MEDICARE, SELFPAY ==
[2022-01-03 07:20] VITALS: BP 116/63; PULSE 59; RESP 16; TEMP 36.6; O2SAT 98
[2022-01-03 07:39] VITALS: BMI 23.1
--- NOTE | 2022-01-03 07:39 | ANES.PREOP_ITS ---
General Info Date of Service Date Performed: 01/03/22 Height: 5 ft 7 in Weight: 67.188 kg Body Mass Index (BMI): 23.1 Surgical Procedure: Operation Date: 01/03/22 08:40 Proposed Procedure Side Surgeon p Cystoscopy w/Possible Transurethral Resection Bladder Tumor/ Dorsal Slit Rai Garcia MD Meds Allergies and Home Medications Allergies Allergy/AdvReac Type Severity Reaction Status Date / Time oxybutynin AdvReac Severe Other (See Verified 01/03/22 07:10 Comment) Home Medication Medication Instructions Recorded acetaminophen 325 mg capsule 650 mg PO Q6H PRN #30 caps 05/15/20 (Tylenol) mirabegron 25 mg tablet,extended 25 mg PO DAILY #30 tabs 09/10/21 release 24 hr (Myrbetriq) lidocaine HCl 2 % mucosal jelly in 5 ml topical ONCE #125 mL 10/31/21 applicator (Glydo) Current Visit Medications: Current Medications Generic Name Dose Route Start Last Admin Trade Name Freq PRN Reason Stop Dose Admin Ringer's Solution 1,000 mls @ 80 mls/hr 01/03/22 06:00 IV 02/01/22 23:59 INFUSION EDNA Imipenem/Cilastatin Sodium 250 50 mls @ 100 mls/hr 01/03/22 06:00 mg/ Sodium Chloride IVPB 01/03/22 18:00 PREOP [facility] IV Miscellaneous Supplies 1 each 01/03/22 06:00 Iv Access IV 02/01/22 23:59 DIRECTED EDNA Sodium Chloride 0 ml 01/03/22 06:00 Normal Saline Flush 10 Ml Syr IV 02/01/22 23:59 PRN PRN Sodium Chloride 0 ml 01/03/22 06:00 Normal Saline 10 Ml Vial IJ 02/01/22 23:59 DIRECTED PRN Sterile Water 0 ml 01/03/22 06:00 Water,Injection,Sterile 10 Ml Vial IJ 02/01/22 23:59 DIRECTED PRN Trimethoprim/Sulfamethoxazole 1 tab 01/03/22 06:00 Sulfameth/Trimeth Ds Tab PO 01/03/22 18:00 PREOP EDNA PFSH Active Problems Active Problems: Problem Status Onset Code Urothelial carcinoma of bladder C67.9 Bilateral kidney stones 07/08/16 N20.0 Parkinson disease G20 Essential tremor G25.0 Weight loss, non-intentional R63.4 Prediabetes R73.03 Hydronephrosis, right N13.30 Memory loss R41.3 Depression F32.A CKD (chronic kidney disease) stage 4, GFR 15-29 ml/min N18.4 Phimosis N47.1 Medical History Medical History Anesthesia Hx of combative [id number] son should be there when he wake up and it keeps him calm Bladder stone (07/08/16) 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 unsure of procedure, states they went up and pulled the stones out with a basket Hydronephrosis, left 08/06 US- improved from previous; follows with Dr Garcia Urinary retention Vesicoureteral reflux Medical History Comments:: Hx of combastive wake up in the past, gets confused easily. Needs to have somebody (family) there when he wakes up Surgical History Surgical History Colonoscopy - IV Sedation (12/28/12) H/O cystoscopy History of back surgery lumbar S/P inguinal hernia repair using synthetic patch S/P TURP Tobacco Smoking/Tobacco Use Status: Former Tobacco Use Alcohol Alcohol Intake: never Substance Use Substance use: Never Substance use type: does not use Vital Signs and Lab Results Vital Signs Most Recent Vital Signs in EMR: Most Recent Vital Signs Temp Pulse Resp BP Pulse Ox 36.6 C 59 L 16 116/63 98 01/03/22 07:20 01/03/22 07:20 01/03/22 07:20 01/03/22 07:20 01/03/22 07:20 Lab Results Blood Type / Crossmatch: No Data to Display Complete Blood Count: No Data to Display Complete Metabolic Panel: No Data to Display Liver Function Panel: No Data to Display Coagulation Panel: No Data to Display Cardiac Panel: No Data to Display Arterial Blood Gas: No Data to Display Venous Blood Gas: No Data to Display Pancreas Panel: No Data to Display Thyroid Panel: No Data to Display Infectious Disease: Coronavirus (COVID-19)(PCR) Negative (Negative) 01/02/22 16:40 Coronavirus 2019 Source Nasal/Nares 01/02/22 16:40 Blood Cultures: No Data to Display Toxicology Panel: No Data to Display Imaging and Studies Imaging and Studies Study information below may be from another EMR and interpreted by another provider. Please see original notes in EMR for more complete details. EKG Summary: Conclusion Sinus tachycardia...rate> 99 Inferior infarct, old...Q >35mS, II III aVF Anesthesia Assessment and Plan Anesthesia History Personal History: No History of Anesthesia Complications and Other Family History: No Family History of Anesthesia Complications Exercise Tolerance Exercise Tolerance: Metabolic Equivalents>4 Pertinent Negatives Pertinent Negatives: No Symptoms of GERD Cardiac & Pulmonary Exam Cardiac Exam: Normal S1/S2 Heart Sounds Pulmonary Exam: Clear Bilateral Breath Sounds Implantable Cardiac Device Does patient have a Pacemaker or an ICD?: No Airway Exam Known Difficult Airway: No Mallampati Class: 1 Mouth Opening: Normal (> 3cm) Thyromental Distance: Greater than 3 cm Neck Range of Motion: Full ROM Neck Circumference: Normal Teeth Condition: Removable Dentures/Plates Upper and Removable Dentures/Plates Lower ASA Classification ASA Score: ASA 3 Emergency Case?: No NPO Status NPO Status: NPO Clears >2 hours, Solids >8 hours Anesthesia Plan Resuscitation Status: Full Code Anesthesia Technique: General Anesthesia Airway Planned: Natural Airway Monitors Used: Standard Monitors
[2022-01-03] MEDS: Lactated Ringers 1,000 ML 80 ML IV (07:48)
[2022-01-03] MEDS: Sulfameth/Trimeth DS TAB 1 TAB PO (07:50)
--- NOTE | 2022-01-03 07:51 | W.PM.HP.N ---
Date of service: 01/03/22 Time of Service: 07:53 Assessment and Plan Assessment and plan (1) Phimosis: Status: Acute Assessment and plan: We will perform a dorsal slit for the phimosis (2) Urothelial carcinoma of bladder: Status: Chronic Assessment and plan: We will do cystoscopy and possible TURBT. We will plan on changing his suprapubic tube in the OR. History of Present Illness History of Present Illness Chief Complaint: Phimosis Narrative: This is a 76-year-old gentleman who has a history of urothelial cell carcinoma of the bladder.? He has been treated with transurethral resection previously. He has developed a high pressure bladder with bilateral hydronephrosis and renal insufficiency.? He has not responded to medical management or transurethral resection of the prostate, so he is a chronic indwelling suprapubic tube. He comes in to discuss a surveillance cystoscopy.? He has been having bladder spasms and discomfort, so at some point, we had discussed using a Botox injection to help cut down on his symptoms.? He tells me that he is decided he does not want to have the Botox at this time.? He is however interested in a dorsal slit procedure for his phimosis. Review of Systems Narrative: No fevers or chills No vision change or dysphasia No diabetes or thyroid dysfunction No shortness of breath, cough or hemoptysis No chest pain or palpitations No nausea, vomiting, hepatitis, ulcers, jaundice Tremor. No seizures, strokes or peripheral neuropathy No bleeding disorders or anemia No gout PFSH All Active Problems Urothelial carcinoma of bladder (Chronic) Bilateral kidney stones (Acute 07/08/16) Parkinson disease (Chronic) Essential tremor (Acute) seeing neuro here Weight loss, non-intentional (Acute) Prediabetes (Acute) Hydronephrosis, right (Acute) Memory loss (Acute) Depression (Chronic) CKD (chronic kidney disease) stage 4, GFR 15-29 ml/min (Acute) Phimosis (Acute) Medical History Anesthesia Hx of combative [id number] son should be there when he wake up and it keeps him calm Bladder stone (07/08/16) 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 unsure of procedure, states they went up and pulled the stones out with a basket Hydronephrosis, left 08/06 US- improved from previous; follows with Dr Garcia Urinary retention Vesicoureteral reflux Surgical History Colonoscopy - IV Sedation (12/28/12) H/O cystoscopy History of back surgery lumbar S/P inguinal hernia repair using synthetic patch S/P TURP Family History Other Cancer Social History Smoking/Tobacco Use Status: Former Tobacco Use Quit Date: 06/16/19 Smoking risk assessment performed?: Yes Alcohol Intake: never Drug use: Never Substance use type: does not use Household members: spouse Housing: house current occupation: Retired Do you feel safe at home: Yes Additional Social history: Pt son is present. Meds Allergies and Home Medications Allergies Allergy/AdvReac Type Severity Reaction Status Date / Time oxybutynin AdvReac Severe Other (See Verified 01/03/22 07:10 Comment) Home Medications Medication Instructions Recorded Confirmed Type acetaminophen 325 mg capsule 650 mg PO Q6H PRN #30 caps 05/15/20 01/02/22 Rx (Tylenol) mirabegron 25 mg tablet,extended 25 mg PO DAILY #30 tabs 09/10/21 01/03/22 Rx release 24 hr (Myrbetriq) lidocaine HCl 2 % mucosal jelly in 5 ml topical ONCE #125 mL 10/31/21 01/02/22 Rx applicator (Glydo) Exam Const General: cooperative Neck Neck: supple Resp Effort & Inspection: normal respiratory effort Auscultation: clear to auscultation bilaterally Cardio Rate: regular rate Rhythm: regular rhythm GI Palpation: soft Other: SP tube in place Neuro General: patient alert and patient awake Results Last Vital Signs Temp 36.6 C 01/03/22 07:20 Pulse 59 L 01/03/22 07:20 Resp 16 01/03/22 07:20 BP 116/63 01/03/22 07:20 Pulse Ox 98 01/03/22 07:20
[2022-01-03] MEDS: Lidocaine 2% Jelly 6 ML SYR (08:46)
[2022-01-03] MEDS: Lidocaine 1.5 % Pres-Free W/EPI 1/200,000 30 ML VIAL (08:46)
--- NOTE | 2022-01-03 08:59 | BLADDER_PTH ---
PATIENT: Noah Izquierdo Sr LOC: [facility] U#:[id number] AGE/SX: 76/M ROOM: RE01/03/[address]: Rai Garcia MD : 1945 BED: DIS: 01/03/2022 SPEC #: [id number] RECD: 01/03/22 12:35 STATUS: CLIVE RE #: [id number] ASHLEY: 01/03/22 08:[address]: Rai Garcia DEPT: Surgical Specimen RECD BY: Radha Warren ENTERED: 01/03/22 12:36 SP TYPE: Bladder OTHR DR: Miriam Serna, PhD [employer] Tissues: 1 - BLADDER BIOPSY Procedures: GROSS AND MICRO LEVEL 4 Comments: [id number]
--- NOTE | 2022-01-03 09:14 | W.PM.DSUDISC ---
Discharge Plan Disposition Patient Disposition: HOME Discharge Details Reason For Visit: phimosis/bladder cancer Attending Provider: Rai Garcia Primary Care Provider: Miriam Serna Home Meds and New Rx's Prescriptions: No Action Myrbetriq 25 mg tablet extended release 24 hr 25 mg PO DAILY Qty: 30 6RF lidocaine HCl [Glydo] 2 % jelly in applicator 5 ml topical ONCE Qty: 125 0RF Rx Instructions: as a single dose to SPT site before catheter insertion acetaminophen [Tylenol] 325 mg capsule 650 mg PO Q6H PRNQty: 30 0RF Discharge Instructions Additional Instructions: call my office to have staff dress tube site and adjust catheter drainage bag have office change next Friday's visit to telehealth so that we can discuss pathology results Activity:: Activity as Tolerated Shower/Bathe:: 24 hours Diet:: As Tolerated Discharge Orders Discharge Orders: Discharge Order (Routine); Ordered 01/03/22 Ordered By: Rai Garcia DS: Diagnosis Discharge Diagnosis (1) Phimosis: Status: Acute (2) Urothelial carcinoma of bladder: Status: Chronic
[2022-01-03 09:15] VITALS: BP 103/53; PULSE 52; RESP 16; TEMP 36.2; O2SAT 97
--- NOTE | 2022-01-03 09:18 | W.PM.OP ---
Date of service: 01/03/22 Time of Service: 09:18 Operative Note Operative Note DATE OF PROCEDURE: 01/03/22 PRE-OP DIAGNOSIS: 1. Phimosis 2. History bladder cancer PROCEDURE: Dorsal slit of penis, cystoscopy with TUR bladder lesion SURGEON: Rai Garcia ANESTHESIA TYPE: General:No Airway Refer to Anesthesia Record ESTIMATED BLOOD LOSS: 10 PATHOLOGY: other (transurethral bladder biopsy) COMPLICATIONS: None Patient was transported to: same day Patient's condition: stable Implants: 16 Ukrainian suprapubic catheter with 10 cc sterile water in balloon Indications: This is a 76-year-old gentleman who has a history of urothelial cell carcinoma of the bladder. He has been treated with previous transurethral resection. He is due for surveillance cystoscopy. He also has a history of a high pressure bladder that did not respond to medical and surgical therapy. He currently has an indwelling suprapubic tube. This gentleman is not circumcised and he is unable to retract the foreskin for hygiene. He presents for dorsal slit procedure as well as cystoscopy. Findings: Small erythematous patches at the bladder neck Procedure Description: The patient was given a dose of preoperative antibiotics. He was brought to the operating room on 01/03/2022. After successful induction of general anesthesia without intubation, he was placed in the dorsal lithotomy position. His genitalia was prepped and draped. The Emanuel stomal area of the suprapubic tube was prepped as well. We then clamped off his indwelling suprapubic tube. We began with a dorsal slit procedure and infiltrated the foreskin on the ventral aspect of the penis. We incised used from the skin edge back to the coronal sulcus in order to expose the glans. We then oversewed the edges of the incision using 2-0 chromic suture. A large amount of smegma was identified and the debris was removed. 2% Xylocaine jelly was then instilled into the urethra. A 24 Ukrainian resectoscope sheath was passed through the urethra into the bladder. The urethra and bladder were inspected with a visual obturator. The pendulous, bulbar and membranous urethra appeared normal with no strictures. Prostatic urethra appeared well resected. The tip of his suprapubic tube was actually seen within the prostatic fossa. Just at the bladder neck at the 6 o'clock position there was a small raised erythematous area. Clinically, it was unclear to me whether this would be reactive to his suprapubic tube or malignancy. I removed the area using an RuiYi resectoscope. The resected tissue was sent to pathology for permanent section. I then cauterized the resection site using the coagulation current. The bladder was then filled with irrigant and the resectoscope was removed. His indwelling catheter balloon was deflated and a new 16 Ukrainian catheter was passed through the suprapubic tract into the bladder. The catheter balloon was inflated with 10 cc of sterile water and the catheter was hooked to gravity drainage. The patient tolerated this procedure with no complications. He was taken back to the day surgery unit in stable condition.
--- NOTE | 2022-01-03 09:57 | W.ANESPOSTOP ---
Postoperative Evaluation Date, Time and Location Date Performed: 01/03/22 Time Performed: : Patient Location: Day Surgery Unit Vital Signs Most Recent Imported Vital Signs: Most Recent Vital Signs Temp Pulse Resp BP Pulse Ox 36.2 C L 52 L 16 103/53 L 97 01/03/22 09:15 01/03/22 09:15 01/03/22 09:15 01/03/22 09:15 01/03/22 09:15 Pain Score Most Recent Pain Score: Most Recent Pain Score Pain Level 0 01/03/22 09:15 Assessment Mental Status: Awake (Alert & Oriented to Patient Baseline) Airway and Respiratory Function: Patent airway with normal (patient baseline) respiratory exam Cardiovascular Function: Hemodynamically Stable Hydration Status: Adequately Hydrated Nausea & Vomiting: No Nausea or Vomiting Pain: Pt. Denies Any Pain Peripheral Nerve Block: Patient did not receive a nerve block
[2022-01-03 10:00] VITALS: BP 110/60; PULSE 56; RESP 18; TEMP 36.2; O2SAT 98
== END 2022-01-03 10:48 | disposition home or self-care (01) ==
PROVIDERS: PCP Nurse Practitioner; Visit Provider Urology
PROC: 0TBB8ZZ Excision of Bladder, Via Natural or Artificial Opening Endoscopic (ICD-10-PCS; CPT 51705; principal; 2022-01-03 08:30)
DX: N47.1 Phimosis (principal); C67.9 Malignant neoplasm of bladder, unspecified; R33.9 Retention of urine, unspecified; N13.39 Other hydronephrosis; N28.9 Disorder of kidney and ureter, unspecified; N30.20 Other chronic cystitis without hematuria; N30.00 Acute cystitis without hematuria
CPT/HCPCS: 51705; 54001; 52204; 88305; J0743; J1885; J2405

== ENCOUNTER → 2022-01-07 12:32 | Outpatient (BNVA) | payer MEDICARE, SELFPAY | PROVIDERS: PCP Nurse Practitioner; Referring Provider Nurse Practitioner; Visit Provider Urology | DX: N47.1 Phimosis (principal); B99.9 Unspecified infectious disease | CPT/HCPCS: 96372; J0696 ==

== ENCOUNTER → 2022-01-11 08:00 | Outpatient (BNVA) | payer MEDICARE, SELFPAY | PROVIDERS: PCP Nurse Practitioner; Referring Provider Nurse Practitioner; Visit Provider Urology | DX: C67.9 Malignant neoplasm of bladder, unspecified (principal) ==

== ENCOUNTER 2022-01-24 13:40 | Outpatient (REF) | payer MEDICARE, SELFPAY ==
[2022-01-24 11:01] LABS: Bilirubin Negative (Negative); Blood Moderate (Negative); Clarity Cloudy (Clear); Glucose Negative (Negative); Ketones Negative (Negative); Leukocyte Esterase Large (Negative); Nitrite Positive (Negative); Specific Gravity 1.015 (1.005-1.025); Urobilinogen 0.2 EU/dL (Up TO 0.2); pH 6.5 (5-8)
[2022-01-24 11:07] LABS: Bacteria Moderate HPF (Negative); C & S Indicated? C&S Done As Ordered; Crystals Negative HPF (Negative); Epithelial Cells Few HPF (Negative); Mucus Negative (Negative); WBC >50 HPF (0-5)
== END 2022-01-24 13:41 | disposition home or self-care (01) ==
LOC: LBN 13:40
PROVIDERS: PCP Nurse Practitioner; Visit Provider Nurse Practitioner Gerontology
DX: N39.0 Urinary tract infection, site not specified (principal)
CPT/HCPCS: 87077; 81003; 81015; 87086; 87186

== ENCOUNTER → 2022-02-08 07:52 | Outpatient (BNVA) | payer MEDICARE, SELFPAY | PROVIDERS: PCP Nurse Practitioner; Referring Provider Nurse Practitioner; Visit Provider Urology | DX: Z46.6 Encounter for fitting and adjustment of urinary device (principal); R33.8 Other retention of urine | CPT/HCPCS: 51705 ==

== ENCOUNTER 2022-02-14 03:20 | Outpatient (CLI) | payer MEDICARE, SELFPAY ==
--- NOTE | 2022-02-14 08:15 | DI.US_ITS ---
Exam(s) US BREAST LT COMPLETE US BREAST RT COMPLETE EXAM: US BREAST BILATERAL COMPLETE CLINICAL HISTORY: BREAST LUMP, N63.22, R92.8. TECHNIQUE: Complete ultrasound of BOTH BREAST was performed including all 4 quadrants, the retroareo lar regions, and both axillary regions. COMPARISON: Today's mammogram was reviewed FINDINGS: Findings are consistent with symmetrical retroareolar region gynecomastia, commensurate with what is seen on today's mammogram. There are no independent nodules nor cysts evident elsewhere four quadrants of the breasts. No axillary adenopathy on either side. IMPRESSION: Bilateral gynecomastia. BI-RADS Category 2 - Benign Findings Breast Density - Category B - Scattered areas of fibroglandular density Breast density Category C or D implies that the patient has dense breast tissue. Dense breast tissue can make it harder to find cancer on a mammogram. Dense breast tissue is also associated with an incr eased risk of breast cancer. This information about the result of the mammogram report was provided to the patient to raise their awareness. Use this report when you speak with the patient about their risks for breast cancer, which includes their family history. At that time, you may recommend additional screening tests (Ultrasoun d or MRI) as these tests may add significant information. A negative radiographic report should not delay biopsy if a dominant or clinically suspicious mass is present. Up to ten percent of cancers are not identified on mammography. A negative report may reinforce clinical impression. Adenosis and dense breasts may obscure an underlying neoplasm. False positive reports average 6 to 10%. Patient will receive a letter notifying them of these results.
--- NOTE | 2022-02-14 08:15 | DI.MAMMO_ITS ---
Exam(s) MAMMO DIAGNOSTIC BI EXAM: MAMMO DIAGNOSTIC BI AND COMPLETE BILATERAL BREAST ULTRASOUND CLINICAL HISTORY: Left breast lump, right mid, N63.20. TECHNIQUE: Both CC and MLO mammographic images of both breast were obtained with 3D tomosynthesis te chnique and utilizing computer aided detection (CAD). Also performed complete bilateral breast ultrasound including all 4 quadrants of both breasts, both r etroareolar regions, and both axillary regions. COMPARISON: None FINDINGS: BILATERAL DIAGNOSTIC MAMMOGRAM: There is symmetric gynecomastia. No additional nodules in either breast. No malignant-appearing britany rocalcification groups. No significant architectural distortion. No skin thickening-traction. BILATERAL COMPLETE BREAST ULTRASOUND: This study reveals bilateral symmetrical retroareolar region gynecomastia. No other focal findings i n all 4 quadrants of both breasts. No axillary adenopathy. IMPRESSION: Bilateral symmetric gynecomastia. BI-RADS Category 2 - Benign Findings Breast Density - Category B - Scattered areas of fibroglandular density Breast density Category C or D implies that the patient has dense breast tissue. Dense breast tissue can make it harder to find cancer on a mammogram. Dense breast tissue is also associated with an incr eased risk of breast cancer. This information about the result of the mammogram report was provided to the patient to raise their awareness. Use this report when you speak with the patient about their risks for breast cancer, which includes their family history. At that time, you may recommend additional screening tests (Ultrasoun d or MRI) as these tests may add significant information. A negative radiographic report should not delay biopsy if a dominant or clinically suspicious mass is present. Up to ten percent of cancers are not identified on mammography. A negative report may reinforce clinical impression. Adenosis and dense breasts may obscure an underlying neoplasm. False positive reports average 6 to 10%. Patient will receive a letter notifying them of these results.
== END 2022-02-14 03:40 ==
LOC: DI 03:21
PROVIDERS: PCP Nurse Practitioner; Visit Provider Nurse Practitioner Family
DX: N62 Hypertrophy of breast (principal); N63.22 Unspecified lump in the left breast, upper inner quadrant
CPT/HCPCS: 76642; 77062; 77066; G0279

== ENCOUNTER 2022-02-27 09:50 | Outpatient (REF) | payer MEDICARE, SELFPAY ==
[2022-02-27 10:33] LABS: Bilirubin Negative (Negative); Blood Moderate (Negative); Clarity Cloudy (Clear); Glucose Negative (Negative); Ketones Negative (Negative); Leukocyte Esterase Large (Negative); Nitrite Positive (Negative); Urobilinogen 0.2 EU/dL (Up TO 0.2); pH 6.5 (5-8)
[2022-02-27 10:54] LABS: Bacteria Few HPF (Negative); C & S Indicated? C&S Done As Ordered; Casts 0-2 Hyaline LPF (Negative); Crystals Negative HPF (Negative); Epithelial Cells Rare HPF (Negative); Mucus Moderate (Negative); WBC >50 HPF (0-5)
== END 2022-02-27 09:51 | disposition home or self-care (01) ==
LOC: LBN 09:50
PROVIDERS: PCP Nurse Practitioner; Visit Provider Urology
DX: R31.9 Hematuria, unspecified (principal); R33.9 Retention of urine, unspecified
CPT/HCPCS: 87077; 81003; 81015; 87086; 87186

== ENCOUNTER → 2022-03-08 08:28 | Outpatient (BNVA) | payer MEDICARE, SELFPAY | PROVIDERS: PCP Nurse Practitioner; Referring Provider Nurse Practitioner; Visit Provider Urology | DX: Z46.6 Encounter for fitting and adjustment of urinary device (principal); C67.9 Malignant neoplasm of bladder, unspecified | CPT/HCPCS: 51705 ==

== ENCOUNTER → 2022-03-14 12:19 | Outpatient (BNVA) | payer MEDICARE, SELFPAY | PROVIDERS: PCP Nurse Practitioner Family; Referring Provider Nurse Practitioner Family; Visit Provider Psychiatry & Neurology Neurology | DX: G20 Parkinson's disease (principal); R41.3 Other amnesia; N18.9 Chronic kidney disease, unspecified | CPT/HCPCS: 99214 ==

== ENCOUNTER → 2022-04-05 08:19 | Outpatient (BNVA) | payer MEDICARE, SELFPAY | PROVIDERS: PCP Nurse Practitioner Family; Referring Provider Nurse Practitioner Family; Visit Provider Urology | DX: Z46.6 Encounter for fitting and adjustment of urinary device (principal); N13.30 Unspecified hydronephrosis; Z93.59 Other cystostomy status | CPT/HCPCS: 51705 ==

== ENCOUNTER → 2022-05-01 02:11 | Outpatient (CLI) | payer MEDICARE, SELFPAY ==
--- NOTE | 2022-05-01 07:15 | DI.US_ITS ---
Exam(s) US LOWER EXTREMITY VENOUS LT EXAM: US LOWER EXTREMITY VENOUS LT CLINICAL HISTORY: left leg swelling,m79.89. TECHNIQUE: Lower extremity venous ultrasound performed using grayscale, color-flow, and spectral Do ppler analysis. COMPARISON: No exams were available for comparison FINDINGS: The common femoral, femoral and popliteal veins demonstrate normal compressibility, augmentation, and color Doppler. The posterior tibial veins are patent. No saphenous vein thrombosis or other superfi cial venous thrombosis is seen. No hematoma or Kelly's cyst is seen. IMPRESSION: Negative lower extremity ultrasound. No evidence of DVT. DATA REPOSITORY:
== END ==
PROVIDERS: PCP Nurse Practitioner Family; Visit Provider Physician Assistant
DX: M79.89 Other specified soft tissue disorders (principal)
CPT/HCPCS: 93971

== ENCOUNTER 2022-05-01 11:04 | Outpatient (CLI) | payer MEDICARE, SELFPAY ==
[2022-05-01 10:50] LABS: Abs Immature Grans 0.02 10^3/uL (0.0-0.06); Absolute Basophil Count 0.04 10^3/uL (0.0-0.2); Absolute Lymphocyte Count 0.98 10^3/uL (1.2-3.4); Absolute Monocyte Count 0.53 10^3/uL (0.1-0.8); Absolute Neutrophil Count 5.79 10^3/uL (1.2-6.7); Basophils % 0.5; Eosinophils % 2.6; HCT 35.1 % (40.0-50.0); HGB 11.1 g/dL (13.5-17.5); Immature Grans % 0.3; MCH 29.8 pg (27.0-33.0); MCHC 31.6 % (32.0-36.0); MCV 94 fL (80-95); MPV 9.5 fL (8.0-11.0); Neutrophils % 76.6; Platelet Count 283 10^3/uL (130-400); RBC 3.72 10^6/uL (4.36-5.78); RDW 15.8 % (11.8-14.1); RDW-SD 54.8 fL; WBC 7.56 10^3/uL (4.4-10.8)
[2022-05-01 11:02] LABS: PTT Activated 25.1 sec (21.0-27.5); Prothrombin Time 10.3 sec (9.3-11.0)
[2022-05-01 11:06] LABS: ALT 16 U/L (16-63); AST 14 U/L (15-37); Alkaline Phosphatase 89 U/L (46-116); BUN 68 mg/dL (7-18); Bilirubin, Total 0.4 mg/dL (0.2-1.0); Calcium 8.5 mg/dL (8.5-10.1); Chloride 110 mmol/L (98-107); Estimated GFR 8.57 (mL/min/1.73m2); Glucose 85 mg/dL (74-106); Potassium 5.1 mmol/L (3.5-5.1); Sodium 141 mmol/L (136-145); Total Protein 8.2 g/dL (6.4-8.2)
[2022-05-01 11:10] LABS: CREATININE 6.3 mg/dL (0.70-1.30)
== END 2022-05-01 11:05 | disposition home or self-care (01) ==
LOC: LBO 11:04
PROVIDERS: PCP Nurse Practitioner Family; Visit Provider Physician Assistant
DX: M79.89 Other specified soft tissue disorders (principal); R21 Rash and other nonspecific skin eruption; R23.3 Spontaneous ecchymoses; N18.4 Chronic kidney disease, stage 4 (severe)
CPT/HCPCS: 36415; 80053; 85025; 85610; 85730; 93971

== ENCOUNTER 2022-05-03 00:52 | Outpatient (CLI) | payer MEDICARE, SELFPAY ==
--- NOTE | 2022-05-03 06:45 | DI.US_ITS ---
Exam(s) US RENAL EXAM: US RENAL CLINICAL HISTORY: hx of hydroneophrosis,acute on chronic kidney failure,n17.9,n18.9 TECHNIQUE: Ultrasound of both kidneys performed using standard protocol. COMPARISON: CT CT RENAL COLIC WO from 07/02/2021 FINDINGS: RIGHT KIDNEY: Measures 14 cm in length. Significant hydronephrosis, as evident on the prior CT scan. There is some sludge like material in the infundibulum I, possibly element of infection. There is thinning of the cortical mantle associated with hydronephrosis. There are no calculi seen within the right kidney. LEFT KIDNEY: Measures 13 cm in length. Also hydronephrotic, as seen on the prior CT scan. In addition, there are numerous shadowing calculi in the mid and lower pole calices, as also seen on the prior CT scan. La rgest of these measures approximately 1.4 cm. No solid renal mass. URINARY BLADDER: Not scanned. Apparently this patient has a catheter in place. In addition the lower abdomen was cov ered with bandages. INCIDENTAL FINDING: Images of the right kidney reveal incidental finding of a non uniformly hyperecho ic lobulated mass in the right hepatic lobe measuring 2.6 x 1.6 x 2.3 cm. Possibly representing a be nign hemangioma but is not uniformly hyperechoic and exhibits a hypoechoic center. This may be relat ed to scar central scar but nevertheless cannot exclude more concerning a neoplastic pathology. Kalen mmend further hepatic imaging with MRI using hemangioma protocol. IMPRESSION: 1. Bilateral severe hydronephrosis. There are multiple calculi in the mid and lower poles of the le ft kidney. No calculi in the right kidney but sludge material seen in the right kidney infundibuli w hich may be pyogenic. 2. Incidentally noted is a 2.6 x 1.6 x 2.3 cm mass in the liver, as described above. If clinically indicated the liver can be further studied with contrast infused MRI. DATA REPOSITORY:
== END 2022-05-03 01:12 ==
LOC: DI 00:52
PROVIDERS: PCP Nurse Practitioner Family; Visit Provider Family Medicine
DX: N17.9 Acute kidney failure, unspecified (principal); N18.9 Chronic kidney disease, unspecified; N13.2 Hydronephrosis with renal and ureteral calculous obstruction; R93.2 Abnormal findings on diagnostic imaging of liver and biliary tract
CPT/HCPCS: 51705; 76770

== ENCOUNTER 2022-05-12 12:42 | Emergency (ER) | payer MEDICARE, SELFPAY ==
[2022-05-12] VITALS (18 sets, daily range): BP systolic 115–137; BP diastolic 52–64; PULSE 72–78; RESP 18; TEMP 36.3–36.7; O2SAT 95–100
--- NOTE | 2022-05-12 13:38 | W.ED.GENAD ---
Discharge Plan Discharge Details Chief Complaint: RashLesion Primary Care Provider: Amanda Pearson ED Provider: Butch Mckeon Home Meds and New Rx's Prescriptions: No Action cephalexin 500 mg capsule 500 mg PO DAILY Qty: 21 0RF lidocaine HCl [Glydo] 2 % jelly in applicator 5 ml topical ONCE Qty: 125 0RF Rx Instructions: as a single dose to SPT site before catheter insertion Myrbetriq 25 mg tablet extended release 24 hr See Rx Instructions .ROUTE .COMPLEX Qty: 30 6RF Dose Instruction: TAKE ONE TABLET BY MOUTH EVERY DAY Rx Instructions: TAKE ONE TABLET BY MOUTH EVERY DAY acetaminophen [Tylenol] 325 mg capsule 650 mg PO Q6H PRNQty: 30 0RF Medical Decision Making This is a 77-year-old gentleman with a past medical history of end-stage renal disease, recent obstruction and bilateral percutaneous nephrostomy tubes placed, also currently on Keflex for bilateral lower extremity cellulitis. Clinically the rash does not appear cellulitic in my opinion. No evidence of petechiae like rash. He is without fever, tachycardia, warmth at the site of the rash, lymphangitic streaking, etc. Given his recent bilateral nephrostomy tubes, decreased urinary output, I would like to obtain IV access, obtain routine screening laboratory values, urinalysis, and reassess. White blood cell count appropriate at 10.36, hemoglobin 11.0 hematocrit 34.7 platelet count 280. Was called with a critical value BUN 44 creatinine 14.3, this appears to be a substantial drop off when compared to his most recent lab values on 05-01-2022. Sodium 133 potassium 6.0, will obtain EKG. CO2 12.4 anion gap 20.6 glucose 129 calcium 8.2, lipase 102. COVID-negative. Awaiting urinalysis Case further discussed with Dr. Horowitz. Will not aggressively treat his K as he currently appears stable. Case to be discussed with nephrology regarding his acute renal failure, hyperkalemia, and likely need for dialysis. Would like to hear their recommendations regarding his potassium. EKG without evidence of hyperkalemic changes. I was able to discuss the case at 1503 with nephrology at [facility], Dr. Diaz. Recommends giving an oral agent such as Lokelma. Giving IV hydration and seeing if we can get additional urine output. If so then we can consider a loop diuretic, at this time we will hold until has been hydrated. Recommends CT imaging of abdomen pelvis without contrast for further evaluation of his recent percutaneous nephrostomy tubes and based upon this information and final disposition. Patient returned from CT, images pushed to [facility]. Awaiting virtual radiology read of the CT and then subsequent consultation with nephrology This documentation was generated using [employer] dictation system, please disregard any oddities of phrase or misspellings. Medical Records Medical records reviewed: Yes I reviewed the patient's medical records. Lab Data Lab results reviewed: Yes I reviewed the patient's lab results. Labs: Laboratory Tests Range/Units 05/12/22 05/12/22 05/12/22 13:48 13:48 15:02 WBC (4.4-10.8) 10^3/uL 10.36 RBC (4.36-5.78) 10^6/uL 3.75 L Hgb (13.5-17.5) g/dL 11.0 L Hct (40.0-50.0) % 34.7 L MCV (80-95) fL 93 MCH (27.0-33.0) pg 29.3 MCHC (32.0-36.0) % 31.7 L RDW (11.8-14.1) % 16.1 H Plt Count (130-400) 10^3/uL 280 MPV (8.0-11.0) fL 9.8 Immature Gran % 0.4 Neutrophils % 85.0 Lymphocytes % 8.5 Monocytes % 4.8 Eosinophils % 0.8 Basophils % 0.5 Nucleated RBC % (0.0-0.3) % 0.0 Absolute Neutrophils (1.2-6.7) 10^3/uL 8.81 H Absolute Lymphocytes (1.2-3.4) 10^3/uL 0.88 L Absolute Monocytes (0.1-0.8) 10^3/uL 0.50 Absolute Eosinophils (0.0-0.7) 10^3/uL 0.08 Absolute Basophils (0.0-0.2) 10^3/uL 0.05 Sodium (136-145) mmol/L 133 L Potassium (3.5-5.1) mmol/L 6.0 H Chloride (98-107) mmol/L 100 Carbon Dioxide (21.0-32.0) mmol/L 12.4 L Anion Gap (3-11) mmol/L 20.6 H BUN (7-18) mg/dL 144 H* Creatinine (0.70-1.30) mg/dL 14.3 H* Est GFR (CKD-EPI 2020) (mL/min/1.73m2) 3.20 Glucose (74-106) mg/dL 129 H Calcium (8.5-10.1) mg/dL 8.2 L Total Bilirubin (0.2-1.0) mg/dL 0.5 AST (15-37) U/L 32 ALT (16-63) U/L 8 L Alkaline Phosphatase (46-116) U/L 159 H Total Protein (6.4-8.2) g/dL 8.2 Albumin (3.4-5.0) g/dL 2.9 L Lipase (73-393) U/L 101 COVID-19 Source Nasal/Nares SARS-CoV-2 (PCR) (Negative) Negative ECG Data Attestation: I personally reviewed and interpreted this ECG (s) as follows: Interpretation: A. fib, ventricular of 71. No STEMI. Nonspecific T wave abnormalities, nothing consistent with acute hyperkalemia. Sign Out Yes HPI General Mode of arrival: ambulatory. Date/Time Provider Initiated Documentation: 05/12/22 12:49. Limitations to Documentation: no limitations. Information obtained by: patient and family. HPI Narrative: This is a 77-year-old gentleman with acute on chronic kidney failure, recently started on Keflex for bilateral lower extremity cellulitis on 04-24-2022, most recently had percutaneous nephrostomy tubes placed at [facility] on 05-07-2022, presenting to the ER now for concern of worsening cellulitis. Reports worsening rash of bilateral lower legs with discomfort and minimal swelling. Also reports decreased urinary output from his suprapubic catheter although has noticed little bit of drainage coming from the new nephrostomy tubes. He denies any fever, chills, headache, chest pain, shortness of breath, abdominal pain, nausea, vomiting. Related Data Home Medications Medication Instructions Recorded Confirmed acetaminophen 325 mg capsule 650 mg PO Q6H PRN #30 caps 05/15/20 05/03/22 (Tylenol) lidocaine HCl 2 % mucosal jelly in 5 ml topical ONCE #125 mL 10/31/21 05/03/22 applicator (Glydo) cephalexin 500 mg capsule 500 mg PO DAILY #21 caps 05/03/22 05/03/22 mirabegron 25 mg tablet,extended See Rx Instructions .Route 05/07/22 release 24 hr (Myrbetriq) .COMPLEX #30 tabs Previous Rx's Medication Instructions Recorded acetaminophen 325 mg capsule 650 mg PO Q6H PRN #30 caps 05/15/20 (Tylenol) lidocaine HCl 2 % mucosal jelly in 5 ml topical ONCE #125 mL 10/31/21 applicator (Glydo) cephalexin 500 mg capsule 500 mg PO DAILY #21 caps 05/03/22 mirabegron 25 mg tablet,extended See Rx Instructions .Route 05/07/22 release 24 hr (Myrbetriq) .COMPLEX #30 tabs Allergies Allergy/AdvReac Type Severity Reaction Status Date / Time oxybutynin AdvReac Severe Other (See Verified 05/12/22 13:01 Comment) General Stated Complaint: RashLesion BRITTON: 3 Review of Systems Constitutional Constitutional: Denies fatigue, Denies fever(s) and Reports weakness (Mild, generalized) ENT Ears, Nose, Mouth, and Throat: Denies neck pain Cardiovascular Cardiovascular: Denies chest pain and Denies dyspnea Respiratory Respiratory: Denies cough and Denies dyspnea Gastrointestinal Gastrointestinal: Denies abdominal pain, Denies nausea and Denies vomiting Genitourinary Genitourinary: Reports other (Decreased urinary output) Musculoskeletal Musculoskeletal: Denies neck pain Integumentary/Breasts Skin/Breast: Reports rash Neurologic Neurologic: Reports weakness (Mild, generalized) Endocrine Endocrine: Denies fatigue Hematologic/Lymphatic Hematologic/Lymphatic: Denies easy bleeding and Denies easy bruising PFSH All Active Problems Hydronephrosis, left (Acute) Acute on chronic kidney failure (Acute) ESRD (end stage renal disease) (Acute) History of bladder cancer (Chronic ~2017) Urothelial carcinoma s/p TURBT Parkinson disease (Chronic) CKD (chronic kidney disease) stage 4, GFR 15-29 ml/min (Chronic) Suprapubic catheter (Chronic) Vesicoureteral reflux (Chronic) Urinary retention (Chronic) Bilateral kidney stones (Chronic) Essential tremor (Chronic) Hydronephrosis, right (Chronic) Memory loss (Chronic) Depression (Chronic) Medical History COVID-19 (~10/29/21) Hydronephrosis Urothelial carcinoma of bladder (~2017) Surgical History H/O cystoscopy H/O transurethral destruction of bladder lesion (08/08/16) Hx of nephrolithotomy with removal of calculi S/P right inguinal hernia repair (05/15/20) Status post lumbar surgery Family History Other Cancer Social History Smoking/Tobacco Use Status: Former Tobacco Use Quit Date: 06/16/19 Smoking risk assessment performed?: Yes Alcohol Intake: never Drug use: Never Substance use type: does not use Household members: spouse Housing: house current occupation: Retired Do you feel safe at home: Yes Additional Social history: Pt son is present. Exam Const General: cooperative, comfortable, no acute distress and ill appearing chronically Orientation: alert, awake and oriented x3 HENMT Head: normal to inspection, normocephalic and atraumatic Mouth: moist mucous membranes abnormal (Slightly dry) Eyes General: appearance normal, both eyes and all related structures Conjunctivae: conjunctivae normal Neck Neck: normal visual inspection, full ROM, no meningeal signs, trachea midline and supple Resp Effort & Inspection: normal respiratory effort and able to speak in complete sentences Auscultation: clear to auscultation bilaterally Cardio Rate: regular rate Rhythm: regular rhythm GI Palpation: soft, not firm, no guarding, no pulsatile masses and nontender Auscultation: normal bowel sounds Other: Suprapubic catheter present. Bag dry. No signs of secondary infection at the site of the catheter Back/Spine/Pelvis Back: no CVA tenderness and back tenderness Other: Bilateral percutaneous nephrostomy tubes, appear well, no signs of secondary infection. The right tube does appear to be draining some moderately dark urine Skin Other: Bilateral lower extremities with mild nonblanching, well circumscribed patchy erythema from the ankles up to the mid thigh, circumferential. There is no calf tenderness. There is 1+ minimal pitting edema bilaterally. No lymphangitic streaking. Skin is intact. Neuro General: patient alert, patient awake, moves all extremities and no focal motor deficits Cognition: normal cognition Speech: speech normal Gait: normal gait Motor: muscle tone normal throughout Sensory Exam: no sensory deficits noted Extrem General: full ROM and capillary refill normal Psych Appearance: grossly normal Mental Status: mental status grossly normal Course Vital Signs Vital signs: Vital Signs Temperature 36.7 C 05/12/22 12:56 Pulse 74 05/12/22 12:56 Respiratory Rate 18 05/12/22 12:56 Blood Pressure 115/56 L 05/12/22 12:56 Pulse Oximetry 97 05/12/22 12:56 Temperature 36.7 C 05/12/22 12:56 Temperature Source Temporal Artery Scan 05/12/22 12:56 Pulse 74 05/12/22 12:56 Respiratory Rate 18 05/12/22 12:56 Blood Pressure 115/56 L 05/12/22 12:56 Blood Pressure Position Sitting 05/12/22 12:56 Pulse Oximetry 97 05/12/22 12:56 Oxygen Delivery Method Room Air 05/12/22 12:56 Oxygen Flow Rate 0 05/12/22 12:56 Critical Care Time Critical Care Time Critical Care Time: Yes Total Critical Care Time: 35 Attestation: Upon my evaluation, this patient had a high probability of clinically significant, life-threatening deterioration due to their current medical conditions, which required my direct attention, intervention, and personal management. I have personally provided greater than 30 minutes of critical care time exclusive of the time spend on separately billable procedures. Time includes obtaining a history, examining the patient, pulse oximetry, review of laboratory data, radiology results, discussion with consultants, arranging urgent treatment with development of a management plan, evaluation of patient's response to treatment, and monitoring for potential decompensation. Interventions were performed as documented above.
[2022-05-12 13:56] LABS: Abs Immature Grans 0.04 10^3/uL (0.0-0.06); Absolute Basophil Count 0.05 10^3/uL (0.0-0.2); Absolute Eosinophil Count 0.08 10^3/uL (0.0-0.7); Absolute Lymphocyte Count 0.88 10^3/uL (1.2-3.4); Absolute Neutrophil Count 8.81 10^3/uL (1.2-6.7); Basophils % 0.5; Eosinophils % 0.8; HCT 34.7 % (40.0-50.0); Immature Grans % 0.4; Lymphocytes % 8.5; MCH 29.3 pg (27.0-33.0); MCHC 31.7 % (32.0-36.0); MCV 93 fL (80-95); MPV 9.8 fL (8.0-11.0); Monocytes % 4.8; Platelet Count 280 10^3/uL (130-400); RBC 3.75 10^6/uL (4.36-5.78); RDW 16.1 % (11.8-14.1); RDW-SD 54.5 fL; WBC 10.36 10^3/uL (4.4-10.8)
[2022-05-12 14:11] LABS: ALT 8 U/L (16-63); AST 32 U/L (15-37); Albumin 2.9 g/dL (3.4-5.0); Alkaline Phosphatase 159 U/L (46-116); Anion Gap 20.6 mmol/L (3-11); Bilirubin, Total 0.5 mg/dL (0.2-1.0); CO2 12.4 mmol/L (21.0-32.0); Calcium 8.2 mg/dL (8.5-10.1); Chloride 100 mmol/L (98-107); Glucose 129 mg/dL (74-106); Lipase 101 U/L (73-393); Sodium 133 mmol/L (136-145); Total Protein 8.2 g/dL (6.4-8.2)
--- NOTE | 2022-05-12 14:15 | RT.EKG_ITS ---
APPROVED REPORT Exam: Resting ECG Reason for Exam: hyperkalemia Patient Location: E HR:71 bpm ECG Measurements Heart Rate 71 AXIS TX [id number] P [id number] QRSd 130 QRS -86 QT 421 T -5 QTc 459 Conclusion Atrial fibrillation. Nonspecific IVCD with LAD Nonspecific T abnormalities, inferior leads.
[2022-05-12 14:19] LABS: BUN 144 mg/dL (7-18); CREATININE 14.3 mg/dL (0.70-1.30)
--- NOTE | 2022-05-12 15:00 | DI.CT_ITS ---
Exam(s) CT ABDOMEN PELVIS WO EXAM: CT ABDOMEN PELVIS WO CLINICAL HISTORY: renal failure, nephrostomy tubes placed Mansi. TECHNIQUE: Imaging Protocol: Axial computed tomography images with coronal and sagittal reformatted images were created and reviewed. Oral: no COMPARISON: CT CT RENAL COLIC WO from 07/02/2021 FINDINGS: ABDOMEN: Lung Bases: Normal where visualized. Liver: Normal density. No measurable mass. Gallbladder and biliary tract: No radiodense calculus or dilation. Pancreas: Normal density, no abnormal calcifications or inflammatory process. Spleen: Normal. Kidneys: Bilateral nephrostomy tubes. Hydronephrosis seen previously has resolved. No perinephric c ollections. Mild, expected perinephric stranding slightly greater on the right. Multiple stones low er pole and mid left kidney. Hyperdense cysts upper pole of both kidneys. Adrenal glands: No masses seen. Lymph nodes: Within normal limits. Abdominal Aorta: Abdominal portion non-dilated. Atherosclerotic changes. Stomach: Small amount of high density ingested material. PELVIS: Bladder: Suprapubic catheter. Nearly empty. Inferior pigtail of the ureteral stents. No gross wall thickening. Bowel: No obstruction or bowel wall thickening. Peritoneal cavity: No ascites, collection or mesenteric inflammatory response. Reproductive organs: Within normal limits. Bones: Unremarkable for age. IMPRESSION: Resolution of previously noted hydronephrosis status post placement of bilateral nephrostomy tube is well as bilateral ureteral stents. No perinephric collections. Nonobstructing stones are again note d at the mid and lower pole of the left kidney. Suprapubic catheter. RADIATION DOSE DELIVERED: 627.26mGy.cm Total DLP DATA REPOSITORY: All CT scans at this facility are submitted to the National Radiology Data Registry (NRDR) Dose Index Registry (DIR) with the [employer] (ACR). RADIATION OPTIMIZATION: All CT scans at this facility use at least one of these dose optimization te chniques: automated exposure control; mA and/or kV adjustment per patient size (includes targeted exa ms where dose is matched to clinical indication); or iterative reconstruction.
[2022-05-12 15:05] LABS: Source Nasal/Nares
[2022-05-12] MEDS: Sodium Zirconium Cyclosilicate 10 GM PKT PO (15:31)
[2022-05-12 15:35] LABS: COVID-19 PCR Negative (Negative)
--- NOTE | 2022-05-12 16:02 | DI.VRAD_ITS ---
PROCEDURE INFORMATION: Exam: CT Abdomen And Pelvis Without Contrast Exam date and time: 05/12/2022 3:40 PM Age: 77 years old Clinical indication: Other: Renal failure, nephrostomy tubes placed Friday TECHNIQUE: Imaging protocol: Computed tomography of the abdomen and pelvis without contrast. COMPARISON: CT ABDOMEN PELVIS WO 06/04/2020 10:39 PM FINDINGS: Tubes, catheters and devices: Bilateral nephrostomy tubes evident. Tubes and stents in satisfactory position. Suprapubic urinary catheter. Liver: Normal. No mass. Gallbladder and bile ducts: Cholelithiasis. Pancreas: Normal. No ductal dilation. Spleen: Normal. No splenomegaly. Adrenal glands: Normal. No mass. Kidneys and ureters: Bilateral ureteral stents noted. No significant hydronephrosis. Large non-obstructing renal calculus midpole left kidney measures 10 mm. Hyperdense cortical renal cysts bilaterally, both seen as hypodense on previous 2019 CT. Larger is on the left measuring 2.8 x 3 cm. Mild perinephric stranding bilaterally, worse on the right. Stomach and bowel: Unremarkable. No obstruction. No mucosal thickening. Appendix: No evidence of appendicitis. Intraperitoneal space: Unremarkable. No free air. No significant fluid collection. Vasculature: Unremarkable. No abdominal aortic aneurysm. Lymph nodes: Unremarkable. No enlarged lymph nodes. Urinary bladder: Unremarkable as visualized. Reproductive: Unremarkable as visualized. Bones/joints: Unremarkable. No acute fracture. Soft tissues: Unremarkable. IMPRESSION: 1. No significant hydronephrosis. 2. Hyperdense cortical renal cysts bilaterally, both seen as hypodense on previous [address] CT. Larger is on the left measuring 2.8 x 3 cm. May represent hemorrhagic cysts. 3. Mild perinephric stranding bilaterally, worse on the right. Dictated and Authenticated by: Jessi Brown MD. Ordering:JOSEPH Rae MD
--- NOTE | 2022-05-12 16:13 | W.EDPROG ---
Date of service: 05/12/22 Time of Service: 16:13 Medical Decision Making Care assumed from provider (Butch HARRIS) Please see their initial HPI, PE, and documentation. Discussed patient details and case and pending workup and disposition. Patient is hemodynamically stable, and alert and oriented. The time of signout awaiting CT result and will consult with nephrology. [facility] after evaluation of Lokelma and fluids. Patient has only worse BUN and creatinine after stents being placed on Friday at [facility]. Potassium is also 6.0. 1630: Patient reevaluation, he is getting fluids infused, he does report that he has had output from the nephrostomy tubes and his son is at the bedside. States that when he returned from CT he was wet due to a disconnection on nephrostomy tubes On the left. He does have urine noted in the right nephrostomy tube. No urine output noted from the suprapubic catheter. Will instruct staff veterinarian to empty his nephrostomy bags frequently and monitor output. 1643: 100ml emptied from right Nephrostomy bag by staff veterinarian. 180: Repeat BUN 139 Creatanine 13.6, Down from 144 and 14.3 after 1 liter NS and Lokelma, potassium 5.3 which is improved from 6.0 [facility] transfer center called for re-page of Dr. Ervin with Nephrology. He recommends D5w with 3 amps of sodium bicarbonate, blood cultures, S-pep and U-pep. He does not recommend emergent dialysis tonight. Transfer center states reviewing the step down bed available at this time however they do not have a med surg bed available patient needs to be transferred. She will page the hospitalist and have them call back. 182: Spoken with Dr. Mishel Pal with Hospitalist accepted patient patient re-evaluated. Is in no acute distress, no complaints at this time. Vital signs stable, breathing eupneic. They will call with bed availability, transfer center said may be either today or tomorrow. She recommends repeat labs every 6 hours and to call back if any worsening potassium or condition. Family and patient updated on plan of care for transfer to [facility]. We do have bed assignment. 193: EMS is here for transfer, patient is. She own which family reports is normal for him and intermittent confusion happens. 0.5 lorazepam p.o. ordered. 2013: Patient becoming more agitated, 2mg Lorazepam given IV for anxiety prior to transport. 2029: Benadryl 25mg IV, Haldol 4mg IV given for sedation prior to transport as patient combative, and appears to be sun downing. EMS placed patient on 2L nasal cannula prior to leaving the department, patient sleeping upon exiting department and o2 sat 88% RA. 2044: Patient left with EMS from ED. Medical Records Medical records reviewed: Yes I reviewed the patient's medical records. Imaging Data Radiologic Study: Imaging: CT Scan Radiologist's impression: IMPRESSION: 1. No significant hydronephrosis. 2. Hyperdense cortical renal cysts bilaterally, both seen as hypodense on previous 2019 CT. Larger is on the left measuring 2.8 x 3 cm. May represent hemorrhagic cysts. 3. Mild perinephric stranding bilaterally, worse on the right. Thank you for allowing us to participate in the care of your patient. Dictated and Authenticated by: Jessi Brown MD Lab Data Lab results reviewed: Yes I reviewed the patient's lab results. Labs: Laboratory Tests Range/Units 05/12/22 05/12/22 05/12/22 13:48 13:48 15:02 WBC (4.4-10.8) 10^3/uL 10.36 RBC (4.36-5.78) 10^6/uL 3.75 L Hgb (13.5-17.5) g/dL 11.0 L Hct (40.0-50.0) % 34.7 L MCV (80-95) fL 93 MCH (27.0-33.0) pg 29.3 MCHC (32.0-36.0) % 31.7 L RDW (11.8-14.1) % 16.1 H Plt Count (130-400) 10^3/uL 280 MPV (8.0-11.0) fL 9.8 Immature Gran % 0.4 Neutrophils % 85.0 Lymphocytes % 8.5 Monocytes % 4.8 Eosinophils % 0.8 Basophils % 0.5 Nucleated RBC % (0.0-0.3) % 0.0 Absolute Neutrophils (1.2-6.7) 10^3/uL 8.81 H Absolute Lymphocytes (1.2-3.4) 10^3/uL 0.88 L Absolute Monocytes (0.1-0.8) 10^3/uL 0.50 Absolute Eosinophils (0.0-0.7) 10^3/uL 0.08 Absolute Basophils (0.0-0.2) 10^3/uL 0.05 Sodium (136-145) mmol/L 133 L Potassium (3.5-5.1) mmol/L 6.0 H Chloride (98-107) mmol/L 100 Carbon Dioxide (21.0-32.0) mmol/L 12.4 L Anion Gap (3-11) mmol/L 20.6 H BUN (7-18) mg/dL 144 H* Creatinine (0.70-1.30) mg/dL 14.3 H* Est GFR (CKD-EPI 2020) (mL/min/1.73m2) 3.20 Glucose (74-106) mg/dL 129 H Calcium (8.5-10.1) mg/dL 8.2 L Total Bilirubin (0.2-1.0) mg/dL 0.5 AST (15-37) U/L 32 ALT (16-63) U/L 8 L Alkaline Phosphatase (46-116) U/L 159 H Total Protein (6.4-8.2) g/dL 8.2 Albumin (3.4-5.0) g/dL 2.9 L Lipase (73-393) U/L 101 COVID-19 Source Nasal/Nares SARS-CoV-2 (PCR) (Negative) Negative Sign Out Yes Sign Out Sign Out Data: Sign Out Comment: Acute renal failure with hyperkalemia. Recent bilateral percutaneous nephrostomy tubes, nephrology at [facility] consulted, initiated on IV fluid, Lokelma, awaiting CT imaging of abdomen pelvis. Last updated by Butch Mckeon PA at 05/12/22 16:00 Discharge Plan Disposition Patient Disposition: Transfer-Acute Inpatient Care Specific Acute Inpt Facility: [facility] Condition: Serious Discharge Details Clinical Impression: Acute on chronic kidney failure Primary Care Provider: Amanda Pearson ED Provider: Annie Rangel Home Meds and New Rx's Prescriptions: No Action cephalexin 500 mg capsule 500 mg PO DAILY Qty: 21 0RF lidocaine HCl [Glydo] 2 % jelly in applicator 5 ml topical ONCE Qty: 125 0RF Rx Instructions: as a single dose to SPT site before catheter insertion Myrbetriq 25 mg tablet extended release 24 hr See Rx Instructions .ROUTE .COMPLEX Qty: 30 6RF Dose Instruction: TAKE ONE TABLET BY MOUTH EVERY DAY Rx Instructions: TAKE ONE TABLET BY MOUTH EVERY DAY acetaminophen [Tylenol] 325 mg capsule 650 mg PO Q6H PRNQty: 30 0RF
[2022-05-12] MEDS: Normal Saline 1,000 ML 1000 ML IV (16:16)
[2022-05-12 16:51] LABS: Bilirubin Negative (Negative); Blood Large (Negative); Clarity Cloudy (Clear); Glucose Negative (Negative); Ketones Negative (Negative); Leukocyte Esterase Large (Negative); Nitrite Negative (Negative); Specific Gravity 1.025 (1.005-1.025); Urobilinogen 0.2 EU/dL (Up TO 0.2); pH 6.5 (5-8)
[2022-05-12 17:01] LABS: Bacteria Many HPF (Negative); C & S Indicated? Yes; Casts Negative LPF (Negative); Crystals Negative HPF (Negative); Epithelial Cells Rare HPF (Negative); Mucus Moderate (Negative); RBC 20-50 HPF (0-2); WBC >50 HPF (0-5)
[2022-05-12 17:52] LABS: Anion Gap 18.8 mmol/L (3-11); CO2 12.2 mmol/L (21.0-32.0); Calcium 7.7 mg/dL (8.5-10.1); Chloride 104 mmol/L (98-107); Glucose 112 mg/dL (74-106); Potassium 5.3 mmol/L (3.5-5.1); Sodium 135 mmol/L (136-145)
[2022-05-12 17:55] LABS: BUN 139 mg/dL (7-18)
[2022-05-12 17:56] LABS: CREATININE 13.6 mg/dL (0.70-1.30)
[2022-05-12] MEDS: SODIUM BICARBONATE 150 MEQ in DEXTROSE 5%-WATER 850 ML 250 MEQ IV (19:05)
[2022-05-12] MEDS: LORazepam 2 MG/ML VIAL 1 MG IVP (20:00)
[2022-05-12] MEDS: diphenhydrAMINE 50 MG/ML VIAL 25 MG IVP (20:23)
[2022-05-12] MEDS: Haloperidol 5 MG/ML VIAL 4 MG IM/IV (20:24)
== END 2022-05-12 21:10 | disposition short-term general hospital (02) ==
PROVIDERS: Physician Assistant; Emergency Provider Registered Nurse Emergency; PCP Nurse Practitioner Family
DX: N17.9 Acute kidney failure, unspecified (principal); N18.6 End stage renal disease; E87.5 Hyperkalemia; L03.115 Cellulitis of right lower limb; L03.116 Cellulitis of left lower limb; I48.91 Unspecified atrial fibrillation; Z20.822 Contact with and (suspected) exposure to COVID-19; Z93.6 Other artificial openings of urinary tract status; Z86.16 Personal history of COVID-19; Z87.891 Personal history of nicotine dependence
CPT/HCPCS: 80048; 80053; 83690; 87040; 87077; 87635; 93005; 96361; 96365; 96366; 96375; 99291; 74176; 81003; 81015; 85025; 87086; 87186; 93010; J1200; J1630; J2060; J7060

== ENCOUNTER → 2022-07-03 09:51 | Outpatient (BNVA) | payer MEDICARE, SELFPAY | PROVIDERS: PCP Nurse Practitioner Family; Referring Provider Nurse Practitioner Family; Visit Provider Nurse Practitioner Gerontology | DX: Z43.5 Encounter for attention to cystostomy (principal); N13.30 Unspecified hydronephrosis; N17.9 Acute kidney failure, unspecified; N18.9 Chronic kidney disease, unspecified | CPT/HCPCS: 99213 ==

== ENCOUNTER 2022-07-03 11:16 | Outpatient (REF) | payer MEDICARE, SELFPAY | END 2022-07-03 11:17 | disposition home or self-care (01) | LOC: LBN 11:16 | PROVIDERS: PCP Nurse Practitioner Family; Visit Provider Nurse Practitioner Gerontology | DX: N39.0 Urinary tract infection, site not specified (principal); R33.9 Retention of urine, unspecified | CPT/HCPCS: 87077; 87086; 87186 ==

== ENCOUNTER → 2022-07-26 10:19 | Outpatient (BNVA) | payer MEDICARE, SELFPAY | PROVIDERS: PCP Nurse Practitioner Family; Visit Provider Urology | DX: Z43.5 Encounter for attention to cystostomy (principal) | CPT/HCPCS: 51705 ==

== ENCOUNTER → 2022-08-16 08:00 | Outpatient (BNVA) | payer MEDICARE, BC, SELFPAY | PROVIDERS: PCP Nurse Practitioner Family; Referring Provider Nurse Practitioner Family; Visit Provider Urology | DX: Z43.5 Encounter for attention to cystostomy (principal) | CPT/HCPCS: 99213 ==

== ENCOUNTER 2022-08-18 08:04 | Emergency (ER) | payer MEDICARE, BC, SELFPAY ==
[2022-08-18] VITALS (9 sets, daily range): BP systolic 104–135; BP diastolic 49–58; PULSE 57–88; RESP 16; TEMP 36.7; O2SAT 100
--- NOTE | 2022-08-18 08:26 | W.ED.GENAD ---
Discharge Plan Disposition Patient Disposition: Home Discharge Details Clinical Impression: Displacement of nephrostomy tube Primary Care Provider: Amanda Pearson ED Provider: Candelario Leal Home Meds and New Rx's Prescriptions: No Action No Known Home Meds Discharge Instructions Additional Instructions: It is very important that you continue to monitor for any symptoms such as fever chills, severe flank pain, or any worsening of condition. If these occur you should have emergent evaluation performed immediately. Otherwise [facility] interventional radiology office will contact you for arrangement of follow-up appointment for replacement of nephrostomy tube. Referrals: [facility] [Outside] (Please follow-up with interventional radiology department for arrangement of follow-up and replacement of nephrostomy tube) Discharge Data Discharge Date/Time-TO BE ENTERED AT DEPARTURE: 08/18/22 10:17 Medical Decision Making Patient presenting to the emergency department with significant other due to accidental removal of left nephrostomy tube. Patient states he was scratched in his abdomen when tube accidentally was removed. Patient denies all other symptoms pain discomfort fever chills. Does state he had dialysis yesterday and otherwise has been feeling great. Physical exam is unremarkable except for noted removal of left nephrostomy tube. Nephrostomy tube insertion site shows no signs of infection, blood, drainage. Was able to visually inspect nephrostomy tube and tube is fully intact with no sign of fragmentation or tear. Patient has significant past medical history of bladder cancer causing obstructive uropathy that led to stage IV kidney disease, patient on dialysis, has bilateral nephrostomy tubes along with suprapubic catheter. Significant other does state that left nephrostomy tube is typically the one that drains less. Given that we do not have the services available will contact [facility] for discussion of plan of care. Discussed case with Dr. Mosher with nephrology at [facility]. From his standpoint he did not feel that anything was emergent but recommended discussion of case with IR for logistical planning of replacement of nephrostomy tube. Spoke with Dr. Kim with interventional radiology. He stated that from his standpoint that patient would not need to have it replaced today given that patient is asymptomatic. Did state that schedulers will contact the patient's family tomorrow for scheduling of replacement of nephrostomy tube. Did recommend close monitoring precautions and return if patient becomes symptomatic. Discussed this plan of care with family which are agreeable to monitor with low threshold to return. After discussion of diagnosis and plan of care patient and family has no further needs, questions, or concerns and states clear understanding to return to the emergency department for any worsening symptoms. This documentation was generated using [id number] system, please disregard any oddities of phrase or misspellings. HPI General Mode of arrival: ambulatory. Date/Time Provider Initiated Documentation: 08/18/22 08:18. Limitations to Documentation: no limitations. Information obtained by: patient, RN notes reviewed and old records reviewed. History of Present Illness 77 year old M presents to the emergency department with the chief complaint of Accidental removal of nephrostomy tube, Patient notes no other symptoms.. Patient did receive the following treatments prior to arrival, none Related Data Home Medications Medication Instructions Recorded Confirmed Unknown [No Known Home Meds] 08/16/22 08/18/22 Allergies Allergy/AdvReac Type Severity Reaction Status Date / Time oxybutynin AdvReac Severe Other (See Verified 08/18/22 08:26 Comment) General Stated Complaint: Urinary BRITTON: 4 Review of Systems Narrative: 6 systems reviewed and unremarkable except what is marked below. Constitutional Constitutional: Denies chills and Denies fever(s) Genitourinary Genitourinary: Reports as per HPI and Denies flank pain PFSH All Active Problems (Updated 08/18/22 @ 10:05 by Candelario Leal NP) Displacement of nephrostomy tube (Acute) Nephrostomy status (Acute) Dialysis patient (Acute) Hydronephrosis, left (Acute) Acute on chronic kidney failure (Acute) ESRD (end stage renal disease) (Acute) History of bladder cancer (Chronic ~2017) Urothelial carcinoma s/p TURBT Parkinson disease (Chronic) CKD (chronic kidney disease) stage 4, GFR 15-29 ml/min (Chronic) Suprapubic catheter (Chronic) Vesicoureteral reflux (Chronic) Urinary retention (Chronic) Bilateral kidney stones (Chronic) Essential tremor (Chronic) Hydronephrosis, right (Chronic) Memory loss (Chronic) Depression (Chronic) Medical History COVID-19 (~10/29/21) Hydronephrosis IgA nephropathy Urothelial carcinoma of bladder (~2017) Surgical History H/O cystoscopy H/O transurethral destruction of bladder lesion (08/08/16) Hx of nephrolithotomy with removal of calculi S/P right inguinal hernia repair (05/15/20) Status post lumbar surgery Family History Other Cancer Social History Smoking/Tobacco Use Status: Former Tobacco Use Quit Date: 06/16/19 Smoking risk assessment performed?: Yes Alcohol Intake: never Drug use: Never Substance use type: does not use Household members: spouse Housing: house current occupation: Retired Do you feel safe at home: Yes Additional Social history: Pt son is present. Exam Const General: cooperative, no acute distress and not ill appearing Orientation: alert, awake and oriented x3 Resp Effort & Inspection: normal respiratory effort, able to speak in complete sentences and no respiratory distress Cardio Rate: regular rate Rhythm: regular rhythm General: other (Suprapubic catheter in place. Removed left nephrostomy tube) Back/Spine/Pelvis Back: No back tenderness Thoracic/Lumbar Spine: No paraspinal tenderness, No lumbar spinal tenderness and other (Right nephrostomy tube in place with no signs of infection. ) Skin General skin exam: no rashes or lesions noted Neuro General: patient alert, patient awake, patient oriented x3, moves all extremities and no focal motor deficits Sensory Exam: no sensory deficits noted Course Vital Signs Vital signs: Vital Signs Temperature 36.7 C 08/18/22 08:20 Pulse 87 08/18/22 08:20 Respiratory Rate 16 08/18/22 08:20 Blood Pressure 135/52 L 08/18/22 08:20 Pulse Oximetry 100 08/18/22 08:20 Temperature 36.7 C 08/18/22 08:20 Pulse 87 08/18/22 08:20 Respiratory Rate 16 08/18/22 08:20 Blood Pressure 135/52 L 08/18/22 08:20 Pulse Oximetry 100 08/18/22 08:20 Oxygen Delivery Method Room Air 08/18/22 08:20 Oxygen Flow Rate 0 08/18/22 08:20
== END 2022-08-18 10:17 | disposition home or self-care (01) ==
PROVIDERS: Emergency Provider Nurse Practitioner Family; PCP Nurse Practitioner Family
DX: T83.022A Displacement of nephrostomy catheter, initial encounter (principal)
CPT/HCPCS: 99281; 99283

== ENCOUNTER 2022-08-20 20:07 | Emergency (ER) | payer MEDICARE, BC, SELFPAY ==
[2022-08-20] VITALS (24 sets, daily range): BP systolic 88–143; BP diastolic 44–72; PULSE 67–92; RESP 16; TEMP 37.1; O2SAT 88–95
--- NOTE | 2022-08-20 20:24 | NUR.NOTE ---
Nursing Note: pt is confused and agitated with staff, the family member states he normally has low BP, but at triage it is more lower than normal. pt has urine in leg bag, strong odor and cloudy color, family states he gets UTI often and thinks this is the cause of AMS and normally gets IM abx
--- NOTE | 2022-08-20 20:30 | DI.CT_ITS ---
Exam(s) CT HEAD WO EXAM: CT HEAD WO CLINICAL HISTORY: Confusion, suspect infectious source. TECHNIQUE: Imaging Protocol: Axial computed tomography images with coronal and sagittal reformatted images were created and reviewed COMPARISON: CT CT HEAD WO from 08/22/2021 FINDINGS: Ventricles and Extra axial spaces: Normal in size and morphology for the patient's age. Hemorrhage: None. Cerebral parenchyma: Atrophy. White matter changes consistent with small vessel disease. Midline shift: None. Brainstem/Cerebellum: Normal. Calvarium: Normal. Visualized Paranasal sinuses/Mastoids: Clear. IMPRESSION: No acute abnormality. RADIATION DOSE DELIVERED: 793.31mGy.cm Total DLP 793.31mGy.cm Total DLP DATA REPOSITORY: All CT scans at this facility are submitted to the National Radiology Data Registry (NRDR) Dose Index Registry (DIR) with the [employer] (ACR). RADIATION OPTIMIZATION: All CT scans at this facility use at least one of these dose optimization te chniques: automated exposure control; mA and/or kV adjustment per patient size (includes targeted exa ms where dose is matched to clinical indication); or iterative reconstruction.
--- NOTE | 2022-08-20 20:31 | NUR.NOTE ---
Nursing Note: dialysis in [place]
--- NOTE | 2022-08-20 20:38 | W.ED.GENAD ---
Discharge Plan Disposition Condition: Improving Discharge Details Chief Complaint: AMS/LOC Clinical Impression: Sepsis with encephalopathy and septic shock, Acute pyelonephritis Primary Care Provider: Amanda Pearson ED Provider: Justin Samayoa Home Meds and New Rx's Prescriptions: No Action No Known Home Meds Medical Decision Making 77-year-old male with a past medical history of chronic kidney disease, bilateral nephrostomy tubes, dialysis on Friday, bladder cancer, kidney stones, who presents today for confusion. Significant other who is at bedside states that 3 days ago he accidentally pulled out his left nephrostomy tube. It was replaced yesterday. He went to dialysis today, He came back from dialysis he was confused. Significant other states that this is what usually happens when he is getting an infection. He has been confused, picking things up off the floor, and acting abnormally. No fevers at home over the last 2 hours. Caregiver has noted purulence coming from his new left nephrostomy tube. Patient has no complaints but is confused. No other modifying factors. No current antibiotic use. Exam demonstrates a hypotensive, tachycardic patient, concerning for urosepsis. He has pus coming out of his left nephrostomy tube. We will start broad-spectrum antibiotics of vancomycin and Zosyn, will get CT imaging to evaluate for new obstruction, we will get a CT scan of his head to rule out acute bleed or large infarct. We will rehydrate, monitor closely and reassess. 9:57 PM Patient has clinically improved after rehydration and antibiotics. Blood pressure is now 114/60, heart rate is now down to 85, mentation is still slightly off. CT scan of the head is negative for acute process, CT scan of the abdomen shows the nephrostomy tubes, but no other acute process. We will reach out to [facility] for potential transfer as this patient is a dialysis patient and [facility] is not able to safely excepted dialysis patient at this time. 11 PM I spoke with Dr. Gee of interventional radiology and while he does feel that the patient's tubes eventually may need to be replaced, he does not feel that they need to be replaced emergently at this time. No MedSur beds are available at [facility]. We did contact the ICU and spoke with Dr. Trevino and Dr. Ervin, they do not feel that the patient meets indications for admission to the ICU at this time. [facility] at this time is not able to accept the patient. We did reach out to the [facility] and they are also not able to accept the patient. We also called [facility], [facility], [facility], all of which were unable to accept the patient in transfer. I did discuss this with the who is at bedside, and she states that she does not want the patient transferred to [place] or [place] as she feels that this would be too far and unacceptable. We will continue to hold the patient here and reach back out to [facility] in the morning for potential MedSurg opportunities. 6:25 AM Patient has remained stable throughout the night. Blood pressures remained stable and come up after fluid boluses of 2 L of normal saline. Oxygenation remained stable. Patient did receive vancomycin and Zosyn. We will reach back out to [facility] to discuss repeat admission at their request between 7 and 8 AM. I did update the patient's . 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 Mild white matter disease No hemorrhage. No mass effect. Cerebral ventricles: No ventriculomegaly. Paranasal sinuses: Visualized sinuses are unremarkable. No fluid levels. Mastoid air cells: Visualized mastoid air cells are well aerated. Bones/joints: Unremarkable. No acute fracture. Soft tissues: Unremarkable. IMPRESSION: No acute intracranial abnormality. Thank you for allowing us to participate in the care of your patient. Dictated and Authenticated by: Kennedy Garcia MD 08/20/2022 9:38 PM Eastern Time ([place] & [place]) FINDINGS: Minimal subsegmental atelectasis versus scarring Liver: Normal. No mass. Gallbladder and bile ducts: Normal. No calcified stones. No ductal dilation. Pancreas: Normal. No ductal dilation. Spleen: Normal. No splenomegaly. Adrenal glands: Normal. No mass. Kidneys and ureters: Ureteral stents noted bilaterally terminating in the bladder and bilateral percutaneous nephrostomies. Minimal fullness to the right renal collecting system. No calculi along the course of the stents. Hyperdense cyst upper pole left kidney measuring approximally 3.3 cm. Simple cyst in the right kidney There is a cystic structure with calcifications in the lower pole of the left kidney versus multiple left renal calculi. Faint right renal calculi Stomach and bowel: Large stool in the colon No obstruction. No mucosal thickening. Appendix: No evidence of appendicitis. Intraperitoneal space: Unremarkable. No free air. No significant fluid collection Vasculature: Unremarkable. No abdominal aortic aneurysm. Lymph nodes: Unremarkable. No enlarged lymph nodes. Urinary bladder: Decompressed by a suprapubic catheter Reproductive: Unremarkable as visualized. Bones/joints: Unremarkable. No acute fracture. Soft tissues: Unremarkable. IMPRESSION: Bilateral percutaneous nephrostomies and ureteral stents. Minimal fullness of the right renal collecting system. No calculi observed along the course of the stents Left greater than right nephrolithiasis Thank you for allowing us to participate in the care of your patient. Dictated and Authenticated by: Kennedy Garcia MD 08/20/2022 9:43 PM Eastern Time ([place] & [place]) HPI General Date/Time Provider Initiated Documentation: 08/20/22 20:15. HPI Narrative: 77-year-old male with a past medical history of chronic kidney disease, bilateral nephrostomy tubes, dialysis on Friday, bladder cancer, kidney stones, who presents today for confusion. Significant other who is at bedside states that 3 days ago he accidentally pulled out his left nephrostomy tube. It was replaced yesterday. He went to dialysis today, He came back from dialysis he was confused. Significant other states that this is what usually happens when he is getting an infection. He has been confused, picking things up off the floor, and acting abnormally. No fevers at home over the last 2 hours. Caregiver has noted purulence coming from his new left nephrostomy tube. Patient has no complaints but is confused. No other modifying factors. No current antibiotic use. Related Data Home Medications Medication Instructions Recorded Confirmed Unknown [No Known Home Meds] 08/16/22 08/20/22 Allergies Allergy/AdvReac Type Severity Reaction Status Date / Time oxybutynin AdvReac Severe Other (See Verified 08/18/22 08:26 Comment) General Stated Complaint: AMS/LOC BRITTON: 3 Review of Systems All systems reviewed & are unremarkable except as noted in HPI and below PFSH All Active Problems (Updated 08/21/22 @ 06:27 by Justin Samayoa DO) Displacement of nephrostomy tube (Acute) Sepsis with encephalopathy and septic shock (Acute) Acute pyelonephritis (Acute) Nephrostomy status (Acute) Dialysis patient (Acute) Hydronephrosis, left (Acute) Acute on chronic kidney failure (Acute) ESRD (end stage renal disease) (Acute) History of bladder cancer (Chronic ~2017) Urothelial carcinoma s/p TURBT Parkinson disease (Chronic) CKD (chronic kidney disease) stage 4, GFR 15-29 ml/min (Chronic) Suprapubic catheter (Chronic) Vesicoureteral reflux (Chronic) Urinary retention (Chronic) Bilateral kidney stones (Chronic) Essential tremor (Chronic) Hydronephrosis, right (Chronic) Memory loss (Chronic) Depression (Chronic) Medical History COVID-19 (~10/29/21) Hydronephrosis IgA nephropathy Urothelial carcinoma of bladder (~2017) Surgical History H/O cystoscopy H/O transurethral destruction of bladder lesion (08/08/16) Hx of nephrolithotomy with removal of calculi S/P right inguinal hernia repair (05/15/20) Status post lumbar surgery Family History Other Cancer Social History Smoking/Tobacco Use Status: Former Tobacco Use Quit Date: 06/16/19 Smoking risk assessment performed?: Yes Alcohol Intake: never Drug use: Never Substance use type: does not use Household members: spouse Housing: house current occupation: Retired Do you feel safe at home: Yes Additional Social history: Pt son is present. Exam Narrative Exam Narrative: 1.Const: Well-nourished, Well-developed, appearing stated age 2.Eyes: PERRL, no conjunctival injection, and symmetrical lids. 3.ENT: Atraumatic external nose and ears. Moist MM. Neck: Symmetric, trachea midline, No thyromegaly. 4.CVS: +S1/S2, No murmurs or gallops. Peripheral pulses 2+ and equal in all extremities. Brisk capillary refill in all extremities. 5.RESP: Unlabored respiratory effort. Clear to auscultation bilaterally. No wheezes rales or rhonchi 6.GI: Soft, Nontender/Nondistended, No hepatosplenomegaly. No guarding or rebound. Bilateral nephrostomy tubes are in place. No erythema at the skin. There is purulence coming from the left nephrostomy tube. Suprapubic catheter is in place, nontender. 7.MSK: Normocephalic/Atraumatic, Extremities w/o deformity or ttp No cyanosis or clubbing, Normal movement of all extremities 8.Skin: Warm, Dry. No rashes or lesions. 9.Neuro: soa integration developer II-XII grossly intact. Sensation grossly intact, no focal neurologic deficits. 10.Psych: (AAO) x3. Appropriate mood and affect Course Vital Signs Vital signs: Vital Signs Temperature 37.1 C 08/20/22 20:09 Pulse 92 H 08/20/22 20:09 Respiratory Rate 16 08/20/22 20:09 Blood Pressure 88/44 L 08/20/22 20:09 Pulse Oximetry 95 08/20/22 20:09 Temperature 37.1 C 08/20/22 20:09 Temperature Source Temporal Artery Scan 08/20/22 20:09 Pulse 92 H 08/20/22 20:09 Respiratory Rate 16 08/20/22 20:09 Respiratory Effort Normal, Non-Labored 08/20/22 20:26 Respiratory Depth Normal 08/20/22 20:26 Respiratory Pattern Normal 08/20/22 20:26 Blood Pressure 88/44 L 08/20/22 20:09 Blood Pressure Position Sitting 08/20/22 20:09 Pulse Oximetry 95 08/20/22 20:09 Oxygen Delivery Method Room Air 08/20/22 20:09 Oxygen Flow Rate 0 08/20/22 20:09 Pain Level 0 08/20/22 20:09 Lab/Test Results Lab/Test Results: 08/20/22 20:36 Blood Blood Culture - Pending 08/20/22 20:36 Blood Blood Culture - Pending Critical Care Time Critical Care Time Critical Care Time: Yes Total Critical Care Time: 45 Attestation: Upon my evaluation, this patient had a high probability of imminent or life-threatening deterioration, which required my direct attention, intervention, and personal management. I have personally provided 45 minutes of critical care time exclusive of time spent on separately billable procedures. Time includes review of laboratory data, radiology results, discussion with consultants, and monitoring for potential decompensation. Interventions were performed as documented.
--- NOTE | 2022-08-20 20:45 | DI.CT_ITS ---
Exam(s) CT ABDOMEN PELVIS WO EXAM: CT ABDOMEN PELVIS WO CLINICAL HISTORY: bilateral nephrostomy tube, pus coming from left. TECHNIQUE: Imaging Protocol: Axial computed tomography images with coronal and sagittal reformatted images were created and reviewed. Oral: / no COMPARISON: CT CT ABDOMEN PELVIS WO from 05/12/2022 FINDINGS: ABDOMEN: Lung Bases: Respiratory motion. Mild atelectasis. Enlarged heart. Liver: Normal density. No measurable mass. Gallbladder and biliary tract: Single gallstone. No gallbladder wall thickening or biliary dilatatio n. Pancreas: Normal density, no abnormal calcifications or inflammatory process. Spleen: Normal. Kidneys: Bilateral nephrostomy tubes and bilateral renal stents. the right pigtails of the nephrostom y tube is well as right ureteral stent lie in the lower pole collecting system. There are position t he in the renal pelvis on the prior exam. The positioning of the left sided stent the nephrostomy tu be are unchanged. No perinephric collections. Bilateral hyperdense cysts. Multiple calcifications again noted at the lower pole of the left kidney. Adrenal glands: No masses seen. Lymph nodes: Within normal limits. Abdominal Aorta: Abdominal portion non-dilated. Severe atherosclerotic changes. PELVIS: Bladder: Suprapubic catheter. Nearly empty. Bowel: No obstruction or bowel wall thickening. Large quantity of stool. Peritoneal cavity: No ascites, collection or mesenteric inflammatory response. Reproductive organs: Prostate mildly enlarged with calcifications. Bones: New moderate to severe compression fracture of the mid and anterior portions of the L1 vertebr al body. New mild compression fracture of the superior endplate of L2. IMPRESSION: The positioning of the pigtails of the right nephrostomy tube and right ureteral stent are now positi oned in the lower pole collecting system. No hydronephrosis or perinephric collections are seen. St able appearance of stones at the lower pole of the left kidney. compression fractures of L1 and L2, new since prior exam. RADIATION DOSE DELIVERED: 633.37mGy.cm Total DLP DATA REPOSITORY: All CT scans at this facility are submitted to the National Radiology Data Registry (NRDR) Dose Index Registry (DIR) with the [employer] (A[employer]). RADIATION OPTIMIZATION: All CT scans at this facility use at least one of these dose optimization te chniques: automated exposure control; mA and/or kV adjustment per patient size (includes targeted exa ms where dose is matched to clinical indication); or iterative reconstruction.
[2022-08-20 21:04] LABS: Abs Immature Grans 0.04 10^3/uL (0.0-0.06); Absolute Basophil Count 0.06 10^3/uL (0.0-0.2); Absolute Eosinophil Count 0.06 10^3/uL (0.0-0.7); Absolute Lymphocyte Count 0.89 10^3/uL (1.2-3.4); Absolute Monocyte Count 0.86 10^3/uL (0.1-0.8); Basophils % 0.5; Eosinophils % 0.5; HCT 38.7 % (40.0-50.0); HGB 12.4 g/dL (13.5-17.5); Immature Grans % 0.3; Lymphocytes % 7.1; MCH 31.6 pg (27.0-33.0); MCV 99 fL (80-95); MPV 9.8 fL (8.0-11.0); Monocytes % 6.8; Neutrophils % 84.8; Platelet Count 233 10^3/uL (130-400); RBC 3.92 10^6/uL (4.36-5.78); RDW 17.9 % (11.8-14.1); RDW-SD 65.2 fL
[2022-08-20 21:06] LABS: Lactate 1.9 mmol/L (0.6-1.4)
[2022-08-20] MEDS: Normal Saline 1,000 ML 1000 ML IV ×2 (21:08→22:59)
[2022-08-20] MEDS: PIPERACILLIN/TAZO 4.5 GM in Normal Saline 100 ML IVPB (21:10)
[2022-08-20 21:11] LABS: Absolute Neutrophil Count 10.68 10^3/uL (1.2-6.7)
[2022-08-20 21:21] LABS: ALT 14 U/L (16-63); AST 19 U/L (15-37); Albumin 3.2 g/dL (3.4-5.0); Alkaline Phosphatase 102 U/L (46-116); Anion Gap 8.6 mmol/L (3-11); BUN 19 mg/dL (7-18); Bilirubin, Total 0.6 mg/dL (0.2-1.0); CO2 32.4 mmol/L (21.0-32.0); CREATININE 3.2 mg/dL (0.70-1.30); Chloride 101 mmol/L (98-107); Estimated GFR 19.32 (mL/min/1.73m2); Glucose 148 mg/dL (74-106); Potassium 4.1 mmol/L (3.5-5.1); Sodium 142 mmol/L (136-145); Total Protein 8.1 g/dL (6.4-8.2)
[2022-08-20] MEDS: VANCOMYCIN 1,100 MG in Normal Saline 500 ML 333.3333 MG IVPB (21:32)
--- NOTE | 2022-08-20 21:39 | DI.VRAD_ITS ---
PROCEDURE INFORMATION: Exam: CT Head Without Contrast Exam date and time: 08/20/2022 9:28 PM Age: 77 years old Clinical indication: Other: Confusion, suspect infectious source TECHNIQUE: Imaging protocol: Computed tomography of the head without contrast. 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 Mild white matter disease No hemorrhage. No mass effect. Cerebral ventricles: No ventriculomegaly. Paranasal sinuses: Visualized sinuses are unremarkable. No fluid levels. Mastoid air cells: Visualized mastoid air cells are well aerated. Bones/joints: Unremarkable. No acute fracture. Soft tissues: Unremarkable. IMPRESSION: No acute intracranial abnormality. Dictated and Authenticated by: Kennedy Garcia MD. Ordering:JIM Anderson MD
[2022-08-20 21:40] LABS: Procalcitonin 0.3 ng/mL
[2022-08-20 21:43] LABS: COVID-19 PCR Negative (Negative); Influenza A PCR Negative (Negative); Influenza B PCR Negative (Negative); RSV PCR Negative (Negative)
--- NOTE | 2022-08-20 21:44 | DI.VRAD_ITS ---
PROCEDURE INFORMATION: Exam: CT Abdomen And Pelvis Without Contrast Exam date and time: 08/20/2022 9:31 PM Age: 77 years old Clinical indication: Other: Bilateral nephrostomy tube, pus coming from left TECHNIQUE: Imaging protocol: Computed tomography of the abdomen and pelvis without contrast. COMPARISON: CT ABDOMEN PELVIS WO 05/12/2022 3:40 PM FINDINGS: Minimal subsegmental atelectasis versus scarring Liver: Normal. No mass. Gallbladder and bile ducts: Normal. No calcified stones. No ductal dilation. Pancreas: Normal. No ductal dilation. Spleen: Normal. No splenomegaly. Adrenal glands: Normal. No mass. Kidneys and ureters: Ureteral stents noted bilaterally terminating in the bladder and bilateral percutaneous nephrostomies. Minimal fullness to the right renal collecting system. No calculi along the course of the stents. Hyperdense cyst upper pole left kidney measuring approximally 3.3 cm. Simple cyst in the right kidney There is a cystic structure with calcifications in the lower pole of the left kidney versus multiple left renal calculi. Faint right renal calculi Stomach and bowel: Large stool in the colon No obstruction. No mucosal thickening. Appendix: No evidence of appendicitis. Intraperitoneal space: Unremarkable. No free air. No significant fluid collection. Vasculature: Unremarkable. No abdominal aortic aneurysm. Lymph nodes: Unremarkable. No enlarged lymph nodes. Urinary bladder: Decompressed by a suprapubic catheter Reproductive: Unremarkable as visualized. Bones/joints: Unremarkable. No acute fracture. Soft tissues: Unremarkable. IMPRESSION: Bilateral percutaneous nephrostomies and ureteral stents. Minimal fullness of the right renal collecting system. No calculi observed along the course of the stents Left greater than right nephrolithiasis Dictated and Authenticated by: Kennedy Garcia MD. Ordering:JIM Anderson MD
[2022-08-20 21:45] LABS: Bilirubin Negative (Negative); Blood Large (Negative); Clarity Cloudy (Clear); Glucose Negative (Negative); Ketones Negative (Negative); Leukocyte Esterase Large (Negative); Nitrite Negative (Negative); Specific Gravity 1.015 (1.005-1.025); Urobilinogen 0.2 mg/dL (Up to 0.2); pH >= 9.0 (5-8)
[2022-08-20 21:52] LABS: Bacteria Moderate HPF (Negative); C & S Indicated? Yes; Casts Negative LPF (Negative); Crystals Negative HPF (Negative); Epithelial Cells Few HPF (Negative); Mucus Negative (Negative); Other Cells Negative (Negative); RBC >50 HPF (0-2); WBC 20-50 HPF (0-5)
[2022-08-20 22:32] LABS: Source Nasopharynx
--- NOTE | 2022-08-20 23:04 | NUR.NOTE ---
Nursing Note:pt beginning to get upset and cursing at staff, reassurance given, pts family at bedside
[2022-08-21] VITALS (58 sets, daily range): BP systolic 90–139; BP diastolic 52–88; PULSE 55–92; RESP 14–22; O2SAT 79–95
--- NOTE | 2022-08-21 01:31 | NUR.NOTE ---
Nursing Note: pt awakes and is confused, asking how to get OOB, easily redirected, pt given more warm blankets
--- NOTE | 2022-08-21 09:12 | NUR.NOTE ---
Spoke with son, Sabas, to advise him that we are still looking for bed options with dialysis.
--- NOTE | 2022-08-21 09:42 | W.EDPROG ---
Date of service: 08/21/22 Time of Service: 09:42 Medical Decision Making Spoke with pt and his at bedside, reviewed workup thus far and suspect likely urinary source for infection. He feels better now then when he came in though still has general malaise. Discussed with and discussed that other hospitals that can do dialysis are at capacity and she doesn't want to go to other hospitals further away. Discussed that due to him being on dialysis we can't admit him here. Offered to call other hospitals again, [facility] still full, and patient do not want to go anywhere else. The and patient decided they are going to leave against my medical advise and drive to the ED at [facility]. Advised theres a potential for deterioration if this is done without medical providers with him and patient and accept these risks of deterioration that could potentially lead to disabilities requiring constant care and also . They understand they can change their minds and stay and we can reach out to other hospitals. Sign Out Sign Out Data: Sign Out Comment: Dialysis patient, pyelonephritis/UTI with sepsis, bilateral nephrostomy tubes. Vancomycin and Zosyn administered. Contacting [facility] at 8 AM to reassess potential transfer options. Please refer to note for nuances of case Last updated by Justin Samayoa DO at 08/21/22 07:18 Discharge Plan Disposition Patient Disposition: Against Medical Advice Condition: Improving Discharge Details Chief Complaint: AMS/LOC Clinical Impression: Sepsis with encephalopathy and septic shock, Acute pyelonephritis Primary Care Provider: Amanda Pearson ED Provider: Joe Chaudhari Home Meds and New Rx's Prescriptions: No Action No Known Home Meds Discharge Instructions Instructions: Urinary Tract Infection in Men (ED) Additional Instructions: you are likely suffering from a urine infection and could be due to your nephrostomy tube you chose to leave instead of staying for antibiotics and calling other hospitals for transfer you can always return to the emergency department especially if you feel more ill or have difficulty breathing or chest pain
--- NOTE | 2022-08-21 10:11 | NUR.NOTE ---
contacted the son, Sabas to let him know that the S/O ([facility]) has decided to take the patient AMA from [facility] to take him to [facility] [place].
== END 2022-08-21 10:20 | disposition left against medical advice (07) ==
PROVIDERS: Student in an Organized Health Care Education/Training Program; Emergency Provider Emergency Medicine; PCP Nurse Practitioner Family
DX: A41.9 Sepsis, unspecified organism (principal); R65.21 Severe sepsis with septic shock; G93.41 Metabolic encephalopathy; N10 Acute pyelonephritis; N18.9 Chronic kidney disease, unspecified; I95.9 Hypotension, unspecified; R00.0 Tachycardia, unspecified; Z99.2 Dependence on renal dialysis; Z20.822 Contact with and (suspected) exposure to COVID-19; Z86.16 Personal history of COVID-19
CPT/HCPCS: 36415; 80053; 84145; 87040; 87077; 87637; 96361; 96365; 96366; 96368; 99291; 70450; 74176; 81003; 81015; 83605; 85025; 87086; 87186; J2543

== ENCOUNTER 2022-09-06 16:19 | Outpatient (REF) | payer MEDICARE, SELFPAY ==
[2022-09-06 10:58] LABS: Bilirubin Negative (Negative); Blood Moderate (Negative); Clarity Cloudy (Clear); Glucose Negative (Negative); Ketones Negative (Negative); Leukocyte Esterase Large (Negative); Nitrite Negative (Negative); Urobilinogen 0.2 mg/dL (Up to 0.2); pH 8.5 (5-8)
[2022-09-06 11:10] LABS: Bacteria Many HPF (Negative); C & S Indicated? C&S Done As Ordered; Casts Negative LPF (Negative); Crystals Negative HPF (Negative); Epithelial Cells Rare HPF (Negative); Mucus Negative (Negative); Other Cells Rare Transitional (Negative); WBC >50 HPF (0-5)
== END 2022-09-06 16:20 | disposition home or self-care (01) ==
LOC: LBN 16:19
PROVIDERS: PCP Nurse Practitioner Family; Visit Provider Nurse Practitioner Gerontology
DX: R10.2 Pelvic and perineal pain (principal)
CPT/HCPCS: 87077; 81003; 81015; 87086; 87186

== ENCOUNTER → 2022-10-04 10:41 | Outpatient (BNVA) | payer MEDICARE, BC, SELFPAY | PROVIDERS: PCP Nurse Practitioner Family; Visit Provider Urology | DX: Z43.5 Encounter for attention to cystostomy (principal) | CPT/HCPCS: 51705; 96372; J0696 ==

== ENCOUNTER 2022-10-23 13:23 | Outpatient (REF) | payer MEDICARE, SELFPAY | END 2022-10-23 13:24 | disposition home or self-care (01) | LOC: LBN 13:23 | PROVIDERS: PCP Nurse Practitioner Family; Visit Provider Urology | DX: N39.0 Urinary tract infection, site not specified (principal); R33.9 Retention of urine, unspecified; Z93.6 Other artificial openings of urinary tract status | CPT/HCPCS: 81003; 87086 ==

== ENCOUNTER → 2022-11-07 14:45 | Outpatient (BNVA) | payer MEDICARE, BC, SELFPAY | PROVIDERS: PCP Nurse Practitioner Family; Referring Provider Nurse Practitioner Family; Visit Provider Urology | DX: R33.9 Retention of urine, unspecified (principal); Z87.440 Personal history of urinary (tract) infections; Z93.59 Other cystostomy status | CPT/HCPCS: 96372; J0696 ==

== ENCOUNTER → 2023-08-15 13:28 | Outpatient (BNVA) | payer MEDICARE, BC, SELFPAY | PROVIDERS: PCP Nurse Practitioner Family; Referring Provider Nurse Practitioner Family; Visit Provider Urology | DX: R82.90 Unspecified abnormal findings in urine (principal); Z93.6 Other artificial openings of urinary tract status; Z99.2 Dependence on renal dialysis; Z87.440 Personal history of urinary (tract) infections | CPT/HCPCS: 99214 ==

== ENCOUNTER 2023-08-15 18:37 | Outpatient (REF) | payer MEDICARE, BC, SELFPAY | END 2023-08-15 18:38 | disposition home or self-care (01) | LOC: LBN 18:37 | PROVIDERS: PCP Nurse Practitioner Family; Visit Provider Urology | DX: R82.998 Other abnormal findings in urine (principal); R41.82 Altered mental status, unspecified | CPT/HCPCS: 87077; 87086; 87186 ==

== ENCOUNTER → 2023-08-21 12:51 | Outpatient (BNVA) | payer MEDICARE, BC, SELFPAY | PROVIDERS: PCP Nurse Practitioner Family; Referring Provider Nurse Practitioner Family; Visit Provider Urology | DX: N39.0 Urinary tract infection, site not specified (principal); Z99.2 Dependence on renal dialysis | CPT/HCPCS: 99213 ==